=== PATIENT | female | born 1970 | race African-American/Black ===

== ENCOUNTER 2017-03-09 23:03 | Emergency (ER) | payer MEDICARE, MEDICAID ==
--- NOTE | 2017-03-09 23:20 | ER Document Report ---
ED Medical Screen (RME) - General Chief Complaint: Abdominal Pain Stated Complaint: ABDOMINAL PAIN Mode of Arrival: Medic Information source: Patient Notes: Patient complains of upper middle and right upper quadrant abdominal pain for the past 6 days. Patient denies any nausea, vomiting, or diarrhea. Last bowel movement was today. Patient denies any urinary symptoms or fever. 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 Small bowel obstruction with colostomy TRAVEL OUTSIDE OF THE [place] IN LAST 30 DAYS: No - Related Data Allergies/Adverse Reactions: methadone [Methadone] Allergy (Verified 08/03/15 09:36) Past Medical History - Past Medical History Cardiac Medical History: Reports: Hx Hypertension Neurological Medical History: Reports: Hx Cerebrovascular Accident - aneurysm Musculoskeltal Medical History: Reports Hx Arthritis, Reports Hx Musculoskeletal Trauma Past Surgical History: Reports: Hx Abdominal Surgery, Hx Section, Hx Neurologic Surgery - aneurysm clip, Hx Orthopedic Surgery - back surgery - Immunizations Hx Diphtheria, Pertussis, Tetanus Vaccination: Yes - unk Physical Exam - Abdominal Tenderness: Tender - Right upper quadrant, upper middle abdominal tenderness
[2017-03-09 23:21] VITALS: BP 117/71
== END 2017-03-10 02:53 | disposition left against medical advice (07) ==
LOC: ER 23:03
DX: R10.811 Right upper quadrant abdominal tenderness (principal); I69.951 Hemiplegia and hemiparesis following unspecified cerebrovascular disease affecting right dominant side; I10 Essential (primary) hypertension; Z88.6 Allergy status to analgesic agent
CPT/HCPCS: 99281

== ENCOUNTER 2018-03-21 05:13 | Day surgery (SDC) | payer MEDICARE, MEDICAID ==
[2018-03-14 10:15] LABS: ABSOLUTE BASOPHILS # (AUTO) 0.1 10^3/uL (0.0-0.2); ABSOLUTE LYMPHOCYTES (AUTO) 3.2 10^3/uL (0.5-4.7); ABSOLUTE MONOCYTES (AUTO) 0.4 10^3/uL (0.1-1.4); ABSOLUTE NEUT (AUTO) 3.7 10^3/uL (1.7-8.2); BASOPHILS % (AUTO) 1.2 % (0-2); EOSINOPHILS % (AUTO) 0.5 % (0-6); HEMATOCRIT 37.6 % (36.0-47.0); HEMOGLOBIN 12.7 g/dL (12.0-15.5); LYMPHOCYTES % (AUTO) 42.8 % (13-45); MEAN CORPUSCULAR HEMOGLOBIN 31.2 pg (27.0-33.4); MEAN CORPUSCULAR HGB CONC 33.7 g/dL (32.0-36.0); MEAN CORPUSCULAR VOLUME 93 fl (80-97); MONOCYTES % (AUTO) 5.6 % (3-13); PLATELET COUNT 256 10^3/uL (150-450); RED BLOOD COUNT 4.06 10^6/uL (3.72-5.28); RED CELL DISTRIBUTION WIDTH 15.7 % (11.5-14.0); SEGMENTED NEUTROPHILS % (AUTO) 49.9 % (42-78); TOTAL CELLS COUNTED % (AUTO) 100 %; WHITE BLOOD COUNT 7.4 10^3/uL (4.0-10.5)
--- NOTE | 2018-03-14 10:22 | RADIOLOGY REPORT (SQ) ---
EXAM DESCRIPTION: CHEST PA/LATERAL COMPLETED DATE/TIME: 03/14/2018 9:59 am REASON FOR STUDY: PRE OP COMPARISON: 04/03/2016 EXAM PARAMETERS: NUMBER OF VIEWS: two views TECHNIQUE: Digital Frontal and Lateral radiographic views of the chest acquired. RADIATION DOSE: NA LIMITATIONS: none FINDINGS: LUNGS AND PLEURA: No opacities, masses or pneumothorax. No pleural effusion. MEDIASTINUM AND HILAR STRUCTURES: No masses or contour abnormalities. HEART AND VASCULAR STRUCTURES: Heart normal size. No evidence for failure. BONES: No acute findings. HARDWARE: None in the chest. OTHER: No other significant finding. IMPRESSION: NO SIGNIFICANT RADIOGRAPHIC FINDING IN THE CHEST. TECHNICAL DOCUMENTATION: JOB ID: [id number] [email or web address]- All Rights Reserved Reading location - IP/workstation name: [email or web address]
[2018-03-14 10:44] LABS: ANION GAP 8 (5-19); BLOOD UREA NITROGEN 14 mg/dL (7-20); CALCIUM 9.7 mg/dL (8.4-10.2); CARBON DIOXIDE 28 mmol/L (22-30); CHLORIDE 107 mmol/L (98-107); GLUCOSE 80 mg/dL (75-110); POTASSIUM 4.6 mmol/L (3.6-5.0); SODIUM 143.3 mmol/L (137-145)
--- NOTE | 2018-03-14 13:40 | EKG REPORT ---
SEVERITY:- BORDERLINE ECG - SINUS RHYTHM PROBABLE LEFT ATRIAL ABNORMALITY ST ELEV, PROBABLE NORMAL EARLY REPOL PATTERN : Confirmed by: Danyel Meyers MD 14-Mar-2018 13:39:34
[~2018-03-21 05:13] MED LIST: LACTATED RINGERS 1000 ML IV PRN; LIDOCAINE 0.5% INJ-PF (5 MG/ML) 50 ML SDV SUBCUT PRN; METRONIDAZOLE 500 MG/NS RTU 100 ML IV PRN
[2018-03-21] MEDS ORDERED: BUPIVACAINE HCL 0.25 % INJ/PF (2.5 MG/1 ML) 30 ML VIAL ONE (06:41)
[2018-03-21] MEDS ORDERED: BUPIVACAINE HCL 0.5%-EPI 1:200000 INJ/PF 30 ML VIAL ONE (06:41)
[2018-03-21] MEDS ORDERED: MIDAZOLAM 2 MG/2 ML INJ ONE (07:18)
[2018-03-21] MEDS ORDERED: FENTANYL CITRATE INJ/PF 100 MCG/2 ML AMPUL ONE (07:18)
[2018-03-21] MEDS ORDERED: PROPOFOL INJ 200 MG/20 ML VIAL IV ONE (07:19)
[2018-03-21] MEDS ORDERED: ACETAMINOPHEN 100 ML IV ONE (07:19)
[2018-03-21] MEDS ORDERED: HYDROMORPHONE HCL INJ/PF 2 MG/ML AMPULE ONE (07:19)
[2018-03-21] MEDS ORDERED: BUPIVACAINE HCL 0.25 % INJ/PF (2.5 MG/1 ML) 30 ML VIAL INJ ONE ×2 (07:31)
[2018-03-21] MEDS ORDERED: DIPHENHYDRAMINE HCL 50 MG/ML VIAL IV PRN (08:02)
[2018-03-21] MEDS ORDERED: FENTANYL CITRATE INJ/PF 100 MCG/2 ML AMPUL IV PRN ×3 (08:02)
[2018-03-21] MEDS ORDERED: PROMETHAZINE HCL INJ 25 MG/1 ML VIAL IV PRN (08:02)
[2018-03-21] MEDS ORDERED: MEPERIDINE HCL/PF INJ 25 MG/1 ML DISP.SYRIN IV PRN (08:02)
[2018-03-21] MEDS ORDERED: MORPHINE SULFATE 10 MG/ML INJ IV PRN (08:02)
[2018-03-21] MEDS ORDERED: BACITRACIN ZINC OINTMENT 15 GM ONE (08:34)
[2018-03-21] MEDS ORDERED: LIDOCAINE 2% JELLY 30 ML TUBE ONE (08:35)
[2018-03-21] MEDS: FENTANYL CITRATE INJ/PF 100 MCG/2 ML AMPUL ONE ×2 (09:15→09:20)
--- NOTE | 2018-03-21 09:19 | Operative Report ---
Nonrecallable Operative Report DATE OF SURGERY: 03/21/18 PREOPERATIVE DIAGNOSIS: Enlarged, partially thrombosed internal and external hemorrhoids. POSTOPERATIVE DIAGNOSIS: Same as above OPERATION: 1. 2 column surgical hemorrhoidectomy (right posterior and left lateral columns). 2. Rubber band ligation of right anterior internal hemorrhoid column. SURGEON: SELINA ALLRED 1ST LEADITE WORKER: KAYLEE LOO ANESTHESIA: GA TISSUE REMOVED OR ALTERED: Left lateral and right posterior hemorrhoid columns COMPLICATIONS: None apparent ESTIMATED BLOOD LOSS: Minimal PROCEDURE: After informed consent was obtained, the patient was brought into the operating room and laid in the prone, jackknife position. Area of the rectum was prepped and draped in a normal sterile fashion. An anal block was created with quarter percent Marcaine. A Hill-Morales retractor was inserted after the anal block. The right posterior and left lateral columns were enlarged in the internal and external positions. There were enlarged right anterior internal hemorrhoids present as well. The left lateral and right posterior columns were noticeably worse than the right anterior column. Dissection was begun in the left lateral column. Left lateral column was excised using Bovie electrocautery. The resultant defect was closed using 3-0 chromic suture in simple running fashion. Great care was taken to reapproximate mucosa to mucosa , anoderm to anoderm, and skin to skin. Once this was completed, attention was turned to the right posterior column. In similar fashion, the right posterior column was excised using Bovie electrocautery. The defect was closed using 3-0 chromic suture in simple running fashion. Great care was taken to reapproximate mucosa to mucosa, skin to skin, and anoderm to anoderm. Next attention was turned to the right anterior column. The internal hemorrhoids were ligated using the rubber band ligation device. This was performed 1. After this was completed the Hill-Morales retractor was removed , and the procedure was concluded. All sponge, instrument, and needle counts were correct 2. Kaylee Loo PAC was scrubbed and present the entirety of the procedure. She assisted with all portions of the procedure including holding of the retractors, removing of the hemorrhoids, closing of the defect, placement of the rubber band, and placement of the dressing. Condition: Stable.
[2018-03-21] MEDS ORDERED: OXYCODONE HCL IR 5 MG TABLET ONE (10:00)
[2018-03-21] MEDS ORDERED: OXYCODONE-ACETAMINOPHEN 5-325 MG TABLET ONE (10:01)
[2018-03-21 11:23] VITALS: BP 134/81
[2018-03-21] MEDS ORDERED: GLYCOPYRROLATE INJ 0.4 MG/2 ML VIAL ONE (11:36)
[2018-03-21] MEDS ORDERED: NEOSTIGMINE METHYLSULFATE 10 MG/10 ML VIAL ONE (11:36)
[2018-03-21] MEDS ORDERED: ROCURONIUM BROMIDE INJ 50 MG/5 ML VIAL IV ONE (11:36)
[2018-03-21] MEDS ORDERED: PHENYLEPHRINE HCL INJ/PF 10 MG/1 ML SDV ONE (11:36)
[2018-03-21] MEDS ORDERED: LIDOCAINE 2% INJ-PF (20 MG/ML) 2 ML AMPUL ONE (11:36)
[2018-03-21] MEDS ORDERED: ONDANSETRON HCL INJ/PF 4 MG/2 ML SDV ONE (11:36)
[2018-03-21] MEDS ORDERED: DEXAMETHASONE SOD PHOSPHATE INJ 4 MG/1 ML VIAL ONE (11:36)
== END 2018-03-21 10:55 | disposition home or self-care (01) ==
LOC: OROUT 05:13
PROVIDERS: ATTEND Surgery
DX: K64.4 Residual hemorrhoidal skin tags (principal); K64.8 Other hemorrhoids; K62.5 Hemorrhage of anus and rectum; I10 Essential (primary) hypertension; E78.00 Pure hypercholesterolemia, unspecified; G47.30 Sleep apnea, unspecified; M19.90 Unspecified osteoarthritis, unspecified site; F17.210 Nicotine dependence, cigarettes, uncomplicated; Z79.899 Other long term (current) drug therapy; Z86.73 Personal history of transient ischemic attack (TIA), and cerebral infarction without residual deficits; Z01.818 Encounter for other preprocedural examination
CPT/HCPCS: 93005; 36415 ×2; 84132; 85025; 80048; 88305 ×2; 71046; 93010; 46260; J2250; J3490 ×3; J1100; J3010; A9270 ×2; J1170; J2370; J2405; J2704; J0131; 902

== ENCOUNTER → 2018-05-17 | Outpatient (CLI) | payer MEDICARE, MEDICAID | LOC: LAB 11:40 | PROVIDERS: ATTEND Nurse Practitioner Family | DX: M25.562 Pain in left knee (principal) | CPT/HCPCS: 36415; 85652; 86140; 86430 ==

== ENCOUNTER → 2018-06-21 | Outpatient (CLI) | payer MEDICARE, MEDICAID | LOC: LAB 13:58 | PROVIDERS: ATTEND Nurse Practitioner Family | DX: M25.562 Pain in left knee (principal) | CPT/HCPCS: 36415; 85652; 86140; 86430 ==

== ENCOUNTER 2018-09-25 18:30 | Emergency (ER) | payer MEDICARE, MEDICAID ==
--- NOTE | 2018-09-25 19:17 | ER Document Report ---
ED General - General Chief Complaint: Hand Pain Stated Complaint: FINGER ISSUE Time Seen by Provider: 09/25/18 19:16 Notes: Patient is a 48-year-old female that presents to the emergency department for chief complaint of finger infection. Patient states she is noticed over the last 3 days, that she has had swelling and redness on the left small finger. She states it is tender and painful, and she decided come to the emergency department to have this evaluated. She denies noting any fevers, chills, night sweats, nausea, vomiting abdominal pain, chest pain or any other complaints at this time. She currently rates her pain as a 3 out of 10, constant, dull ache, worse with palpation. Past Medical History: CVA, hypertension, hyperlipidemia Past Surgical History: Aneurysmal clipping Social History: Denies tobacco, alcohol or drug use Family History: Reviewed and noncontributory for presenting illness Allergies: Reviewed, see documented allergy list. REVIEW OF SYSTEMS: Other than noted above, the 12 point review of systems was reviewed with the patient and were negative, all pertinent findings are included in the HPI. PHYSICAL EXAMINATION: Vital signs reviewed, nursing noted reviewed. GENERAL: Well-appearing, well-nourished and in no acute distress. HEAD: Atraumatic, normocephalic. EYES: Eyes appear normal, extraocular movements intact, sclera anicteric, conjunctiva are normal. ENT: nares patent, oropharynx clear without exudates. Moist mucous membranes. NECK: Normal range of motion, supple without lymphadenopathy LUNGS: Breath sounds clear to auscultation bilaterally and equal. No wheezes rales or rhonchi. HEART: Regular rate and rhythm without murmurs ABDOMEN: Soft, nontender, normoactive bowel sounds. No rebound, guarding, or rigidity. No masses appreciated. EXTREMITIES: Nontender, good range of motion, no pitting or edema. The left fifth digit demonstrates a radial paronychia, tenderness with palpation, there is some fluctuance with palpation as well. Patient is able to passively extend her finger without pain, there is no fullness or tenderness over the pad of the finger. NEUROLOGICAL: Chronic right-sided neurological deficits, weakness and flexion contracture at the wrist on the right, and patient is fitted with a foot drop brace on the right leg. Sensation and strength, intact distally in the left upper and left lower extremity. PSYCH: Normal mood, normal affect. SKIN: Warm, Dry, normal turgor, no rashes or lesions noted on exposed skin TRAVEL OUTSIDE OF THE [place] IN LAST 30 DAYS: No - Related Data Allergies/Adverse Reactions: methadone [Methadone] Allergy (Verified 09/25/18 18:33) Past Medical History - Social History Smoking Status: Never Smoker Family History: None, Reviewed & Not Pertinent - Past Medical History Cardiac Medical History: Reports: Hx Hypertension Denies: Hx Coronary Artery Disease, Hx Heart Attack Pulmonary Medical History: Denies: Hx Asthma, Hx Bronchitis, Hx COPD, Hx Pneumonia Neurological Medical History: Reports: Hx Cerebrovascular Accident - 14YRS AGO AFFECTED RIGHT SIDE, ABLE TO AMBULATE. Denies: Hx Seizures Renal/ Medical History: Denies: Hx Peritoneal Dialysis Musculoskeletal Medical History: Reports Hx Arthritis - LEFT KNEE AND HAND, Reports Hx Musculoskeletal Trauma Past Surgical History: Reports: Hx Abdominal Surgery, Hx Section, Hx Neurologic Surgery - aneurysm clip, Hx Orthopedic Surgery - back surgery - Immunizations Hx Diphtheria, Pertussis, Tetanus Vaccination: Yes Physical Exam - Vital signs Vitals: Temp Pulse Resp BP Pulse Ox 98.0 F 76 20 142/82 H 98 09/25/18 18:46 09/25/18 18:46 09/25/18 18:46 09/25/18 18:46 09/25/18 18:46 Course - Re-evaluation Re-evalutation: Patient seen and examined vital signs reviewed. Patient was evaluated and treated as appropriate for the patient's presenting symptoms and complaint, with consideration of any critical or life threatening conditions that may be associated with their obtained history and exam as noted above. Patient was treated with incision and drainage of the paronychia as noted, patient tolerated well, given a dose of doxycycline. The patient was re-evaluated and was stable and improved Evaluation was most consistent with paronychia of the fifth digit of the left hand. Patient discharged on doxycycline, advised warm soapy soaks, at least 3 times daily for 20 minutes. Plan of care was discussed with the patient at this point, after careful consideration I feel that that patient can be discharged from the emergency department, the patient was educated treatments and reasons to return to the emergency department based on their presumed diagnosis as noted above, they were advised to followup with a primary care physician in 2-3 days. Patient was agreeable to plan of care. *Note is created using voice recognition software and may contain spelling, syntax or grammatical errors. - Vital Signs Vital signs: Temp Pulse Resp BP Pulse Ox 97.8 F 75 18 131/81 H 100 09/25/18 21:06 09/25/18 21:06 09/25/18 21:06 09/25/18 21:06 09/25/18 21:06 Procedures - Incision and Drainage Left 5th digit Type: Simple Anesthetic type: 1% Lidocaine mL's of anesthetic: 1 Blade size: 11 I&D procedure: Shurclens applied Incision Method: Incision made by scalpel Amount/type of drainage: 1ml Notes: Left medial paronychia, no complications, patient tolerated well. Discharge - Discharge Clinical Impression: Paronychia Condition: Stable Disposition: HOME, SELF-CARE Instructions: Paronychia ([facility]) Additional Instructions: Please soak your finger for 20 minutes 3-4 times daily in warm soapy water for the next 5-7 days. Take antibiotics as prescribed. Prescriptions: Doxycycline Hyclate 100 mg PO BID #14 capsule Referrals: RILEY VALVERDE MD [Primary Care Provider] - Follow up in 3-5 days
[2018-09-25] MEDS ORDERED: LIDOCAINE 1% INJ-PF (10 MG/ML) 30 ML SDV INJ ONE (19:52)
[2018-09-25 21:08] VITALS: BP 131/81
== END 2018-09-25 21:08 | disposition home or self-care (01) ==
LOC: ER 18:30
DX: L03.012 Cellulitis of left finger (principal); I10 Essential (primary) hypertension
CPT/HCPCS: 99283; 10060; J3490

== ENCOUNTER 2019-11-26 14:29 | Emergency (ER) | payer MEDICARE ==
--- NOTE | 2019-11-26 15:09 | ER Document Report ---
ED General - General Chief Complaint: Unresponsive Stated Complaint: UNRESPONSIVE/AMS Primary Care Provider: RILEY VALVERDE MD [Primary Care Provider] - Follow up as needed Information source: Relative, Emergency Med Personnel, [facility] Records Cannot obtain history due to: Altered mental status TRAVEL OUTSIDE OF THE [place] IN LAST 30 DAYS: No - HPI Notes: Brought in by EMS after family were worried because she had not been answering today. Last time they had seen her in been over the house was Sunday or 2 days ago. They said she seemed like she was not feeling well when I talked her on the phone yesterday. They said she had in the last days been complaining of some rectal bleeding. Per the notes she has a prior history of hemorrhoid ectomy, and very remote history of colectomy for unclear etiology per patient's history in the past. She also per EMS has a history of subarachnoid hemorrhage from an aneurysm unclear the timing. From that she has residual right upper extremity contracture and facial droop but is usually functional and independent lives at home. EMS say that when they found her she was in a chair breathing on her own her blood pressure was 40 over palp heart rate was in the 130s she was not responding to deep stimuli they achieved IV access in the foot and upper extremity and she received in route about 1100 cc LR and initiated Levophed through the foot IV. They said sugars were within normal limits and patient be angie to talk respond as blood pressure improved. And map increased from 50s to 60 and heart rate decreased to the 110s. They did not see any evidence of any bleeding - Related Data Allergies/Adverse Reactions: methadone [Methadone] Allergy (Verified 05/04/19 21:49) Past Medical History - Social History Smoking Status: Unknown if Ever Smoked Family History: None, Reviewed & Not Pertinent - Past Medical History Cardiac Medical History: Reports: Hx Hypertension Denies: Hx Coronary Artery Disease, Hx Heart Attack Pulmonary Medical History: Denies: Hx Asthma, Hx Bronchitis, Hx COPD, Hx Pneumonia Neurological Medical History: Reports: Hx Cerebrovascular Accident - 14YRS AGO AFFECTED RIGHT SIDE, ABLE TO AMBULATE. Denies: Hx Seizures Renal/ Medical History: Denies: Hx Peritoneal Dialysis Musculoskeletal Medical History: Reports Hx Arthritis - LEFT KNEE AND HAND, Reports Hx Musculoskeletal Trauma Past Surgical History: Reports: Hx Abdominal Surgery, Hx Section, Hx Neurologic Surgery - aneurysm clip, Hx Orthopedic Surgery - back surgery - Immunizations Hx Diphtheria, Pertussis, Tetanus Vaccination: Yes Review of Systems - Review of Systems -: Yes ROS unobtainable due to patient's medical condition Physical Exam - Vital signs Vitals: Pulse Ox 99 11/26/19 14:29 - General General appearance: Other - Lethargic, but arousable and can stay alert for time when you are talking to her. Mild tachypnea and SPO2 92% when on room air, appears unwell but no acute distress In distress: Mild - HEENT Head: Normocephalic, Atraumatic. No: Open wounds Eyes: No: Pale conjunctiva, Scleral icterus Conjunctiva: No: Injected Extraocular movements intact: Yes Pupils: PERRL Nerve palsy: Yes - Right-sided facial droop Visual tang normal: No - No gaze palsy unable to keep attention long enough to do finger counting no Tympanic membrane: No: Hemotympanum - No otorrhea or rhinorrhea Hearing loss: No: Left, Right Mouth/Lips: Normal Mucous membranes: Dry Pharynx: Normal. No: Potential airway comprom. Neck: Normal. No: Lymphadenopathy, Meningismus - Respiratory Respiratory status: Tachypnea - Very mild tachypnea when on room air, no distress on a few liters nasal cannula. Chest status: Nontender. No: Wounds Breath sounds: Decreased air movement - Overall decreased air movement no focal findings or wheeze rales rhonchi Chest palpation: Normal. No: Wounds - Cardiovascular Rhythm: Regular, Tachycardia Pulses: Decreased: Radial - 30 but 1+ symmetric bilateral radial and dorsalis pedis, Dorsalis pedis Normal capillary refill: No - Symmetric delayed by a second bilateral toes - Abdominal Inspection: Healed incision - Old well-healed midline laparotomy and prior colostomy scar site Tenderness: Tender - Intermittently does have some mild tenderness to deeper palpation in general abdomen without focality, no rebound guarding or acute abdomen no distention. No: Rebound Organomegaly: No organomegaly - Rectal Stool: Heme positive - Few external hemorrhoids appear non-thrombosed no tears or bleeding externally. On digital exam no internal masses or bright red blood brown soft stool is positive for occult testing - Genitourinary External exam: Other - No praneeth vaginal bleeding or bleeding per urethra, on Thornton insertion after hours being observed and not having peed had output of about 400 cc very dark semi-cloudy urine without praneeth clots or blood continues to have some minimal output over the next hour - Back Back: Nontender. No: CVA tenderness, Vertebra tenderness, Wounds - No evidence of any pressure skin breakdown. - Extremities General upper extremity: Normal inspection - No evidence of any pressure wounds, Normal temperature General lower extremity: Normal color, Normal temperature. No: Edema - Neurological Neuro grossly intact: No - Waxing and waning neuro exam over the hours in the ED. Cognition: Confused - Waxing and waning level of alertness. Perseverates some during conversations and then other periods answering questions with few word answers which are appropriate but loses attention quickly. Right upper extre mity flexion contracture (family report at baseline). Tone increased no clonus. Able to grasp hand at some point in the exam when able to pay attention. Resist gravity for few seconds on the left lower extremity and left upper extremity., Inattentive - Psychological Associated symptoms: Psychomotor depression. No: Irritable, Psychomotor agitation, Uncooperative - Skin Skin Temperature: Warm Skin Moisture: Dry Course - Re-evaluation Re-evalutation: 11/26/19 23:07 Patient received 1/2 L LR and had been started on 6 Levophed through her foot IV per EMS. Her blood pressures had improved from 40 systolic to maps now on ar rival at 60. We kept Levophed at 6 and started liter of LR. Over the course of the ED stay here she received another 2 L of LR which makes her total fluid intake from EMS and [facility] 3.5 L LR. She is urinated per Thornton about 400 cc of dark urine her kidneys are not failure BUN 80. Potassium within normal limits. EKG reviewed per above. She has evidence of significant pyuria positive leukocyte esterase, blood in the urine. Her blood pressures have improved but she still overall very dehydrated ICU provider, [employer], did bedside ultrasound assess volume status IVC very compressible and heart appears to be having good contractility her heart rate is improved to about 110s and her map has been fairly stable at 70. I just ordered another liter of LR prior to her transfer. Spoke with the ICU attending and urology at [facility] and who have accepted. Have given ceftriaxone sent the urine culture off blood cultures have been sent off for any antibiotics started. She did have a positive occult blood test on her rectal exam no praneeth bladder evidence of bleeding. Had a gram drop in her hemoglobin today when she arrived she was very hypertensive compared to prior which was not in renal failure. But she is not had evidence process of blood in her minimal urine urine output while she has been in the ED to suggest acute blood loss. (She had complained the family in the days prior when they were talking to her about some rectal bleeding secondary to her known hemorrhoids. 11/26/19 23:11 - Vital Signs Vital signs: Temp Pulse Resp BP Pulse Ox 98.7 F 16 87/50 L 97 11/26/19 22:51 11/26/19 22:51 11/26/19 22:51 11/26/19 22:51 - Laboratory Result Diagrams: 11/26/19 20:00 11/26/19 20:00 Laboratory results interpreted by me: 11/26/19 11/26/19 11/26/19 15:04 15:04 15:04 RBC 3.57 L Hgb 11.4 L Hct 34.9 L MCV 98 H MCH RDW 14.5 H Band Neutrophils % 9 H Lymphocytes % (Manual) Monocytes % (Manual) Abs Monocytes (Manual) PT APTT VBG pH 7.20 L VBG HCO3 15.9 L Sodium Chloride Carbon Dioxide Anion Gap BUN Creatinine Est GFR ( Amer) Est GFR (MDRD) Non-Af Lactic Acid 5.2 H Calcium Ionized Calcium Judson Phosphorus Direct Bilirubin AST Total Protein Albumin TSH Free T3 pg/mL Urine Protein Urine Blood Leukocyte Esterase Rfl 11/26/19 11/26/19 11/26/19 16:55 16:55 16:55 RBC Hgb Hct MCV MCH RDW Band Neutrophils % Lymphocytes % (Manual) Monocytes % (Manual) Abs Monocytes (Manual) PT 18.8 H APTT 41.7 H VBG pH VBG HCO3 Sodium 136.4 L Chloride 97 L Carbon Dioxide 16 L Anion Gap 23 H BUN 85 H Creatinine 7.96 H Est GFR ( Amer) 6 L Est GFR (MDRD) Non-Af 5 L Lactic Acid Calcium 6.9 L* Ionized Calcium Judson Phosphorus Direct Bilirubin 0.8 H AST 383 H Total Protein 5.8 L Albumin 2.8 L TSH 0.25 L Free T3 pg/mL Urine Protein Urine Blood Leukocyte Esterase Rfl 11/26/19 11/26/19 11/26/19 18:38 19:56 20:00 RBC 3.55 L Hgb Hct 34.6 L MCV 98 H MCH 34.1 H RDW 14.4 H Band Neutrophils % 15 H Lymphocytes % (Manual) 7 L Monocytes % (Manual) 21 H Abs Monocytes (Manual) 1.8 H PT APTT VBG pH VBG HCO3 Sodium Chloride Carbon Dioxide Anion Gap BUN Creatinine Est GFR ( Amer) Est GFR (MDRD) Non-Af Lactic Acid 2.8 H Calcium Ionized Calcium Judson Phosphorus Direct Bilirubin AST Total Protein Albumin TSH Free T3 pg/mL Urine Protein 100 H Urine Blood LARGE H Leukocyte Esterase Rfl MODERATE H 11/26/19 11/26/19 11/26/19 20:00 20:00 21:40 RBC Hgb Hct MCV MCH RDW Band Neutrophils % Lymphocytes % (Manual) Monocytes % (Manual) Abs Monocytes (Manual) PT APTT VBG pH VBG HCO3 Sodium 135.6 L Chloride 95 L Carbon Dioxide 16 L Anion Gap 25 H BUN 92 H Creatinine 8.53 H Est GFR ( Amer) 6 L Est GFR (MDRD) Non-Af 5 L Lactic Acid 2.4 H Calcium 6.9 L* Ionized Calcium Judson Phosphorus 10.6 H Direct Bilirubin AST Total Protein Albumin TSH Free T3 pg/mL 2.70 L Urine Protein Urine Blood Leukocyte Esterase Rfl 11/26/19 21:40 RBC Hgb Hct MCV MCH RDW Band Neutrophils % Lymphocytes % (Manual) Monocytes % (Manual) Abs Monocytes (Manual) PT APTT VBG pH VBG HCO3 Sodium Chloride Carbon Dioxide Anion Gap BUN Creatinine Est GFR ( Amer) Est GFR (MDRD) Non-Af Lactic Acid Calcium Ionized Calcium Judson 0.86 L Phosphorus Direct Bilirubin AST Total Protein Albumin TSH Free T3 pg/mL Urine Protein Urine Blood Leukocyte Esterase Rfl - Diagnostic Test Radiology reviewed: Image reviewed - Reviewed patient's head CT CT chest and abdomen pelvis non-contrast. She has some dilation of the large and small bowel with old suture line at the rectosigmoid junction consistent with history, bladder wall has significant amount of air throughout and evidence of cystitis. No evidence of bowel obstruction or any volvulus or other pneumoperitoneum., Reports reviewed - EKG Interpretation by Me Additional EKG results interpreted by me: Sinus tachycardia on arrival compared to EKG 12-lead. There is no T wave or ST elevation or depression or QRS or QTC derangements. Voltage within normal limits no change from our prior EKG. Fletcher within normal limits. Procedures - Central Line Right Internal jugular Time completed: 16:45 Consent obtained: Yes Central line pre-insertion: Sterile PPE donned, Chloraprep applied - x3 then allowed to dry Central line lumen type: Triple Anesthetic type: 1% Lidocaine Ultrasound guided: Yes CM at insertion site: 14 - after initially at 19' pulled back Line secured with sutures: Yes Central line post-insertion: Blood return from lumens, Biopatch applied, Sutured, Sterile dressing applied, Position confirmed w/ CXR Number of attempts: 1 - pulled out 5cm s/p cxr Complications: No Critical Care Note - Critical Care Note Total time excluding time spent on procedures (mins): 240 Discharge - Discharge Clinical Impression: Septic shock, Emphysematous cystitis, Delirium due to another medical condition Altered mental status Qualifiers: Altered mental status type: transient alteration of awareness Qualified Code(s): R40.4 - Transient alteration of awareness Acute renal failure Qualifiers: Acute renal failure type: unspecified Qualified Code(s): N17.9 - Acute kidney failure, unspecified Condition: Critical Disposition: [facility] Admitted: ICU Referrals: RILEY VALVERDE MD [Primary Care Provider] - Follow up as needed
[2019-11-26] MEDS ORDERED: DEXTROSE 5%-WATER 250 ML with NOREPINEPHRINE BITARTRATE 4 MG IV PRN ×2 (15:20)
[2019-11-26] MEDS ORDERED: RINGERS SOLUTION,LACTATED 1,000 ML IV ONE ×2 (15:21→22:02)
[2019-11-26 15:31] LABS: VENOUS BLOOD BASE EXCESS -11.6 mmol/L; VENOUS BLOOD HCO3 15.9 mmol/L (20-32); VENOUS BLOOD PCO2 41.7 mmHg (35-63); VENOUS BLOOD PH 7.2 (7.30-7.42)
--- NOTE | 2019-11-26 15:46 | RADIOLOGY REPORT (SQ) ---
EXAM DESCRIPTION: CHEST SINGLE VIEW COMPLETED DATE/TIME: 11/26/2019 3:33 pm REASON FOR STUDY: unresponsive COMPARISON: None. EXAM PARAMETERS: NUMBER OF VIEWS: One view. TECHNIQUE: An AP view of the chest was obtained. RADIATION DOSE: NA LIMITATIONS: None. FINDINGS: LUNGS AND PLEURA: Low inspiratory lung volumes without an acute consolidation, pleural eff usion or pneumothorax. MEDIASTINUM AND HILAR STRUCTURES: No mediastinal or hilar contour abnormality. HEART AND VASCULAR STRUCTURES: The cardiac silhouette and pulmonary vasculature are within normal encinas its. BONES: No acute findings. HARDWARE: None in the chest. OTHER: No other finding. IMPRESSION: Low inspiratory lung volumes without a superimposed acute cardiopulmonary process. TECHNICAL DOCUMENTATION: JOB ID: [id number] [employer]- All Rights Reserved Reading location - IP/workstation name: [email or web address]
[2019-11-26 15:55] LABS: HEMATOCRIT 34.9 % (36.0-47.0); HEMOGLOBIN 11.4 g/dL (12.0-15.5); MEAN CORPUSCULAR HEMOGLOBIN 32.1 pg (27.0-33.4); MEAN CORPUSCULAR HGB CONC 32.8 g/dL (32.0-36.0); MEAN CORPUSCULAR VOLUME 98 fl (80-97); PLATELET COUNT 244 10^3/uL (150-450); RED BLOOD COUNT 3.57 10^6/uL (3.72-5.28); RED CELL DISTRIBUTION WIDTH 14.5 % (11.5-14.0); WHITE BLOOD COUNT 9.6 10^3/uL (4.0-10.5)
[2019-11-26 16:21] LABS: ABSOLUTE LYMPHOCYTES# (MANUAL) 1.3 10^3/uL (0.5-4.7); ABSOLUTE MONOCYTES # (MANUAL) 1.2 10^3/uL (0.1-1.4); ANISOCYTOSIS SLIGHT; BAND NEUTROPHILS % (MANUAL) 9 % (3-5); BASOPHILS % (MANUAL) 0 % (0-2); EOSINOPHILS % (MANUAL) 0 % (0-6); LYMPHOCYTES % (MANUAL) 14 % (13-45); MONOCYTES % (MANUAL) 12 % (3-13); SEGMENTED NEUTROPHILS % (MAN) 65 % (42-78); TOTAL CELLS COUNTED 100
[2019-11-26 16:22] LABS: PLATELET COMMENT ADEQUATE
[2019-11-26 17:21] LABS: INTERNATIONAL RATION (INR) 1.56; PROTHROMBIN TIME 18.8 SEC (11.4-15.4)
[2019-11-26 17:22] LABS: PARTIAL THROMBOPLASTIN TIME 41.7 SEC (23.5-35.8)
--- NOTE | 2019-11-26 17:25 | RADIOLOGY REPORT (SQ) ---
EXAM DESCRIPTION: CT HEAD WITHOUT COMPLETED DATE/TIME: 11/26/2019 5:14 pm REASON FOR STUDY: flaccid R side COMPARISON: 11/28/2015 TECHNIQUE: Axial images acquired through the brain without intravenous contrast. Images reviewed wi th bone, brain and subdural windows. Additional sagittal and coronal reconstructions were generated. Images stored on PACS. All CT scanners at this facility use dose modulation, iterative reconstruction, and/or weight based d osing when appropriate to reduce radiation dose to as low as reasonably achievable (ALARA). [facility]: Dose Right [facility]: CareDose [facility]: Dose Right [facility]: Teradose 4D [facility]: Smart [employer] RADIATION DOSE: CT Rad equipment meets quality standard of care and radiation dose reduction techniq ues were employed. CTDIvol: 53.2 mGy. DLP: 1097 mGy-cm. mGy. LIMITATIONS: None. FINDINGS: VENTRICLES: Ex vacuo enlargement of the left lateral ventricle. CEREBRUM: No masses. No hemorrhage. No midline shift. Large area of encephalomalacia in the left f rontal lobe. No evidence for acute infarction. Aneurysm clips on the left. Normal hanna/white matter differentiation. No areas of low density in the white matter. CEREBELLUM: No masses. No hemorrhage. No alteration of density. No evidence for acute infarction. EXTRAAXIAL SPACES: No fluid collections. No masses. ORBITS AND GLOBE: No intra- or extraconal masses. Normal contour of globe without masses. CALVARIUM: Craniotomy changes in the left frontal region. PARANASAL SINUSES: No fluid or mucosal thickening. SOFT TISSUES: No mass or hematoma. OTHER: No other significant finding. IMPRESSION: Encephalomalacia in the left frontal lobe with surgical changes. No acute intracranial imaging finding. EVIDENCE OF ACUTE STROKE: NO. COMMENT: Quality ID # 436: Final reports with documentation of one or more dose reduction techniques (e.g., Automated exposure control, adjustment of the mA and/or kV according to patient size, use of iterative reconstruction technique) TECHNICAL DOCUMENTATION: JOB ID: [id number] [employer]- All Rights Reserved Reading location - IP/workstation name: [email or web address]
[2019-11-26 17:34] LABS: ALBUMIN 2.8 g/dL (3.5-5.0); ALKALINE PHOSPHATASE 86 U/L (38-126); ASPARTATE AMINO TRANSFERASE 383 U/L (14-36); BILIRUBIN,DIRECT 0.8 mg/dL (0.0-0.4); BILIRUBIN,TOTAL 0.8 mg/dL (0.2-1.3); BLOOD UREA NITROGEN 85 mg/dL (7-20); CARBON DIOXIDE 16 mmol/L (22-30); CHLORIDE 97 mmol/L (98-107); GLUCOSE 79 mg/dL (75-110); POTASSIUM 3.8 mmol/L (3.6-5.0); TOTAL PROTEIN 5.8 g/dL (6.3-8.2)
[2019-11-26 17:46] LABS: ANION GAP 23 (5-19)
[2019-11-26 17:47] LABS: CALCIUM 6.9 mg/dL (8.4-10.2)
--- NOTE | 2019-11-26 17:53 | RADIOLOGY REPORT (SQ) ---
EXAM DESCRIPTION: CHEST SINGLE VIEW COMPLETED DATE/TIME: 11/26/2019 5:17 pm REASON FOR STUDY: confirm CVC position in R IJ COMPARISON: None. EXAM PARAMETERS: NUMBER OF VIEWS: One view. TECHNIQUE: Single frontal radiographic view of the chest acquired. RADIATION DOSE: NA LIMITATIONS: None. FINDINGS: LUNGS AND PLEURA: No opacities, masses or pneumothorax. No pleural effusion. MEDIASTINUM AND HILAR STRUCTURES: No masses. Contour normal. HEART AND VASCULAR STRUCTURES: Cardiomegaly. No praneeth pulmonary edema. BONES: No acute findings. HARDWARE: There is a right internal jugular catheter with the tip in the region of the inferior vena cava near the right atrium. OTHER: No other significant finding. IMPRESSION: Cardiomegaly without praneeth pulmonary edema. Right internal jugular catheter position as described. TECHNICAL DOCUMENTATION: JOB ID: [id number] [employer]- All Rights Reserved Reading location - IP/workstation name: [email or web address]
[2019-11-26] MEDS ORDERED: RINGERS SOLUTION,LACTATED 500 ML IV ONE ×2 (19:06→21:33)
[2019-11-26] MEDS ORDERED: NOREPINEPHRINE BITARTRATE INJ/PF 4 MG/4 ML SDV IV ONE (19:08)
[2019-11-26] MEDS ORDERED: CEFTRIAXONE 1 GM/D5W RTU 1 GM/50 ML RTUPB IV ONE (19:22)
--- NOTE | 2019-11-26 20:16 | RADIOLOGY REPORT (SQ) ---
EXAM DESCRIPTION: CT ABD/PELVIS NO ORAL OR IV; CT CHEST WITHOUT COMPLETED DATE/TIME: 11/26/2019 7:37 pm REASON FOR STUDY: hypotension ttp abd; hypotension COMPARISON: None. TECHNIQUE: CT scan of the chest performed without intravenous contrast using helical scanning techni que. Images reviewed with lung, soft tissue and bone windows. Reconstructed coronal and sagittal MPR images reviewed. All images stored on PACS. All CT scanners at this facility use dose modulation, iterative reconstruction, and/or weight based d osing when appropriate to reduce radiation dose to as low as reasonably achievable (ALARA). [facility]: Dose Right [facility]: CareDose [facility]: Dose Right [facility]: Mobile Card 4D [facility]: Start[employer] RADIATION DOSE: CT Rad equipment meets quality standard of care and radiation dose reduction techniq ues were employed. CTDIvol: 13.9 mGy. DLP: 925 mGy-cm. mGy. LIMITATIONS: No technical limitations. FINDINGS: AXILLAE: No adenopathy. CHEST WALL: No masses. No subcutaneous air. LUNGS: There is mild dependent atelectasis. No acute infiltrate or effusion. No mass. PLEURA: No effusions. No calcifications. THYROID: No masses or significant asymmetry. HILAR AND MEDIASTINAL STRUCTURES: No identified masses or abnormal nodes. AORTA AND GREAT VESSELS: No aneurysm. HEART: There is a pericardial effusion that has a maximum depth of 12.5 mm posteriorly on the left. HARDWARE AND LIFELINES: Right internal jugular catheter. BONES: No significant finding. OTHER: No other significant finding. IMPRESSION: Mild dependent atelectasis. Small pericardial effusion. No acute pulmonary findings. COMPARISON: None. TECHNIQUE: CT scan of the abdomen and pelvis performed without intravenous contrast and withoutoral contrast using helical scanning technique with dynamic intravenous contrast injection. Images review ed with lung, soft tissue and bone windows. Reconstructed coronal and sagittal MPR images reviewed. All images stored on PACS. All CT scanners at this facility use dose modulation, iterative reconstruction, and/or weight based d osing when appropriate to reduce radiation dose to as low as reasonably achievable (ALARA). [facility]: Dose Right [facility]: SureCare [facility]: Dose Right [facility]: Teradose 4D [facility]: Smart Technologies RADIATION DOSE: CT Rad equipment meets quality standard of care and radiation dose reduction techniq ues were employed. CTDIvol: 13.9 mGy. DLP: 925 mGy-cm. mGy. LIMITATIONS: None. FINDINGS: LIVER: Normal size. No masses. No dilated ducts. SPLEEN: Normal size. No focal lesions. PANCREAS: No pancreatic mass. The common bile duct appears to be dilated. GALLBLADDER: The gallbladder is distended. No gallstones are seen. ADRENAL GLANDS: No significant masses or asymmetry. RIGHT KIDNEY AND URETER: No solid masses. Assessment limited by lack of IV contrast. No significant calcifications. No hydronephrosis or hydroureter. LEFT KIDNEY AND URETER: No solid masses. Assessment limited by lack of IV contrast. No significant calcifications. No hydronephrosis or hydroureter. AORTA AND VESSELS: No aneurysm. RETROPERITONEUM: No retroperitoneal adenopathy, hemorrhage or masses. APPENDIX: Not identified. LARGE AND SMALL BOWEL: There are fluid-filled mildly distended loops of small bowel throughout the ab domen. There is mild distention of the colon. There are some mesenteric lymph nodes to the right of the midline. Radiopaque suture is seen near the rectosigmoid junction. ABDOMINAL WALL: No hernia or masses. PERITONEAL CAVITY: No free air. No free fluid. No peritoneal implants or masses. PELVIS: There is large amount of air in the wall of the urinary bladder. BONES: No significant or acute findings. OTHER: No other significant finding. IMPRESSION: 1. Interstitial cystitis. 2. Mildly distended small and large bowel loops. Ileus versus distal bowel obstruction. Finding 1. Above suggests that this may represent ileus. 3. The gallbladder is distended. There appears to be dilatation of the common bile duct. COMMENT: Pertinent findings on the imaging study reported as a CRITICAL RESULT to MARIAMA EARL MD at2 0:11 on 11/26/2019. Category of Critical Result: Possible bowel obstruction. Interstitial cystitis. TECHNICAL DOCUMENTATION: JOB ID: [id number] Quality ID # [id number]: Final reports with documentation of one or more dose reduction techniques (e.g., Au tomated exposure control, adjustment of the mA and/or kV according to patient size, use of iterative reconstruction technique) 2010 [employer]- All Rights Reserved Reading location - IP/workstation name: [email or web address]
[2019-11-26 20:46] LABS: APPEARANCE,URINE CLOUDY; BILIRUBIN,URINE NEGATIVE (NEGATIVE); COLOR,URINE AMBER; GLUCOSE, URINE NEGATIVE (NEGATIVE); KETONES,URINE NEGATIVE (NEGATIVE); PROTEIN,URINE 100 mg/dL (NEGATIVE); URINE SPECIFIC GRAVITY 1.024; UROBILINOGEN,URINE NEGATIVE mg/dL (<2.0)
[2019-11-26 20:49] LABS: HEMATOCRIT 34.6 % (36.0-47.0); HEMOGLOBIN 12.1 g/dL (12.0-15.5); MEAN CORPUSCULAR HEMOGLOBIN 34.1 pg (27.0-33.4); MEAN CORPUSCULAR HGB CONC 34.9 g/dL (32.0-36.0); MEAN CORPUSCULAR VOLUME 98 fl (80-97); PLATELET COUNT 213 10^3/uL (150-450); RED BLOOD COUNT 3.55 10^6/uL (3.72-5.28); RED CELL DISTRIBUTION WIDTH 14.4 % (11.5-14.0); WHITE BLOOD COUNT 8.8 10^3/uL (4.0-10.5)
[2019-11-26 21:01] LABS: BLOOD UREA NITROGEN 92 mg/dL (7-20); GLUCOSE 84 mg/dL (75-110); POTASSIUM 3.8 mmol/L (3.6-5.0)
[2019-11-26 21:07] LABS: CARBON DIOXIDE 16 mmol/L (22-30); CHLORIDE 95 mmol/L (98-107)
[2019-11-26 21:16] LABS: ANION GAP 25 (5-19); CALCIUM 6.9 mg/dL (8.4-10.2); FREE T3 2.7 pg/mL (2.77-5.27); FREE T4 (FREE THYROXINE) 1.65 ng/dL (0.78-2.19); PHOSPHORUS 10.6 mg/dL (2.5-4.5)
[2019-11-26 21:28] LABS: ABSOLUTE LYMPHOCYTES# (MANUAL) 0.6 10^3/uL (0.5-4.7); ABSOLUTE MONOCYTES # (MANUAL) 1.8 10^3/uL (0.1-1.4); ANISOCYTOSIS SLIGHT; BASOPHILS % (MANUAL) 0 % (0-2); EOSINOPHILS % (MANUAL) 0 % (0-6); LYMPHOCYTES % (MANUAL) 7 % (13-45); MONOCYTES % (MANUAL) 21 % (3-13); SEGMENTED NEUTROPHILS % (MAN) 57 % (42-78); TOTAL CELLS COUNTED 100
[2019-11-26 21:30] LABS: BAND NEUTROPHILS % (MANUAL) 15 % (3-5); PLATELET COMMENT ADEQUATE
[2019-11-26 22:55] VITALS: BP 87/50
--- NOTE | 2019-11-27 08:07 | Progress Note ---
<ARCEYUNIOR - Last Filed: 11/27/19 08:05> Provider Note Provider Note: HPI: 49 year-old female with Hx remote SAH 2/2 cerebral aneurysm s/p clipping, HTN, and colectomy with colostomy reversal who was last seen normal a few days ago by family and was subsequently found unresponsive, hypotensive, with a manual SBP of 40 and HR 130s during a wellness check by EMS. She was given 1.1L of crystalloid solution and started on Norepinephrine infusion en route, for which her mental status began improving as BP increased. Family reports patient recently reported rectal bleeding to them. Mrs Sneed was noted to have ROSALES and shock on presentation to [facility]. Dr David requested ICU team to evaluate patient for hemodynamic instability and ROSALES. Physical exam: Neuro: lethargic, though improved from MS upon arrival, awakens to voice, follows commands Pulm: CTA bilaterally, no adventitious sounds CV: S1S2 no M/R/G, on 6 mcg/min of Norepinephrine, R IJ CVC, cap refill <3 sec GI: bilateral upper quadrant abdominal tenderness to palpation : Estevez in place dark brownish-red appearance and sediment MSK: contracted RUE with facial droop from remote CVA Imaging: CT with emphysematous interstitial cystitis for which patient will likely need Urology consultation/management. Also appears the cystitis may have contributed to an ileus for which the stomach is also grossly dilated with gastric contents. I personally performed a bedside POCUS assessing volume status and cardiac contractility which revealed the patient's ventricles as well as IVC are completely collapsed indicating the patient is profoundly hypovolemic at this time. Bilateral ventricular contractility strong and concentric with no s ignificant wall motion abnormalities. Recommendations: -Aggressive hydration with IV fluids; would start maintenance and administer 1L bolus now. -Serial BMP to monitor for hyperkalemia, BUN/Cr. -Monitor need to flush estevez due to sediment-discussed with RN at bedside. -Anticipate lactic acid will clear once adequate hydration achieved. -Anticipate Norepinephrine infusion requirements will significantly decrease with resolution of hypovolemia and antibiotics for UTI/cystitis. -Check ionized Ca+ & replete if <1; add free T3/T4 to TSH I have discussed the possibility of need for intubation at some point due to the need for aggressive fluid resuscitation with the patient, her , and her two daughters for which they are in agreement if it comes to that. I also mentioned that if the patient becomes nauseated or vomits, she may need a temporary NG tube to decompress the stomach decreasing her risk of aspiration. I have discussed the above with Dr David whom just spoke to [facility] facilitating transfer for Urology service given the emphysematous interstitial cystitis. Please do not hesitate to call ICU team for further assistance in management if the patient is unable to obtain a bed at [facility] or condition worsens as we are certainly happy to participate in the ongoing care of Mrs Sneed. <CAROL COLLADO - Last Filed: 11/27/19 21:30> Provider Note Provider Note: Discussed case and care as well as findings with DREW Arce. Grateful for his assistance to the patient and ED staff
--- NOTE | 2019-11-27 09:29 | EKG REPORT ---
SEVERITY:- ABNORMAL ECG - SINUS TACHYCARDIA VENTRICULAR PREMATURE COMPLEX EFREN, CONSIDER BIATRIAL ABNORMALITIES : Confirmed by: Dionte Saul 27-Nov-2019 09:28:46
[2019-11-27 12:30] LABS: PATH REVIEW PATHOLOGIST REVIEWED
[2019-11-27] MEDS ORDERED: METRONIDAZOLE 500 MG/NS RTU 500 MG/100 ML RTUPB IV ONE (19:25)
== END 2019-11-26 23:05 | disposition short-term general hospital (02) ==
LOC: ER 14:29
DX: R65.21 Severe sepsis with septic shock (principal); N30.80 Other cystitis without hematuria; R40.4 Transient alteration of awareness; F05 Delirium due to known physiological condition; K62.5 Hemorrhage of anus and rectum; R06.82 Tachypnea, not elsewhere classified; R00.0 Tachycardia, unspecified; I10 Essential (primary) hypertension
CPT/HCPCS: 93005; 99291; 99292; 96361; 51702; 96365; 96366; 96368; 36415; 87040; 87086; 84439; 82962; 83605; 83735; 84100; 84443; 85025; 85610; 85730; 87088; 80053; 81001; 84484; 87186; 84481; 82803; 82330; 71045; 70450; 71250; 74176; 93010; C1751; J3490; J7060; J7120; J0696

== ENCOUNTER 2020-08-28 21:29 | Emergency (ER) | payer MEDICARE ==
--- NOTE | 2020-08-28 21:43 | ER Document Report ---
ED Medical Screen (RME) - General Stated Complaint: COLNOSCPY LEAK Time Seen by Provider: 08/28/20 21:37 Primary Care Provider: RILEY VALVERDE MD [Primary Care Provider] - Follow up as needed Mode of Arrival: Wheelchair Information source: Patient, Relative Notes: HPI; 50-year-old female presents to the emergency room with her sister complaining of leaking around her colostomy bag which she states is been ongoing since November. Patient was just discharged from a hospital in [place] today and was brought here by other family members. States she supposed be getting TPN but the family did not send her TPN with her. States the colostomy issue has been ongoing. PE: Alert and oriented x3. Mild distress noted. Lungs: Clear to auscultation without rales, rhonchi, wheezes. There is active drainage noted around the colostomy site. Heart tachycardic without murmurs, rubs, gallops. I have greeted and performed a rapid initial assessment of this patient. A comprehensive ED assessment and evaluation of the patient, analysis of test results and completion of the medical decision making process will be conducted by additional ED providers. I have specifically instructed the patient or family members with the patient to immediately return to any nursing staff should anything change in the patient's condition or with their chief complaint. TRAVEL OUTSIDE OF THE [place] IN LAST 30 DAYS: No - Related Data Allergies/Adverse Reactions: methadone [Methadone] Allergy (Verified 05/04/19 21:49) Penicillins Allergy (Verified 08/28/20 21:44) Past Medical History - Past Medical History Cardiac Medical History: Reports: Hx Hypertension Denies: Hx Coronary Artery Disease, Hx Heart Attack Pulmonary Medical History: Denies: Hx Asthma, Hx Bronchitis, Hx COPD, Hx Pneumonia Neurological Medical History: Reports: Hx Cerebrovascular Accident - 14YRS AGO AFFECTED RIGHT SIDE, ABLE TO AMBULATE. Denies: Hx Seizures Renal/ Medical History: Denies: Hx Peritoneal Dialysis Musculoskeltal Medical History: Reports Hx Arthritis - LEFT KNEE AND HAND, Reports Hx Musculoskeletal Trauma Past Surgical History: Reports: Hx Abdominal Surgery, Hx Section, Hx Neurologic Surgery - aneurysm clip, Hx Orthopedic Surgery - back surgery - Immunizations Hx Diphtheria, Pertussis, Tetanus Vaccination: Yes Physical Exam - Vital signs Vitals: Temp 98.9 F 10/10/20 21:37 Course - Vital Signs Vital signs: Temp Pulse Resp BP Pulse Ox 98.9 F 08/28/20 21:37 Doctor's Discharge - Discharge Referrals: RILEY VALVERDE MD [Primary Care Provider] - Follow up as needed
[2020-08-28] MEDS ORDERED: ONDANSETRON HCL INJ/PF 4 MG/2 ML SDV IV ONE (22:38)
--- NOTE | 2020-08-28 22:39 | ER Document Report ---
ED General - General Chief Complaint: colostomy leaking Stated Complaint: COLNOSCPY LEAK Time Seen by Provider: 08/28/20 21:37 Primary Care Provider: RILEY VALVERDE MD [Primary Care Provider] - Follow up as needed Mode of Arrival: Wheelchair Notes: Patient is a 50-year-old female that comes emergency department for chief complaint of her colostomy bag leaking, having no TPN available to her, generalized weakness, and intermittent abdominal discomfort with nausea. Brother is at bedside, he states that patient is currently living with her daughter in [place], he states that there have been concerns about patient not getting any good care and patient being left at home by herself for a long time, he states that his sister actually picked the patient up, brought her to him, and he brought her back here with him. As result he does not have any of her TPN (she currently has a subclavian port for this), and he does not have supplies to care for her colostomy bag at this point. Patient states that she had a "bad bowel infection" had a large portion of her bowel removed, has a col ostomy bag (and also a second ostomy bag that patient is unsure of the location for), she states she was hospitalized for months this year in [place] already, however she also states that she still follows with local provider Dr. Valverde. TRAVEL OUTSIDE OF THE [place] IN LAST 30 DAYS: No - Related Data Allergies/Adverse Reactions: methadone [Methadone] Allergy (Verified 05/04/19 21:49) Penicillins Allergy (Verified 08/28/20 21:44) Past Medical History - General Information source: Patient, Relative - Social History Smoking Status: Never Smoker Chew tobacco use (# tins/day): No Frequency of alcohol use: None Drug Abuse: None Lives with: Family Family History: None, Reviewed & Not Pertinent Patient has homicidal ideation: No - Past Medical History Cardiac Medical History: Reports: Hx Hypertension Denies: Hx Coronary Artery Disease, Hx Heart Attack Pulmonary Medical History: Denies: Hx Asthma, Hx Bronchitis, Hx COPD, Hx Pneumonia Neurological Medical History: Reports: Hx Cerebrovascular Accident - 14YRS AGO AFFECTED RIGHT SIDE, ABLE TO AMBULATE. Denies: Hx Seizures Renal/ Medical History: Denies: Hx Peritoneal Dialysis Musculoskeletal Medical History: Reports Hx Arthritis - LEFT KNEE AND HAND, Reports Hx Musculoskeletal Trauma Past Surgical History: Reports: Hx Abdominal Surgery, Hx Section, Hx Neurologic Surgery - aneurysm clip, Hx Orthopedic Surgery - back surgery - Immunizations Hx Diphtheria, Pertussis, Tetanus Vaccination: Yes Review of Systems - Review of Systems Constitutional: No symptoms reported EENT: No symptoms reported Cardiovascular: No symptoms reported Respiratory: No symptoms reported Gastrointestinal: See HPI Genitourinary: No symptoms reported Female Genitourinary: No symptoms reported Musculoskeletal: No symptoms reported Skin: See HPI Hematologic/Lymphatic: No symptoms reported Neurological/Psychological: No symptoms reported Physical Exam - Vital signs Vitals: Temp 98.9 F 08/28/20 21:37 - Notes Notes: GENERAL: Alert, interacts well. No acute distress. HEAD: Normocephalic, atraumatic. EYES: Pupils equal, round, and reactive to light. Extraocular movements intact. ENT: Oral mucosa dry, tongue midline. Oropharynx unremarkable. Airway patent. NECK: Full range of motion. Supple. Trachea midline. No lymphadenopathy. LUNGS: Clear to auscultation bilaterally, no wheezes, rales, or rhonchi. No respiratory distress. Non-tender chest wall. Right subclavian port present without surrounding erythema, tenderness, or concerning findings. HEART: Regular rate and rhythm. No murmur ABDOMEN: Skin breakdown over the lower abdomen underneath colostomy bags, left colostomy bag with unremarkable stool, no tenderness noted of the abdomen, no abnormal distention or guarding. Otherwise unremarkable. EXTREMITIES: Moves all 4 extremities spontaneously. No edema, normal radial and dorsalis pedis pulses bilaterally. No cyanosis. BACK: no cervical, thoracic, lumbar midline tenderness. No saddle anesthesia, normal distal neurovascular exam. Moves all extremities in full range of motion. NEUROLOGICAL: Alert and oriented to person and place but not to all events. Poor historian. Normal speech. Cranial nerves II through XII grossly intact. Strength 5/5 in all extremities. PSYCH: Normal affect, normal mood. SKIN: Warm, dry, normal turgor. No rashes or lesions noted. Course - Re-evaluation Re-evalutation: Patient has some skin breakdown around the colostomy bag, she had some leaking from the colostomy bag on the right, this was changed and afterwards there was no leaking or difficulty with this. Patient is reporting pain over the skin but she has a soft nontender abdomen and no abdominal pain. Vital signs unremarkable. Patient is a poor historian, records do show that she has a history of subarachnoid hemorrhage years ago and I suspect this is a component. However brother at bedside is very helpful. CBC unremarkable, chemistry shows borderline creatinine at 1.3 and otherwise unremarkable, urinalysis shows possible infection although this was obtained from a bedpan urine sample. Culture placed, she will be started on antibiotics. I discussed with Dr. Rawls, he recommends discussion with provider for potential admission versus social hold because of her situation with TPN and requesting home assistance. I discussed with Dr. Davila, sales compensation analyst for Dr. Valverde, he feels that patient does not meet criteria for admission and he recommends residential case manager consult instead. I did discuss this with patient and brother, patient will remain here tonight, she was given IV fluids, will have residential case manager consult in the morning and patient will remain as a social hold. Updated Dr. Rawls. - Vital Signs Vital signs: Temp Pulse Resp BP Pulse Ox 98.9 F 106 H 18 106/76 98 08/28/20 21:37 08/28/20 22:44 08/28/20 22:44 08/28/20 22:44 08/28/20 22:44 - Laboratory Result Diagrams: 08/28/20 23:10 08/28/20 23:10 Laboratory results interpreted by me: 08/28/20 08/28/20 08/28/20 23:10 23:10 23:10 WBC 10.7 H RBC 3.69 L Hgb 11.5 L Hct 32.7 L RDW 14.5 H BUN 33 H Creatinine 1.30 H Est GFR ( Amer) 52 L Est GFR (MDRD) Non-Af 43 L Urine Protein 30 H Urine Blood SMALL H Ur Leukocyte Esterase LARGE H Discharge - Discharge Clinical Impression: Skin breakdown, Encounter for attention to colostomy, On total parenteral nutrition (TPN) Condition: Stable Disposition: OTHER Referrals: RILEY VALVERDE MD [Primary Care Provider] - Follow up as needed
[2020-08-28 23:20] LABS: ABSOLUTE BASOPHILS # (AUTO) 0.1 10^3/uL (0.0-0.2); ABSOLUTE EOSINOPHILS # (AUTO) 0.4 10^3/uL (0.0-0.6); ABSOLUTE LYMPHOCYTES (AUTO) 2.8 10^3/uL (0.5-4.7); ABSOLUTE NEUT (AUTO) 6.5 10^3/uL (1.7-8.2); BASOPHILS % (AUTO) 0.7 % (0-2); EOSINOPHILS % (AUTO) 3.7 % (0-6); HEMATOCRIT 32.7 % (36.0-47.0); HEMOGLOBIN 11.5 g/dL (12.0-15.5); LYMPHOCYTES % (AUTO) 25.9 % (13-45); MEAN CORPUSCULAR HEMOGLOBIN 31.3 pg (27.0-33.4); MEAN CORPUSCULAR HGB CONC 35.3 g/dL (32.0-36.0); MEAN CORPUSCULAR VOLUME 89 fl (80-97); MONOCYTES % (AUTO) 9.3 % (3-13); PLATELET COUNT 304 10^3/uL (150-450); RED BLOOD COUNT 3.69 10^6/uL (3.72-5.28); RED CELL DISTRIBUTION WIDTH 14.5 % (11.5-14.0); SEGMENTED NEUTROPHILS % (AUTO) 60.4 % (42-78); TOTAL CELLS COUNTED % (AUTO) 100 %; WHITE BLOOD COUNT 10.7 10^3/uL (4.0-10.5)
[2020-08-28 23:44] LABS: ALBUMIN 3.5 g/dL (3.5-5.0); ALKALINE PHOSPHATASE 83 U/L (38-126); ANION GAP 11 (5-19); ASPARTATE AMINO TRANSFERASE 20 U/L (14-36); BILIRUBIN,DIRECT 0.3 mg/dL (0.0-0.4); BILIRUBIN,TOTAL 0.5 mg/dL (0.2-1.3); BLOOD UREA NITROGEN 33 mg/dL (7-20); CALCIUM 9.2 mg/dL (8.4-10.2); CARBON DIOXIDE 26 mmol/L (22-30); CHLORIDE 102 mmol/L (98-107); GLUCOSE 89 mg/dL (75-110); POTASSIUM 3.6 mmol/L (3.6-5.0); TOTAL PROTEIN 7.8 g/dL (6.3-8.2)
[2020-08-28 23:49] LABS: APPEARANCE,URINE CLOUDY; BILIRUBIN,URINE NEGATIVE (NEGATIVE); COLOR,URINE YELLOW; GLUCOSE, URINE NEGATIVE (NEGATIVE); KETONES,URINE NEGATIVE (NEGATIVE); LEUKOCYTE ESTERASE,URINE LARGE (NEGATIVE); NITRITE,URINE NEGATIVE (NEGATIVE); PROTEIN,URINE 30 mg/dL (NEGATIVE); URINE SPECIFIC GRAVITY 1.023; UROBILINOGEN,URINE NEGATIVE mg/dL (<2.0)
[2020-08-28] MEDS ORDERED: OXYCODONE-ACETAMINOPHEN 5-325 MG TABLET PO ONE (23:50)
[2020-08-28] MEDS ORDERED: NORMAL SALINE 1000 ML 1,000 ML IV ONE (23:51)
[2020-08-29] MEDS ORDERED: FENTANYL 50 MCG/HR PATCH.TD72 TD ONE ×2 (05:29→12:14)
[2020-08-29] MEDS ORDERED: HYDROCODONE/ACETAMINOPHEN 5-325 MG TABLET PO ONE (06:36)
[2020-08-29] MEDS ORDERED: CEPHALEXIN 500 MG CAPSULE PO SCH (10:00)
--- NOTE | 2020-08-29 12:22 | ER Document Report ---
Doctor's Note Notes: 08/29/20 12:15 Patient is a social hold from last night's ED visit. Patient has recently moved to the area and has a history of stroke in the past 14 years ago and also has colostomy bag x2 lower abdominal wall done in November 2019. Patient has been living with her daughter in the state of [place] however due to lack of continuity of support and care at the home family members decided that patient should come and stay with her family here in [place]. Patient has thus far contacted Dr. Grove office for further follow-up. However inasmuch as patient does not have all of her supplies that she requires including TPN, and supplies for ostomy bag she was brought to the emergency room for an evaluation. Patient was evaluated and worked up in the consideration for admission was considered. Discussion did occur with Dr. Davila who is on-call for Dr. Grove and it was decided patient did not meet admission criteria. Case management is involved in his case at this time ordering and setting patient up for home health services supplies for colostomy bag and also arranging for home health services. Vital signs stable abdomen soft nontender there is colostomy bags with green bile liquid draining around the adhesive cover. This has been a chronic condition ever since her surgery since November 2019. Patient has known right sided hemiparesis due to a previous stroke 14 years ago. Patient's laboratories are within normal limits. Urinalysis showed that there was large amount leukocyte esterase positive however nitrite negative. Plan is to order urine C&S. No antibiotic choice at this time. Assessment plan patient is to be discharged home discussed with her brother who is in the room as well as case management. Patient has supplies of TPN that were left in [place] and patient and her family member has been has been recommended that they should go get the TPN so patient can receive her proper nutrition. Family members have agreed to do so. Also the family has been instructed to follow-up with Dr. Grove tomorrow. Per nursing staff and case sealer there are no new prescriptions that patient is requiring at this time. 08/29/20 12:22
[2020-08-29 14:06] VITALS: BP 103/41
== END 2020-08-29 14:04 | disposition home or self-care (01) ==
LOC: ER 21:29
DX: Z43.3 Encounter for attention to colostomy (principal); L98.491 Non-pressure chronic ulcer of skin of other sites limited to breakdown of skin; R53.1 Weakness; E63.9 Nutritional deficiency, unspecified; I10 Essential (primary) hypertension; Z88.8 Allergy status to other drugs, medicaments and biological substances; Z88.0 Allergy status to penicillin
CPT/HCPCS: 99284; 96361; 96374; 36415; 87086; 83690; 85025; 87088; 80053; 81001; 87186; A9270 ×4; J2405; J7030; J1642; J3490

== ENCOUNTER 2020-09-02 11:14 | Inpatient (IN) | payer MEDICARE ==
[~2020-09-02 11:14] MED LIST changes: +GLYCOPYRROLATE 1 MG/5 ML VIAL ONE; -LACTATED RINGERS 1000 ML IV PRN; -LIDOCAINE 0.5% INJ-PF (5 MG/ML) 50 ML SDV SUBCUT PRN; -METRONIDAZOLE 500 MG/NS RTU 100 ML IV PRN; +PHENYLEPHRINE HCL INJ/PF 10 MG/1 ML SDV ONE
--- NOTE | 2020-09-02 12:01 | ER Document Report ---
ED Medical Screen (RME) - General Stated Complaint: ABDOMINAL PAIN, COLOSTOMY BAG PROBLEM Time Seen by Provider: 09/02/20 11:43 Primary Care Provider: RILEY VALVERDE MD [Primary Care Provider] - Follow up as needed TRAVEL OUTSIDE OF THE [place] IN LAST 30 DAYS: No - HPI Notes: 09/02/20 11:59 50-year-old female to the emergency department with complaints of abdominal pain, nausea that is been ongoing for several months but getting worse. She states that she had a home health nurse come to her house today and sent her to the emergency department for further evaluation of her access to her left chest. She states that she has seen Dr. Valverde recently and he is not sure why she has this access. She denies any chest pain. She does admit to shortness of breath. She admits that she is currently on antibiotics for possible urinary tract infection. In triage she had a heart rate of 138. I performed a brief medical screening exam on the patient determined that the patient needs further evaluation and management by main side provider. I have placed initial orders to help expedite care. - Related Data Allergies/Adverse Reactions: methadone [Methadone] Allergy (Verified 09/02/20 11:52) Penicillins Allergy (Verified 09/02/20 11:52) Past Medical History - Past Medical History Cardiac Medical History: Reports: Hx Hypertension Denies: Hx Coronary Artery Disease, Hx Heart Attack Pulmonary Medical History: Denies: Hx Asthma, Hx Bronchitis, Hx COPD, Hx Pneumonia Neurological Medical History: Reports: Hx Cerebrovascular Accident - 14YRS AGO AFFECTED RIGHT SIDE, ABLE TO AMBULATE. Denies: Hx Seizures Renal/ Medical History: Denies: Hx Peritoneal Dialysis Musculoskeltal Medical History: Reports Hx Arthritis - LEFT KNEE AND HAND, Reports Hx Musculoskeletal Trauma Past Surgical History: Reports: Hx Abdominal Surgery, Hx Section, Hx Neurologic Surgery - aneurysm clip, Hx Orthopedic Surgery - back surgery - Immunizations Hx Diphtheria, Pertussis, Tetanus Vaccination: Yes Physical Exam - Vital signs Vitals: Temp Pulse Resp BP Pulse Ox 98.7 F 137 H 22 H 115/80 99 09/02/20 11:37 09/02/20 11:37 09/02/20 11:37 09/02/20 11:37 09/02/20 11:37 Course - Vital Signs Vital signs: Temp Pulse Resp BP Pulse Ox 98.7 F 137 H 22 H 115/80 99 09/02/20 11:37 09/02/20 11:37 09/02/20 11:37 09/02/20 11:37 09/02/20 11:37 Doctor's Discharge - Discharge Referrals: RILEY VALVERDE MD [Primary Care Provider] - Follow up as needed
--- NOTE | 2020-09-02 12:45 | RADIOLOGY REPORT (SQ) ---
EXAM DESCRIPTION: CHEST SINGLE VIEW IMAGES COMPLETED DATE/TIME: 09/02/2020 12:37 pm REASON FOR STUDY: tachycardia, abd pain COMPARISON: 11/26/2019. EXAM PARAMETERS: NUMBER OF VIEWS: One view. TECHNIQUE: Single frontal radiographic view of the chest acquired. RADIATION DOSE: NA LIMITATIONS: None. FINDINGS: LUNGS AND PLEURA: No opacities, masses or pneumothorax. No pleural effusion. MEDIASTINUM AND HILAR STRUCTURES: No masses. Contour normal. HEART AND VASCULAR STRUCTURES: Heart normal in size. Normal vasculature. BONES: No acute findings. HARDWARE: Central line. OTHER: No other significant finding. IMPRESSION: NO ACUTE RADIOGRAPHIC FINDING IN THE CHEST. TECHNICAL DOCUMENTATION: JOB ID: [id number] 2010 [employer]- All Rights Reserved Reading location - IP/workstation name: [email or web address]
[2020-09-02] MEDS ORDERED: MORPHINE SULFATE 10 MG/ML INJ IV ONE (15:57)
[2020-09-02] MEDS ORDERED: ONDANSETRON HCL INJ/PF 4 MG/2 ML SDV IV ONE (15:58)
[2020-09-02 16:02] LABS: INTERNATIONAL RATION (INR) 1.15; PARTIAL THROMBOPLASTIN TIME 35.7 SEC (23.5-35.8); PROTHROMBIN TIME 14.9 SEC (11.4-15.4)
[2020-09-02 16:09] LABS: ABSOLUTE BASOPHILS # (AUTO) 0.1 10^3/uL (0.0-0.2); ABSOLUTE LYMPHOCYTES (AUTO) 3.5 10^3/uL (0.5-4.7); ABSOLUTE MONOCYTES (AUTO) 1.1 10^3/uL (0.1-1.4); ABSOLUTE NEUT (AUTO) 10.3 10^3/uL (1.7-8.2); BASOPHILS % (AUTO) 0.5 % (0-2); EOSINOPHILS % (AUTO) 0.1 % (0-6); HEMATOCRIT 36.4 % (36.0-47.0); HEMOGLOBIN 12.5 g/dL (12.0-15.5); LYMPHOCYTES % (AUTO) 23.6 % (13-45); MEAN CORPUSCULAR HEMOGLOBIN 30.5 pg (27.0-33.4); MEAN CORPUSCULAR HGB CONC 34.3 g/dL (32.0-36.0); MEAN CORPUSCULAR VOLUME 89 fl (80-97); MONOCYTES % (AUTO) 7.2 % (3-13); PLATELET COUNT 382 10^3/uL (150-450); RED BLOOD COUNT 4.09 10^6/uL (3.72-5.28); RED CELL DISTRIBUTION WIDTH 14.4 % (11.5-14.0); SEGMENTED NEUTROPHILS % (AUTO) 68.6 % (42-78); TOTAL CELLS COUNTED % (AUTO) 100 %
[2020-09-02 16:10] LABS: ALBUMIN 4.4 g/dL (3.5-5.0); ALKALINE PHOSPHATASE 101 U/L (38-126); ASPARTATE AMINO TRANSFERASE 30 U/L (14-36); BILIRUBIN,DIRECT 0.4 mg/dL (0.0-0.4); BILIRUBIN,TOTAL 0.7 mg/dL (0.2-1.3); BLOOD UREA NITROGEN 38 mg/dL (7-20); CALCIUM 10.1 mg/dL (8.4-10.2); CARBON DIOXIDE 21 mmol/L (22-30); CHLORIDE 93 mmol/L (98-107); GLUCOSE 77 mg/dL (75-110); POTASSIUM 3.5 mmol/L (3.6-5.0); TOTAL PROTEIN 9.3 g/dL (6.3-8.2)
[2020-09-02 16:11] LABS: ANION GAP 22 (5-19)
--- NOTE | 2020-09-02 16:11 | ER Document Report ---
ED GI/ - General Chief Complaint: Abdominal Pain Stated Complaint: ABDOMINAL PAIN, COLOSTOMY BAG PROBLEM Time Seen by Provider: 09/02/20 11:43 TRAVEL OUTSIDE OF THE [place] IN LAST 30 DAYS: No - HPI Notes: 09/02/20 16:06 Patient is a 30-year-old female with a past medical history of CVA 14 years ago with residual right-sided weakness, ostomy placement and fistulas in November of this year who presents with abdominal pain. Patient is a poor historian. She is unsure why she has the ostomies. She moved here from [place] to live with her family for continued care. Patient was in the ER on August 28 and discharged home with home health care. She was here because her ostomy bags were draining and were not sticking to her skin due to breakdown. Home health care saw her today and stated that she needs to go to the hospital. Patient does have a PICC line for TPN. It has not been accessed since Sunday when she got TPN. Patient is eating and drinking normally. She denies fevers. Patient states she has abdominal pain. She has had chronic abdominal pain since the surgery but it has been worsening the past few days. States she is nauseous. No vomiting. No fevers. No sick contacts. - Related Data Allergies/Adverse Reactions: methadone [Methadone] Allergy (Verified 09/02/20 11:52) Penicillins Allergy (Verified 09/02/20 11:52) Home Medications: pt doesnt know medications Past Medical History - General Information source: Patient, Relative - Social History Smoking Status: Former Smoker Chew tobacco use (# tins/day): No Frequency of alcohol use: None Drug Abuse: None Lives with: Family Family History: None, Reviewed & Not Pertinent Patient has homicidal ideation: No - Past Medical History Cardiac Medical History: Reports: Hx Hypertension Denies: Hx Coronary Artery Disease, Hx Heart Attack Pulmonary Medical History: Denies: Hx Asthma, Hx Bronchitis, Hx COPD, Hx Pneumonia Neurological Medical History: Reports: Hx Cerebrovascular Accident - 14YRS AGO AFFECTED RIGHT SIDE, ABLE TO AMBULATE. Denies: Hx Seizures Renal/ Medical History: Denies: Hx Peritoneal Dialysis Musculoskeletal Medical History: Reports Hx Arthritis - LEFT KNEE AND HAND, Reports Hx Musculoskeletal Trauma Past Surgical History: Reports: Hx Abdominal Surgery, Hx Section, Hx Neurologic Surgery - aneurysm clip, Hx Orthopedic Surgery - back surgery - Immunizations Hx Diphtheria, Pertussis, Tetanus Vaccination: Yes Review of Systems - Review of Systems Notes: CONSTITUTIONAL: No fever, fatigue or weight loss. SKIN: Erythema at ostomy site HENT: No congestion, ear pain, or sore throat. EYES: No recent vision problems or eye pain. CARDIOVASCULAR: No chest pain or edema. RESPIRATORY: No shortness of breath, congestion, or wheezing. GASTROINTESTINAL: Positive for abdominal pain. Positive for multiple drains with draining of green fluid which has been chronic. GENITOURINARY: No dysuria. MUSCULOSKELETAL: No joint pain or swelling. LYMPHATIC: No swollen glands. NEUROLOGIC: No seizures. No headache, focal weakness or sensory changes. HEMATOLOGIC: No unusual bruising or bleeding. PSYCHIATRIC: No depression or anxiety. Physical Exam - Vital signs Vitals: Temp Pulse Resp BP Pulse Ox 98.7 F 137 H 22 H 115/80 99 09/02/20 11:37 09/02/20 11:37 09/02/20 11:37 09/02/20 11:37 09/02/20 11:37 - Notes Notes: VITAL SIGNS: Tachycardic. GENERAL: Appears chronically ill. HEAD: Normal with no signs of head trauma. EYES: EOMI, conjunctiva normal, no discharge. EARS: Hearing grossly intact. NOSE: Normal. NECK: Normal range of motion, no tenderness, supple, no lymphadenopathy, No adenopathy, no JVD. CHEST: Clear breath sounds bilaterally. No wheezes, rales, or rhonchi. CARDIAC: Regular rate and rhythm. S1 and S2, without murmurs, gallops, or rubs. VASCULAR: No Edema. ABDOMEN: 2 drains present. One with green fluid draining. Skin breakdown at ostomy sites. Tender to palpation diffusely. GENITOURINARY: Normal, No tenderness LYMPATHTIC: No lymphadenopathy noted. MUSCULOSKELETAL: Good range of motion of all major joints. Extremities without clubbing, cyanosis or edema. NEUROLOGICAL: Alert and oriented x 3. No focal sensory or strength deficits. Speech normal. Follows commands appropriately. PSYCHIATRIC: Normal Affect, judgement and mood. SKIN: Normal appearance with no rashes or lesions. Course - Re-evaluation Re-evalutation: 09/02/20 22:08 I talked to the patient's PCP. He states that she was placed on Levaquin on Rigoberto for a uti. I then asked the patient if she has been taking it and she states yes. Patient had a positive urine culture that was susceptible to Levaquin and cefepime several days ago. She was tachycardic today but afebrile. This resolved after fluids. Her CT shows possibly enteritis. She also has an elevated white count today from previous. I am concerned that she is failing outpatient antibiotics. I discussed admission with the patient's family doctor who agreed. He will admit the patient. She was started on cefepime. PICC line is also not working. Will likely need to be addressed while she is in the hospital. Patient is very agreeable to the plan. - Vital Signs Vital signs: Temp Pulse Resp BP Pulse Ox 97.8 F 137 H 18 116/69 100 09/02/20 19:35 09/02/20 11:37 09/02/20 19:01 09/02/20 19:00 09/02/20 19:01 - Laboratory Result Diagrams: 09/02/20 15:03 09/02/20 15:03 Laboratory results interpreted by me: 09/02/20 09/02/20 09/02/20 15:03 15:03 15:28 WBC 15.0 H RDW 14.4 H Absolute Neuts (auto) 10.3 H Sodium 135.9 L Potassium 3.5 L Chloride 93 L Carbon Dioxide 21 L Anion Gap 22 H BUN 38 H Creatinine 1.51 H Est GFR ( Amer) 44 L Est GFR (MDRD) Non-Af 36 L Total Protein 9.3 H Urine Protein 30 H Urine Ketones 20 H Leukocyte Esterase Rfl LARGE H - Diagnostic Test Radiology reviewed: Image reviewed, Reports reviewed - EKG Interpretation by Me EKG shows normal: Sinus rhythm Rate: Tachycardia When compared to previous EKG there are: No significant change Additional EKG results interpreted by me: 09/02/20 18:24 Sinus Tachycardia at a rate of 106. QTc 500. No acute ST changes. EKG is timmy lar to previous. Discharge - Discharge Clinical Impression: Abdominal pain Qualifiers: Abdominal location: generalized Qualified Code(s): R10.84 - Generalized abdominal pain Occluded PICC line Qualifiers: Encounter type: initial encounter Qualified Code(s): T82.898A - Other specified complication of vascular prosthetic devices, implants and grafts, initial encounter Urinary tract infection Qualifiers: Urinary tract infection type: site unspecified Hematuria presence: without hematuria Qualified Code(s): N39.0 - Urinary tract infection, site not specified Condition: Stable Disposition: ADMITTED INPATIENT Admitting Provider: [place] [facility] Admitted: Medical Floor
[2020-09-02] MEDS ORDERED: NORMAL SALINE 1000 ML 1,000 ML IV ONE ×2 (16:37→18:13)
[2020-09-02 16:45] LABS: APPEARANCE,URINE CLOUDY; BILIRUBIN,URINE NEGATIVE (NEGATIVE); COLOR,URINE YELLOW; GLUCOSE, URINE NEGATIVE (NEGATIVE); KETONES,URINE 20 mg/dL (NEGATIVE); PROTEIN,URINE 30 mg/dL (NEGATIVE); URINE SPECIFIC GRAVITY 1.025; UROBILINOGEN,URINE NEGATIVE mg/dL (<2.0)
--- NOTE | 2020-09-02 17:49 | RADIOLOGY REPORT (SQ) ---
EXAM DESCRIPTION: CT ABD/PELVIS NO ORAL OR IV IMAGES COMPLETED DATE/TIME: 09/02/2020 5:20 pm REASON FOR STUDY: abdominal pain, has fistula/ostomies COMPARISON: 11/26/2019 TECHNIQUE: CT scan of the abdomen and pelvis performed without intravenous or oral contrast. Images reviewed with lung, soft tissue, and bone windows. Reconstructed coronal and sagittal MPR images revi ewed. All images stored on PACS. All CT scanners at this facility use dose modulation, iterative reconstruction, and/or weight based d osing when appropriate to reduce radiation dose to as low as reasonably achievable (ALARA). [facility]: Dose Right [facility]: CareDose [facility]: Dose Right [facility]: Teradose 4D [facility]: Smart [employer] RADIATION DOSE: CT Rad equipment meets quality standard of care and radiation dose reduction techniq ues were employed. CTDIvol: 7.9 mGy. DLP: 369 mGy-cm.mGy. LIMITATIONS: None. FINDINGS: LOWER CHEST: Small pericardial effusion. NON-CONTRASTED LIVER, SPLEEN, ADRENALS: Evaluation limited by lack of IV contrast. No identified sign ificant masses. PANCREAS: No masses. No peripancreatic inflammatory changes. Common bile duct is dilated in the head of the pancreas. GALLBLADDER: Surgically absent. RIGHT KIDNEY AND URETER: No suspicious masses. Assessment limited by lack of IV contrast. No signif icant calcifications. No hydronephrosis or hydroureter. LEFT KIDNEY AND URETER: No suspicious masses. Assessment limited by lack of IV contrast. No signifi cant calcifications. No hydronephrosis or hydroureter. AORTA AND RETROPERITONEUM: No aneurysm. No retroperitoneal masses or adenopathy. BOWEL AND PERITONEAL CAVITY: Left lower quadrant ostomy. Air-fluid level in the rectum. Radiopaque suture in the rectosigmoid junction. APPENDIX: Not identified. PELVIS, BLADDER, AND ABDOMINAL WALL:No abnormal masses. No free fluid. Bladder normal. There is flui d in the region of the umbilicus. This may represent 2nd ostomy. BONES: No significant findings. OTHER: No other significant finding. IMPRESSION: 1. Small pericardial effusion. 2. Dilated common bile duct, likely secondary to prior cholecystectomy. 3. Fluid in the rectum. Correlate for an enteritis. 4. There appear to be 2 ostomies. COMMENT: Quality ID # [id number]: Final reports with documentation of one or more dose reduction techniques (e.g., Automated exposure control, adjustment of the mA and/or kV according to patient size, use of iterative reconstruction technique) TECHNICAL DOCUMENTATION: JOB ID: [id number] 2010 [employer]- All Rights Reserved Reading location - IP/workstation name: [email or web address]
[2020-09-02] MEDS ORDERED: POTASSIUM CHLORIDE 20 MEQ PACKET PO ONE (18:07)
[2020-09-02] MEDS ORDERED: CEFEPIME 1 GM/D5W RTU 1 GM/50 ML RTUPB IV ONE (19:21)
--- NOTE | 2020-09-02 21:51 | EKG REPORT ---
SEVERITY:- BORDERLINE ECG - SINUS TACHYCARDIA BORDERLINE PROLONGED QT INTERVAL : Confirmed by: Dionte Saul 02-Sep-2020 21:51:05
[2020-09-02] MEDS: SULFAMETHOXAZOLE/TRIMETHOPRIM 320 MG in DEXTROSE 5%-WATER 500 ML IV SCH (22:55)
[2020-09-02] MEDS: MORPHINE SULFATE 10 MG/ML INJ IV PRN (23:10)
--- NOTE | 2020-09-02 23:34 | PDOC H&P ---
History of Present Illness Admission Date/PCP: 09/02/20 19:57 RILEY VALVERDE Patient complains of: Abdominal pain History of Present Illness: CHARIS KUNZ is a 50 year old female patient known to my practice who presented to the ED with complaint about abdominal pain more around her leaking fistula ostomy bag. She reported associated nausea but vomiting. There is associated worsening contact dermatitis lesion from ostomy content on her anterior abdominal wall. She had abdominal surgery in November, following her transfer from [facility] to [facility] due to emphysematous interstitial cystitis. She developed complication from surgery necessitating diverting colostomy and small bowel fistula with ostomy. She was transferred to [facility] in [place] and eventually had a stay at [facility] due to infection at site of her ostomy. She was subsequently taken to [place] by daughter. She has been on TPN support through a subcutaneous tunnel PICC line. She was at this ED on 08/28/2020 due to abdominal pain and her urine culture did grew Proteus Mirabilis and Klebsiella Aerogenes both sensitive to Levofloxacin. She was prescribed oral Levofloxacin on 08/30/2020 and she reported compliance with administration. Her initial ED evaluation was significant for tachycardia, abnormal CT abdomen findings worrisome for enteritis due to fluid collection in her rectum, and worsening leukocytosis. She was advised admission due to failure of oral therapy. Her morbidities are as listed below. Past Medical History Cardiac Medical History: Reports: Hypertension Denies: Coronary Artery Disease, Myocardial Infarction Pulmonary Medical History: Denies: Asthma, Bronchitis, Chronic Obstructive Pulmonary Disease (COPD), Pneumonia Neurological Medical History: Denies: Seizures Musculoskeltal Medical History: Reports: Arthritis - LEFT KNEE AND HAND Hematology: Denies: Anemia Past Surgical History Past Surgical History: Reports: Section, Orthopedic Surgery - back surgery Social History Lives with: Family Smoking Status: Former Smoker Electronic Cigarette use?: No - Advance Directive Resuscitation Status: Full Code Family History Family History: None, Reviewed & Not Pertinent Parental Family History Reviewed: Yes Children Family History Reviewed: Yes Sibling(s) Family History Reviewed.: Yes Medication/Allergy Home Medications: Atorvastatin Calcium [Lipitor 20 mg Tablet] 20 mg PO QHS 09/02/20 Diphenoxylate HCl/Atrop Sulf [Lomotil 2.5 mg Tablet] 1 tab PO QIDP PRN 09/02/20 Ondansetron [Zofran Odt 4 mg Tablet] 4 mg PO BID 09/02/20 Pantoprazole Sodium [Protonix [address] Tablet] 40 mg PO DAILY 09/02/20 Sumatriptan Succinate [Imitrex 50 mg Tablet] 50 mg PO Q2HP PRN 09/02/20 Allergies/Adverse Reactions: methadone [Methadone] Allergy (Verified 09/02/20 11:52) Penicillins Allergy (Verified 09/02/20 11:52) Review of Systems Constitutional: ABSENT: chills, fever(s), headache(s), weight gain, weight loss Eyes: ABSENT: visual disturbances Ears: ABSENT: hearing changes Cardiovascular: ABSENT: chest pain, dyspnea on exertion, edema, orthropnea, palpitations Respiratory: ABSENT: cough, hemoptysis Gastrointestinal: PRESENT: abdominal pain, nausea. ABSENT: constipation, diarrhea, hematemesis, hematochezia, vomiting Genitourinary: ABSENT: dysuria, hematuria Musculoskeletal: ABSENT: joint swelling Integumentary: PRESENT: wounds - open contact dermatitis wound around ostomy. ABSENT: rash Neurological: PRESENT: focal weakness - right hemiparesis due to old stroke. ABSENT: abnormal gait, abnormal speech, confusion, dizziness, syncope Psychiatric: ABSENT: anxiety, depression, homidical ideation, suicidal ideation Endocrine: ABSENT: cold intolerance, heat intolerance, menstrual abnormalities, polydipsia, polyuria Hematologic/Lymphatic: ABSENT: easy bleeding, easy bruising, lymphadenopathy Allergic/Immunologic: ABSENT: seasonal rhinorrhea Physical Exam Vital Signs: Temp Pulse Resp BP Pulse Ox 97.8 F 137 H 18 116/69 100 09/02/20 19:35 09/02/20 11:37 09/02/20 19:01 09/02/20 19:00 09/02/20 19:01 Intake & Output 09/01/20 09/02/20 09/03/20 06:59 06:59 06:59 Intake Total 2049 Balance 2049 Weight 60.3 kg General appearance: PRESENT: mild distress - due to pain at site around her ostomy Head exam: PRESENT: atraumatic, normocephalic Eye exam: PRESENT: conjunctiva pink, EOMI, PERRLA. ABSENT: scleral icterus Ear exam: PRESENT: normal external ear exam Mouth exam: PRESENT: moist, tongue midline Neck exam: PRESENT: full ROM. ABSENT: carotid bruit, JVD, lymphadenopathy, thyromegaly Respiratory exam: PRESENT: clear to auscultation bucky, decreased breath sounds - at lung bases Cardiovascular exam: PRESENT: +S1, +S2, tachycardia. ABSENT: diastolic murmur, rubs, systolic murmur Pulses: PRESENT: normal radial pulses Vascular exam: PRESENT: normal capillary refill. ABSENT: pallor GI/Abdominal exam: PRESENT: normal bowel sounds, soft, tenderness - around her ostomy site with open wound, other - small bowel fistula ostomy and functioning colostomy. ABSENT: distended, guarding, mass, organolmegaly, rebound Rectal exam: PRESENT: deferred Extremities exam: ABSENT: pedal edema Musculoskeletal exam: ABSENT: ambulatory - bedbound at the time of my evaluation Neurological exam: PRESENT: alert, awake, oriented to person, oriented to place, oriented to time, oriented to situation, CN II-XII grossly intact. ABSENT: motor sensory deficit Psychiatric exam: PRESENT: appropriate affect, normal mood. ABSENT: homicidal ideation, suicidal ideation Skin exam: PRESENT: dry, erythema, warm. ABSENT: cyanosis, intact - colostomy and small bowel fistula ostomy with surrounding open wound from contact dermatitis from ostomy leakage content, rash Results Laboratory Results: 09/02/20 15:03 09/02/20 15:03 09/02/20 09/02/20 09/02/20 15:03 15:03 15:28 WBC 15.0 H RBC 4.09 Hgb 12.5 Hct 36.4 MCV 89 MCH 30.5 MCHC 34.3 RDW 14.4 H Plt Count 382 Seg Neutrophils % 68.6 Sodium 135.9 L Potassium 3.5 L Chloride 93 L Carbon Dioxide 21 L Anion Gap 22 H BUN 38 H Creatinine 1.51 H Est GFR ( Amer) 44 L Glucose 77 Lactic Acid Calcium 10.1 Magnesium 1.8 Total Bilirubin 0.7 AST 30 Alkaline Phosphatase 101 Total Protein 9.3 H Albumin 4.4 Urine Color YELLOW Urine Appearance CLOUDY Urine pH 6.0 Ur Specific Br[place] 1.025 Urine Protein 30 H Urine Glucose (UA) NEGATIVE Urine Ketones 20 H Urine Blood NEGATIVE Urine RBC (Auto) 24 09/02/20 16:16 WBC RBC Hgb Hct MCV MCH MCHC RDW Plt Count Seg Neutrophils % Sodium Potassium Chloride Carbon Dioxide Anion Gap BUN Creatinine Est GFR ( Amer) Glucose Lactic Acid 1.9 Calcium Magnesium Total Bilirubin AST Alkaline Phosphatase Total Protein Albumin Urine Color Urine Appearance Urine pH Ur Specific Br[place]ley Urine Protein Urine Glucose (UA) Urine Ketones Urine Blood Urine RBC (Auto) 09/02/20 15:03 Troponin I 0.013 Impressions: Chest X-Ray 09/02/20 11:59 IMPRESSION: NO ACUTE RADIOGRAPHIC FINDING IN THE CHEST. Abdomen/Pelvis CT 09/02/20 15:55 IMPRESSION: 1. Small pericardial effusion. 2. Dilated common bile duct, likely secondary to prior cholecystectomy. 3. Fluid in the rectum. Correlate for an enteritis. 4. There appear to be 2 ostomies. Assessment & Plan - Diagnosis (1) Urinary tract infection Qualifiers: Urinary tract infection type: site unspecified Hematuria presence: without hematuria Qualified Code(s): N39.0 - Urinary tract infection, site not speci fied Is this a current diagnosis for this admission?: Yes Plan: See admitting attending physician orders for details about care plan. (2) Failure of outpatient treatment Is this a current diagnosis for this admission?: Yes Plan: See admitting attending physician orders for details about care plan. (3) 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 Is this a current diagnosis for this admission?: Yes Plan: See admitting attending physician orders for details about care plan. (4) HTN (hypertension) Qualifiers: Hypertension type: essential hypertension Qualified Code(s): I10 - Essential (primary) hypertension Is this a current diagnosis for this admission?: Yes Plan: See admitting attending physician orders for details about care plan. (5) History of stroke with current residual effects Is this a current diagnosis for this admission?: Yes Plan: See admitting attending physician orders for details about care plan. - Time Time Spent: 50 to 70 Minutes Medications reviewed and adjusted accordingly: Yes Anticipated Discharge Disposition: Home with Home Health Anticipated Discharge Timeframe: within 72 hours - Inpatient Certification Based on my medical assessment, after consideration of the patient's comorbidities, presenting symptoms, or acuity I expect that the services needed warrant INPATIENT care.: Yes I certify that my determination is in accordance with my understanding of Medicare's requirements for reasonable and necessary INPATIENT services [42 CFR 412.3e].: Yes Medical Necessity: Significant Comorbidiites Make Outpatient Treatment Too Risky, Need Close Monitoring Due to Risk of Patient Decompensation, Need For IV Fluids, Need For Continuous Telemetry Monitoring, Need for IV Antibiotics, Risk of Complication if Not Cared For in Hospital, Risk of Diagnosis Which Will Require Inpatient Eval/Care/Monitoring 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
[2020-09-03] MEDS: SULFAMETHOXAZOLE/TRIMETHOPRIM 320 MG in DEXTROSE 5%-WATER 500 ML IV SCH ×4 (03:05→22:12)
[2020-09-03] MEDS: PANTOPRAZOLE SODIUM 40 MG TABLET.DR PO SCH (05:43)
[2020-09-03] MEDS: MORPHINE SULFATE 10 MG/ML INJ IV PRN ×3 (05:48→16:41)
[2020-09-03 07:49] LABS: ALBUMIN 3.2 g/dL (3.5-5.0); ALKALINE PHOSPHATASE 64 U/L (38-126); ANION GAP 11 (5-19); ASPARTATE AMINO TRANSFERASE 27 U/L (14-36); BILIRUBIN,DIRECT 0.3 mg/dL (0.0-0.4); BILIRUBIN,TOTAL 0.4 mg/dL (0.2-1.3); BLOOD UREA NITROGEN 23 mg/dL (7-20); CALCIUM 8.3 mg/dL (8.4-10.2); CARBON DIOXIDE 24 mmol/L (22-30); CHLORIDE 96 mmol/L (98-107); GLUCOSE 88 mg/dL (75-110); PHOSPHORUS 3.1 mg/dL (2.5-4.5); TOTAL PROTEIN 7.4 g/dL (6.3-8.2)
[2020-09-03 07:57] LABS: POTASSIUM 2.6 mmol/L (3.6-5.0)
[2020-09-03] MEDS ORDERED: ONDANSETRON 4 MG TAB.RAPDIS PO SCH (10:00)
[2020-09-03 10:55] LABS: ABSOLUTE EOSINOPHILS # (AUTO) 0.2 10^3/uL (0.0-0.6); ABSOLUTE LYMPHOCYTES (AUTO) 1.9 10^3/uL (0.5-4.7); ABSOLUTE MONOCYTES (AUTO) 0.6 10^3/uL (0.1-1.4); BASOPHILS % (AUTO) 0.6 % (0-2); EOSINOPHILS % (AUTO) 3.3 % (0-6); HEMATOCRIT 29.1 % (36.0-47.0); LYMPHOCYTES % (AUTO) 27.8 % (13-45); MEAN CORPUSCULAR HEMOGLOBIN 31.4 pg (27.0-33.4); MEAN CORPUSCULAR HGB CONC 35.6 g/dL (32.0-36.0); MEAN CORPUSCULAR VOLUME 88 fl (80-97); MONOCYTES % (AUTO) 9.5 % (3-13); PLATELET COUNT 271 10^3/uL (150-450); RED CELL DISTRIBUTION WIDTH 14.3 % (11.5-14.0); SEGMENTED NEUTROPHILS % (AUTO) 58.8 % (42-78); TOTAL CELLS COUNTED % (AUTO) 100 %; WHITE BLOOD COUNT 6.7 10^3/uL (4.0-10.5)
[2020-09-03 11:01] LABS: HEMOGLOBIN 10.4 g/dL (12.0-15.5)
[2020-09-03] MEDS: NORMAL SALINE 10 ML SDV (SCHEDULED) IV SCH ×2 (11:08→21:14)
[2020-09-03] MEDS: ONDANSETRON 4 MG TAB.RAPDIS PO PRN ×2 (11:42→16:42)
[2020-09-03] MEDS: POTASSI CL 20 MEQ/50 ML RIDER 20 MEQ/50 ML RTUPB IV SCH ×3 (12:15→18:55)
[2020-09-03] MEDS ORDERED: ALTEPLASE INJ 2 MG VIAL (CATH CLEARANCE) INJ PRN (14:29)
--- NOTE | 2020-09-03 14:34 | PDOC PROGRESS REPORT ---
Subjective Progress Note for:: 09/03/20 Subjective:: Patient reported that nausea with meals persist. Abdominal pain fairly controlled on current regimen. No vomiting.Tolerating oral feeding. No chest pain or difficulty with breathing. Reason For Visit: ABDOMINAL PAIN Physical Exam Vital Signs: Temp Pulse Resp BP Pulse Ox 98.0 F 82 17 98/52 L 99 09/03/20 00:40 09/03/20 02:00 09/03/20 00:40 09/03/20 00:40 09/03/20 00:40 Intake & Output 09/02/20 09/03/20 09/04/20 06:59 06:59 06:59 Intake Total 2550 Balance 2550 Weight 60.3 kg General appearance: PRESENT: mild distress - due to ostomy site associated pain Head exam: PRESENT: atraumatic, normocephalic Eye exam: PRESENT: conjunctiva pink. ABSENT: scleral icterus Respiratory exam: PRESENT: clear to auscultation bucky, decreased breath sounds - at lung bases Cardiovascular exam: PRESENT: RRR, +S1, +S2. ABSENT: diastolic murmur, rubs, systolic murmur Vascular exam: ABSENT: pallor GI/Abdominal exam: PRESENT: normal bowel sounds, soft, tenderness - around ostomy site. ABSENT: distended, guarding, mass, organolmegaly, rebound Extremities exam: ABSENT: pedal edema Neurological exam: PRESENT: alert, awake, oriented to person, oriented to place, oriented to time, oriented to situation, CN II-XII grossly intact. ABSENT: motor sensory deficit Psychiatric exam: PRESENT: appropriate affect, normal mood. ABSENT: homicidal ideation, suicidal ideation Skin exam: PRESENT: dry, rash, warm, other - contact dermatitis changes with open wound around ostomy site Results Laboratory Results: 09/03/20 07:13 09/03/20 07:13 09/02/20 09/02/20 09/02/20 15:03 15:03 15:28 WBC 15.0 H RBC 4.09 Hgb 12.5 Hct 36.4 MCV 89 MCH 30.5 MCHC 34.3 RDW 14.4 H Plt Count 382 Seg Neutrophils % 68.6 Sodium 135.9 L Potassium 3.5 L Chloride 93 L Carbon Dioxide 21 L Anion Gap 22 H BUN 38 H Creatinine 1.51 H Est GFR ( Amer) 44 L Glucose 77 Lactic Acid Calcium 10.1 Phosphorus Magnesium 1.8 Total Bilirubin 0.7 AST 30 Alkaline Phosphatase 101 Total Protein 9.3 H Albumin 4.4 Urine Color YELLOW Urine Appearance CLOUDY Urine pH 6.0 Ur Specific Protem 1.025 Urine Protein 30 H Urine Glucose (UA) NEGATIVE Urine Ketones 20 H Urine Blood NEGATIVE Urine RBC (Auto) 24 09/02/20 09/03/20 09/03/20 16:16 07:13 07:13 WBC Cancelled RBC Cancelled Hgb Cancelled Hct Cancelled MCV Cancelled MCH Cancelled MCHC Cancelled RDW Cancelled Plt Count Cancelled Seg Neutrophils % Cancelled Sodium 130.5 L Potassium 2.6 L* Chloride 96 L Carbon Dioxide 24 Anion Gap 11 BUN 23 H Creatinine 1.06 Est GFR ( Amer) > 60 Glucose 88 Lactic Acid 1.9 Calcium 8.3 L Phosphorus 3.1 Magnesium 1.5 L Total Bilirubin 0.4 AST 27 Alkaline Phosphatase 64 Total Protein 7.4 Albumin 3.2 L Urine Color Urine Appearance Urine pH Ur Specific Protem Urine Protein Urine Glucose (UA) Urine Ketones Urine Blood Urine RBC (Auto) 09/02/20 15:03 Troponin I 0.013 Impressions: Chest X-Ray 09/02/20 11:59 IMPRESSION: NO ACUTE RADIOGRAPHIC FINDING IN THE CHEST. Abdomen/Pelvis CT 09/02/20 15:55 IMPRESSION: 1. Small pericardial effusion. 2. Dilated common bile duct, likely secondary to prior cholecystectomy. 3. Fluid in the rectum. Correlate for an enteritis. 4. There appear to be 2 ostomies. 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 Is this a current diagnosis for this admission?: Yes (4) HTN (hypertension) Qualifiers: Hypertension type: essential hypertension Qualified Code(s): I10 - Essential (primary) hypertension Is this a current diagnosis for this admission?: Yes (5) History of stroke with current residual effects Is this a current diagnosis for this admission?: Yes (6) Occluded PICC line Qualifiers: Encounter type: initial encounter Qualified Code(s): T82.898A - Other specified complication of vascular prosthetic devices, implants and grafts, initial encounter Is this a current diagnosis for this admission?: Yes Plan: Discussed case with Pharmacist. Agreed with use of Alteplase 2mg instillation therapy for 30mins to 2 hours and repeat x 1 if necessary to improve flow and function. (7) Hypokalemia due to excessive gastrointestinal loss of potassium Is this a current diagnosis for this admission?: Yes Plan: Patient will receive potassium rider for replacement 60 mEq total dose. Obtain B MP in AM. (8) Hypomagnesemia Is this a current diagnosis for this admission?: Yes Plan: Patient will receive IV Mag sulfate 2 gm total infusion. Obtain Mag level in am. - Time Time Spent with patient: 25-34 minutes Level of Care: TELE Medications reviewed and adjusted accordingly: Yes Anticipated discharge: Home with Homehealth Anticipated DC Timeframe: within 72 hours - Inpatient Certification Based on my medical assessment, after consideration of the patient's comorbidities, presenting symptoms, or acuity I expect that the services needed warrant INPATIENT care.: Yes I certify that my determination is in accordance with my understanding of Medicare's requirements for reasonable and necessary INPATIENT services [42 CFR 412.3e].: Yes Medical Necessity: Significant Comorbidiites Make Outpatient Treatment Too Risky, Need Close Monitoring Due to Risk of Patient Decompensation, Need For IV Fluids, Need For Continuous Telemetry Monitoring, Need for Pain Control, Need for IV Antibiotics, Risk of Complication if Not Cared For in Hospital, Risk of Diagnosis Which Will Require Inpatient Eval/Care/Monitoring Post Hospital Care: D/C Fund Development Manager Documentation - Plan Summary Plan Summary: Continue current medication management. Obtain CBC with diff, BMP, and Mag level in AM. Wound Care nurse input appreciated. Patient will need follow up appointment at the wound center upon discharge.
[2020-09-03] MEDS ORDERED: NYSTATIN TOPICAL POWDER 15 GM TP PRN (16:39)
[2020-09-03] MEDS: MAGNESIUM SULFATE/D5W 1 GM/100 ML RTUPB IV SCH (17:22)
[2020-09-03] MEDS ORDERED: POTASSI CL 20 MEQ/50 ML RIDER 20 MEQ/50 ML RTUPB IV SCH (18:30)
[2020-09-03] MEDS ORDERED: NORMAL SALINE 1000 ML 1,000 ML IV ONE (20:30)
[2020-09-03] MEDS: ATORVASTATIN CALCIUM 20 MG TABLET PO SCH (21:12)
[2020-09-03] MEDS: MAGNESIUM SULFATE 1 GM/D5W 100 ML IV SCH ×2 (21:12→23:16)
[2020-09-03] MEDS: NORMAL SALINE 1000 ML 1,000 ML IV PRN (22:00)
[2020-09-03 22:05] LABS: ANION GAP 8 (5-19); BLOOD UREA NITROGEN 11 mg/dL (7-20); CALCIUM 7.6 mg/dL (8.4-10.2); CARBON DIOXIDE 20 mmol/L (22-30); CHLORIDE 103 mmol/L (98-107); GLUCOSE 78 mg/dL (75-110); POTASSIUM 3.4 mmol/L (3.6-5.0)
[2020-09-03] MEDS ORDERED: MAGNESIUM SULFATE 1 GM/D5W 100 ML IV SCH (22:45)
[2020-09-04] MEDS: SULFAMETHOXAZOLE/TRIMETHOPRIM 320 MG in DEXTROSE 5%-WATER 500 ML IV SCH ×4 (03:49→21:49)
[2020-09-04] MEDS ORDERED: KETOROLAC TROMETHAMINE INJ/PF 30 MG/1 ML SDV IV ONE (05:00)
[2020-09-04] MEDS: PANTOPRAZOLE SODIUM 40 MG TABLET.DR PO SCH (05:07)
[2020-09-04 05:28] LABS: ABSOLUTE LYMPHOCYTES (AUTO) 0.9 10^3/uL (0.5-4.7); ABSOLUTE MONOCYTES (AUTO) 0.6 10^3/uL (0.1-1.4); ABSOLUTE NEUT (AUTO) 8.6 10^3/uL (1.7-8.2); BASOPHILS % (AUTO) 0.3 % (0-2); EOSINOPHILS % (AUTO) 0.1 % (0-6); HEMATOCRIT 23.1 % (36.0-47.0); LYMPHOCYTES % (AUTO) 8.6 % (13-45); MEAN CORPUSCULAR HEMOGLOBIN 31.6 pg (27.0-33.4); MEAN CORPUSCULAR HGB CONC 35.7 g/dL (32.0-36.0); MEAN CORPUSCULAR VOLUME 89 fl (80-97); MONOCYTES % (AUTO) 5.9 % (3-13); PLATELET COUNT 199 10^3/uL (150-450); RED CELL DISTRIBUTION WIDTH 14.2 % (11.5-14.0); SEGMENTED NEUTROPHILS % (AUTO) 85.1 % (42-78); TOTAL CELLS COUNTED % (AUTO) 100 %; WHITE BLOOD COUNT 10.1 10^3/uL (4.0-10.5)
[2020-09-04 05:35] LABS: HEMOGLOBIN 8.2 g/dL (12.0-15.5)
[2020-09-04 05:37] LABS: ANION GAP 8 (5-19); BLOOD UREA NITROGEN 8 mg/dL (7-20); CALCIUM 7.7 mg/dL (8.4-10.2); CARBON DIOXIDE 21 mmol/L (22-30); CHLORIDE 103 mmol/L (98-107); GLUCOSE 92 mg/dL (75-110); POTASSIUM 3.1 mmol/L (3.6-5.0)
[2020-09-04] MEDS: POTASSI CL 20 MEQ/50 ML RIDER 20 MEQ/50 ML RTUPB IV SCH ×2 (07:49→10:05)
[2020-09-04] MEDS ORDERED: CEFEPIME 1 GM/D5W RTU 1 GM/50 ML RTUPB IV SCH (10:00)
[2020-09-04] MEDS: OXYCODONE HCL IR 5 MG TABLET PO PRN ×3 (10:05→22:10)
[2020-09-04] MEDS: NORMAL SALINE 10 ML SDV (SCHEDULED) IV SCH ×2 (10:06→21:56)
--- NOTE | 2020-09-04 11:07 | PDOC PROGRESS REPORT ---
Subjective Progress Note for:: 09/04/20 Subjective:: Patient is alert awake oriented x4 Patient's blood pressure is running lower overnight 80 systolic range given 1 L of the bolus and increase the IV fluid Patient's lactic acid was 0.9 Patient's blood culture is positive for Staphylococcus Patient was currently put on the Bactrim IV Patient's previous urine culture was positive for Klebsiella was sensitive to the Levaquin and Bactrim Patient was given p.o. Levaquin but I think noncompliance issues Patient also have a significant high output ileostomy which most likely related to the dehydration General surgery on the bedside Dr. Cabezas see today because of the abdominal pain and a high output ileostomy and suggest that some dressing arrangement on ileostomy side suggest the continues the IV fluid IV antibiotic Patient is maybe needs to go to the [place] down the road for the reversion of the ileostomy but not at this stage We will add the Levaquin p.o. with IV Bactrim's Patient have allergy to the penicillin Patient denied any chest pain no short of breath Also will start the Imodium 2 mg as per discussed with the surgery to slow down the some output Reason For Visit: ABDOMINAL PAIN Physical Exam Vital Signs: Temp Pulse Resp BP Pulse Ox 98.6 F 83 17 90/40 L 95 09/04/20 07:30 09/04/20 07:30 09/04/20 07:30 09/04/20 08:00 09/04/20 07:30 Intake & Output 09/03/20 09/04/20 09/05/20 06:59 06:59 06:59 Intake Total 2550 3650 550 Balance 2550 3650 550 Weight 60.3 kg 65.9 kg General appearance: PRESENT: no acute distress, well-developed, well-nourished Head exam: PRESENT: atraumatic, normocephalic Eye exam: PRESENT: conjunctiva pink, EOMI, PERRLA. ABSENT: scleral icterus Ear exam: PRESENT: normal external ear exam Mouth exam: PRESENT: moist, tongue midline Neck exam: PRESENT: full ROM. ABSENT: carotid bruit, JVD, lymphadenopathy, thyromegaly Respiratory exam: PRESENT: clear to auscultation bucky Cardiovascular exam: PRESENT: RRR. ABSENT: diastolic murmur, rubs, systolic murmur Vascular exam: PRESENT: normal capillary refill GI/Abdominal exam: PRESENT: normal bowel sounds, soft. ABSENT: distended, guar ding, mass, organolmegaly, rebound, tenderness Additonal comments: Ileostomy bag is present with him dressing intact Rectal exam: PRESENT: deferred Neurological exam: PRESENT: alert, awake, oriented to person, oriented to place, oriented to time, oriented to situation, CN II-XII grossly intact. ABSENT: motor sensory deficit Psychiatric exam: PRESENT: appropriate affect, normal mood. ABSENT: homicidal ideation, suicidal ideation Skin exam: PRESENT: dry, intact, warm. ABSENT: cyanosis, rash Results Laboratory Results: 09/04/20 05:00 09/04/20 05:00 09/02/20 09/03/20 09/03/20 15:03 08:50 21:40 WBC 15.0 H 6.7 RBC 4.09 3.30 L Hgb 12.5 10.4 L D Hct 36.4 29.1 L MCV 89 88 MCH 30.5 31.4 MCHC 34.3 35.6 RDW 14.4 H 14.3 H Plt Count 382 271 Seg Neutrophils % 68.6 58.8 Sodium 131.1 L Potassium 3.4 L Chloride 103 Carbon Dioxide 20 L Anion Gap 8 BUN 11 Creatinine 1.03 Est GFR ( Amer) > 60 Glucose 78 Lactic Acid Calcium 7.6 L Magnesium 09/03/20 09/04/20 09/04/20 21:40 05:00 05:00 WBC 10.1 RBC 2.60 L Hgb 8.2 L D Hct 23.1 L MCV 89 MCH 31.6 MCHC 35.7 RDW 14.2 H Plt Count 199 Seg Neutrophils % 85.1 H Sodium 131.7 L Potassium 3.1 L Chloride 103 Carbon Dioxide 21 L Anion Gap 8 BUN 8 Creatinine 0.97 Est GFR ( Amer) > 60 Glucose 92 Lactic Acid 0.9 Calcium 7.7 L Magnesium 2.2 09/02/20 16:10 Blood Blood Culture (PCR) - Final Staphylococcus Species 09/02/20 15:03 Troponin I 0.013 Impressions: Chest X-Ray 09/02/20 11:59 IMPRESSION: NO ACUTE RADIOGRAPHIC FINDING IN THE CHEST. Abdomen/Pelvis CT 09/02/20 15:55 IMPRESSION: 1. Small pericardial effusion. 2. Dilated common bile duct, likely secondary to prior cholecystectomy. 3. Fluid in the rectum. Correlate for an enteritis. 4. There appear to be 2 ostomies. Assessment & Plan - Diagnosis (1) Abdominal pain Qualifiers: Abdominal location: generalized Qualified Code(s): R10.84 - Generalized abdominal pain Is this a current diagnosis for this admission?: Yes (2) HTN (hypertension) Qualifiers: Hypertension type: essential hypertension Qualified Code(s): I10 - Essential (primary) hypertension Is this a current diagnosis for this admission?: Yes (3) History of stroke with current residual effects Is this a current diagnosis for this admission?: Yes (4) Hypokalemia due to excessive gastrointestinal loss of potassium Is this a current diagnosis for this admission?: Yes (5) Hypomagnesemia Is this a current diagnosis for this admission?: Yes (6) On total parenteral nutrition (TPN) Is this a current diagnosis for this admission?: Yes (7) Hypotension Qualifiers: Hypotension type: unspecified hypotension type Qualified Code(s): I95.9 - Hypotension, unspecified Is this a current diagnosis for this admission?: Yes Plan: Due to the possible sepsis ongoing high output ileostomy Patient's at this point continues to increase more IV fluid Put the Thornton catheter Continues to IV Bactrim At the [facility] for the culture and sensitivity We will continue to closely monitor the patient (8) Sepsis Qualifiers: Sepsis type: sepsis due to unspecified organism Is this a current diagnosis for this admission?: Yes Plan: Continues the IV antibiotics and IV fluid - Time Time Spent with patient: 35 or more minutes Level of Care: TELE Medications reviewed and adjusted accordingly: Yes Anticipated discharge: Other Anticipated DC Timeframe: Other - Plan Summary Plan Summary: Very extensive discussion with the patient's regarding the patient's current conditions Very extensive discussions with the surgery Continues to IV antibiotic Continues to IV fluid Continues to monitor
[2020-09-04] MEDS: LOPERAMIDE HCL 2 MG CAPSULE PO SCH ×2 (12:28→17:21)
[2020-09-04 15:09] LABS: INTERNATIONAL RATION (INR) 1.37
[2020-09-04] MEDS: ACETAMINOPHEN 325 MG TABLET PO PRN (15:32)
[2020-09-04] MEDS: NORMAL SALINE 1000 ML 1,000 ML IV PRN ×2 (15:55→22:20)
[2020-09-04 17:52] LABS: ABSOLUTE EOSINOPHILS # (AUTO) 0.1 10^3/uL (0.0-0.6); ABSOLUTE LYMPHOCYTES (AUTO) 1.3 10^3/uL (0.5-4.7); ABSOLUTE MONOCYTES (AUTO) 0.6 10^3/uL (0.1-1.4); ABSOLUTE NEUT (AUTO) 6.2 10^3/uL (1.7-8.2); BASOPHILS % (AUTO) 0.3 % (0-2); EOSINOPHILS % (AUTO) 0.9 % (0-6); HEMATOCRIT 24.8 % (36.0-47.0); HEMOGLOBIN 8.6 g/dL (12.0-15.5); LYMPHOCYTES % (AUTO) 15.9 % (13-45); MEAN CORPUSCULAR HEMOGLOBIN 30.9 pg (27.0-33.4); MEAN CORPUSCULAR HGB CONC 34.5 g/dL (32.0-36.0); MEAN CORPUSCULAR VOLUME 90 fl (80-97); MONOCYTES % (AUTO) 7.3 % (3-13); PLATELET COUNT 200 10^3/uL (150-450); RED BLOOD COUNT 2.77 10^6/uL (3.72-5.28); RED CELL DISTRIBUTION WIDTH 14.5 % (11.5-14.0); SEGMENTED NEUTROPHILS % (AUTO) 75.6 % (42-78); TOTAL CELLS COUNTED % (AUTO) 100 %; WHITE BLOOD COUNT 8.2 10^3/uL (4.0-10.5)
[2020-09-04 17:59] LABS: ALBUMIN 2.3 g/dL (3.5-5.0); ALKALINE PHOSPHATASE 57 U/L (38-126); ANION GAP 9 (5-19); ASPARTATE AMINO TRANSFERASE 17 U/L (14-36); BILIRUBIN,DIRECT 0.1 mg/dL (0.0-0.4); BILIRUBIN,TOTAL 0.1 mg/dL (0.2-1.3); BLOOD UREA NITROGEN 6 mg/dL (7-20); CALCIUM 7.6 mg/dL (8.4-10.2); CARBON DIOXIDE 16 mmol/L (22-30); CHLORIDE 109 mmol/L (98-107); GLUCOSE 72 mg/dL (75-110); PHOSPHORUS 1.8 mg/dL (2.5-4.5); POTASSIUM 3.6 mmol/L (3.6-5.0); TOTAL PROTEIN 5.6 g/dL (6.3-8.2)
[2020-09-04] MEDS ORDERED: NORMAL SALINE 1000 ML 1,000 ML IV PRN (18:01)
[2020-09-04] MEDS ORDERED: SULFAMETHOX/TRIMETH 800-160 MG/10 ML VIAL IV ONE (20:46)
[2020-09-04] MEDS: ATORVASTATIN CALCIUM 20 MG TABLET PO SCH (21:55)
[2020-09-05] MEDS: LOPERAMIDE HCL 2 MG CAPSULE PO SCH ×4 (01:15→17:39)
[2020-09-05] MEDS ORDERED: SULFAMETHOX/TRIMETH 800-160 MG/10 ML VIAL IV ONE (02:30)
[2020-09-05] MEDS: SULFAMETHOXAZOLE/TRIMETHOPRIM 320 MG in DEXTROSE 5%-WATER 500 ML IV SCH ×2 (04:28→09:23)
[2020-09-05] MEDS: NORMAL SALINE 1000 ML 1,000 ML IV PRN ×2 (04:31→15:48)
[2020-09-05] MEDS: PANTOPRAZOLE SODIUM 40 MG TABLET.DR PO SCH (05:36)
[2020-09-05] MEDS: OXYCODONE HCL IR 5 MG TABLET PO PRN ×3 (05:59→17:39)
[2020-09-05 06:14] LABS: ABSOLUTE EOSINOPHILS # (AUTO) 0.1 10^3/uL (0.0-0.6); ABSOLUTE LYMPHOCYTES (AUTO) 1.2 10^3/uL (0.5-4.7); ABSOLUTE MONOCYTES (AUTO) 0.5 10^3/uL (0.1-1.4); ABSOLUTE NEUT (AUTO) 3.3 10^3/uL (1.7-8.2); BASOPHILS % (AUTO) 0.4 % (0-2); EOSINOPHILS % (AUTO) 2.4 % (0-6); HEMATOCRIT 20.5 % (36.0-47.0); MEAN CORPUSCULAR HGB CONC 34.3 g/dL (32.0-36.0); MEAN CORPUSCULAR VOLUME 91 fl (80-97); MONOCYTES % (AUTO) 10.2 % (3-13); PLATELET COUNT 170 10^3/uL (150-450); RED BLOOD COUNT 2.26 10^6/uL (3.72-5.28); RED CELL DISTRIBUTION WIDTH 14.6 % (11.5-14.0); TOTAL CELLS COUNTED % (AUTO) 100 %; WHITE BLOOD COUNT 5.1 10^3/uL (4.0-10.5)
[2020-09-05 06:32] LABS: ANION GAP 7 (5-19); BLOOD UREA NITROGEN 5 mg/dL (7-20); CARBON DIOXIDE 15 mmol/L (22-30); CHLORIDE 112 mmol/L (98-107); GLUCOSE 71 mg/dL (75-110); POTASSIUM 3.3 mmol/L (3.6-5.0)
[2020-09-05 06:39] LABS: PREALBUMIN 11.2 mg/dL (17.6-36.0)
[2020-09-05] MEDS: LEVOFLOXACIN 500 MG TABLET PO SCH (09:23)
[2020-09-05] MEDS: NORMAL SALINE 10 ML SDV (SCHEDULED) IV SCH ×2 (09:23→21:13)
[2020-09-05] MEDS ORDERED: POTASSI CL 20 MEQ/50 ML RIDER 20 MEQ/50 ML RTUPB IV ONE (10:02)
[2020-09-05] MEDS ORDERED: FUROSEMIDE INJ/PF 20 MG/2 ML SDV IV PRN (10:03)
[2020-09-05] MEDS ORDERED: NORMAL SALINE 250 ML IV PRN ×2 (10:03)
--- NOTE | 2020-09-05 10:07 | PDOC PROGRESS REPORT ---
Subjective Progress Note for:: 09/05/20 Subjective:: Patient is currently doing fair Denied any chest pain no short of breath Alert awake oriented x4 No headache no dizziness Patient's blood pressures remained in the 90 range Patient albumin is very low Patient hemoglobin is 7 Patient still have a high input ileostomy No blood seen in the bag Follow-up with the surgery Reason For Visit: ABDOMINAL PAIN Physical Exam Vital Signs: Temp Pulse Resp BP Pulse Ox 98.3 F 84 20 88/46 L 100 09/05/20 08:01 09/05/20 08:01 09/05/20 08:01 09/05/20 08:01 09/05/20 08:01 Intake & Output 09/04/20 09/05/20 09/06/20 06:59 06:59 06:59 Intake Total 3650 5486 500 Output Total 600 1400 Balance 3050 4086 500 Weight 65.9 kg 67.7 kg General appearance: PRESENT: no acute distress, well-developed, well-nourished Head exam: PRESENT: atraumatic, normocephalic Eye exam: PRESENT: conjunctiva pink, EOMI, PERRLA. ABSENT: scleral icterus Ear exam: PRESENT: normal external ear exam Mouth exam: PRESENT: moist, tongue midline Neck exam: PRESENT: full ROM. ABSENT: carotid bruit, JVD, lymphadenopathy, thyromegaly Respiratory exam: PRESENT: clear to auscultation bucky Cardiovascular exam: PRESENT: RRR. ABSENT: diastolic murmur, rubs, systolic murmur Pulses: PRESENT: normal dorsalis pedis pul, +2 pedal pulses bilateral Vascular exam: PRESENT: normal capillary refill GI/Abdominal exam: PRESENT: normal bowel sounds, soft. ABSENT: distended, guarding, mass, organolmegaly, rebound, tenderness Additonal comments: Ileostomy bag is draining and leaking Rectal exam: PRESENT: deferred Neurological exam: PRESENT: alert, awake, oriented to person, oriented to place, oriented to time, oriented to situation, CN II-XII grossly intact. ABSENT: motor sensory deficit Psychiatric exam: PRESENT: appropriate affect, normal mood. ABSENT: homicidal ideation, suicidal ideation Skin exam: PRESENT: dry, intact, warm. ABSENT: cyanosis, rash Results Laboratory Results: 09/05/20 05:45 09/05/20 05:45 10/09/04/20 09/04/20 14:25 14:25 14:25 WBC 8.2 RBC 2.77 L Hgb 8.6 L Hct 24.8 L MCV 90 MCH 30.9 MCHC 34.5 RDW 14.5 H Plt Count 200 Seg Neutrophils % 75.6 Sodium 133.8 L Potassium 3.6 Chloride 109 H Carbon Dioxide 16 L Anion Gap 9 BUN 6 L Creatinine 1.07 Est GFR ( Amer) > 60 Glucose 72 L Calcium 7.6 L Phosphorus 1.8 L Magnesium 1.9 Total Bilirubin 0.1 L AST 17 Alkaline Phosphatase 57 Total Protein 5.6 L Albumin 2.3 L Prealbumin 13.0 L Triglycerides 92 09/05/20 09/05/20 05:45 05:45 WBC 5.1 RBC 2.26 L Hgb 7.0 L Hct 20.5 L MCV 91 MCH 31.0 MCHC 34.3 RDW 14.6 H Plt Count 170 Seg Neutrophils % 64.0 Sodium 134.4 L Potassium 3.3 L Chloride 112 H Carbon Dioxide 15 L Anion Gap 7 BUN 5 L Creatinine 0.92 Est GFR ( Amer) > 60 Glucose 71 L Calcium 7.0 L* Phosphorus 2.0 L Magnesium Total Bilirubin AST Alkaline Phosphatase Total Protein Albumin Prealbumin 11.2 L Triglycerides 09/02/20 16:10 Blood Blood Culture (PCR) - Final Staphylococcus Species 09/02/20 15:03 Troponin I 0.013 Impressions: Chest X-Ray 09/02/20 11:59 IMPRESSION: NO ACUTE RADIOGRAPHIC FINDING IN THE CHEST. Abdomen/Pelvis CT 09/02/20 15:55 IMPRESSION: 1. Small pericardial effusion. 2. Dilated common bile duct, likely secondary to prior cholecystectomy. 3. Fluid in the rectum. Correlate for an enteritis. 4. There appear to be 2 ostomies. Assessment & Plan - Diagnosis (1) Abdominal pain Qualifiers: Abdominal location: generalized Qualified Code(s): R10.84 - Generalized abdominal pain Is this a current diagnosis for this admission?: Yes (2) HTN (hypertension) Qualifiers: Hypertension type: essential hypertension Qualified Code(s): I10 - Essential (primary) hypertension Is this a current diagnosis for this admission?: Yes (3) History of stroke with current residual effects Is this a current diagnosis for this admission?: Yes (4) Hypokalemia due to excessive gastrointestinal loss of potassium Is this a current diagnosis for this admission?: Yes (5) Hypomagnesemia Is this a current diagnosis for this admission?: Yes (6) On total parenteral nutrition (TPN) Is this a current diagnosis for this admission?: Yes (7) Hypotension Qualifiers: Hypotension type: unspecified hypotension type Qualified Code(s): I95.9 - Hypotension, unspecified Is this a current diagnosis for this admission?: Yes (8) Sepsis Qualifiers: Sepsis type: sepsis due to unspecified organism Is this a current diagnosis for this admission?: Yes (9) Hypoalbuminemia Is this a current diagnosis for this admission?: Yes - Time Time Spent with patient: 25-34 minutes Level of Care: TELE Medications reviewed and adjusted accordingly: Yes Anticipated discharge: Home with Homehealth Anticipated DC Timeframe: Other - Plan Summary Plan Summary: Continues to IV antibiotics Patient is on the TPN but concerned about the possible infections currently will wait for the culture from the line with the line is infected or not Continues the IV fluid due to the high output ileostomy Continues the Imodium We also give her albumin to help for the blood pressures are very low albumin Patient is very malnourished due to the chronic TPN We will transfuse 1 unit of the blood Get the stool for the guaiac study Discussed with the surgery
--- NOTE | 2020-09-05 11:01 | RADIOLOGY REPORT (SQ) ---
EXAM DESCRIPTION: CT ABD/PELVIS NO ORAL OR IV IMAGES COMPLETED DATE/TIME: 09/05/2020 10:11 am REASON FOR STUDY: Pain in abdomen COMPARISON: CT abdomen and pelvis dated 09/02/2020 and 11/26/2019 TECHNIQUE: CT scan of the abdomen and pelvis performed without intravenous or oral contrast. Rectal contrast was administered. Images reviewed with lung, soft tissue, and bone windows. Reconstructed coronal and sagittal MPR images reviewed. All images stored on PACS. All CT scanners at this facility use dose modulation, iterative reconstruction, and/or weight based d osing when appropriate to reduce radiation dose to as low as reasonably achievable (ALARA). [facility]: Dose Right [facility]: CareDose [facility]: Dose Right [facility]: Teradose 4D [facility]: Smart [employer] labs RADIATION DOSE: CT Rad equipment meets quality standard of care and radiation dose reduction techniq ues were employed. CTDIvol: 12.0 mGy. DLP: 566 mGy-cm.mGy. LIMITATIONS: None. FINDINGS: LOWER CHEST: Interval development of small bilateral pleural effusions and persistent appe arance of a small pericardial effusion. NON-CONTRASTED LIVER, SPLEEN, ADRENALS: Evaluation limited by lack of IV contrast. No identified sign ificant masses. PANCREAS: No masses. No peripancreatic inflammatory changes. GALLBLADDER: Surgically absent. RIGHT KIDNEY AND URETER: No suspicious masses. Assessment limited by lack of IV contrast. No signif icant calcifications. No hydronephrosis or hydroureter. LEFT KIDNEY AND URETER: No suspicious masses. Assessment limited by lack of IV contrast. No signifi cant calcifications. No hydronephrosis or hydroureter. AORTA AND RETROPERITONEUM: No aneurysm. No retroperitoneal masses or adenopathy. BOWEL AND PERITONEAL CAVITY: Left lower quadrant ostomy. No bowel obstruction. Rectal contrast with out demonstrated extravasation. A previously described fluid collection within the pelvis is reveale d to be on the basis of an abscess, which appears decreased in volume on today's examination with res olution of previous internal gas collection. This collection measures 6.5 x 4.4 x 4.0 cm on today's examination (previously 7.1 x 6.3 x 7.0 cm). APPENDIX: Surgically absent. PELVIS, BLADDER, AND ABDOMINAL WALL:Inflammatory changes are seen about the loops of small bowel with in the pelvis. Limited evaluation in the absence of oral and IV contrast. A Thornton catheter is demon strated without complication. BONES: No significant findings. OTHER: No other significant finding. IMPRESSION: 1. Persistent small pericardial effusion with interval development of bilateral small p leural effusions. 2. Rectal contrast without extravasation. A previously demonstrated pelvic fluid collection is reve aled to be on the basis of a 6.5 x 4.4 x 4.0 cm abscess which appears diminished in size noting resol ution of previously demonstrated air-fluid level within this collection. 3. Interval development of mesenteric fat stranding within the lower abdomen. While no definite foc al fluid collection or abscess is discernible, evaluation is limited in the absence of oral and IV co ntrast. COMMENT: Quality ID # [id number]: Final reports with documentation of one or more dose reduction techniques (e.g., Automated exposure control, adjustment of the mA and/or kV according to patient size, use of iterative reconstruction technique) TECHNICAL DOCUMENTATION: JOB ID: [id number] [employer]- All Rights Reserved Reading location - IP/workstation name: [email or web address]
[2020-09-05] MEDS: ONDANSETRON 4 MG TAB.RAPDIS PO PRN (11:24)
--- NOTE | 2020-09-05 12:21 | PDOC CONSULTATION ---
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 She had an emergency abdominal surgery 12 ident in November of this year which the patient does not know exactly the reason for. 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 She was also brought to [facility] where a Mediport was placed but she denies having surgery there. She got readmitted to this hospital for pains around fistula and the fistula appliance unable to be placed properly irritating the skin with intestinal contents. She denies fever no chills. She is getting TPN. Past Medical History Cardiac Medical History: Reports: Hypertension Denies: Coronary Artery Disease, Myocardial Infarction Pulmonary Medical History: Denies: Asthma, Bronchitis, Chronic Obstructive Pulmonary Disease (COPD), Pneumonia Neurological Medical History: Denies: Seizures Musculoskeltal Medical History: Reports: Arthritis - LEFT KNEE AND HAND Psychiatric Medical History: Reports: Depression Hematology: Denies: Anemia Past Surgical History Past Surgical History: Reports: Section, Orthopedic Surgery - back surgery Social History Lives with: Family Smoking Status: Former Smoker Electronic Cigarette use?: No Frequency of Alcohol Use: None Hx Recreational Drug Use: No Drugs: None Hx Prescription Drug Abuse: No - Advance Directive Resuscitation Status: Full Code Family History Family History: None, Reviewed & Not Pertinent Parental Family History Reviewed: Yes Children Family History Reviewed: No Sibling(s) Family History Reviewed.: No Medication/Allergy Home Medications: Atorvastatin Calcium [Lipitor 20 mg Tablet] 20 mg PO QHS 09/02/20 Diphenoxylate HCl/Atrop Sulf [Lomotil 2.5 mg Tablet] 1 tab PO QIDP PRN 09/02/20 Ondansetron [Zofran Odt 4 mg Tablet] 4 mg PO BID 09/02/20 Pantoprazole Sodium [Protonix [address] Tablet] 40 mg PO DAILY 09/02/20 Sumatriptan Succinate [Imitrex 50 mg Tablet] 50 mg PO Q2HP PRN 09/02/20 Allergies/Adverse Reactions: methadone [Methadone] Allergy (Verified 09/02/20 11:52) Penicillins Allergy (Verified 09/02/20 11:52) Review of Systems Constitutional: PRESENT: as per HPI Gastrointestinal: PRESENT: abdominal pain - Primarily around the enterocutaneous fistula on the right side of the abdomen. Physical Exam Vital Signs: Temp Pulse Resp BP Pulse Ox 98.8 F 83 19 85/47 L 100 09/05/20 11:06 09/05/20 11:06 09/05/20 11:06 09/05/20 11:06 09/05/20 11:06 Intake & Output 09/04/20 09/05/20 09/06/20 06:59 06:59 06:59 Intake Total 3650 5486 500 Output Total 600 1400 Balance 3050 4086 500 Weight 65.9 kg 67.7 kg General appearance: PRESENT: mild distress Eye exam: PRESENT: conjunctiva pink Mouth exam: PRESENT: moist Neck exam: PRESENT: full ROM Respiratory exam: PRESENT: clear to auscultation bucky Cardiovascular exam: PRESENT: RRR Pulses: PRESENT: normal radial pulses Vascular exam: PRESENT: normal capillary refill GI/Abdominal exam: PRESENT: soft, tenderness - Mild tenderness around the enterocutaneous fistula on the right side of the abdomen. Fistula has been draining and the appliance unable to be sealed properly. Neurological exam: PRESENT: alert, oriented to person, oriented to place, oriented to time, oriented to situation, other - Speech is a little bit slowed. Psychiatric exam: PRESENT: appropriate affect Skin exam: PRESENT: normal color, warm Results Laboratory Results: 09/05/20 05:45 09/05/20 05:45 09/04/20 09/04/20 09/04/20 14:25 14:25 14:25 WBC 8.2 RBC 2.77 L Hgb 8.6 L Hct 24.8 L MCV 90 MCH 30.9 MCHC 34.5 RDW 14.5 H Plt Count 200 Seg Neutrophils % 75.6 Sodium 133.8 L Potassium 3.6 Chloride 109 H Carbon Dioxide 16 L Anion Gap 9 BUN 6 L Creatinine 1.07 Est GFR ( Amer) > 60 Glucose 72 L Calcium 7.6 L Phosphorus 1.8 L Magnesium 1.9 Total Bilirubin 0.1 L AST 17 Alkaline Phosphatase 57 Total Protein 5.6 L Albumin 2.3 L Prealbumin 13.0 L Triglycerides 92 09/05/20 09/05/20 05:45 05:45 WBC 5.1 RBC 2.26 L Hgb 7.0 L Hct 20.5 L MCV 91 MCH 31.0 MCHC 34.3 RDW 14.6 H Plt Count 170 Seg Neutrophils % 64.0 Sodium 134.4 L Potassium 3.3 L Chloride 112 H Carbon Dioxide 15 L Anion Gap 7 BUN 5 L Creatinine 0.92 Est GFR ( Amer) > 60 Glucose 71 L Calcium 7.0 L* Phosphorus 2.0 L Magnesium Total Bilirubin AST Alkaline Phosphatase Total Protein Albumin Prealbumin 11.2 L Triglycerides 09/02/20 15:28 Clean Catch Midstream Urine Culture - Final E.faecium Vre Yeast, Not Marcelle Albicans 09/02/20 16:10 Blood Blood Culture (PCR) - Final Staphylococcus Species 09/02/20 15:03 Troponin I 0.013 Impressions: Chest X-Ray 09/02/20 11:59 IMPRESSION: NO ACUTE RADIOGRAPHIC FINDING IN THE CHEST. Abdomen/Pelvis CT 09/05/20 00:00 IMPRESSION: 1. Persistent small pericardial effusion with interval development of bilateral small pleural effusions. 2. Rectal contrast without extravasation. A previously demonstrated pelvic fluid collection is revealed to be on the basis of a 6.5 x 4.4 x 4.0 cm abscess which appears diminished in size noting resolution of previously demonstrated air-fluid level within this collection. 3. Interval development of mesenteric fat stranding within the lower abdomen. While no definite focal fluid collection or abscess is discernible, evaluation is limited in the absence of oral and IV contrast. Assessment & Plan - Diagnosis (1) At least 2 enterocutaneous fistulas Is this a current diagnosis for this admission?: Yes (2) Abdominal pain Qualifiers: Abdominal location: generalized Qualified Code(s): R10.84 - Generalized abdominal pain Is this a current diagnosis for this admission?: Yes (3) HTN (hypertension) Qualifiers: Hypertension type: essential hypertension Qualified Code(s): I10 - Essential (primary) hypertension Is this a current diagnosis for this admission?: Yes (4) History of stroke with current residual effects Is this a current diagnosis for this admission?: Yes (5) On total parenteral nutrition (TPN) Is this a current diagnosis for this admission?: Yes - Time Time Spent: 30 to 50 Minutes - Inpatient Certification Medical Necessity: Need For IV Fluids, Need for Pain Control, Need for IV Antibiotics - Plan Summary Plan Summary: 51-year-old female with history of CVA due to cerebral aneurysm with residual weakness of the right arm and right leg had exploratory laparotomy done at [facility] November of this year and subsequently developed enterocutaneous fistulas. She apparently stayed in the [facility] for several weeks. She was transferred to [place] for Chemo-Port placement and started on TPN through this port. He has been complaining of pains around right heel enterocutaneous fistula which is been draining with inability to keep a good seal. SHE was seen by wound care nurse and recommended duoderm. Unfortunately we do not have them available here. Would recommend continued appliance care possibly with the use of substitute to duoderm. Would strongly advised to transfer the patient to the original hospital when she had the surgery advised and were the have more support system and hopefully the original surgeon still there to follow-up on this patient. Addendum: Follow-up CT scan today showed patient has a pelvic abscess that has gotten a little smaller today to about 6.5 x 4.4 x 5 cm. This apparently was seen in previous CT scan and on admission but was not correctly read. With this pelvic abscess the more that patient should be transferred to tertiary hospital divide and where original operation was performed.
[2020-09-05] MEDS: ALBUMIN HUMAN 12.5 GM/50 ML RTUINJ IV SCH ×2 (13:59→15:40)
[2020-09-05] MEDS: ONDANSETRON HCL INJ/PF 4 MG/2 ML SDV IV PRN ×2 (13:59→17:40)
[2020-09-05] MEDS ORDERED: ALBUMIN HUMAN 12.5 GM/50 ML RTUINJ IV SCH (16:00)
[2020-09-05] MEDS: ACETAMINOPHEN 325 MG TABLET PO PRN (16:23)
[2020-09-05] MEDS: NORMAL SALINE 10 ML SDV (AFTER EACH USE) IV PRN (19:52)
[2020-09-05] MEDS: DOXYCYCLINE HYCLATE 100 MG in DEXTROSE 5%-WATER 250 ML IV SCH (21:12)
[2020-09-05] MEDS: ATORVASTATIN CALCIUM 20 MG TABLET PO SCH (21:12)
[2020-09-05 22:01] LABS: ABSOLUTE EOSINOPHILS # (AUTO) 0.1 10^3/uL (0.0-0.6); ABSOLUTE LYMPHOCYTES (AUTO) 0.9 10^3/uL (0.5-4.7); ABSOLUTE MONOCYTES (AUTO) 0.4 10^3/uL (0.1-1.4); ABSOLUTE NEUT (AUTO) 5.9 10^3/uL (1.7-8.2); BASOPHILS % (AUTO) 0.3 % (0-2); EOSINOPHILS % (AUTO) 1.1 % (0-6); HEMATOCRIT 29.8 % (36.0-47.0); LYMPHOCYTES % (AUTO) 12.2 % (13-45); MEAN CORPUSCULAR HEMOGLOBIN 31.3 pg (27.0-33.4); MEAN CORPUSCULAR HGB CONC 34.5 g/dL (32.0-36.0); MEAN CORPUSCULAR VOLUME 91 fl (80-97); MONOCYTES % (AUTO) 5.2 % (3-13); PLATELET COUNT 189 10^3/uL (150-450); RED BLOOD COUNT 3.29 10^6/uL (3.72-5.28); SEGMENTED NEUTROPHILS % (AUTO) 81.2 % (42-78); TOTAL CELLS COUNTED % (AUTO) 100 %; WHITE BLOOD COUNT 7.3 10^3/uL (4.0-10.5)
[2020-09-05 22:03] LABS: HEMOGLOBIN 10.3 g/dL (12.0-15.5)
[2020-09-06] MEDS: LOPERAMIDE HCL 2 MG CAPSULE PO SCH ×2 (02:00→05:00)
[2020-09-06] MEDS: NORMAL SALINE 1000 ML 1,000 ML IV PRN ×2 (04:00→15:08)
[2020-09-06] MEDS: OXYCODONE HCL IR 5 MG TABLET PO PRN (04:00)
[2020-09-06] MEDS: PANTOPRAZOLE SODIUM 40 MG TABLET.DR PO SCH (05:00)
[2020-09-06 05:10] LABS: HEMOGLOBIN 10.6 g/dL (12.0-15.5); MEAN CORPUSCULAR HEMOGLOBIN 31.7 pg (27.0-33.4); MEAN CORPUSCULAR HGB CONC 35.2 g/dL (32.0-36.0); MEAN CORPUSCULAR VOLUME 90 fl (80-97); PLATELET COUNT 188 10^3/uL (150-450); RED BLOOD COUNT 3.34 10^6/uL (3.72-5.28); RED CELL DISTRIBUTION WIDTH 14.9 % (11.5-14.0); WHITE BLOOD COUNT 6.3 10^3/uL (4.0-10.5)
[2020-09-06 05:31] LABS: INTERNATIONAL RATION (INR) 1.28; PROTHROMBIN TIME 16.2 SEC (11.4-15.4)
[2020-09-06 05:39] LABS: ALBUMIN 2.7 g/dL (3.5-5.0); ALKALINE PHOSPHATASE 59 U/L (38-126); ANION GAP 9 (5-19); ASPARTATE AMINO TRANSFERASE 17 U/L (14-36); BILIRUBIN,DIRECT 0.2 mg/dL (0.0-0.4); BILIRUBIN,TOTAL 0.2 mg/dL (0.2-1.3); BLOOD UREA NITROGEN 3 mg/dL (7-20); CALCIUM 8.3 mg/dL (8.4-10.2); CARBON DIOXIDE 17 mmol/L (22-30); CHLORIDE 109 mmol/L (98-107); GLUCOSE 81 mg/dL (75-110); PHOSPHORUS 2.2 mg/dL (2.5-4.5); POTASSIUM 3.6 mmol/L (3.6-5.0); TOTAL PROTEIN 5.9 g/dL (6.3-8.2)
[2020-09-06 05:47] LABS: PREALBUMIN 13.9 mg/dL (17.6-36.0)
[2020-09-06] MEDS: NORMAL SALINE 10 ML SDV (SCHEDULED) IV SCH ×2 (09:44→21:49)
[2020-09-06] MEDS: LEVOFLOXACIN 500 MG TABLET PO SCH (09:44)
[2020-09-06] MEDS: DOXYCYCLINE HYCLATE 100 MG in DEXTROSE 5%-WATER 250 ML IV SCH ×2 (09:45→21:54)
[2020-09-06 10:35] LABS: ABSOLUTE LYMPHOCYTES# (MANUAL) 1.3 10^3/uL (0.5-4.7); ABSOLUTE MONOCYTES # (MANUAL) 0.3 10^3/uL (0.1-1.4); BASOPHILS % (MANUAL) 1 % (0-2); EOSINOPHILS % (MANUAL) 2 % (0-6); LYMPHOCYTES % (MANUAL) 20 % (13-45); MONOCYTES % (MANUAL) 5 % (3-13); PLATELET COMMENT ADEQUATE; RBC MORPHOLOGY COMMENT NORMO-CYTIC/CHROMIC; SEGMENTED NEUTROPHILS % (MAN) 72 % (42-78); TOTAL CELLS COUNTED 100
[2020-09-06] MEDS ORDERED: DEXTROSE 40% GEL 15 GM TUBE PO PRN ×4 (11:00→11:09)
[2020-09-06] MEDS ORDERED: DEXTROSE 50%-WATER 25 GM/50 ML DISP.SYRIN IV PRN ×4 (11:00→11:09)
[2020-09-06] MEDS ORDERED: GLUCAGON,HUMAN RECOMB 1 MG INJ SUBCUT PRN ×2 (11:00→11:09)
[2020-09-06] MEDS ORDERED: DEXTROSE 10%-WATER 1,000 ML IV PRN (11:01)
--- NOTE | 2020-09-06 11:08 | PDOC PROGRESS REPORT ---
Subjective Progress Note for:: 09/06/20 Reason For Visit: ABDOMINAL PAIN Patient at bedside eating regular groceries. In delving into patient's history, it appears she had a sigmoid colectomy in the remote past with a primary anastomosis. 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 She was subsequently transferred to [facility], then went to [place] then came back to [place]. She has had urinary tract infection growing Proteus and E. coli she received oral antibiotics on an outpatient basis. She is now admitted for sepsis, leaking midline enterocutaneous fistula appliance and virtually no output from her colostomy. Of note patient was found on 09/02/2020 CT scan to have a like abscess between the bladder and the rectum, and 3 days later, the collection appeared decompressed significantly. The etiology of this is unknown. Patient had contrast in her rectum, although radiologist cannot ascertain when that was installed. Physical Exam Vital Signs: Temp Pulse Resp BP Pulse Ox 98.6 F 75 18 121/57 L 100 09/06/20 07:20 09/06/20 07:20 09/06/20 07:20 09/06/20 07:20 09/06/20 07:20 Intake & Output 09/05/20 09/06/20 09/07/20 06:59 06:59 06:59 Intake Total 5486 4200 250 Output Total 1400 3700 Balance 4086 500 250 Weight 67.7 kg 67.7 kg General appearance: PRESENT: mild distress GI/Abdominal exam: PRESENT: other - All dressings were removed. Copious quantities of small bowel contents coming out of midline enterocutaneous fistula herniation of small bowel. Surrounding skin very raw. There are tablets of pills in the E fluent Left lower quadrant transverse scar, with very reduced opening, less than 5 mm, with no significant output Psychiatric exam: PRESENT: anxious Results Laboratory Results: 09/06/20 04:45 09/06/20 04:45 09/05/20 09/05/20 09/06/20 10:25 21:10 04:45 WBC 7.3 6.3 RBC 3.29 L 3.34 L Hgb 10.3 L D 10.6 L Hct 29.8 L 30.0 L MCV 91 90 MCH 31.3 31.7 MCHC 34.5 35.2 RDW 15.0 H 14.9 H Plt Count 189 188 Seg Neutrophils % 81.2 H Not Reportable Sodium Potassium Chloride Carbon Dioxide Anion Gap BUN Creatinine Est GFR ( Amer) Glucose Calcium Phosphorus Magnesium Total Bilirubin AST Alkaline Phosphatase Total Protein Albumin Prealbumin Blood Type O POSITIVE Antibody Screen POSITIVE 09/06/20 04:45 WBC RBC Hgb Hct MCV MCH MCHC RDW Plt Count Seg Neutrophils % Sodium 134.6 L Potassium 3.6 Chloride 109 H Carbon Dioxide 17 L Anion Gap 9 BUN 3 L Creatinine 0.94 Est GFR ( Amer) > 60 Glucose 81 Calcium 8.3 L Phosphorus 2.2 L Magnesium 1.4 L Total Bilirubin 0.2 AST 17 Alkaline Phosphatase 59 Total Protein 5.9 L Albumin 2.7 L Prealbumin 13.9 L Blood Type Antibody Screen 09/02/20 16:10 Blood Blood Culture (PCR) - Final Staphylococcus Species 09/02/20 16:10 Blood Blood Culture - Final Staphylococcus Simulans 09/02/20 15:28 Clean Catch Midstream Urine Culture - Final E.faecium Vre Yeast, Not Marcelle Albicans 09/02/20 15:03 Troponin I 0.013 Impressions: Chest X-Ray 09/02/20 11:59 IMPRESSION: NO ACUTE RADIOGRAPHIC FINDING IN THE CHEST. Abdomen/Pelvis CT 09/05/20 00:00 IMPRESSION: 1. Persistent small pericardial effusion with interval development of bilateral small pleural effusions. 2. Rectal contrast without extravasation. A previously demonstrated pelvic fluid collection is revealed to be on the basis of a 6.5 x 4.4 x 4.0 cm abscess which appears diminished in size noting resolution of previously demonstrated air-fluid level within this collection. 3. Interval development of mesenteric fat stranding within the lower abdomen. While no definite focal fluid collection or abscess is discernible, evaluation is limited in the absence of oral and IV contrast. Assessment & Plan - Diagnosis (1) At least 2 enterocutaneous fistulas Is this a current diagnosis for this admission?: Yes Plan: Impression: Extremely complex and unfortunate patient with a chronic enterocutaneous fistula, high output, on regular groceries, with a spontaneously closing diverting left-sided colostomy with no output; metabolic acidosis, hypokalemia and urinary tract infection on IV antibiotics. Recommendations: 1. We need to gain control of the anterior abdominal wall by ceasing all p.o. intake; this was discussed explicitly with Dr. Grove 2. Suggested starting patient on octreotide 3. Improve midline abdominal wall fistula control with better fitting appliance 4. We will reinspect the anterior abdominal wall and attempt to digitally open up colostomy at bedside. 5. To keep up with the fluid losses, combat risk of renal insufficiency due to dehydration 5. No indication for surgical intervention at this moment; This is a very ho stile abdominal wall and intraperitoneal compartment at high risk for further breakdown, fistula creation etc. - Time Time Spent: 50 to 70 Minutes Anticipated Discharge Disposition: Home with Home Health Anticipated Discharge Timeframe: To be determined
[2020-09-06] MEDS ORDERED: ACETAMINOPHEN 650 MG SUPP.RECT PR PRN (11:09)
[2020-09-06] MEDS: MORPHINE SULFATE 10 MG/ML INJ IV PRN ×3 (11:55→20:27)
[2020-09-06] MEDS ORDERED: NORMAL SALINE 500 ML with OCTREOTIDE ACETATE 500 MCG IV SCH ×2 (12:00)
[2020-09-06] MEDS ORDERED: LIDOCAINE 2% JELLY 30 ML TUBE TOP ONE (12:00)
[2020-09-06] MEDS: INSULIN REG, HUMAN 100 UNIT/ML 3 ML VIAL SUBCUT SCH ×2 (14:07→17:49)
--- NOTE | 2020-09-06 14:13 | PDOC PROGRESS REPORT ---
Subjective Progress Note for:: 09/06/20 Subjective:: Patient denied nausea or vomiting. She reported abdominal pain localized to lower abdominal region. No chest pain or difficulty with breathing. I discussed her case with Dr. Cabezas and Ba, surgeons, presently will continue conservative management with attempt at colostomy re-evaluation for digital reopening. She will be on NPO status and TPN support to rest her bowel for better anterior abdominal wall assessment by the surgical team. Due to her high output ileostomy she will start on IV Octreotide therapy. Reason For Visit: ABDOMINAL PAIN Physical Exam Vital Signs: Temp Pulse Resp BP Pulse Ox 98.6 F 75 18 121/57 L 100 09/06/20 07:20 09/06/20 07:20 09/06/20 07:20 09/06/20 07:20 09/06/20 07:20 Intake & Output 09/05/20 09/06/20 09/07/20 06:59 06:59 06:59 Intake Total 5486 4200 250 Output Total 1400 3700 Balance 4086 500 250 Weight 67.7 kg 67.7 kg 67.7 kg Physical Exam: General appearance: PRESENT: mild distress - due to ostomy site associated pain Head exam: PRESENT: atraumatic, normocephalic Eye exam: PRESENT: conjunctiva pink. ABSENT: pallor, scleral icterus Respiratory exam: PRESENT: clear to auscultation bucky, decreased breath sounds - at lung bases Cardiovascular exam: PRESENT: RRR, +S1, +S2. ABSENT: diastolic murmur, rubs, systolic murmur GI/Abdominal exam: PRESENT: normal bowel sounds, soft, tenderness - around ostomy site. ABSENT: distended, guarding, mass, organomegaly, rebound Extremities exam: ABSENT: pedal edema Neurological exam: PRESENT: alert, awake, oriented to person, oriented to place, oriented to time, oriented to situation, CN II-XII grossly intact. ABSENT: motor sensory deficit Psychiatric exam: PRESENT: appropriate affect, normal mood. ABSENT: homicidal ideation, suicidal ideation Skin exam: PRESENT: dry, rash, warm, other - contact dermatitis changes with open wound around ostomy site Results Laboratory Results: 09/06/20 04:45 09/06/20 04:45 09/05/20 09/05/20 09/06/20 10:25 21:10 04:45 WBC 7.3 6.3 RBC 3.29 L 3.34 L Hgb 10.3 L D 10.6 L Hct 29.8 L 30.0 L MCV 91 90 MCH 31.3 31.7 MCHC 34.5 35.2 RDW 15.0 H 14.9 H Plt Count 189 188 Seg Neutrophils % 81.2 H Not Reportable Sodium Potassium Chloride Carbon Dioxide Anion Gap BUN Creatinine Est GFR ( Amer) Glucose Calcium Phosphorus Magnesium Total Bilirubin AST Alkaline Phosphatase Total Protein Albumin Prealbumin Blood Type O POSITIVE Antibody Screen POSITIVE 09/06/20 04:45 WBC RBC Hgb Hct MCV MCH MCHC RDW Plt Count Seg Neutrophils % Sodium 134.6 L Potassium 3.6 Chloride 109 H Carbon Dioxide 17 L Anion Gap 9 BUN 3 L Creatinine 0.94 Est GFR ( Amer) > 60 Glucose 81 Calcium 8.3 L Phosphorus 2.2 L Magnesium 1.4 L Total Bilirubin 0.2 AST 17 Alkaline Phosphatase 59 Total Protein 5.9 L Albumin 2.7 L Prealbumin 13.9 L Blood Type Antibody Screen 09/02/20 16:10 Blood Blood Culture (PCR) - Final Staphylococcus Species 09/02/20 16:10 Blood Blood Culture - Final Staphylococcus Simulans 09/02/20 15:28 Clean Catch Midstream Urine Culture - Final E.faecium Vre Yeast, Not Marcelle Albicans 09/02/20 15:03 Troponin I 0.013 Impressions: Chest X-Ray 09/02/20 11:59 IMPRESSION: NO ACUTE RADIOGRAPHIC FINDING IN THE CHEST. Abdomen/Pelvis CT 09/05/20 00:00 IMPRESSION: 1. Persistent small pericardial effusion with interval development of bilateral small pleural effusions. 2. Rectal contrast without extravasation. A previously demonstrated pelvic fluid collection is revealed to be on the basis of a 6.5 x 4.4 x 4.0 cm abscess which appears diminished in size noting resolution of previously demonstrated air-fluid level within this collection. 3. Interval development of mesenteric fat stranding within the lower abdomen. While no definite focal fluid collection or abscess is discernible, evaluation is limited in the absence of oral and IV contrast. 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 Is this a current diagnosis for this admission?: Yes (4) HTN (hypertension) Qualifiers: Hypertension type: essential hypertension Qualified Code(s): I10 - Essen tial (primary) hypertension Is this a current diagnosis for this admission?: Yes (5) History of stroke with current residual effects Is this a current diagnosis for this admission?: Yes (6) Occluded PICC line Qualifiers: Encounter type: initial encounter Qualified Code(s): T82.898A - Other specified complication of vascular prosthetic devices, implants and grafts, initial encounter Is this a current diagnosis for this admission?: Yes (7) Hypokalemia due to excessive gastrointestinal loss of potassium Is this a current diagnosis for this admission?: Yes (8) Hypomagnesemia Is this a current diagnosis for this admission?: Yes - Time Time Spent with patient: 25-34 minutes Level of Care: MEDICAL Medications reviewed and adjusted accordingly: Yes Anticipated discharge: Home with Homehealth, SNF Anticipated DC Timeframe: within 72 hours - Inpatient Certification Based on my medical assessment, after consideration of the patient's comorbidities, presenting symptoms, or acuity I expect that the services needed warrant INPATIENT care.: Yes I certify that my determination is in accordance with my understanding of Medicare's requirements for reasonable and necessary INPATIENT services [42 CFR 412.3e].: Yes Medical Necessity: Significant Comorbidiites Make Outpatient Treatment Too Risky, Need Close Monitoring Due to Risk of Patient Decompensation, Need For IV Fluids, Need For Continuous Telemetry Monitoring, Need for Pain Control, Need for IV Antibiotics, Need for Surgery, Risk of Complication if Not Cared For in Hospital, Risk of Diagnosis Which Will Require Inpatient Eval/Care/Monitoring Post Hospital Care: D/C Av Specialist Documentation, D/C or Transfer Summary - Plan Summary Plan Summary: See attending physician orders. Follow up with surgical team recommendations. Maintain current antibiotic coverage with change of Levofloxacin to IV formulary.
[2020-09-06] MEDS: NORMAL SALINE 500 ML with OCTREOTIDE ACETATE 500 MCG IV SCH ×2 (15:23)
[2020-09-06] MEDS: AMINO ACIDS 5 %/DEXTROSE 20 % 1,000 ML IV PRN (16:59)
--- NOTE | 2020-09-06 17:36 | Progress Note ---
Provider Note Provider Note: I contacted [facility] transfer center for possible transfer. I was informed that the facility is closed to regional transfer except for ICU patient at this time. I will contact [facility] for possible transfer as per surgical team recommendation.
--- NOTE | 2020-09-06 17:46 | Progress Note ---
Provider Note Provider Note: Awaiting call back from [facility] for possible transfer as per surgical team recommendation.
[2020-09-06] MEDS ORDERED: PANTOPRAZOLE SODIUM 40 MG VIAL IV SCH (22:00)
[2020-09-07] MEDS ORDERED: HUM INSULIN NPH/REG INSULIN HM 100 UNIT/1 ML 3 ML SUBCUT ONE (00:04)
[2020-09-07] MEDS ORDERED: INSULIN REG, HUMAN 100 UNIT/ML 3 ML VIAL (PYX) ONE (00:14)
[2020-09-07] MEDS: INSULIN REG, HUMAN 100 UNIT/ML 3 ML VIAL SUBCUT SCH ×2 (00:17→05:53)
[2020-09-07] MEDS: NORMAL SALINE 500 ML with OCTREOTIDE ACETATE 500 MCG IV SCH ×4 (00:18→13:39)
[2020-09-07] MEDS: MORPHINE SULFATE 10 MG/ML INJ IV PRN ×6 (00:33→22:46)
[2020-09-07] MEDS: NORMAL SALINE 1000 ML 1,000 ML IV PRN (03:55)
[2020-09-07 06:04] LABS: ALBUMIN 2.5 g/dL (3.5-5.0); ALKALINE PHOSPHATASE 47 U/L (38-126); ANION GAP 9 (5-19); ASPARTATE AMINO TRANSFERASE 23 U/L (14-36); BILIRUBIN,DIRECT 0.3 mg/dL (0.0-0.4); BILIRUBIN,TOTAL 0.3 mg/dL (0.2-1.3); BLOOD UREA NITROGEN 8 mg/dL (7-20); CALCIUM 8.3 mg/dL (8.4-10.2); CARBON DIOXIDE 14 mmol/L (22-30); CHLORIDE 112 mmol/L (98-107); PHOSPHORUS 2.9 mg/dL (2.5-4.5); POTASSIUM 4.3 mmol/L (3.6-5.0); TOTAL PROTEIN 5.6 g/dL (6.3-8.2)
[2020-09-07 06:11] LABS: PREALBUMIN 12.4 mg/dL (17.6-36.0)
[2020-09-07 06:17] LABS: GLUCOSE 49 mg/dL (75-110)
[2020-09-07] MEDS: NORMAL SALINE 10 ML SDV (SCHEDULED) IV SCH ×2 (09:08→21:42)
[2020-09-07] MEDS: LEVOFLOXACIN 500 MG/D5W RTU 500 MG/100 ML RTUPB IV SCH (09:08)
[2020-09-07] MEDS: DOXYCYCLINE HYCLATE 100 MG in DEXTROSE 5%-WATER 250 ML IV SCH ×2 (09:09→23:46)
--- NOTE | 2020-09-07 09:59 | PDOC PROGRESS REPORT ---
Subjective Progress Note for:: 09/07/20 Subjective:: Feels okay. Abdominal pain is stable. No nausea or vomiting overnight. Reason For Visit: ABDOMINAL PAIN Physical Exam Vital Signs: Temp Pulse Resp BP Pulse Ox 98.3 F 63 17 100/54 L 100 09/07/20 04:38 09/07/20 04:38 09/07/20 04:38 09/07/20 04:38 09/07/20 04:38 Intake & Output 09/06/20 09/07/20 09/08/20 06:59 06:59 06:59 Intake Total 4200 3875.0 Output Total 3700 1100 Balance 500 2775.0 Weight 67.7 kg 67.7 kg General appearance: PRESENT: no acute distress, cooperative Respiratory exam: PRESENT: clear to auscultation bucky Cardiovascular exam: PRESENT: RRR GI/Abdominal exam: PRESENT: other - Soft, nondistended, mild diffuse abdominal tenderness. Well-formed fistula apparent at the mid abdomen the output of which is being caught with dressings without spillage to the surrounding abdomen. With the scar contraction around this region, ostomy placement would be very difficult and patient does note that ostomy placement around this fistula has failed in the past. Colostomy bag is flat with no air. Results Laboratory Results: 09/06/20 04:45 09/07/20 04:16 09/06/20 09/06/20 09/07/20 04:45 04:45 04:16 WBC 6.3 RBC 3.34 L Hgb 10.6 L Hct 30.0 L MCV 90 MCH 31.7 MCHC 35.2 RDW 14.9 H Plt Count 188 Seg Neutrophils % Not Reportable Sodium 135.3 L Potassium 4.3 Chloride 112 H Carbon Dioxide 14 L Anion Gap 9 BUN 8 Creatinine 0.75 Est GFR ( Amer) > 60 Glucose 49 L Calcium 8.3 L Phosphorus 2.9 Total Bilirubin 0.3 AST 23 Alkaline Phosphatase 47 Total Protein 5.6 L Albumin 2.5 L Prealbumin 12.4 L Triglycerides 86 09/02/20 15:03 Troponin I 0.013 Impressions: Chest X-Ray 09/02/20 11:59 IMPRESSION: NO ACUTE RADIOGRAPHIC FINDING IN THE CHEST. Abdomen/Pelvis CT 09/05/20 00:00 IMPRESSION: 1. Persistent small pericardial effusion with interval development of bilateral small pleural effusions. 2. Rectal contrast without extravasation. A previously demonstrated pelvic fluid collection is revealed to be on the basis of a 6.5 x 4.4 x 4.0 cm abscess which appears diminished in size noting resolution of previously demonstrated air-fluid level within this collection. 3. Interval development of mesenteric fat stranding within the lower abdomen. While no definite focal fluid collection or abscess is discernible, evaluation is limited in the absence of oral and IV contrast. Assessment & Plan - Diagnosis (1) Enterocutaneous fistula Is this a current diagnosis for this admission?: Yes Plan: We will see output in the ensuing days but appears to be low output with her being n.p.o. and on TPN. Pending transfer to [place] if they will reaccept her. (2) Pelvic abscess Is this a current diagnosis for this admission?: Yes Plan: I have reviewed the CT scan with radiology and there does appear to be an abscess posterior to the bladder that measures about 6 x 4 cm in size with a thick wall. The current radiologist does not do interventional radiology but we will have an interventional radiologist tomorrow and will discuss with him about possible drainage if patient is not transferred. (3) Colostomy stricture Is this a current diagnosis for this admission?: Yes Plan: Stoma stricture that was dilated yesterday. Will reevaluate in couple more days to see if it needs repeat dilation if the patient is not transferred. - Time Anticipated Discharge Disposition: Detention Facility Anticipated Discharge Timeframe: Week
[2020-09-07 11:47] LABS: HEMATOCRIT 32.6 % (36.0-47.0); HEMOGLOBIN 11.3 g/dL (12.0-15.5); MEAN CORPUSCULAR HEMOGLOBIN 31.5 pg (27.0-33.4); MEAN CORPUSCULAR HGB CONC 34.7 g/dL (32.0-36.0); MEAN CORPUSCULAR VOLUME 91 fl (80-97); PLATELET COUNT 209 10^3/uL (150-450); RED CELL DISTRIBUTION WIDTH 14.8 % (11.5-14.0); WHITE BLOOD COUNT 6.3 10^3/uL (4.0-10.5)
[2020-09-07 12:01] LABS: INTERNATIONAL RATION (INR) 1.19; PROTHROMBIN TIME 15.3 SEC (11.4-15.4)
[2020-09-07] MEDS: ONDANSETRON HCL INJ/PF 4 MG/2 ML SDV IV PRN ×2 (13:50→18:46)
[2020-09-07] MEDS: AMINO ACIDS 5 %/DEXTROSE 20 % 1,000 ML IV PRN (17:41)
[2020-09-07] MEDS: INSULIN REG, HUMAN 100 UNIT/ML 3 ML VIAL (PYX) SUBCUT SCH (18:00)
--- NOTE | 2020-09-07 18:54 | PDOC PROGRESS REPORT ---
Subjective Progress Note for:: 09/07/20 Subjective:: She reported minimal abdominal pain localized to lower abdominal region. No nausea, vomiting, chest pain or difficulty with breathing. She remain NPO status on TPN support and IV Octreotide therapy for high output enterocutaneous fistula. Reason For Visit: ABDOMINAL PAIN Physical Exam Vital Signs: Temp Pulse Resp BP Pulse Ox 98.0 F 62 16 99/52 L 100 09/07/20 09:23 09/07/20 09:23 09/07/20 09:23 09/07/20 09:23 09/07/20 09:23 Intake & Output 09/06/20 09/07/20 09/08/20 06:59 06:59 06:59 Intake Total 4200 3875.0 1050 Output Total 3700 1100 Balance 500 2775.0 1050 Weight 67.7 kg 67.7 kg General appearance: PRESENT: no acute distress Head exam: PRESENT: atraumatic, normocephalic Eye exam: PRESENT: conjunctiva pink. ABSENT: scleral icterus Respiratory exam: PRESENT: clear to auscultation bucky, decreased breath sounds - at lung bases Cardiovascular exam: PRESENT: RRR, +S1, +S2. ABSENT: diastolic murmur, rubs, systolic murmur Vascular exam: ABSENT: pallor GI/Abdominal exam: PRESENT: normal bowel sounds, tenderness - around open drainage fistula site, other - empty colostomy Extremities exam: ABSENT: pedal edema Neurological exam: PRESENT: alert, awake, oriented to person, oriented to place, oriented to time Psychiatric exam: ABSENT: agitated Skin exam: PRESENT: dry, warm, other - improving contact dermatitis lesion around the fistula site. Results Laboratory Results: 09/07/20 11:21 09/07/20 04:16 09/07/20 09/07/20 09/07/20 04:16 11:21 11:21 WBC 6.3 RBC 3.60 L Hgb 11.3 L Hct 32.6 L MCV 91 MCH 31.5 MCHC 34.7 RDW 14.8 H Plt Count 209 Sodium 135.3 L Potassium 4.3 Chloride 112 H Carbon Dioxide 14 L Anion Gap 9 BUN 8 Creatinine 0.75 Est GFR ( Amer) > 60 Glucose 49 L Calcium 8.3 L Phosphorus 2.9 Magnesium 1.4 L Total Bilirubin 0.3 AST 23 Alkaline Phosphatase 47 Total Protein 5.6 L Albumin 2.5 L Prealbumin 12.4 L 09/02/20 15:03 Blood Blood Culture - Final NO GROWTH IN 5 DAYS 09/02/20 15:03 Troponin I 0.013 Impressions: Chest X-Ray 09/02/20 11:59 IMPRESSION: NO ACUTE RADIOGRAPHIC FINDING IN THE CHEST. Abdomen/Pelvis CT 09/05/20 00:00 IMPRESSION: 1. Persistent small pericardial effusion with interval development of bilateral small pleural effusions. 2. Rectal contrast without extravasation. A previously demonstrated pelvic fluid collection is revealed to be on the basis of a 6.5 x 4.4 x 4.0 cm abscess which appears diminished in size noting resolution of previously demonstrated air-fluid level within this collection. 3. Interval development of mesenteric fat stranding within the lower abdomen. While no definite focal fluid collection or abscess is discernible, evaluation is limited in the absence of oral and IV contrast. 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 Is this a current diagnosis for this admission?: Yes (4) HTN (hypertension) Qualifiers: Hypertension type: essential hypertension Qualified Code(s): I10 - Essential (primary) hypertension Is this a current diagnosis for this admission?: Yes (5) History of stroke with current residual effects Is this a current diagnosis for this admission?: Yes (6) Occluded PICC line Qualifiers: Encounter type: initial encounter Qualified Code(s): T82.898A - Other specified complication of vascular prosthetic devices, implants and grafts, initial encounter Is this a current diagnosis for this admission?: Yes (7) Hypokalemia due to excessive gastrointestinal loss of potassium Is this a current diagnosis for this admission?: Yes (8) Hypomagnesemia Is this a current diagnosis for this admission?: Yes (9) Colostomy stricture Is this a current diagnosis for this admission?: Yes Plan: Continue to monitor functional level, currently difficulty due to NPO status. (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 Is this a current diagnosis for this admission?: Yes Plan: position and status of her surrounding skin make it difficult to apply collection bag. currently draining openly to dressing. Less quantity probable due to the octreotide and NPO status. Maintain on TPN support. (11) Pelvic abscess Is this a current diagnosis for this admission?: Yes Plan: Continue antibiotic coverage. Attempt at tertiary center transfer yesterday was unsuccessful. [facility] declined transfer due to less acute at present time and suggest transfer to primary surgical intervention facility in the future if surgery is necessary. We will discuss with interventional radiologist tomorrow if the pelvic abscess can be drainage nonsurgical approach. - Time Time Spent with patient: 25-34 minutes Level of Care: TELE Medications reviewed and adjusted accordingly: Yes Anticipated discharge: Home with Homehealth Anticipated DC Timeframe: within 72 hours - Inpatient Certification Based on my medical assessment, after consideration of the patient's comorbidities, presenting symptoms, or acuity I expect that the services needed warrant INPATIENT care.: Yes I certify that my determination is in accordance with my understanding of Medicare's requirements for reasonable and necessary INPATIENT services [42 CFR 412.3e].: Yes Medical Necessity: Significant Comorbidiites Make Outpatient Treatment Too Risky, Need Close Monitoring Due to Risk of Patient Decompensation, Need For IV Fluids, Need For Continuous Telemetry Monitoring, Need for Pain Control, Need for IV Antibiotics, Need for Surgery, Risk of Complication if Not Cared For in Hospital, Risk of Diagnosis Which Will Require Inpatient Eval/Care/Monitoring Post Hospital Care: D/C Credit Support Specialist Documentation, D/C or Transfer Summary - Plan Summary Plan Summary: Continue current medical management. Follow up with interventional radiologist tomorrow for possible intervention. I discussed case with Dr. Sheets, on duty surgicalist.
[2020-09-07] MEDS: MAGNESIUM SULFATE/D5W 1 GM/100 ML RTUPB IV SCH ×2 (19:38→22:46)
[2020-09-08] MEDS: INSULIN REG, HUMAN 100 UNIT/ML 3 ML VIAL (PYX) SUBCUT SCH ×4 (03:16→18:21)
[2020-09-08] MEDS: NORMAL SALINE 500 ML with OCTREOTIDE ACETATE 500 MCG IV SCH ×6 (03:25→23:59)
[2020-09-08] MEDS: MORPHINE SULFATE 10 MG/ML INJ IV PRN ×4 (07:11→21:52)
[2020-09-08 08:35] LABS: ANION GAP 6 (5-19); BLOOD UREA NITROGEN 11 mg/dL (7-20); CALCIUM 8.1 mg/dL (8.4-10.2); CARBON DIOXIDE 16 mmol/L (22-30); CHLORIDE 115 mmol/L (98-107); GLUCOSE 115 mg/dL (75-110); PHOSPHORUS 2.9 mg/dL (2.5-4.5); POTASSIUM 4.5 mmol/L (3.6-5.0)
[2020-09-08 08:42] LABS: PREALBUMIN 13.5 mg/dL (17.6-36.0)
[2020-09-08] MEDS: DOXYCYCLINE HYCLATE 100 MG in DEXTROSE 5%-WATER 250 ML IV SCH ×2 (11:26→21:53)
[2020-09-08] MEDS: LEVOFLOXACIN 500 MG/D5W RTU 500 MG/100 ML RTUPB IV SCH (11:27)
[2020-09-08] MEDS: NORMAL SALINE 10 ML SDV (SCHEDULED) IV SCH (11:28)
[2020-09-08] MEDS: ONDANSETRON HCL INJ/PF 4 MG/2 ML SDV IV PRN (12:19)
[2020-09-08] MEDS ORDERED: FENTANYL CITRATE INJ/PF 100 MCG/2 ML AMPUL ONE (13:21)
[2020-09-08] MEDS ORDERED: MIDAZOLAM 2 MG/2 ML INJ ONE (13:21)
--- NOTE | 2020-09-08 14:17 | PDOC PROGRESS REPORT ---
Subjective Progress Note for:: 09/08/20 Subjective:: 50-year-old female with a long, complicated surgical history. She has the presence of a colostomy as well as an enterocutaneous fistula. She presents with pelvic/abdominal pain. She was found to have a pelvic abscess, in the vicinity of her rectal stump. She does report some discomfort today, low in her pelvis. She denies chest pain, shortness of breath, dizziness, fevers, chills, nausea, vomiting, orthostasis, headache. Reason For Visit: ABDOMINAL PAIN Physical Exam Vital Signs: Temp Pulse Resp BP Pulse Ox 98.0 F 59 L 16 104/55 L 100 09/08/20 00:03 09/08/20 02:00 09/08/20 00:03 09/08/20 00:03 09/08/20 00:03 Intake & Output 09/07/20 09/08/20 09/09/20 06:59 06:59 06:59 Intake Total 3875.0 2602.5 852.5 Output Total 1100 600 Balance 2775.0 2002.5 852.5 Weight 67.7 kg 67.7 kg General appearance: PRESENT: no acute distress, cooperative Head exam: PRESENT: atraumatic, normocephalic Eye exam: PRESENT: EOMI, PERRLA. ABSENT: scleral icterus Mouth exam: PRESENT: moist, neck supple Neck exam: ABSENT: meningismus, tenderness, thyromegaly, tracheal deviation Respiratory exam: PRESENT: unlabored. ABSENT: tachypnea Cardiovascular exam: ABSENT: tachycardia GI/Abdominal exam: PRESENT: soft, other - Colostomy and enterocutaneous fistula noted.. ABSENT: rigid Rectal exam: PRESENT: deferred Extremities exam: ABSENT: clubbing Musculoskeletal exam: ABSENT: deformity Neurological exam: PRESENT: alert, awake, oriented to person, oriented to place, oriented to time, oriented to situation, CN II-XII grossly intact Psychiatric exam: ABSENT: agitated, anxious, depressed Focused psych exam: ABSENT: delusional Skin exam: ABSENT: cyanosis, erythema, jaundice Results Laboratory Results: 09/07/20 11:21 09/08/20 08:08 09/08/20 08:08 Sodium 136.8 L Potassium 4.5 Chloride 115 H Carbon Dioxide 16 L Anion Gap 6 BUN 11 Creatinine 0.68 Est GFR ( Amer) > 60 Glucose 115 H Calcium 8.1 L Phosphorus 2.9 Prealbumin 13.5 L 09/02/20 15:03 Blood Blood Culture - Final NO GROWTH IN 5 DAYS 09/02/20 15:03 Troponin I 0.013 Impressions: Chest X-Ray 09/02/20 11:59 IMPRESSION: NO ACUTE RADIOGRAPHIC FINDING IN THE CHEST. Abdomen/Pelvis CT 09/05/20 00:00 IMPRESSION: 1. Persistent small pericardial effusion with interval development of bilateral small pleural effusions. 2. Rectal contrast without extravasation. A previously demonstrated pelvic fluid collection is revealed to be on the basis of a 6.5 x 4.4 x 4.0 cm abscess which appears diminished in size noting resolution of previously demonstrated air-fluid level within this collection. 3. Interval development of mesenteric fat stranding within the lower abdomen. While no definite focal fluid collection or abscess is discernible, evaluation is limited in the absence of oral and IV contrast. Assessment & Plan - Diagnosis (1) Pelvic abscess Is this a current diagnosis for this admission?: Yes - Time Anticipated Discharge Disposition: Unknown Anticipated Discharge Timeframe: Unknown - Plan Summary Plan Summary: 50-year-old female with a long and complicated surgical history. She presents with a pelvic abscess. I discussed the case with radiology. Our radiologist believes that drain placement is feasible. Plan for IR guided percutaneous drain placement. If this proves unsuccessful, transrectal drainage may be feasible. Percutaneous drainage is preferred. Continue with antibiotics. Surgery will continue to follow with you.
--- NOTE | 2020-09-08 15:46 | RADIOLOGY REPORT (SQ) ---
EXAM DESCRIPTION: CT GUIDED PERCUT DRAIN W/CATH IMAGES COMPLETED DATE/TIME: 09/08/2020 2:57 pm REASON FOR STUDY: pelvic abscess COMPARISON: CT of the abdomen and pelvis with contrast from 09/05/2020. FLUORO TIME: 42.7 seconds. 292 submitted saved to PACS. LIMITATIONS: None. PROCEDURE: The procedure, risks, benefits, and alternatives were discussed with the patient in the p reprocedural area, and all questions were answered. Informed consent was obtained verbally and in wri ting. The patient was then brought to the CT suite, positioned prone on the CT gurney, and a time-out was p erformed. After that, axial images of the pelvis were obtained for targeting of the thick walled flu id collection between the rectum and urinary bladder. Based on review of the axial images an appropr iate access site was selected to the left of the coccyx on the skin. The area around the selected access site was then prepped and draped with 2% chlorhexidine utilizing standard sterile technique. After that, the access site was infiltrated with 1% lidocaine and an inc ision was made perpendicular to the skin surface with a #11 blade. An 18 gauge access needle was then advanced through the skin incision and in the direction of the fluid collection utilizing CT fluoros copic guidance ; however, the needle was unable to penetrate the wall of the collection and instead i t dented it. It was then decided to to remove the 18 gauge access needle and attempt to sample the co llection with a beveled 20 gauge x 15 cm spinal needle. The spinal needle was subsequently advanced through the skin incision and in the direction of the fluid collection utilizing CT fluoroscopic guid ance ; however, as with the 18 gauge needle, the needle dented and displaced the wall fluid collectio n. The patient tolerated the procedure well without immediate complication. At the end of the procedure the patient's condition was unchanged from the preprocedural baseline. IV conscious sedation was administered at the direction of the performing physician by a ramy davidson. 1 milligrams of Versed and 100 micrograms of fentanyl were administered. Physiologic monitoring was provided before, during, and after sedation. The total sedation time was 30 minutes. Documentation of [id number] time the proceduralist spent monitoring the patient: 25 minutes. IMPRESSION: Unsuccessful attempts to penetrate the wall of the thick-walled fluid collection in the pelvis with an 18 gauge needle and a 20 gauge x 15 cm spinal needle. COMMENT: Patient medication list reviewed: Yes- Quality ID# [id number]:Eligible professional attests to doc umenting in the medical record they obtained, updated, or reviewed the patient's current medications. Quality ID #76: The patient was prepped and draped using maximum sterile barrier technique including cap, mask, sterile gown, sterile gloves, a large sterile sheet, hand hygiene, and 2% Chlorhexidine fo r cutaneous antisepsis. When ultrasound is used, sterile ultrasound techniques are followed requiring sterile gel and sterile probes. Quality ID 145: Final reports for procedures using fluoroscopy that document radiation exposure yasmeen tatyana, or exposure time and number of fluorographic images (if radiation exposure indices are not avail able) Quality ID# [id number]: Final reports with documentation of one or more dose reduction techniques (e.g., Aut omated exposure control, adjustment of the mA and/or kV according to patient size, use of iterative r econstruction technique) TECHNICAL DOCUMENTATION: JOB ID: [id number] 2010 [employer]- All Rights Reserved Reading location - IP/workstation name: [email or web address]
--- NOTE | 2020-09-08 20:11 | PDOC PROGRESS REPORT ---
Subjective Progress Note for:: 09/08/20 Subjective:: She denied nausea, vomiting, chest pain or difficulty with breathing. Attempt to drain her pelvic abscess was unsuccessful. She remain She remain NPO status on TPN support and IV Octreotide therapy for high output enterocutaneous fistula. No fever or chills. Reason For Visit: ABDOMINAL PAIN Physical Exam Vital Signs: Temp Pulse Resp BP Pulse Ox 98.0 F 59 L 16 104/55 L 100 09/08/20 00:03 09/08/20 02:00 09/08/20 00:03 09/08/20 00:03 09/08/20 00:03 Intake & Output 09/07/20 09/08/20 09/09/20 06:59 06:59 06:59 Intake Total 3875.0 2602.5 852.5 Output Total 1100 600 Balance 2775.0 2002.5 852.5 Weight 67.7 kg 67.7 kg Physical Exam: General appearance: PRESENT: no acute distress Head exam: PRESENT: atraumatic, normocephalic Eye exam: PRESENT: conjunctiva pink. ABSENT: scleral icterus Respiratory exam: PRESENT: clear to auscultation bucky, decreased breath sounds - at lung bases Cardiovascular exam: PRESENT: RRR, +S1, +S2. ABSENT: diastolic murmur, rubs, systolic murmur Vascular exam: ABSENT: pallor GI/Abdominal exam: PRESENT: normal bowel sounds, minimal tenderness - around open drainage fistula site, other - empty colostomy Extremities exam: ABSENT: pedal edema Neurological exam: PRESENT: alert, awake, oriented to person, oriented to place, oriented to time Psychiatric exam: ABSENT: agitated Skin exam: PRESENT: dry, warm, other - improving contact dermatitis lesion around the fistula site. Results Laboratory Results: 09/07/20 11:21 09/08/20 08:08 09/08/20 08:08 Sodium 136.8 L Potassium 4.5 Chloride 115 H Carbon Dioxide 16 L Anion Gap 6 BUN 11 Creatinine 0.68 Est GFR ( Amer) > 60 Glucose 115 H Calcium 8.1 L Phosphorus 2.9 Prealbumin 13.5 L 09/02/20 15:03 Blood Blood Culture - Final NO GROWTH IN 5 DAYS 09/02/20 15:03 Troponin I 0.013 Impressions: Chest X-Ray 09/02/20 11:59 IMPRESSION: NO ACUTE RADIOGRAPHIC FINDING IN THE CHEST. Abdomen/Pelvis CT 09/05/20 00:00 IMPRESSION: 1. Persistent small pericardial effusion with interval development of bilateral small pleural effusions. 2. Rectal contrast without extravasation. A previously demonstrated pelvic fluid collection is revealed to be on the basis of a 6.5 x 4.4 x 4.0 cm abscess which appears diminished in size noting resolution of previously demonstrated air-fluid level within this collection. 3. Interval development of mesenteric fat stranding within the lower abdomen. While no definite focal fluid collection or abscess is discernible, evaluation is limited in the absence of oral and IV contrast. Percutaneous Drainage 09/08/20 00:00 IMPRESSION: Unsuccessful attempts to penetrate the wall of the thick-walled fluid collection in the pelvis with an 18 gauge needle and a 20 gauge x 15 cm spinal needle. 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 Is this a current diagnosis for this admission?: Yes (4) HTN (hypertension) Qualifiers: Hypertension type: essential hypertension Qualified Code(s): I10 - Essential (primary) hypertension Is this a current diagnosis for this admission?: Yes (5) History of stroke with current residual effects Is this a current diagnosis for this admission?: Yes (6) Occluded PICC line Qualifiers: Encounter type: initial encounter Qualified Code(s): T82.898A - Other specified complication of vascular prosthetic devices, implants and grafts, initial encounter Is this a current diagnosis for this admission?: Yes (7) Hypokalemia due to excessive gastrointestinal loss of potassium Is this a current diagnosis for this admission?: Yes (8) Hypomagnesemia Is this a current diagnosis for this admission?: Yes (9) Colostomy stricture Is this a current diagnosis for this admission?: Yes (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 Is this a current diagnosis for this admission?: Yes (11) Pelvic abscess Is this a current diagnosis for this admission?: Yes - Time Time Spent with patient: 25-34 minutes Level of Care: TELE Medications reviewed and adjusted accordingly: Yes Anticipated discharge: Home with Homehealth Anticipated DC Timeframe: within 72 hours - Inpatient Certification Based on my medical assessment, after consideration of the patient's comorbidities, presenting symptoms, or acuity I expect that the services needed warrant INPATIENT care.: Yes I certify that my determination is in accordance with my understanding of Medicare's requirements for reasonable and necessary INPATIENT services [42 CFR 412.3e].: Yes Medical Necessity: Significant Comorbidiites Make Outpatient Treatment Too Risky, Need Close Monitoring Due to Risk of Patient Decompensation, Need For IV Fluids, Need For Continuous Telemetry Monitoring, Need for Pain Control, Need for IV Antibiotics, Need for Surgery, Risk of Complication if Not Cared For in Hospital, Risk of Diagnosis Which Will Require Inpatient Eval/Care/Monitoring Post Hospital Care: D/C Business Records Manager Documentation - Plan Summary Plan Summary: Continue current management with hope that rectal approach as suggested by the surgical team will be successful and avoid need for open laparatomy which will be a very complicated and uncertain outcome in this patient.
--- NOTE | 2020-09-08 20:51 | Progress Note ---
Provider Note Provider Note: 60-year-old female with a pelvic abscess. The patient was taken to interventional radiology today where an aspiration of the fluid collection was attempted. Ultimately, it was unsuccessful. We will test the patient for COVID-19, then plan for transrectal drainage in the OR as soon as is feasible. Anticipate Sunday or Sunday. Surgery will continue to follow with you.
[2020-09-08] MEDS: AMINO ACIDS 5 %/DEXTROSE 20 % 1,000 ML IV PRN (23:59)
[2020-09-09] MEDS: INSULIN REG, HUMAN 100 UNIT/ML 3 ML VIAL (PYX) SUBCUT SCH ×4 (04:18→19:21)
[2020-09-09] MEDS: NORMAL SALINE 10 ML SDV (SCHEDULED) IV SCH ×3 (04:29→21:59)
[2020-09-09] MEDS: MORPHINE SULFATE 10 MG/ML INJ IV PRN ×5 (05:55→23:01)
[2020-09-09] MEDS: FAT EMULSIONS 250 ML IV SCH (09:59)
[2020-09-09] MEDS: DOXYCYCLINE HYCLATE 100 MG in DEXTROSE 5%-WATER 250 ML IV SCH ×2 (10:01→21:57)
[2020-09-09] MEDS: LEVOFLOXACIN 500 MG/D5W RTU 500 MG/100 ML RTUPB IV SCH (10:02)
[2020-09-09] MEDS: ONDANSETRON HCL INJ/PF 4 MG/2 ML SDV IV PRN ×2 (10:22→18:50)
[2020-09-09] MEDS: NORMAL SALINE 500 ML with OCTREOTIDE ACETATE 500 MCG IV SCH ×2 (13:30)
[2020-09-09 14:36] LABS: ALBUMIN 2.5 g/dL (3.5-5.0); ALKALINE PHOSPHATASE 57 U/L (38-126); ANION GAP 11 (5-19); ASPARTATE AMINO TRANSFERASE 15 U/L (14-36); BILIRUBIN,DIRECT 0.3 mg/dL (0.0-0.4); BILIRUBIN,TOTAL 0.3 mg/dL (0.2-1.3); BLOOD UREA NITROGEN 14 mg/dL (7-20); CALCIUM 8.2 mg/dL (8.4-10.2); CARBON DIOXIDE 14 mmol/L (22-30); CHLORIDE 110 mmol/L (98-107); GLUCOSE 85 mg/dL (75-110); PHOSPHORUS 2.9 mg/dL (2.5-4.5); POTASSIUM 3.9 mmol/L (3.6-5.0); TOTAL PROTEIN 5.5 g/dL (6.3-8.2)
[2020-09-09 14:43] LABS: PREALBUMIN 16.7 mg/dL (17.6-36.0)
--- NOTE | 2020-09-09 15:58 | PDOC PROGRESS REPORT ---
Subjective Progress Note for:: 09/09/20 Subjective:: Pain at fistula site and lower abdomen. Nausea but no emesis. Reason For Visit: ABDOMINAL PAIN Physical Exam Vital Signs: Temp Pulse Resp BP Pulse Ox 98.2 F 63 18 125/62 100 09/09/20 11:53 09/09/20 14:00 09/09/20 11:53 09/09/20 11:53 09/09/20 11:53 Intake & Output 09/08/20 09/09/20 09/10/20 06:59 06:59 06:59 Intake Total 2602.5 2357.5 350 Output Total 600 1150 525 Balance 2002.5 1207.5 -175 Weight 67.7 kg 67.7 kg 67.7 kg GI/Abdominal exam: PRESENT: other - Nondistended there is lower abdominal tende rness fistula output appears to be kept dry with the ABD pads. There is no colostomy output. Results Laboratory Results: 09/07/20 11:21 09/09/20 13:46 09/09/20 13:46 Sodium 134.8 L Potassium 3.9 Chloride 110 H Carbon Dioxide 14 L Anion Gap 11 BUN 14 Creatinine 0.56 Est GFR ( Amer) > 60 Glucose 85 Calcium 8.2 L Phosphorus 2.9 Total Bilirubin 0.3 AST 15 Alkaline Phosphatase 57 Total Protein 5.5 L Albumin 2.5 L Prealbumin 16.7 L 09/02/20 15:03 Troponin I 0.013 Impressions: Chest X-Ray 09/02/20 11:59 IMPRESSION: NO ACUTE RADIOGRAPHIC FINDING IN THE CHEST. Abdomen/Pelvis CT 09/05/20 00:00 IMPRESSION: 1. Persistent small pericardial effusion with interval development of bilateral small pleural effusions. 2. Rectal contrast without extravasation. A previously demonstrated pelvic fluid collection is revealed to be on the basis of a 6.5 x 4.4 x 4.0 cm abscess which appears diminished in size noting resolution of previously demonstrated air-fluid level within this collection. 3. Interval development of mesenteric fat stranding within the lower abdomen. While no definite focal fluid collection or abscess is discernible, evaluation is limited in the absence of oral and IV contrast. Percutaneous Drainage 09/08/20 00:00 IMPRESSION: Unsuccessful attempts to penetrate the wall of the thick-walled fluid collection in the pelvis with an 18 gauge needle and a 20 gauge x 15 cm spinal needle. Assessment & Plan - Diagnosis (1) Enterocutaneous fistula Is this a current diagnosis for this admission?: Yes (2) Pelvic abscess Is this a current diagnosis for this admission?: Yes Plan: Plan transrectal drainage after Covid test returns. (3) Colostomy stricture Is this a current diagnosis for this admission?: Yes - Time Anticipated Discharge Disposition: Home with Home Health Anticipated Discharge Timeframe: 0ne week
--- NOTE | 2020-09-09 19:11 | PDOC PROGRESS REPORT ---
Subjective Progress Note for:: 09/09/20 Subjective:: No chest pain or difficulty with breathing. She reported intermittent nausea but no vomiting. She claimed continued pain around fistula site and suprapubic regions. She remain on TPN support and IV Octreotide therapy for high output enterocutaneous fistula. No fever or chills. Reason For Visit: ABDOMINAL PAIN Physical Exam Vital Signs: Temp Pulse Resp BP Pulse Ox 98.1 F 60 17 123/61 100 09/09/20 16:24 09/09/20 16:24 09/09/20 16:24 09/09/20 16:24 09/09/20 16:24 Intake & Output 09/08/20 09/09/20 09/10/20 06:59 06:59 06:59 Intake Total 2602.5 2357.5 600 Output Total 600 1150 525 Balance 2002.5 1207.5 75 Weight 67.7 kg 67.7 kg 67.7 kg Physical Exam: General appearance: PRESENT: no acute distress Respiratory exam: PRESENT: clear to auscultation bucky Cardiovascular exam: PRESENT: RRR, +S1, +S2. ABSENT: diastolic murmur, rubs, systolic murmur GI/Abdominal exam: PRESENT: normal bowel sounds, minimal tenderness - around fistula site, other - empty colostomy Extremities exam: ABSENT: pedal edema Neurological exam: PRESENT: alert, awake, oriented to person, oriented to place, oriented to time Psychiatric exam: ABSENT: agitated Skin exam: PRESENT: dry, warm, other - improving contact dermatitis lesion around the fistula site. Results Laboratory Results: 09/07/20 11:21 09/09/20 13:46 09/09/20 13:46 Sodium 134.8 L Potassium 3.9 Chloride 110 H Carbon Dioxide 14 L Anion Gap 11 BUN 14 Creatinine 0.56 Est GFR ( Amer) > 60 Glucose 85 Calcium 8.2 L Phosphorus 2.9 Total Bilirubin 0.3 AST 15 Alkaline Phosphatase 57 Total Protein 5.5 L Albumin 2.5 L Prealbumin 16.7 L 09/04/20 14:25 Blood Blood Culture - Final NO GROWTH IN 5 DAYS 09/02/20 15:03 Troponin I 0.013 Impressions: Chest X-Ray 09/02/20 11:59 IMPRESSION: NO ACUTE RADIOGRAPHIC FINDING IN THE CHEST. Abdomen/Pelvis CT 09/05/20 00:00 IMPRESSION: 1. Persistent small pericardial effusion with interval development of bilateral small pleural effusions. 2. Rectal contrast without extravasation. A previously demonstrated pelvic fluid collection is revealed to be on the basis of a 6.5 x 4.4 x 4.0 cm abscess which appears diminished in size noting resolution of previously demonstrated air-fluid level within this collection. 3. Interval development of mesenteric fat stranding within the lower abdomen. While no definite focal fluid collection or abscess is discernible, evaluation is limited in the absence of oral and IV contrast. Percutaneous Drainage 09/08/20 00:00 IMPRESSION: Unsuccessful attempts to penetrate the wall of the thick-walled fluid collection in the pelvis with an 18 gauge needle and a 20 gauge x 15 cm spinal needle. 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 Is this a current diagnosis for this admission?: Yes (4) HTN (hypertension) Qualifiers: Hypertension type: essential hypertension Qualified Code(s): I10 - Essential (primary) hypertension Is this a current diagnosis for this admission?: Yes (5) History of stroke with current residual effects Is this a current diagnosis for this admission?: Yes (6) Occluded PICC line Qualifiers: Encounter type: initial encounter Qualified Code(s): T82.898A - Other specified complication of vascular prosthetic devices, implants and grafts, initial encounter Is this a current diagnosis for this admission?: Yes (7) Hypokalemia due to excessive gastrointestinal loss of potassium Is this a current diagnosis for this admission?: Yes (8) Hypomagnesemia Is this a current diagnosis for this admission?: Yes (9) Colostomy stricture Is this a current diagnosis for this admission?: Yes (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 (11) Pelvic abscess Is this a current diagnosis for this admission?: Yes - Time Time Spent with patient: 25-34 minutes Level of Care: TELE Medications reviewed and adjusted accordingly: Yes Anticipated discharge: Home with Homehealth Anticipated DC Timeframe: within 72 hours - Inpatient Certification Based on my medical assessment, after consideration of the patient's comorbidities, presenting symptoms, or acuity I expect that the services needed warrant INPATIENT care.: Yes I certify that my determination is in accordance with my understanding of Medicare's requirements for reasonable and necessary INPATIENT services [42 CFR 412.3e].: Yes Medical Necessity: Significant Comorbidiites Make Outpatient Treatment Too Risky, Need Close Monitoring Due to Risk of Patient Decompensation, Need For IV Fluids, Need For Continuous Telemetry Monitoring, Need for IV Antibiotics, Need for Surgery, Risk of Complication if Not Cared For in Hospital, Risk of Diagnosis Which Will Require Inpatient Eval/Care/Monitoring Post Hospital Care: 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
[2020-09-09] MEDS: AMINO ACIDS 5 %/DEXTROSE 20 % 1,000 ML IV PRN (20:28)
[2020-09-10] MEDS: NORMAL SALINE 500 ML with OCTREOTIDE ACETATE 500 MCG IV SCH ×4 (00:48→13:36)
[2020-09-10] MEDS: INSULIN REG, HUMAN 100 UNIT/ML 3 ML VIAL (PYX) SUBCUT SCH ×4 (00:49→18:57)
[2020-09-10] MEDS: MORPHINE SULFATE 10 MG/ML INJ IV PRN ×4 (04:13→17:55)
[2020-09-10] MEDS: ONDANSETRON HCL INJ/PF 4 MG/2 ML SDV IV PRN ×2 (04:14→13:37)
[2020-09-10] MEDS: LEVOFLOXACIN 500 MG/D5W RTU 500 MG/100 ML RTUPB IV SCH (09:11)
[2020-09-10] MEDS: DOXYCYCLINE HYCLATE 100 MG in DEXTROSE 5%-WATER 250 ML IV SCH ×2 (09:12→21:10)
[2020-09-10] MEDS: NORMAL SALINE 10 ML SDV (SCHEDULED) IV SCH ×2 (09:47→22:54)
--- NOTE | 2020-09-10 11:01 | PDOC PROGRESS REPORT ---
Subjective Progress Note for:: 09/10/20 Reason For Visit: ABDOMINAL PAIN Patient still having significant enterocutaneous fistula drainage; minimal drainage at the colostomy site. No fever overnight. Physical Exam Vital Signs: Temp Pulse Resp BP Pulse Ox 98.0 F 55 L 18 109/55 L 100 09/10/20 09:47 09/10/20 08:00 09/10/20 08:00 09/10/20 08:00 09/10/20 08:00 Intake & Output 09/09/20 09/10/20 09/11/20 06:59 06:59 06:59 Intake Total 2357.5 2105.0 Output Total 1150 2450 Balance 1207.5 -345.0 Weight 67.7 kg 69.3 kg General appearance: PRESENT: no acute distress GI/Abdominal exam: PRESENT: other - Complicated abdominal wall situation unchanged; continues to have significant output from her enterocutaneous fistula. Colostomy site pinpoint opening only Results Laboratory Results: 09/07/20 11:21 09/09/20 13:46 09/09/20 13:46 Sodium 134.8 L Potassium 3.9 Chloride 110 H Carbon Dioxide 14 L Anion Gap 11 BUN 14 Creatinine 0.56 Est GFR ( Amer) > 60 Glucose 85 Calcium 8.2 L Phosphorus 2.9 Total Bilirubin 0.3 AST 15 Alkaline Phosphatase 57 Total Protein 5.5 L Albumin 2.5 L Prealbumin 16.7 L 09/04/20 14:25 Blood Blood Culture - Final NO GROWTH IN 5 DAYS 09/02/20 15:03 Troponin I 0.013 Impressions: Chest X-Ray 09/02/20 11:59 IMPRESSION: NO ACUTE RADIOGRAPHIC FINDING IN THE CHEST. Abdomen/Pelvis CT 09/05/20 00:00 IMPRESSION: 1. Persistent small pericardial effusion with interval development of bilateral small pleural effusions. 2. Rectal contrast without extravasation. A previously demonstrated pelvic fluid collection is revealed to be on the basis of a 6.5 x 4.4 x 4.0 cm abscess which appears diminished in size noting resolution of previously demonstrated air-fluid level within this collection. 3. Interval development of mesenteric fat stranding within the lower abdomen. While no definite focal fluid collection or abscess is discernible, evaluation is limited in the absence of oral and IV contrast. Percutaneous Drainage 09/08/20 00:00 IMPRESSION: Unsuccessful attempts to penetrate the wall of the thick-walled fluid collection in the pelvis with an 18 gauge needle and a 20 gauge x 15 cm spinal needle. Assessment & Plan - Diagnosis (1) At least 2 enterocutaneous fistulas Is this a current diagnosis for this admission?: Yes Plan: Impression: Insignificant change in complicated abdominal wall with enterocutaneous fistula, likely multiple, with apparent spontaneous closure of descending colostomy. Pelvic abscess in the retrocystic space Plan: 1. Continue current therapy, n.p.o. except water, TPN 2. We will set patient up for intraoperative pelvic drainage using a transanal approach; we will also consider dilating ostomy while patient under anesthetic. - Time Time Spent: 30 to 50 Minutes Critical Time spent with patient: Less than 15 minutes Medications reviewed and adjusted accordingly: Yes Anticipated Discharge Disposition: Home, Self Care Anticipated Discharge Timeframe: To be determined
--- NOTE | 2020-09-10 15:32 | PDOC PROGRESS REPORT ---
Subjective Progress Note for:: 09/10/20 Subjective:: No chest pain or difficulty with breathing. No fever or chills. No nausea or vomiting but lower abdominal pain persist. COVID-19 test came back not detected. She is schedule for transrectal drainage of her pelvic collection tomorrow. Reason For Visit: ABDOMINAL PAIN Physical Exam Vital Signs: Temp Pulse Resp BP Pulse Ox 98.0 F 55 L 18 109/55 L 100 09/10/20 09:47 09/10/20 08:00 09/10/20 08:00 09/10/20 08:00 09/10/20 08:00 Intake & Output 09/09/20 09/10/20 09/11/20 06:59 06:59 06:59 Intake Total 2357.5 2105.0 350 Output Total 1150 2450 Balance 1207.5 -345.0 350 Weight 67.7 kg 69.3 kg Physical Exam: General appearance: PRESENT: no acute distress Respiratory exam: PRESENT: clear to auscultation bucky Cardiovascular exam: PRESENT: RRR, +S1, +S2. ABSENT: diastolic murmur, rubs, systolic murmur GI/Abdominal exam: PRESENT: normal bowel sounds, minimal tenderness - around fistula site, other - empty colostomy Extremities exam: ABSENT: pedal edema Neurological exam: PRESENT: alert, awake, oriented to person, oriented to place, oriented to time Psychiatric exam: ABSENT: agitated Skin exam: PRESENT: dry, warm, other - improving contact dermatitis lesion around the fistula site. Results Laboratory Results: 09/07/20 11:21 09/09/20 13:46 09/04/20 14:25 Blood Blood Culture - Final NO GROWTH IN 5 DAYS 09/02/20 15:03 Troponin I 0.013 Impressions: Chest X-Ray 09/02/20 11:59 IMPRESSION: NO ACUTE RADIOGRAPHIC FINDING IN THE CHEST. Abdomen/Pelvis CT 09/05/20 00:00 IMPRESSION: 1. Persistent small pericardial effusion with interval development of bilateral small pleural effusions. 2. Rectal contrast without extravasation. A previously demonstrated pelvic fluid collection is revealed to be on the basis of a 6.5 x 4.4 x 4.0 cm abscess which appears diminished in size noting resolution of previously demonstrated air-fluid level within this collection. 3. Interval development of mesenteric fat stranding within the lower abdomen. While no definite focal fluid collection or abscess is discernible, evaluation is limited in the absence of oral and IV contrast. Percutaneous Drainage 09/08/20 00:00 IMPRESSION: Unsuccessful attempts to penetrate the wall of the thick-walled fluid collection in the pelvis with an 18 gauge needle and a 20 gauge x 15 cm spinal needle. 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 Is this a current diagnosis for this admission?: Yes (4) HTN (hypertension) Qualifiers: Hypertension type: essential hypertension Qualified Code(s): I10 - Essential (primary) hypertension Is this a current diagnosis for this admission?: Yes (5) History of stroke with current residual effects Is this a current diagnosis for this admission?: Yes (6) Occluded PICC line Qualifiers: Encounter type: initial encounter Qualified Code(s): T82.898A - Other specified complication of vascular prosthetic devices, implants and grafts, initial encounter Is this a current diagnosis for this admission?: Yes (7) Hypokalemia due to excessive gastrointestinal loss of potassium Is this a current diagnosis for this admission?: Yes (8) Hypomagnesemia Is this a current diagnosis for this admission?: Yes (9) Colostomy stricture Is this a current diagnosis for this admission?: Yes (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 Is this a current diagnosis for this admission?: Yes (11) Pelvic abscess Is this a current diagnosis for this admission?: Yes - Time Time Spent with patient: 25-34 minutes Level of Care: TELE Medications reviewed and adjusted accordingly: Yes Anticipated discharge: Home with Homehealth Anticipated DC Timeframe: within 72 hours - Inpatient Certification Based on my medical assessment, after consideration of the patient's comorbidities, presenting symptoms, or acuity I expect that the services needed warrant INPATIENT care.: Yes I certify that my determination is in accordance with my understanding of Medicare's requirements for reasonable and necessary INPATIENT services [42 CFR 412.3e].: Yes Medical Necessity: Significant Comorbidiites Make Outpatient Treatment Too Risky, Need Close Monitoring Due to Risk of Patient Decompensation, Need For IV Fluids, Need For Continuous Telemetry Monitoring, Need for Pain Control, Need for IV Antibiotics, Risk of Complication if Not Cared For in Hospital, Risk of Diagnosis Which Will Require Inpatient Eval/Care/Monitoring Post Hospital Care: D/C Marketing Operations Manager Documentation - Plan Summary Plan Summary: Obtain CBC with diff, PT/APTT, INR, and BMP in AM. Continue all other current medication management.
[2020-09-10] MEDS: AMINO ACIDS 5 %/DEXTROSE 20 % 1,000 ML IV PRN (16:40)
[2020-09-11] MEDS: NORMAL SALINE 500 ML with OCTREOTIDE ACETATE 500 MCG IV SCH ×4 (01:00→12:43)
[2020-09-11] MEDS: INSULIN REG, HUMAN 100 UNIT/ML 3 ML VIAL (PYX) SUBCUT SCH ×4 (01:26→19:53)
[2020-09-11] MEDS: MORPHINE SULFATE 10 MG/ML INJ IV PRN ×4 (08:12→22:35)
[2020-09-11] MEDS ORDERED: LIDOCAINE 2% INJ-PF (20 MG/ML) 10 ML AMPUL ONE (09:35)
[2020-09-11] MEDS ORDERED: FENTANYL CITRATE INJ/PF 100 MCG/2 ML AMPUL ONE (09:35)
[2020-09-11] MEDS ORDERED: ONDANSETRON HCL INJ/PF 4 MG/2 ML SDV ONE (09:36)
[2020-09-11] MEDS ORDERED: PROPOFOL INJ 200 MG/20 ML VIAL IV ONE (09:36)
[2020-09-11] MEDS ORDERED: MIDAZOLAM 2 MG/2 ML INJ ONE (09:36)
[2020-09-11] MEDS ORDERED: BUPIVACAINE HCL 0.25 % INJ/PF (2.5 MG/1 ML) 30 ML VIAL ONE (09:47)
--- NOTE | 2020-09-11 09:53 | PDOC PROGRESS REPORT ---
Subjective Progress Note for:: 09/11/20 Subjective:: 50-year-old female with a long, complicated surgical history. She has the presence of a colostomy as well as an enterocutaneous fistula. She presents with pelvic/abdominal pain. She was found to have a pelvic abscess, in the vicinity of her rectal stump. She does report some discomfort today, low in her pelvis. She denies chest pain, shortness of breath, dizziness, fevers, chills, nausea, vomiting, orthostasis, headache. Reason For Visit: ABDOMINAL PAIN Physical Exam Vital Signs: Temp Pulse Resp BP Pulse Ox 97.8 F 55 L 17 125/56 L 100 09/11/20 07:25 09/11/20 07:25 09/11/20 07:25 09/11/20 07:25 09/11/20 07:25 Intake & Output 09/10/20 09/11/20 09/12/20 06:59 06:59 06:59 Intake Total 2105.0 1102.5 502.5 Output Total 2450 1850 Balance -345.0 -747.5 502.5 Weight 69.3 kg 70.4 kg General appearance: PRESENT: no acute distress, cooperative Head exam: PRESENT: atraumatic, normocephalic Eye exam: ABSENT: scleral icterus Mouth exam: PRESENT: moist, neck supple Neck exam: ABSENT: meningismus, tenderness, thyromegaly, tracheal deviation Respiratory exam: PRESENT: unlabored. ABSENT: tachypnea Cardiovascular exam: ABSENT: tachycardia GI/Abdominal exam: PRESENT: tenderness - Lower midline. ABSENT: guarding, rebound Rectal exam: PRESENT: deferred Extremities exam: ABSENT: clubbing Neurological exam: PRESENT: alert, awake, oriented to person, oriented to place, oriented to time, oriented to situation, CN II-XII grossly intact Psychiatric exam: ABSENT: agitated, anxious, depressed Focused psych exam: ABSENT: delusional Skin exam: ABSENT: cyanosis, erythema, jaundice Results Laboratory Results: 09/07/20 11:21 09/09/20 13:46 09/02/20 15:03 Troponin I 0.013 Impressions: Chest X-Ray 09/02/20 11:59 IMPRESSION: NO ACUTE RADIOGRAPHIC FINDING IN THE CHEST. Abdomen/Pelvis CT 09/05/20 00:00 IMPRESSION: 1. Persistent small pericardial effusion with interval development of bilateral small pleural effusions. 2. Rectal contrast without extravasation. A previously demonstrated pelvic fluid collection is revealed to be on the basis of a 6.5 x 4.4 x 4.0 cm abscess which appears diminished in size noting resolution of previously demonstrated air-fluid level within this collection. 3. Interval development of mesenteric fat stranding within the lower abdomen. While no definite focal fluid collection or abscess is discernible, evaluation is limited in the absence of oral and IV contrast. Percutaneous Drainage 09/08/20 00:00 IMPRESSION: Unsuccessful attempts to penetrate the wall of the thick-walled fluid collection in the pelvis with an 18 gauge needle and a 20 gauge x 15 cm spinal needle. Assessment & Plan - Diagnosis (1) Pelvic abscess Is this a current diagnosis for this admission?: Yes - Time Anticipated Discharge Disposition: unknown Anticipated Discharge Timeframe: unknown - Plan Summary Plan Summary: 50-year-old female with a pelvic abscess, unable to be drained percutaneously. Plan for drainage in the OR today either via transrectal or transvaginal methods. This has been discussed with the patient at length. Risks/benefits reviewed, informed consent obtained, and all questions answered. Continue antibiotics.
[2020-09-11] MEDS ORDERED: BUPIVACAINE HCL 0.5 % INJ/PF 30 ML SDV ONE (10:23)
[2020-09-11] MEDS ORDERED: PROMETHAZINE HCL INJ 25 MG/1 ML VIAL IV PRN ×2 (10:56)
[2020-09-11] MEDS ORDERED: MORPHINE SULFATE 10 MG/ML INJ IV PRN (10:56)
[2020-09-11] MEDS ORDERED: OXYCODONE-ACETAMINOPHEN 5-325 MG TABLET PO PRN ×2 (10:56)
[2020-09-11] MEDS: DOXYCYCLINE HYCLATE 100 MG in DEXTROSE 5%-WATER 250 ML IV SCH ×2 (10:56→22:40)
[2020-09-11] MEDS ORDERED: MEPERIDINE HCL/PF INJ 25 MG/1 ML DISP.SYRIN IV PRN (10:56)
[2020-09-11] MEDS ORDERED: FENTANYL CITRATE INJ/PF 100 MCG/2 ML AMPUL IV PRN ×3 (10:56)
[2020-09-11] MEDS ORDERED: DIPHENHYDRAMINE HCL 50 MG/ML VIAL IV PRN (10:56)
--- NOTE | 2020-09-11 11:59 | Operative Report ---
Nonrecallable Operative Report DATE OF SURGERY: 09/11/20 PREOPERATIVE DIAGNOSIS: Pelvic abscess POSTOPERATIVE DIAGNOSIS: Same as above OPERATION: Ultrasound-guided transvaginal drainage of pelvic abscess. SURGEON: SELINA ALLRED ANESTHESIA: Spinal TISSUE REMOVED OR ALTERED: Abscess culture COMPLICATIONS: None apparent ESTIMATED BLOOD LOSS: Minimal PROCEDURE: Drains/implants: 14 Armenian Malecot drain. Procedure in detail: After informed consent was obtained, the patient was brought to the operating room and laid in the lithotomy position, after a saddle block was performed by anesthesia. The transvaginal ultrasound probe was inserted into the vagina. The Thornton balloon was easily identified first. The bladder appeared decompressed. At the distal aspect of the vagina, there was a fluid collection evident. Upon digital inspection, the fluid collection was easily palpable at the very distal aspect of the vagina. A finger was inserted into the rectum, and the fluid collection was again examined with the ultrasound probe. Next, a long tonsil clamp was used to gently spread the distal aspect of the vaginal cuff. A large acevedo of purulent material was encountered. A 14 Armenian Malecot drain was then inserted into the abscess cavity. It was sutured to the labia using 2-0 nylon suture. It was placed to gravity drain. After this was completed, the procedure was concluded. All sponge, instrument, and needle counts were correct x2. Condition: Fair.
[2020-09-11] MEDS: NORMAL SALINE 10 ML SDV (SCHEDULED) IV SCH ×2 (12:00→22:30)
--- NOTE | 2020-09-11 12:11 | RADIOLOGY REPORT (SQ) ---
EXAM DESCRIPTION: U/S NON-OB PELVIS LTD W/O DOP IMAGES COMPLETED DATE/TIME: 09/11/2020 11:13 am REASON FOR STUDY: for pelvic abscess. OR imaging COMPARISON: None. TECHNIQUE: Limited transvaginal imaging in the operating room LIMITATIONS: None. FINDINGS: : Limited real-time imaging in the operating room for abscess drainage. Transvaginal appr oac. IMPRESSION: Limited study for abscess drainage TECHNICAL DOCUMENTATION: JOB ID: [id number] 2010 [facility]- All Rights Reserved Reading location - IP/workstation name: [email or web address]
[2020-09-11] MEDS: LEVOFLOXACIN 500 MG/D5W RTU 500 MG/100 ML RTUPB IV SCH (12:34)
[2020-09-11] MEDS: AMINO ACIDS 5 %/DEXTROSE 20 % 1,000 ML IV PRN (12:37)
[2020-09-11] MEDS: ONDANSETRON HCL INJ/PF 4 MG/2 ML SDV IV PRN (19:01)
[2020-09-12] MEDS: INSULIN REG, HUMAN 100 UNIT/ML 3 ML VIAL (PYX) SUBCUT SCH ×4 (00:58→18:34)
[2020-09-12] MEDS: NORMAL SALINE 500 ML with OCTREOTIDE ACETATE 500 MCG IV SCH ×2 (01:09)
[2020-09-12] MEDS: MORPHINE SULFATE 10 MG/ML INJ IV PRN ×5 (04:55→22:38)
[2020-09-12] MEDS: DOXYCYCLINE HYCLATE 100 MG in DEXTROSE 5%-WATER 250 ML IV SCH ×2 (10:30→22:59)
[2020-09-12] MEDS: AMINO ACIDS 5 %/DEXTROSE 20 % 1,000 ML IV PRN (10:33)
--- NOTE | 2020-09-12 13:17 | PDOC PROGRESS REPORT ---
Subjective Progress Note for:: 09/12/20 Subjective:: 50-year-old female with a long, complicated surgical history. She has the presence of a colostomy as well as an enterocutaneous fistula. She presents with pelvic/abdominal pain. She was found to have a pelvic abscess, in the vicinity of her rectal stump and vaginal cuff. She does again reports abdominal discomfort today. She denies chest pain, shortness of breath, dizziness, fevers, chills, nausea, vomiting, orthostasis, headache. Reason For Visit: ABDOMINAL PAIN Physical Exam Vital Signs: Temp Pulse Resp BP Pulse Ox 98.2 F 58 L 16 109/57 L 100 09/12/20 10:00 09/12/20 08:39 09/12/20 08:39 09/12/20 08:39 09/12/20 08:39 Intake & Output 09/11/20 09/12/20 09/13/20 06:59 06:59 06:59 Intake Total 1102.5 2817.5 250 Output Total 1850 1810 Balance -747.5 1007.5 250 Weight 70.4 kg 69.8 kg General appearance: PRESENT: no acute distress, cooperative Head exam: PRESENT: atraumatic, normocephalic Eye exam: ABSENT: scleral icterus Mouth exam: PRESENT: neck supple Neck exam: ABSENT: meningismus, tenderness, thyromegaly Respiratory exam: PRESENT: unlabored. ABSENT: tachypnea, wheezes Cardiovascular exam: ABSENT: tachycardia GI/Abdominal exam: PRESENT: soft. ABSENT: distended, tenderness Rectal exam: PRESENT: deferred Gentrourinary exam: PRESENT: other - transvaginal drain with small amount of serosaguinous output Neurological exam: PRESENT: alert, awake, oriented to person, oriented to place Psychiatric exam: ABSENT: agitated, anxious, depressed Focused psych exam: ABSENT: delusional Results Laboratory Results: 09/07/20 11:21 09/09/20 13:46 09/02/20 15:03 Troponin I 0.013 Impressions: Chest X-Ray 09/02/20 11:59 IMPRESSION: NO ACUTE RADIOGRAPHIC FINDING IN THE CHEST. Abdomen/Pelvis CT 09/05/20 00:00 IMPRESSION: 1. Persistent small pericardial effusion with interval development of bilateral small pleural effusions. 2. Rectal contrast without extravasation. A previously demonstrated pelvic fluid collection is revealed to be on the basis of a 6.5 x 4.4 x 4.0 cm abscess which appears diminished in size noting resolution of previously demonstrated air-fluid level within this collection. 3. Interval development of mesenteric fat stranding within the lower abdomen. While no definite focal fluid collection or abscess is discernible, evaluation is limited in the absence of oral and IV contrast. Percutaneous Drainage 09/08/20 00:00 IMPRESSION: Unsuccessful attempts to penetrate the wall of the thick-walled fluid collection in the pelvis with an 18 gauge needle and a 20 gauge x 15 cm spinal needle. Pelvis Ultrasound 09/11/20 00:00 IMPRESSION: Limited study for abscess drainage Assessment & Plan - Diagnosis (1) Pelvic abscess Is this a current diagnosis for this admission?: Yes - Time Anticipated Discharge Disposition: unknown Anticipated Discharge Timeframe: unknown - Plan Summary Plan Summary: 50-year-old female status post transvaginal drainage of a small pelvic fluid collection. The cultures are growing Marcelle and gram-positive cocci. The drain is productive of a small amount of serosanguineous fluid. Maintain drain for now. Plan removal in several days. Surgery will follow.
[2020-09-12] MEDS: LEVOFLOXACIN 500 MG/D5W RTU 500 MG/100 ML RTUPB IV SCH (13:26)
[2020-09-12] MEDS: NORMAL SALINE 10 ML SDV (SCHEDULED) IV SCH ×2 (13:26→23:45)
--- NOTE | 2020-09-12 13:47 | PDOC PROGRESS REPORT ---
Subjective Progress Note for:: 09/11/20 Subjective:: Patient seen at bedside. s/p transvaginal pelvic abscess drainage earlier today. No chest pain or difficulty with breathing. No fever or chills. No nausea or vomiting. Remain on NPO status. Reason For Visit: ABDOMINAL PAIN Physical Exam Vital Signs: Temp Pulse Resp BP Pulse Ox 97.2 F 60 15 104/70 99 09/11/20 14:29 09/11/20 14:29 09/11/20 14:29 09/11/20 14:29 09/11/20 14:29 Intake & Output 09/10/20 09/11/20 09/12/20 06:59 06:59 06:59 Intake Total 2105.0 1102.5 1302.5 Output Total 2450 1850 310 Balance -345.0 -747.5 992.5 Weight 69.3 kg 70.4 kg 70.4 kg Physical Exam: General appearance: PRESENT: no acute distress Respiratory exam: PRESENT: clear to auscultation bucky Cardiovascular exam: PRESENT: RRR, +S1, +S2. ABSENT: diastolic murmur, rubs, systolic murmur GI/Abdominal exam: PRESENT: normal bowel sounds, minimal tenderness - around fistula site, other - empty colostomy Extremities exam: ABSENT: pedal edema Neurological exam: PRESENT: alert, awake, oriented to person, oriented to place, oriented to time Psychiatric exam: ABSENT: agitated Skin exam: PRESENT: dry, warm, other - improving contact dermatitis lesion around the fistula site. Results Laboratory Results: 09/07/20 11:21 09/09/20 13:46 09/02/20 15:03 Troponin I 0.013 Impressions: Chest X-Ray 09/02/20 11:59 IMPRESSION: NO ACUTE RADIOGRAPHIC FINDING IN THE CHEST. Abdomen/Pelvis CT 09/05/20 00:00 IMPRESSION: 1. Persistent small pericardial effusion with interval development of bilateral small pleural effusions. 2. Rectal contrast without extravasation. A previously demonstrated pelvic fluid collection is revealed to be on the basis of a 6.5 x 4.4 x 4.0 cm abscess which appears diminished in size noting resolution of previously demonstrated air-fluid level within this collection. 3. Interval development of mesenteric fat stranding within the lower abdomen. While no definite focal fluid collection or abscess is discernible, evaluation is limited in the absence of oral and IV contrast. Percutaneous Drainage 09/08/20 00:00 IMPRESSION: Unsuccessful attempts to penetrate the wall of the thick-walled fluid collection in the pelvis with an 18 gauge needle and a 20 gauge x 15 cm spinal needle. 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 Is this a current diagnosis for this admission?: Yes (4) HTN (hypertension) Qualifiers: Hypertension type: essential hypertension Qualified Code(s): I10 - Essential (primary) hypertension Is this a current diagnosis for this admission?: Yes (5) History of stroke with current residual effects Is this a current diagnosis for this admission?: Yes (6) Occluded PICC line Qualifiers: Encounter type: initial encounter Qualified Code(s): T82.898A - Other specified complication of vascular prosthetic devices, implants and grafts, initial encounter Is this a current diagnosis for this admission?: Yes (7) Hypokalemia due to excessive gastrointestinal loss of potassium Is this a current diagnosis for this admission?: Yes (8) Hypomagnesemia Is this a current diagnosis for this admission?: Yes (9) Colostomy stricture Is this a current diagnosis for this admission?: Yes (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 Is this a current diagnosis for this admission?: Yes (11) Pelvic abscess Is this a current diagnosis for this admission?: Yes - Time Time Spent with patient: 25-34 minutes Level of Care: TELE Medications reviewed and adjusted accordingly: Yes Anticipated discharge: Home with Homehealth, SNF Anticipated DC Timeframe: within 72 hours - Inpatient Certification Based on my medical assessment, after consideration of the patient's comorbidities, presenting symptoms, or acuity I expect that the services needed warrant INPATIENT care.: Yes I certify that my determination is in accordance with my understanding of Medicare's requirements for reasonable and necessary INPATIENT services [42 CFR 412.3e].: Yes Medical Necessity: Significant Comorbidiites Make Outpatient Treatment Too Risky, Need Close Monitoring Due to Risk of Patient Decompensation, Need For IV Fluids, Need For Continuous Telemetry Monitoring, Need for IV Antibiotics, Need for Surgery, Risk of Complication if Not Cared For in Hospital, Risk of Diagno sis Which Will Require Inpatient Eval/Care/Monitoring Post Hospital Care: D/C Vice President Of Software Development Documentation - Plan Summary Plan Summary: Continue current medication management. Follow up on culture findings.
--- NOTE | 2020-09-12 13:49 | PDOC PROGRESS REPORT ---
Subjective Progress Note for:: 09/12/20 Subjective:: No chest pain or difficulty with breathing. No fever or chills. No nausea or vomiting. She remain on TPN support and NPO status. Reason For Visit: ABDOMINAL PAIN Physical Exam Vital Signs: Temp Pulse Resp BP Pulse Ox 98.2 F 58 L 16 109/57 L 100 09/12/20 08:39 09/12/20 08:39 09/12/20 08:39 09/12/20 08:39 09/12/20 08:39 Intake & Output 09/11/20 09/12/20 09/13/20 06:59 06:59 06:59 Intake Total 1102.5 2817.5 Output Total 1850 1810 Balance -747.5 1007.5 Weight 70.4 kg 69.8 kg Physical Exam: General appearance: PRESENT: no acute distress Respiratory exam: PRESENT: clear to auscultation bucky Cardiovascular exam: PRESENT: RRR, +S1, +S2. ABSENT: diastolic murmur, rubs, systolic murmur GI/Abdominal exam: PRESENT: normal bowel sounds, minimal tenderness - around fistula site, other - empty colostomy Extremities exam: ABSENT: pedal edema Neurological exam: PRESENT: alert, awake, oriented to person, oriented to place, oriented to time Psychiatric exam: ABSENT: agitated Skin exam: PRESENT: dry, warm, other - improving contact dermatitis lesion around the fistula site. Results Laboratory Results: 09/07/20 11:21 09/09/20 13:46 09/02/20 15:03 Troponin I 0.013 Impressions: Chest X-Ray 09/02/20 11:59 IMPRESSION: NO ACUTE RADIOGRAPHIC FINDING IN THE CHEST. Abdomen/Pelvis CT 09/05/20 00:00 IMPRESSION: 1. Persistent small pericardial effusion with interval development of bilateral small pleural effusions. 2. Rectal contrast without extravasation. A previously demonstrated pelvic fluid collection is revealed to be on the basis of a 6.5 x 4.4 x 4.0 cm abscess which appears diminished in size noting resolution of previously demonstrated air-fluid level within this collection. 3. Interval development of mesenteric fat stranding within the lower abdomen. While no definite focal fluid collection or abscess is discernible, evaluation is limited in the absence of oral and IV contrast. Percutaneous Drainage 09/08/20 00:00 IMPRESSION: Unsuccessful attempts to penetrate the wall of the thick-walled fluid collection in the pelvis with an 18 gauge needle and a 20 gauge x 15 cm spinal needle. 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 Is this a current diagnosis for this admission?: Yes (4) HTN (hypertension) Qualifiers: Hypertension type: essential hypertension Qualified Code(s): I10 - Essential (primary) hypertension Is this a current diagnosis for this admission?: Yes (5) History of stroke with current residual effects Is this a current diagnosis for this admission?: Yes (6) Occluded PICC line Qualifiers: Encounter type: initial encounter Qualified Code(s): T82.898A - Other specified complication of vascular prosthetic devices, implants and grafts, initial encounter Is this a current diagnosis for this admission?: Yes (7) Hypokalemia due to excessive gastrointestinal loss of potassium Is this a current diagnosis for this admission?: Yes (8) Hypomagnesemia Is this a current diagnosis for this admission?: Yes (9) Colostomy stricture Is this a current diagnosis for this admission?: Yes (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 Is this a current diagnosis for this admission?: Yes (11) Pelvic abscess Is this a current diagnosis for this admission?: Yes - Time Time Spent with patient: 25-34 minutes Level of Care: TELE Medications reviewed and adjusted accordingly: Yes Anticipated discharge: Home with Homehealth, SNF Anticipated DC Timeframe: within 72 hours - Inpatient Certification Based on my medical assessment, after consideration of the patient's comorbidities, presenting symptoms, or acuity I expect that the services needed warrant INPATIENT care.: Yes I certify that my determination is in accordance with my understanding of Medicare's requirements for reasonable and necessary INPATIENT services [42 CFR 412.3e].: Yes Medical Necessity: Significant Comorbidiites Make Outpatient Treatment Too Risky, Need Close Monitoring Due to Risk of Patient Decompensation, Need For IV Fluids, Need For Continuous Telemetry Monitoring, Need for IV Antibiotics, Risk of Complication if Not Cared For in Hospital, Risk of Diagnosis Which Will Require Inpatient Eval/Care/Monitoring Post Hospital Care: D/C Regional Service Manager Documentation - Plan Summary Plan Summary: Continue current medication management Follow up on culture findings.
[2020-09-12] MEDS ORDERED: VANCOMYCIN HCL INJ 1000 MG VIAL ONE (22:28)
[2020-09-12] MEDS ORDERED: VANCOMYCIN HCL INJ 500 MG VIAL ONE (22:38)
[2020-09-12] MEDS: ONDANSETRON HCL INJ/PF 4 MG/2 ML SDV IV PRN (23:04)
[2020-09-13] MEDS: INSULIN REG, HUMAN 100 UNIT/ML 3 ML VIAL (PYX) SUBCUT SCH ×4 (01:05→18:59)
[2020-09-13] MEDS: MORPHINE SULFATE 10 MG/ML INJ IV PRN ×5 (02:59→21:29)
[2020-09-13] MEDS: AMINO ACIDS 5 %/DEXTROSE 20 % 1,000 ML IV PRN (05:14)
[2020-09-13 06:04] LABS: INTERNATIONAL RATION (INR) 1.22; PROTHROMBIN TIME 15.6 SEC (11.4-15.4)
[2020-09-13 06:14] LABS: PHOSPHORUS 4.1 mg/dL (2.5-4.5)
[2020-09-13 06:32] LABS: ALBUMIN 2.6 g/dL (3.5-5.0); ALKALINE PHOSPHATASE 130 U/L (38-126); ANION GAP 9 (5-19); ASPARTATE AMINO TRANSFERASE 96 U/L (14-36); BILIRUBIN,DIRECT 0.4 mg/dL (0.0-0.4); BILIRUBIN,TOTAL 0.5 mg/dL (0.2-1.3); BLOOD UREA NITROGEN 19 mg/dL (7-20); CALCIUM 8.8 mg/dL (8.4-10.2); CARBON DIOXIDE 19 mmol/L (22-30); CHLORIDE 107 mmol/L (98-107); GLUCOSE 101 mg/dL (75-110); POTASSIUM 4.2 mmol/L (3.6-5.0); TOTAL PROTEIN 6.2 g/dL (6.3-8.2)
[2020-09-13 06:51] LABS: PREALBUMIN 13.7 mg/dL (17.6-36.0)
--- NOTE | 2020-09-13 09:38 | PDOC PROGRESS REPORT ---
Subjective Progress Note for:: 09/13/20 Reason For Visit: ABDOMINAL PAIN Minimal drainage from pelvic drain placed over the weekend; patient states she is having less of midline drainage. Physical Exam Vital Signs: Temp Pulse Resp BP Pulse Ox 98.4 F 50 L 10 L 114/49 L 100 09/13/20 08:00 09/13/20 08:00 09/13/20 08:00 09/13/20 08:00 09/13/20 08:00 Intake & Output 09/12/20 09/13/20 09/14/20 06:59 06:59 06:59 Intake Total 2817.5 600 Output Total 1810 1275 Balance 1007.5 -675 Weight 69.8 kg 69.6 kg General appearance: PRESENT: no acute distress GI/Abdominal exam: PRESENT: other - Ostomy appliance over colostomy site, with negligible output; midline small bowel fistula still putting out copious amounts of contents Results Laboratory Results: 09/07/20 11:21 09/13/20 04:20 09/13/20 09/13/20 04:20 04:20 Sodium 134.8 L Potassium 4.2 Chloride 107 Carbon Dioxide 19 L Anion Gap 9 BUN 19 Creatinine 0.67 Est GFR ( Amer) > 60 Glucose 101 Calcium 8.8 Phosphorus 4.1 Magnesium 1.6 Cancelled Total Bilirubin 0.5 AST 96 H Alkaline Phosphatase 130 H Total Protein 6.2 L Albumin 2.6 L Prealbumin 13.7 L 09/02/20 15:03 Troponin I 0.013 Impressions: Chest X-Ray 09/02/20 11:59 IMPRESSION: NO ACUTE RADIOGRAPHIC FINDING IN THE CHEST. Abdomen/Pelvis CT 09/05/20 00:00 IMPRESSION: 1. Persistent small pericardial effusion with interval development of bilateral small pleural effusions. 2. Rectal contrast without extravasation. A previously demonstrated pelvic fluid collection is revealed to be on the basis of a 6.5 x 4.4 x 4.0 cm abscess which appears diminished in size noting resolution of previously demonstrated air-fluid level within this collection. 3. Interval development of mesenteric fat stranding within the lower abdomen. While no definite focal fluid collection or abscess is discernible, evaluation is limited in the absence of oral and IV contrast. Percutaneous Drainage 09/08/20 00:00 IMPRESSION: Unsuccessful attempts to penetrate the wall of the thick-walled fluid collection in the pelvis with an 18 gauge needle and a 20 gauge x 15 cm spinal needle. Pelvis Ultrasound 09/11/20 00:00 IMPRESSION: Limited study for abscess drainage Assessment & Plan - Diagnosis (1) Enterocutaneous fistula Plan: Impression: Patient on TPN, bowel rest with persisting copious enterocutaneous fistula drainage, difficult to quantitate volume as there is no collecting appliance in place Recommendations: 1. Continue current management 2. Anticipate pelvic drain removal in the next 24 to 48 hours. (2) At least 2 enterocutaneous fistulas Is this a current diagnosis for this admission?: Yes - Time Time Spent: 30 to 50 Minutes Critical Time spent with patient: Less than 15 minutes Anticipated Discharge Disposition: Home, Self Care Anticipated Discharge Timeframe: when bed available
[2020-09-13] MEDS: FAT EMULSIONS 250 ML IV SCH (12:18)
[2020-09-13] MEDS: NORMAL SALINE 10 ML SDV (SCHEDULED) IV SCH ×2 (12:19→21:40)
[2020-09-13] MEDS: LEVOFLOXACIN 500 MG/D5W RTU 500 MG/100 ML RTUPB IV SCH (12:22)
[2020-09-13] MEDS: ONDANSETRON HCL INJ/PF 4 MG/2 ML SDV IV PRN (12:25)
[2020-09-13] MEDS: DOXYCYCLINE HYCLATE 100 MG in DEXTROSE 5%-WATER 250 ML IV SCH (14:07)
--- NOTE | 2020-09-13 18:59 | PDOC PROGRESS REPORT ---
Subjective Progress Note for:: 09/13/20 Subjective:: No chest pain or difficulty with breathing. No fever or chills. s/p transvaginal pelvic abscess drainage with minimal continue outflow today. No nausea or vomiting. She remain on TPN support and NPO status. Reason For Visit: ABDOMINAL PAIN Physical Exam Vital Signs: Temp Pulse Resp BP Pulse Ox 98.5 F 71 13 128/72 H 100 09/13/20 16:00 09/13/20 16:00 09/13/20 16:00 09/13/20 16:00 09/13/20 08:00 Intake & Output 09/12/20 09/13/20 09/14/20 06:59 06:59 06:59 Intake Total 2817.5 600 Output Total 1810 1275 Balance 1007.5 -675 Weight 69.8 kg 69.6 kg Physical Exam: General appearance: PRESENT: no acute distress Mouth: Moist. EYES: ABSENT: pallor, sclera icterus Respiratory exam: PRESENT: clear to auscultation bucky Cardiovascular exam: PRESENT: RRR, +S1, +S2. ABSENT: diastolic murmur, rubs, systolic murmur GI/Abdominal exam: PRESENT: normal bowel sounds, minimal tenderness - around fistula sites, other - empty colostomy Extremities exam: ABSENT: pedal edema Neurological exam: PRESENT: alert, awake, oriented to person, oriented to place, oriented to time Psychiatric exam: ABSENT: agitated Skin exam: PRESENT: dry, warm, other - improving contact dermatitis lesion around the fistula site. Results Laboratory Results: 09/07/20 11:21 09/13/20 04:20 09/13/20 09/13/20 04:20 04:20 Sodium 134.8 L Potassium 4.2 Chloride 107 Carbon Dioxide 19 L Anion Gap 9 BUN 19 Creatinine 0.67 Est GFR ( Amer) > 60 Glucose 101 Calcium 8.8 Phosphorus 4.1 Magnesium 1.6 Cancelled Total Bilirubin 0.5 AST 96 H Alkaline Phosphatase 130 H Total Protein 6.2 L Albumin 2.6 L Prealbumin 13.7 L 09/02/20 15:03 Troponin I 0.013 Impressions: Chest X-Ray 09/02/20 11:59 IMPRESSION: NO ACUTE RADIOGRAPHIC FINDING IN THE CHEST. Abdomen/Pelvis CT 09/05/20 00:00 IMPRESSION: 1. Persistent small pericardial effusion with interval development of bilateral small pleural effusions. 2. Rectal contrast without extravasation. A previously demonstrated pelvic fluid collection is revealed to be on the basis of a 6.5 x 4.4 x 4.0 cm abscess which appears diminished in size noting resolution of previously demonstrated air-fluid level within this collection. 3. Interval development of mesenteric fat stranding within the lower abdomen. While no definite focal fluid collection or abscess is discernible, evaluation is limited in the absence of oral and IV contrast. Percutaneous Drainage 09/08/20 00:00 IMPRESSION: Unsuccessful attempts to penetrate the wall of the thick-walled fluid collection in the pelvis with an 18 gauge needle and a 20 gauge x 15 cm spinal needle. 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 Is this a current diagnosis for this admission?: Yes (4) HTN (hypertension) Qualifiers: Hypertension type: essential hypertension Qualified Code(s): I10 - Essential (primary) hypertension Is this a current diagnosis for this admission?: Yes (5) History of stroke with current residual effects Is this a current diagnosis for this admission?: Yes (6) Occluded PICC line Qualifiers: Encounter type: initial encounter Qualified Code(s): T82.898A - Other specified complication of vascular prosthetic devices, implants and grafts, initial encounter Is this a current diagnosis for this admission?: Yes (7) Hypokalemia due to excessive gastrointestinal loss of potassium Is this a current diagnosis for this admission?: Yes (8) Hypomagnesemia Is this a current diagnosis for this admission?: Yes (9) Colostomy stricture Is this a current diagnosis for this admission?: Yes (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 Complete Levofloxacin therapy tomorrow and discontinue ther eafter. Obtain US hepatobiliary system and repeat LFT in am. - Time Time Spent with patient: 25-34 minutes Level of Care: TELE Medications reviewed and adjusted accordingly: Yes Anticipated discharge: Home with Homehealth Anticipated DC Timeframe: within 72 hours - Inpatient Certification Based on my medical assessment, after consideration of the patient's comorbidities, presenting symptoms, or acuity I expect that the services needed warrant INPATIENT care.: Yes I certify that my determination is in accordance with my understanding of Medicare's requirements for reasonable and necessary INPATIENT services [42 CFR 412.3e].: Yes Medical Necessity: Significant Comorbidiites Make Outpatient Treatment Too Risky, Need Close Monitoring Due to Risk of Patient Decompensation, Need For IV Fluids, Need For Continuous Telemetry Monitoring, Need for IV Antibiotics, Risk of Complication if Not Cared For in Hospital, Risk of Diagnosis Which Will Require Inpatient Eval/Care/Monitoring Post Hospital Care: D/C Hardware Trainer Documentation - Plan Summary Plan Summary: See attending physician orders for details.
[2020-09-14] MEDS: INSULIN REG, HUMAN 100 UNIT/ML 3 ML VIAL (PYX) SUBCUT SCH ×4 (00:21→19:37)
[2020-09-14] MEDS: MORPHINE SULFATE 10 MG/ML INJ IV PRN ×5 (01:51→20:51)
[2020-09-14] MEDS: AMINO ACIDS 5 %/DEXTROSE 20 % 1,000 ML IV PRN ×2 (01:51→23:15)
[2020-09-14] MEDS: ONDANSETRON HCL INJ/PF 4 MG/2 ML SDV IV PRN ×2 (01:51→20:51)
--- NOTE | 2020-09-14 05:39 | RADIOLOGY REPORT (SQ) ---
CLINICAL HISTORY: Abnormal elevation of liver enzymes COMPARISON: None. TECHNIQUE: US ABDOMEN DOPPLER LIMITED 09/13/2020 12:00 AM CDT FINDINGS: Liver is enlarged. There is no biliary dilatation. Common bile duct measures 9 mm. Portal vein is patent. Cholecystectomy was performed. Right kidney measures 10.9 cm without hydronephrosis. IMPRESSION: Hepatomegaly. No biliary dilatation.
--- NOTE | 2020-09-14 09:12 | PDOC PROGRESS REPORT ---
Subjective Progress Note for:: 09/14/20 Reason For Visit: ABDOMINAL PAIN No sick change in patient's clinical course; negligible drainage from pelvic drain Physical Exam Vital Signs: Temp Pulse Resp BP Pulse Ox 97.9 F 58 L 18 88/50 L 100 09/14/20 08:26 09/14/20 08:26 09/14/20 08:26 09/14/20 08:26 09/14/20 08:26 Intake & Output 09/13/20 09/14/20 09/15/20 06:59 06:59 06:59 Intake Total 600 600 Output Total 1275 1000 Balance -675 -400 Weight 69.6 kg 69.3 kg GI/Abdominal exam: PRESENT: other - Significant enterocutaneous fistula draining; negligible drainage from ostomy appliance over colostomy. Results Laboratory Results: 09/07/20 11:21 09/13/20 04:20 09/02/20 15:03 Troponin I 0.013 Impressions: Chest X-Ray 09/02/20 11:59 IMPRESSION: NO ACUTE RADIOGRAPHIC FINDING IN THE CHEST. Abdomen/Pelvis CT 09/05/20 00:00 IMPRESSION: 1. Persistent small pericardial effusion with interval development of bilateral small pleural effusions. 2. Rectal contrast without extravasation. A previously demonstrated pelvic fluid collection is revealed to be on the basis of a 6.5 x 4.4 x 4.0 cm abscess which appears diminished in size noting resolution of previously demonstrated air-fluid level within this collection. 3. Interval development of mesenteric fat stranding within the lower abdomen. While no definite focal fluid collection or abscess is discernible, evaluation is limited in the absence of oral and IV contrast. Percutaneous Drainage 09/08/20 00:00 IMPRESSION: Unsuccessful attempts to penetrate the wall of the thick-walled fluid collection in the pelvis with an 18 gauge needle and a 20 gauge x 15 cm spinal needle. Pelvis Ultrasound 09/11/20 00:00 IMPRESSION: Limited study for abscess drainage Abdomen Ultrasound 09/13/20 00:00 IMPRESSION: Hepatomegaly. No biliary dilatation. Assessment & Plan - Diagnosis (1) Enterocutaneous fistula Is this a current diagnosis for this admission?: Yes Plan: Impression: Continues high-output enterocutaneous fistula output; negligible pelvic drain output Plan: 1. Reviewed liver ultrasound; no significant pathologic findings; suspect elevated liver function studies secondary to chronic TPN 2. Anticipate pelvic drain removal tomorrow. (2) At least 2 enterocutaneous fistulas Is this a current diagnosis for this admission?: Yes (3) Colostomy stricture Is this a current diagnosis for this admission?: Yes (4) History of stroke with current residual effects Is this a current diagnosis for this admission?: Yes - Time Time Spent: 30 to 50 Minutes Critical Time spent with patient: Less than 15 minutes Smoking Cessation Education: 3 to 10 minutes Medications reviewed and adjusted accordingly: Yes Anticipated Discharge Disposition: Long Term Facility Anticipated Discharge Timeframe: when bed available
[2020-09-14] MEDS: NORMAL SALINE 10 ML SDV (SCHEDULED) IV SCH ×2 (09:50→21:01)
--- NOTE | 2020-09-14 19:22 | PDOC PROGRESS REPORT ---
Subjective Progress Note for:: 09/14/20 Subjective:: No chest pain or difficulty with breathing. No fever or chills. No nausea or vomiting. She remain on TPN support and NPO status. Reason For Visit: ABDOMINAL PAIN Physical Exam Vital Signs: Temp Pulse Resp BP Pulse Ox 98.5 F 70 18 97/49 L 100 09/14/20 00:00 09/14/20 02:00 09/14/20 00:00 09/14/20 00:00 09/14/20 00:00 Intake & Output 09/12/20 09/13/20 09/14/20 06:59 06:59 06:59 Intake Total 2817.5 600 600 Output Total 1810 1275 1000 Balance 1007.5 -675 -400 Weight 69.8 kg 69.6 kg Physical Exam: General appearance: PRESENT: no acute distress Mouth: Moist. EYES: ABSENT: pallor, sclera icterus Respiratory exam: PRESENT: clear to auscultation bucky Cardiovascular exam: PRESENT: RRR, +S1, +S2. ABSENT: diastolic murmur, rubs, systolic murmur GI/Abdominal exam: PRESENT: normal bowel sounds, minimal tenderness - around fistula sites, other - empty colostomy Extremities exam: ABSENT: pedal edema Neurological exam: PRESENT: alert, awake, oriented to person, oriented to place, oriented to time Psychiatric exam: ABSENT: agitated Skin exam: PRESENT: dry, warm, other - improving contact dermatitis lesion around the fistula site. Results Laboratory Results: 09/07/20 11:21 09/13/20 04:20 09/13/20 09/13/20 04:20 04:20 Sodium 134.8 L Potassium 4.2 Chloride 107 Carbon Dioxide 19 L Anion Gap 9 BUN 19 Creatinine 0.67 Est GFR ( Amer) > 60 Glucose 101 Calcium 8.8 Phosphorus 4.1 Magnesium 1.6 Cancelled Total Bilirubin 0.5 AST 96 H Alkaline Phosphatase 130 H Total Protein 6.2 L Albumin 2.6 L Prealbumin 13.7 L 09/02/20 15:03 Troponin I 0.013 Impressions: Chest X-Ray 09/02/20 11:59 IMPRESSION: NO ACUTE RADIOGRAPHIC FINDING IN THE CHEST. Abdomen/Pelvis CT 09/05/20 00:00 IMPRESSION: 1. Persistent small pericardial effusion with interval development of bilateral small pleural effusions. 2. Rectal contrast without extravasation. A previously demonstrated pelvic fluid collection is revealed to be on the basis of a 6.5 x 4.4 x 4.0 cm abscess which appears diminished in size noting resolution of previously demonstrated air-fluid level within this collection. 3. Interval development of mesenteric fat stranding within the lower abdomen. While no definite focal fluid collection or abscess is discernible, evaluation is limited in the absence of oral and IV contrast. Percutaneous Drainage 09/08/20 00:00 IMPRESSION: Unsuccessful attempts to penetrate the wall of the thick-walled fluid collection in the pelvis with an 18 gauge needle and a 20 gauge x 15 cm spinal needle. 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 Is this a current diagnosis for this admission?: Yes (4) HTN (hypertension) Qualifiers: Hypertension type: essential hypertension Qualified Code(s): I10 - Essential (primary) hypertension Is this a current diagnosis for this admission?: Yes (5) History of stroke with current residual effects Is this a current diagnosis for this admission?: Yes (6) Occluded PICC line Qualifiers: Encounter type: initial encounter Qualified Code(s): T82.898A - Other specified complication of vascular prosthetic devices, implants and grafts, initial encounter Is this a current diagnosis for this admission?: Yes (7) Hypokalemia due to excessive gastrointestinal loss of potassium Is this a current diagnosis for this admission?: Yes (8) Hypomagnesemia Is this a current diagnosis for this admission?: Yes (9) Colostomy stricture Is this a current diagnosis for this admission?: Yes (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 Is this a current diagnosis for this admission?: Yes (11) Pelvic abscess Is this a current diagnosis for this admission?: Yes (12) Elevated liver function tests Is this a current diagnosis for this admission?: Yes - Time Time Spent with patient: 25-34 minutes Level of Care: TELE Medications reviewed and adjusted accordingly: Yes Anticipated discharge: Home with Homehealth Anticipated DC Timeframe: within 72 hours - Inpatient Certification Based on my medical assessment, after consideration of the patient's comorbidities, presenting symptoms, or acuity I expect that the services needed warrant INPATIENT care.: Yes I certify that my determination is in accordance with my understanding of Medicare's requirements for reasonable and necessary INPATIENT services [42 CFR 412.3e].: Yes Medical Necessity: Significant Comorbidiites Make Outpatient Treatment Too R isky, Need Close Monitoring Due to Risk of Patient Decompensation, Need For IV Fluids, Need For Continuous Telemetry Monitoring, Risk of Complication if Not Cared For in Hospital, Risk of Diagnosis Which Will Require Inpatient Eval/Care/Monitoring 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 Follow up on pelvic abscess findings.
[2020-09-15] MEDS: INSULIN REG, HUMAN 100 UNIT/ML 3 ML VIAL (PYX) SUBCUT SCH ×5 (00:56→23:36)
[2020-09-15] MEDS: NORMAL SALINE 10 ML SDV (AFTER EACH USE) IV PRN (00:56)
[2020-09-15] MEDS: MORPHINE SULFATE 10 MG/ML INJ IV PRN ×6 (00:57→23:18)
[2020-09-15] MEDS: ONDANSETRON HCL INJ/PF 4 MG/2 ML SDV IV PRN ×3 (05:43→19:12)
[2020-09-15] MEDS: NORMAL SALINE 10 ML SDV (SCHEDULED) IV SCH ×2 (09:53→23:17)
[2020-09-15] MEDS: AMINO ACIDS 5 %/DEXTROSE 20 % 1,000 ML IV PRN (17:43)
--- NOTE | 2020-09-15 19:13 | PDOC PROGRESS REPORT ---
Subjective Progress Note for:: 09/15/20 Subjective:: 50-year-old female with a long, complicated surgical history. She has the presence of a colostomy as well as an enterocutaneous fistula. She presented with pelvic/abdominal pain. She was found to have a pelvic abscess, in the vicinity of her rectal stump and vaginal cuff. Abscess was drained transvaginally. She does again report mild abdominal discomfort. She denies chest pain, shortness of breath, dizziness, fevers, chills, nausea, vomiting, orthostasis, headache. Reason For Visit: ABDOMINAL PAIN Physical Exam Vital Signs: Temp Pulse Resp BP Pulse Ox 97.9 F 63 16 90/45 L 100 09/15/20 10:00 09/15/20 14:00 09/15/20 07:31 09/15/20 07:31 09/15/20 07:31 Intake & Output 09/14/20 09/15/20 09/16/20 06:59 06:59 06:59 Intake Total 600 0 Output Total 1000 480 325 Balance -400 -480 -325 Weight 69.3 kg 66.9 kg Exam: General appearance: PRESENT: no acute distress, cooperative Head exam: PRESENT: atraumatic, normocephalic Eye exam: ABSENT: scleral icterus Mouth exam: PRESENT: neck supple Neck exam: ABSENT: meningismus, tenderness, thyromegaly Respiratory exam: PRESENT: unlabored. ABSENT: tachypnea, wheezes Cardiovascular exam: ABSENT: tachycardia GI/Abdominal exam: PRESENT: soft. ABSENT: distended, tenderness Rectal exam: PRESENT: deferred Gentrourinary exam: PRESENT: other - transvaginal drain with small amount of serosaguinous output Neurological exam: PRESENT: alert, awake, oriented to person, oriented to place Psychiatric exam: ABSENT: agitated, anxious, depressed Focused psych exam: ABSENT: delusional Results Laboratory Results: 09/07/20 11:21 09/13/20 04:20 09/02/20 15:03 Troponin I 0.013 Impressions: Chest X-Ray 09/02/20 11:59 IMPRESSION: NO ACUTE RADIOGRAPHIC FINDING IN THE CHEST. Abdomen/Pelvis CT 09/05/20 00:00 IMPRESSION: 1. Persistent small pericardial effusion with interval development of bilateral small pleural effusions. 2. Rectal contrast without extravasation. A previously demonstrated pelvic fluid collection is revealed to be on the basis of a 6.5 x 4.4 x 4.0 cm abscess which appears diminished in size noting resolution of previously demonstrated air-fluid level within this collection. 3. Interval development of mesenteric fat stranding within the lower abdomen. While no definite focal fluid collection or abscess is discernible, evaluation is limited in the absence of oral and IV contrast. Percutaneous Drainage 09/08/20 00:00 IMPRESSION: Unsuccessful attempts to penetrate the wall of the thick-walled fluid collection in the pelvis with an 18 gauge needle and a 20 gauge x 15 cm spinal needle. Pelvis Ultrasound 09/11/20 00:00 IMPRESSION: Limited study for abscess drainage Abdomen Ultrasound 09/13/20 00:00 IMPRESSION: Hepatomegaly. No biliary dilatation. Assessment & Plan - Diagnosis (1) Pelvic abscess Is this a current diagnosis for this admission?: Yes - Time Anticipated Discharge Disposition: Unknown Anticipated Discharge Timeframe: Unknown - Plan Summary Plan Summary: 50-year-old female status post transvaginal drainage of a small pelvic fluid collection. The cultures are growing Marcelle and VRE. The drain is productive of a small amount of serosanguineous fluid. I have removed her drain at the bedside today. Antibiotics per Dr. Grove. Surgery will sign off at this time. Please renotify with any questions or concerns.
--- NOTE | 2020-09-15 20:50 | PDOC PROGRESS REPORT ---
Subjective Progress Note for:: 09/15/20 Subjective:: I saw patient by the bedside, relatively young female with complicated surgical history she has the presence of colostomy, enterocutaneous fistula, she presented with pelvic pain, she was found to have pelvic abscess in the vicinity of the rectal stump and vaginal cuff. Abscess was drained transvaginally she reports abdominal discomfort, the culture from the drain grew VRE, she also has VRE in the urine. Reason For Visit: ABDOMINAL PAIN Physical Exam Vital Signs: Temp Pulse Resp BP Pulse Ox 97.9 F 63 16 90/45 L 100 09/15/20 10:00 09/15/20 14:00 09/15/20 07:31 09/15/20 07:31 09/15/20 07:31 Intake & Output 09/14/20 09/15/20 09/16/20 06:59 06:59 06:59 Intake Total 600 0 Output Total 1000 480 325 Balance -400 -480 -325 Weight 69.3 kg 66.9 kg General appearance: PRESENT: no acute distress Eye exam: PRESENT: PERRLA Respiratory exam: PRESENT: clear to auscultation bucky Cardiovascular exam: PRESENT: +S1, +S2 GI/Abdominal exam: PRESENT: soft, tenderness Neurological exam: PRESENT: alert, CN II-XII grossly intact Results Laboratory Results: 09/07/20 11:21 09/13/20 04:20 09/02/20 15:03 Troponin I 0.013 Impressions: Chest X-Ray 09/02/20 11:59 IMPRESSION: NO ACUTE RADIOGRAPHIC FINDING IN THE CHEST. Abdomen/Pelvis CT 09/05/20 00:00 IMPRESSION: 1. Persistent small pericardial effusion with interval development of bilateral small pleural effusions. 2. Rectal contrast without extravasation. A previously demonstrated pelvic fluid collection is revealed to be on the basis of a 6.5 x 4.4 x 4.0 cm abscess which appears diminished in size noting resolution of previously demonstrated air-fluid level within this collection. 3. Interval development of mesenteric fat stranding within the lower abdomen. While no definite focal fluid collection or abscess is discernible, evaluation is limited in the absence of oral and IV contrast. Percutaneous Drainage 09/08/20 00:00 IMPRESSION: Unsuccessful attempts to penetrate the wall of the thick-walled fluid collection in the pelvis with an 18 gauge needle and a 20 gauge x 15 cm spinal needle. Pelvis Ultrasound 09/11/20 00:00 IMPRESSION: Limited study for abscess drainage Abdomen Ultrasound 09/13/20 00:00 IMPRESSION: Hepatomegaly. No biliary dilatation. Assessment & Plan - Diagnosis (1) VRE (vancomycin-resistant Enterococci) infection Is this a current diagnosis for this admission?: Yes Plan: She has VRE in the culture of the pelvic abscess and also VRE in the urine I do not see on record that she received linezolid she is still abdominal pain, she will be treated with linezolid for couple of days follow lab (2) Enterocutaneous fistula Is this a current diagnosis for this admission?: Yes Plan: . (3) Pelvic abscess Is this a current diagnosis for this admission?: Yes Plan: . - Time Time Spent with patient: 35 or more minutes Level of Care: MEDICAL Medications reviewed and adjusted accordingly: Yes Anticipated discharge: Home Anticipated DC Timeframe: Other - Plan Summary Plan Summary: She is n.p.o. on TPN,
[2020-09-15 22:24] LABS: ABSOLUTE BASOPHILS # (AUTO) 0.1 10^3/uL (0.0-0.2); ABSOLUTE EOSINOPHILS # (AUTO) 0.4 10^3/uL (0.0-0.6); ABSOLUTE LYMPHOCYTES (AUTO) 2.7 10^3/uL (0.5-4.7); ABSOLUTE MONOCYTES (AUTO) 0.7 10^3/uL (0.1-1.4); ABSOLUTE NEUT (AUTO) 6.1 10^3/uL (1.7-8.2); BASOPHILS % (AUTO) 1.3 % (0-2); EOSINOPHILS % (AUTO) 3.8 % (0-6); HEMATOCRIT 35.2 % (36.0-47.0); HEMOGLOBIN 12.1 g/dL (12.0-15.5); LYMPHOCYTES % (AUTO) 27.2 % (13-45); MEAN CORPUSCULAR HEMOGLOBIN 31.1 pg (27.0-33.4); MEAN CORPUSCULAR HGB CONC 34.4 g/dL (32.0-36.0); MEAN CORPUSCULAR VOLUME 91 fl (80-97); MONOCYTES % (AUTO) 6.6 % (3-13); PLATELET COUNT 221 10^3/uL (150-450); RED BLOOD COUNT 3.89 10^6/uL (3.72-5.28); RED CELL DISTRIBUTION WIDTH 14.7 % (11.5-14.0); SEGMENTED NEUTROPHILS % (AUTO) 61.1 % (42-78); TOTAL CELLS COUNTED % (AUTO) 100 %
[2020-09-15] MEDS: LINEZOLID 600 MG/300 ML RTUPB IV SCH (23:18)
[2020-09-16] MEDS: MORPHINE SULFATE 10 MG/ML INJ IV PRN ×5 (03:18→20:42)
[2020-09-16] MEDS: NORMAL SALINE 10 ML SDV (AFTER EACH USE) IV PRN (03:18)
[2020-09-16] MEDS: ONDANSETRON HCL INJ/PF 4 MG/2 ML SDV IV PRN ×3 (03:18→20:42)
[2020-09-16 06:04] LABS: ABSOLUTE EOSINOPHILS # (AUTO) 0.1 10^3/uL (0.0-0.6); ABSOLUTE LYMPHOCYTES (AUTO) 0.9 10^3/uL (0.5-4.7); ABSOLUTE MONOCYTES (AUTO) 0.7 10^3/uL (0.1-1.4); ABSOLUTE NEUT (AUTO) 11.7 10^3/uL (1.7-8.2); BASOPHILS % (AUTO) 0.2 % (0-2); EOSINOPHILS % (AUTO) 0.7 % (0-6); HEMATOCRIT 33.1 % (36.0-47.0); HEMOGLOBIN 11.3 g/dL (12.0-15.5); LYMPHOCYTES % (AUTO) 6.7 % (13-45); MEAN CORPUSCULAR HGB CONC 34.1 g/dL (32.0-36.0); MEAN CORPUSCULAR VOLUME 91 fl (80-97); PLATELET COUNT 202 10^3/uL (150-450); RED BLOOD COUNT 3.65 10^6/uL (3.72-5.28); RED CELL DISTRIBUTION WIDTH 14.6 % (11.5-14.0); SEGMENTED NEUTROPHILS % (AUTO) 87.4 % (42-78); TOTAL CELLS COUNTED % (AUTO) 100 %; WHITE BLOOD COUNT 13.4 10^3/uL (4.0-10.5)
[2020-09-16] MEDS: INSULIN REG, HUMAN 100 UNIT/ML 3 ML VIAL (PYX) SUBCUT SCH ×3 (06:19→19:29)
[2020-09-16 06:25] LABS: ALKALINE PHOSPHATASE 141 U/L (38-126); ANION GAP 11 (5-19); ASPARTATE AMINO TRANSFERASE 61 U/L (14-36); BILIRUBIN,DIRECT 0.3 mg/dL (0.0-0.4); BILIRUBIN,TOTAL 0.7 mg/dL (0.2-1.3); BLOOD UREA NITROGEN 25 mg/dL (7-20); CALCIUM 9.1 mg/dL (8.4-10.2); CARBON DIOXIDE 19 mmol/L (22-30); CHLORIDE 104 mmol/L (98-107); GLUCOSE 112 mg/dL (75-110); POTASSIUM 4.4 mmol/L (3.6-5.0); TOTAL PROTEIN 6.8 g/dL (6.3-8.2)
[2020-09-16 06:32] LABS: PREALBUMIN 21.2 mg/dL (17.6-36.0)
[2020-09-16] MEDS: LINEZOLID 600 MG/300 ML RTUPB IV SCH ×2 (10:45→23:00)
[2020-09-16] MEDS: AMINO ACIDS 5 %/DEXTROSE 20 % 1,000 ML IV PRN (12:10)
[2020-09-16] MEDS: FAT EMULSIONS 250 ML IV SCH (12:11)
[2020-09-16] MEDS: NORMAL SALINE 10 ML SDV (SCHEDULED) IV SCH ×2 (13:27→22:50)
--- NOTE | 2020-09-16 21:40 | PDOC PROGRESS REPORT ---
Subjective Progress Note for:: 09/16/20 Subjective:: I saw patient by the bedside, relatively young female with complicated surgical history she has the presence of colostomy, enterocutaneous fistula, she presented with pelvic pain, she was found to have pelvic abscess in the vicinity of the rectal stump and vaginal cuff. Abscess was drained transvaginally she reports abdominal discomfort, the culture from the drain grew VRE, she also has VRE in the urine. She complains of pain, she said the present pain medication is not effective Reason For Visit: ABDOMINAL PAIN Physical Exam Vital Signs: Temp Pulse Resp BP Pulse Ox 100.8 F H 92 18 104/53 L 100 09/16/20 20:00 09/16/20 20:00 09/16/20 20:00 09/16/20 20:00 09/16/20 20:00 Intake & Output 09/15/20 09/16/20 09/17/20 06:59 06:59 06:59 Intake Total 0 300 550 Output Total 480 625 915 Balance -480 -325 -365 Weight 66.9 kg 66.9 kg General appearance: PRESENT: no acute distress Eye exam: PRESENT: PERRLA Respiratory exam: PRESENT: clear to auscultation bucky Cardiovascular exam: PRESENT: +S1, +S2 Neurological exam: PRESENT: alert Results Laboratory Results: 09/16/20 05:02 09/16/20 05:02 09/15/20 09/16/20 09/16/20 22:12 05:02 05:02 WBC 10.0 13.4 H RBC 3.89 3.65 L Hgb 12.1 11.3 L Hct 35.2 L 33.1 L MCV 91 91 MCH 31.1 31.0 MCHC 34.4 34.1 RDW 14.7 H 14.6 H Plt Count 221 202 Seg Neutrophils % 61.1 87.4 H Sodium 133.9 L Potassium 4.4 Chloride 104 Carbon Dioxide 19 L Anion Gap 11 BUN 25 H Creatinine 0.70 Est GFR ( Amer) > 60 Glucose 112 H Calcium 9.1 Phosphorus Total Bilirubin 0.7 AST 61 H Alkaline Phosphatase 141 H Total Protein 6.8 Albumin 3.0 L Prealbumin 21.2 09/16/20 05:02 WBC RBC Hgb Hct MCV MCH MCHC RDW Plt Count Seg Neutrophils % Sodium Potassium Chloride Carbon Dioxide Anion Gap BUN Creatinine Est GFR ( Amer) Glucose Calcium Phosphorus 4.2 Total Bilirubin AST Alkaline Phosphatase Total Protein Albumin Prealbumin 09/02/20 15:03 Troponin I 0.013 Impressions: Chest X-Ray 09/02/20 11:59 IMPRESSION: NO ACUTE RADIOGRAPHIC FINDING IN THE CHEST. Abdomen/Pelvis CT 09/05/20 00:00 IMPRESSION: 1. Persistent small pericardial effusion with interval development of bilateral small pleural effusions. 2. Rectal contrast without extravasation. A previously demonstrated pelvic fluid collection is revealed to be on the basis of a 6.5 x 4.4 x 4.0 cm abscess which appears diminished in size noting resolution of previously demonstrated air-fluid level within this collection. 3. Interval development of mesenteric fat stranding within the lower abdomen. While no definite focal fluid collection or abscess is discernible, evaluation is limited in the absence of oral and IV contrast. Percutaneous Drainage 09/08/20 00:00 IMPRESSION: Unsuccessful attempts to penetrate the wall of the thick-walled fluid collection in the pelvis with an 18 gauge needle and a 20 gauge x 15 cm sp inal needle. Pelvis Ultrasound 09/11/20 00:00 IMPRESSION: Limited study for abscess drainage Abdomen Ultrasound 09/13/20 00:00 IMPRESSION: Hepatomegaly. No biliary dilatation. Assessment & Plan - Diagnosis (1) VRE (vancomycin-resistant Enterococci) infection Is this a current diagnosis for this admission?: Yes Plan: She has VRE in the culture of the pelvic abscess and also VRE in the urine I do not see on record that she received linezolid she is still abdominal pain, she will be treated with linezolid for couple of days follow lab (2) Enterocutaneous fistula Is this a current diagnosis for this admission?: Yes Plan: . (3) Pelvic abscess Is this a current diagnosis for this admission?: Yes Plan: Patient started on Dilaudid for pain control - Time Time Spent with patient: 25-34 minutes Level of Care: MEDICAL Medications reviewed and adjusted accordingly: Yes Anticipated discharge: Home
[2020-09-17] MEDS: HYDROMORPHONE HCL INJ/PF 2 MG/ML AMPULE IV PRN ×6 (00:25→21:21)
[2020-09-17] MEDS: NORMAL SALINE 10 ML SDV (AFTER EACH USE) IV PRN (00:27)
[2020-09-17] MEDS: INSULIN REG, HUMAN 100 UNIT/ML 3 ML VIAL (PYX) SUBCUT SCH ×4 (00:30→18:22)
[2020-09-17] MEDS: AMINO ACIDS 5 %/DEXTROSE 20 % 1,000 ML IV PRN (08:00)
[2020-09-17] MEDS: ONDANSETRON HCL INJ/PF 4 MG/2 ML SDV IV PRN ×3 (08:10→21:21)
[2020-09-17 09:15] LABS: ABSOLUTE EOSINOPHILS # (AUTO) 0.1 10^3/uL (0.0-0.6); ABSOLUTE MONOCYTES (AUTO) 0.9 10^3/uL (0.1-1.4); ABSOLUTE NEUT (AUTO) 12.1 10^3/uL (1.7-8.2); BASOPHILS % (AUTO) 0.2 % (0-2); EOSINOPHILS % (AUTO) 0.4 % (0-6); HEMATOCRIT 35.8 % (36.0-47.0); HEMOGLOBIN 12.3 g/dL (12.0-15.5); LYMPHOCYTES % (AUTO) 13.4 % (13-45); MEAN CORPUSCULAR HEMOGLOBIN 31.1 pg (27.0-33.4); MEAN CORPUSCULAR HGB CONC 34.3 g/dL (32.0-36.0); MEAN CORPUSCULAR VOLUME 91 fl (80-97); MONOCYTES % (AUTO) 5.7 % (3-13); RED BLOOD COUNT 3.95 10^6/uL (3.72-5.28); RED CELL DISTRIBUTION WIDTH 14.6 % (11.5-14.0); SEGMENTED NEUTROPHILS % (AUTO) 80.3 % (42-78); TOTAL CELLS COUNTED % (AUTO) 100 %; WHITE BLOOD COUNT 15.1 10^3/uL (4.0-10.5)
[2020-09-17] MEDS: LINEZOLID 600 MG/300 ML RTUPB IV SCH ×2 (09:40→21:13)
[2020-09-17 09:54] LABS: PLATELET COUNT 156 10^3/uL (150-450)
[2020-09-17] MEDS: NORMAL SALINE 10 ML SDV (SCHEDULED) IV SCH ×2 (15:06→21:14)
--- NOTE | 2020-09-17 21:16 | PDOC PROGRESS REPORT ---
Subjective Progress Note for:: 09/17/20 Subjective:: I saw patient by the bedside, relatively young female with complicated surgical history she has the presence of colostomy, enterocutaneous fistula, she presented with pelvic pain, she was found to have pelvic abscess in the vicinity of the rectal stump and vaginal cuff. Abscess was drained transvaginally she reports abdominal discomfort, the culture from the drain grew VRE, she also has VRE in the urine. She complains of pain, she said the present pain medication is not effective,this was changed to dilaudid Reason For Visit: ABDOMINAL PAIN Physical Exam Vital Signs: Temp Pulse Resp BP Pulse Ox 97.5 F 70 18 106/61 100 09/17/20 19:28 09/17/20 19:28 09/17/20 19:28 09/17/20 19:28 09/17/20 19:28 Intake & Output 09/16/20 09/17/20 09/18/20 06:59 06:59 06:59 Intake Total 300 1200 300 Output Total 625 1865 275 Balance -325 -665 25 Weight 66.9 kg 68.2 kg 68.2 kg General appearance: PRESENT: no acute distress Eye exam: PRESENT: PERRLA Respiratory exam: PRESENT: clear to auscultation bucky Cardiovascular exam: PRESENT: +S1, +S2 Results Laboratory Results: 09/17/20 08:42 09/16/20 05:02 09/17/20 08:42 WBC 15.1 H RBC 3.95 Hgb 12.3 Hct 35.8 L MCV 91 MCH 31.1 MCHC 34.3 RDW 14.6 H Plt Count 156 Seg Neutrophils % 80.3 H 09/02/20 15:03 Troponin I 0.013 Impressions: Chest X-Ray 09/02/20 11:59 IMPRESSION: NO ACUTE RADIOGRAPHIC FINDING IN THE CHEST. Abdomen/Pelvis CT 09/05/20 00:00 IMPRESSION: 1. Persistent small pericardial effusion with interval development of bilateral small pleural effusions. 2. Rectal contrast without extravasation. A previously demonstrated pelvic fluid collection is revealed to be on the basis of a 6.5 x 4.4 x 4.0 cm abscess which appears diminished in size noting resolution of previously demonstrated air-fluid level within this collection. 3. Interval development of mesenteric fat stranding within the lower abdomen. While no definite focal fluid collection or abscess is discernible, evaluation is limited in the absence of oral and IV contrast. Percutaneous Drainage 09/08/20 00:00 IMPRESSION: Unsuccessful attempts to penetrate the wall of the thick-walled fluid collection in the pelvis with an 18 gauge needle and a 20 gauge x 15 cm spinal needle. Pelvis Ultrasound 09/11/20 00:00 IMPRESSION: Limited study for abscess drainage Abdomen Ultrasound 09/13/20 00:00 IMPRESSION: Hepatomegaly. No biliary dilatation. Assessment & Plan - Diagnosis (1) VRE (vancomycin-resistant Enterococci) infection Is this a current diagnosis for this admission?: Yes Plan: Continue the intravenous zyvox (2) Enterocutaneous fistula Is this a current diagnosis for this admission?: Yes (3) Pelvic abscess Is this a current diagnosis for this admission?: Yes - Time Time Spent with patient: 25-34 minutes Level of Care: MEDICAL Medications reviewed and adjusted accordingly: Yes Anticipated discharge: Home - Inpatient Certification Based on my medical assessment, after consideration of the patient's comorbidities, presenting symptoms, or acuity I expect that the services needed warrant INPATIENT care.: Yes I certify that my determination is in accordance with my understanding of Medicare's requirements for reasonable and necessary INPATIENT services [42 CFR 412.3e].: Yes
[2020-09-18] MEDS: HYDROMORPHONE HCL INJ/PF 2 MG/ML AMPULE IV PRN ×6 (00:50→22:24)
[2020-09-18] MEDS: AMINO ACIDS 5 %/DEXTROSE 20 % 1,000 ML IV PRN ×2 (02:38→22:01)
[2020-09-18] MEDS: INSULIN REG, HUMAN 100 UNIT/ML 3 ML VIAL (PYX) SUBCUT SCH ×4 (05:34→18:27)
[2020-09-18 08:23] LABS: ABSOLUTE EOSINOPHILS # (AUTO) 0.2 10^3/uL (0.0-0.6); ABSOLUTE LYMPHOCYTES (AUTO) 2.4 10^3/uL (0.5-4.7); ABSOLUTE MONOCYTES (AUTO) 2.1 10^3/uL (0.1-1.4); ABSOLUTE NEUT (AUTO) 9.7 10^3/uL (1.7-8.2); BASOPHILS % (AUTO) 0.3 % (0-2); EOSINOPHILS % (AUTO) 1.3 % (0-6); HEMATOCRIT 31.1 % (36.0-47.0); HEMOGLOBIN 10.8 g/dL (12.0-15.5); LYMPHOCYTES % (AUTO) 16.7 % (13-45); MEAN CORPUSCULAR HEMOGLOBIN 31.2 pg (27.0-33.4); MEAN CORPUSCULAR HGB CONC 34.6 g/dL (32.0-36.0); MEAN CORPUSCULAR VOLUME 90 fl (80-97); MONOCYTES % (AUTO) 14.6 % (3-13); PLATELET COUNT 174 10^3/uL (150-450); RED BLOOD COUNT 3.45 10^6/uL (3.72-5.28); RED CELL DISTRIBUTION WIDTH 14.4 % (11.5-14.0); SEGMENTED NEUTROPHILS % (AUTO) 67.1 % (42-78); TOTAL CELLS COUNTED % (AUTO) 100 %; WHITE BLOOD COUNT 14.4 10^3/uL (4.0-10.5)
[2020-09-18] MEDS: ONDANSETRON HCL INJ/PF 4 MG/2 ML SDV IV PRN ×2 (08:52→22:24)
[2020-09-18] MEDS: LINEZOLID 600 MG/300 ML RTUPB IV SCH ×2 (11:00→22:01)
[2020-09-18] MEDS: NORMAL SALINE 10 ML SDV (SCHEDULED) IV SCH ×2 (12:48→22:28)
--- NOTE | 2020-09-18 16:13 | PDOC PROGRESS REPORT ---
Subjective Progress Note for:: 09/18/20 Subjective:: I saw patient by the bedside, relatively young female with complicated surgical history she has the presence of colostomy, enterocutaneous fistula, she presented with pelvic pain, she was found to have pelvic abscess in the vicinity of the rectal stump and vaginal cuff. Abscess was drained transvaginally she reports abdominal discomfort, the culture from the drain grew VRE, she also has VRE in the urine. She complains of pain, she said the present pain medication is not effective,this was changed to dilaudid 09/18/2020 She has no new complaints the Dilaudid is controlling the pain Reason For Visit: ABDOMINAL PAIN Physical Exam Vital Signs: Temp Pulse Resp BP Pulse Ox 98.0 F 71 16 96/50 L 100 09/18/20 11:51 09/18/20 14:00 09/18/20 11:51 09/18/20 11:51 09/18/20 11:51 Intake & Output 09/17/20 09/18/20 09/19/20 06:59 06:59 05:59 Intake Total 1200 600 300 Output Total 1865 1135 Balance -665 -535 300 Weight 68.2 kg 66.6 kg General appearance: PRESENT: no acute distress Eye exam: PRESENT: PERRLA Respiratory exam: PRESENT: clear to auscultation bucky Cardiovascular exam: PRESENT: +S1, +S2 GI/Abdominal exam: PRESENT: soft Neurological exam: PRESENT: alert Results Laboratory Results: 09/18/20 07:35 09/16/20 05:02 09/18/20 07:35 WBC 14.4 H RBC 3.45 L Hgb 10.8 L Hct 31.1 L MCV 90 MCH 31.2 MCHC 34.6 RDW 14.4 H Plt Count 174 Seg Neutrophils % 67.1 09/02/20 15:03 Troponin I 0.013 Impressions: Chest X-Ray 09/02/20 11:59 IMPRESSION: NO ACUTE RADIOGRAPHIC FINDING IN THE CHEST. Abdomen/Pelvis CT 09/05/20 00:00 IMPRESSION: 1. Persistent small pericardial effusion with interval development of bilateral small pleural effusions. 2. Rectal contrast without extravasation. A previously demonstrated pelvic fluid collection is revealed to be on the basis of a 6.5 x 4.4 x 4.0 cm abscess which appears diminished in size noting resolution of previously demonstrated air-fluid level within this collection. 3. Interval development of mesenteric fat stranding within the lower abdomen. While no definite focal fluid collection or abscess is discernible, evaluation is limited in the absence of oral and IV contrast. Percutaneous Drainage 09/08/20 00:00 IMPRESSION: Unsuccessful attempts to penetrate the wall of the thick-walled fluid collection in the pelvis with an 18 gauge needle and a 20 gauge x 15 cm spinal needle. Pelvis Ultrasound 09/11/20 00:00 IMPRESSION: Limited study for abscess drainage Abdomen Ultrasound 09/13/20 00:00 IMPRESSION: Hepatomegaly. No biliary dilatation. Assessment & Plan - Diagnosis (1) VRE (vancomycin-resistant Enterococci) infection Is this a current diagnosis for this admission?: Yes Plan: Continue the intravenous zyvox (2) Enterocutaneous fistula Is this a current diagnosis for this admission?: Yes (3) Pelvic abscess Is this a current diagnosis for this admission?: Yes - Time Time Spent with patient: 35 or more minutes Level of Care: IMCU Anticipated discharge: Home Anticipated DC Timeframe: within 72 hours
[2020-09-19] MEDS: INSULIN REG, HUMAN 100 UNIT/ML 3 ML VIAL (PYX) SUBCUT SCH ×4 (00:07→18:02)
[2020-09-19] MEDS: HYDROMORPHONE HCL INJ/PF 2 MG/ML AMPULE IV PRN ×6 (05:30→20:57)
[2020-09-19] MEDS: ONDANSETRON HCL INJ/PF 4 MG/2 ML SDV IV PRN ×3 (05:30→17:56)
[2020-09-19 06:26] LABS: ABSOLUTE MONOCYTES (AUTO) 1.4 10^3/uL (0.1-1.4); ABSOLUTE NEUT (AUTO) 9.6 10^3/uL (1.7-8.2); BASOPHILS % (AUTO) 0.3 % (0-2); EOSINOPHILS % (AUTO) 0.3 % (0-6); HEMATOCRIT 31.5 % (36.0-47.0); HEMOGLOBIN 10.7 g/dL (12.0-15.5); LYMPHOCYTES % (AUTO) 15.5 % (13-45); MEAN CORPUSCULAR HEMOGLOBIN 30.8 pg (27.0-33.4); MEAN CORPUSCULAR HGB CONC 33.9 g/dL (32.0-36.0); MEAN CORPUSCULAR VOLUME 91 fl (80-97); MONOCYTES % (AUTO) 10.7 % (3-13); PLATELET COUNT 204 10^3/uL (150-450); RED BLOOD COUNT 3.47 10^6/uL (3.72-5.28); RED CELL DISTRIBUTION WIDTH 14.5 % (11.5-14.0); SEGMENTED NEUTROPHILS % (AUTO) 73.2 % (42-78); TOTAL CELLS COUNTED % (AUTO) 100 %; WHITE BLOOD COUNT 13.1 10^3/uL (4.0-10.5)
[2020-09-19] MEDS: NORMAL SALINE 10 ML SDV (SCHEDULED) IV SCH ×2 (09:17→22:24)
[2020-09-19] MEDS: LINEZOLID 600 MG/300 ML RTUPB IV SCH ×2 (09:18→22:24)
--- NOTE | 2020-09-19 14:32 | PDOC PROGRESS REPORT ---
Subjective Progress Note for:: 09/19/20 Subjective:: I saw patient by the bedside, relatively young female with complicated surgical history she has the presence of colostomy, enterocutaneous fistula, she presented with pelvic pain, she was found to have pelvic abscess in the vicinity of the rectal stump and vaginal cuff. Abscess was drained transvaginally she reports abdominal discomfort, the culture from the drain grew VRE, she also has VRE in the urine. She complains of pain, she said the present pain medication is not effective,this was changed to dilaudid 09/18/2020 She has no new complaints the Dilaudid is controlling the pain 09/19/2020 She has no new complaints ,continue present treatment Reason For Visit: ABDOMINAL PAIN Physical Exam Vital Signs: Temp Pulse Resp BP Pulse Ox 98.1 F 73 17 108/59 L 100 09/19/20 13:08 09/19/20 13:08 09/19/20 13:08 09/19/20 13:08 09/19/20 13:08 Intake & Output 09/18/20 09/19/20 09/20/20 07:59 06:59 06:59 Intake Total 300 Output Total 275 Balance 25 Weight General appearance: PRESENT: no acute distress Eye exam: PRESENT: PERRLA Respiratory exam: PRESENT: clear to auscultation bucky Cardiovascular exam: PRESENT: +S1, +S2 GI/Abdominal exam: PRESENT: soft Neurological exam: PRESENT: alert, CN II-XII grossly intact Results Laboratory Results: 09/19/20 05:50 09/16/20 05:02 09/19/20 05:50 WBC 13.1 H RBC 3.47 L Hgb 10.7 L Hct 31.5 L MCV 91 MCH 30.8 MCHC 33.9 RDW 14.5 H Plt Count 204 Seg Neutrophils % 73.2 09/02/20 15:03 Troponin I 0.013 Impressions: Chest X-Ray 09/02/20 11:59 IMPRESSION: NO ACUTE RADIOGRAPHIC FINDING IN THE CHEST. Abdomen/Pelvis CT 09/05/20 00:00 IMPRESSION: 1. Persistent small pericardial effusion with interval development of bilateral small pleural effusions. 2. Rectal contrast without extravasation. A previously demonstrated pelvic fluid collection is revealed to be on the basis of a 6.5 x 4.4 x 4.0 cm abscess which appears diminished in size noting resolution of previously demonstrated air-fluid level within this collection. 3. Interval development of mesenteric fat stranding within the lower abdomen. While no definite focal fluid collection or abscess is discernible, evaluation is limited in the absence of oral and IV contrast. Percutaneous Drainage 09/08/20 00:00 IMPRESSION: Unsuccessful attempts to penetrate the wall of the thick-walled fluid collection in the pelvis with an 18 gauge needle and a 20 gauge x 15 cm spinal needle. Pelvis Ultrasound 09/11/20 00:00 IMPRESSION: Limited study for abscess drainage Abdomen Ultrasound 09/13/20 00:00 IMPRESSION: Hepatomegaly. No biliary dilatation. Assessment & Plan - Diagnosis (1) VRE (vancomycin-resistant Enterococci) infection Is this a current diagnosis for this admission?: Yes Plan: Continue the intravenous zyvox (2) Enterocutaneous fistula Is this a current diagnosis for this admission?: Yes (3) Pelvic abscess Is this a current diagnosis for this admission?: Yes - Time Time Spent with patient: 25-34 minutes Level of Care: MEDICAL Anticipated discharge: Home Anticipated DC Timeframe: within 72 hours
[2020-09-19] MEDS: AMINO ACIDS 5 %/DEXTROSE 20 % 1,000 ML IV PRN (15:00)
[2020-09-20] MEDS: HYDROMORPHONE HCL INJ/PF 2 MG/ML AMPULE IV PRN ×6 (00:06→20:57)
[2020-09-20] MEDS: ONDANSETRON HCL INJ/PF 4 MG/2 ML SDV IV PRN ×4 (00:06→20:57)
[2020-09-20] MEDS: INSULIN REG, HUMAN 100 UNIT/ML 3 ML VIAL (PYX) SUBCUT SCH ×4 (06:20→17:40)
[2020-09-20] MEDS: LINEZOLID 600 MG/300 ML RTUPB IV SCH ×2 (11:09→22:14)
[2020-09-20] MEDS: FAT EMULSIONS 250 ML IV SCH (11:15)
[2020-09-20] MEDS: NORMAL SALINE 10 ML SDV (SCHEDULED) IV SCH ×2 (11:34→22:15)
[2020-09-20 11:44] LABS: ABSOLUTE LYMPHOCYTES (AUTO) 2.2 10^3/uL (0.5-4.7); ABSOLUTE MONOCYTES (AUTO) 1.4 10^3/uL (0.1-1.4); BASOPHILS % (AUTO) 0.2 % (0-2); EOSINOPHILS % (AUTO) 0.2 % (0-6); HEMATOCRIT 30.5 % (36.0-47.0); HEMOGLOBIN 10.7 g/dL (12.0-15.5); LYMPHOCYTES % (AUTO) 16.3 % (13-45); MEAN CORPUSCULAR HEMOGLOBIN 31.4 pg (27.0-33.4); MEAN CORPUSCULAR HGB CONC 35.1 g/dL (32.0-36.0); MEAN CORPUSCULAR VOLUME 90 fl (80-97); MONOCYTES % (AUTO) 10.1 % (3-13); PLATELET COUNT 249 10^3/uL (150-450); RED BLOOD COUNT 3.41 10^6/uL (3.72-5.28); RED CELL DISTRIBUTION WIDTH 14.8 % (11.5-14.0); SEGMENTED NEUTROPHILS % (AUTO) 73.2 % (42-78); TOTAL CELLS COUNTED % (AUTO) 100 %; WHITE BLOOD COUNT 13.7 10^3/uL (4.0-10.5)
[2020-09-20 11:57] LABS: ALBUMIN 3.2 g/dL (3.5-5.0); ALKALINE PHOSPHATASE 186 U/L (38-126); ANION GAP 11 (5-19); ASPARTATE AMINO TRANSFERASE 24 U/L (14-36); BILIRUBIN,DIRECT 0.2 mg/dL (0.0-0.4); BILIRUBIN,TOTAL 0.6 mg/dL (0.2-1.3); BLOOD UREA NITROGEN 15 mg/dL (7-20); CALCIUM 9.4 mg/dL (8.4-10.2); CARBON DIOXIDE 21 mmol/L (22-30); CHLORIDE 99 mmol/L (98-107); GLUCOSE 92 mg/dL (75-110); POTASSIUM 5.3 mmol/L (3.6-5.0); TOTAL PROTEIN 7.6 g/dL (6.3-8.2)
[2020-09-20 11:58] LABS: PHOSPHORUS 4.8 mg/dL (2.5-4.5)
[2020-09-20 12:04] LABS: PREALBUMIN 15.8 mg/dL (17.6-36.0)
[2020-09-20] MEDS: AMINO ACIDS 5 %/DEXTROSE 20 % 1,000 ML IV PRN (13:52)
[2020-09-20] MEDS: OCTREOTIDE ACETATE INJ/PF 100 MCG/1 ML SDV SUBCUT SCH (18:39)
[2020-09-21] MEDS: HYDROMORPHONE HCL INJ/PF 2 MG/ML AMPULE IV PRN ×7 (00:02→22:29)
[2020-09-21] MEDS: INSULIN REG, HUMAN 100 UNIT/ML 3 ML VIAL (PYX) SUBCUT SCH ×4 (05:13→17:31)
[2020-09-21] MEDS: ONDANSETRON HCL INJ/PF 4 MG/2 ML SDV IV PRN ×3 (05:18→19:10)
[2020-09-21] MEDS: LINEZOLID 600 MG/300 ML RTUPB IV SCH ×2 (09:13→22:28)
[2020-09-21] MEDS: NORMAL SALINE 10 ML SDV (SCHEDULED) IV SCH ×2 (09:13→22:30)
[2020-09-21] MEDS: OCTREOTIDE ACETATE INJ/PF 100 MCG/1 ML SDV SUBCUT SCH ×2 (09:14→17:32)
--- NOTE | 2020-09-21 09:24 | PDOC PROGRESS REPORT ---
Subjective Progress Note for:: 09/20/20 Subjective:: There is report of recurrence of copious drainage from her fistulae openings. She reported lass nausea and abdominal pain but denied any vomiting. No fever or chills. Pelvic drainage tube has been removed. Reason For Visit: ABDOMINAL PAIN Physical Exam Vital Signs: Temp Pulse Resp BP Pulse Ox 98.2 F 88 17 97/60 L 100 09/20/20 13:19 09/20/20 14:00 09/20/20 13:19 09/20/20 13:19 09/20/20 13:19 Intake & Output 09/19/20 09/20/20 09/21/20 06:59 06:59 06:59 Intake Total 600 250 Output Total 1100 Balance -500 250 Weight 66 kg 66 kg Physical Exam: General appearance: PRESENT: no acute distress Mouth: Moist. EYES: ABSENT: pallor, sclera icterus Respiratory exam: PRESENT: clear to auscultation bilateral Cardiovascular exam: PRESENT: RRR, +S1, +S2. ABSENT: diastolic murmur, rubs, systolic murmur GI/Abdominal exam: PRESENT: normal bowel sounds, minimal tenderness - around fistula sites, other - empty colostomy Extremities exam: ABSENT: pedal edema Neurological exam: PRESENT: alert, awake, oriented to person, oriented to place, oriented to time Psychiatric exam: ABSENT: agitated Skin exam: PRESENT: dry, warm, other - improving contact dermatitis lesion around the fistula site. Results Laboratory Results: 09/20/20 11:20 09/20/20 11:20 09/20/20 09/20/20 09/20/20 11:20 11: 11:20 WBC 13.7 H RBC 3.41 L Hgb 10.7 L Hct 30.5 L MCV 90 MCH 31.4 MCHC 35.1 RDW 14.8 H Plt Count 249 Seg Neutrophils % 73.2 Sodium 131.4 L Potassium 5.3 H Chloride 99 Carbon Dioxide 21 L Anion Gap 11 BUN 15 Creatinine 0.66 Est GFR ( Amer) > 60 Glucose 92 Calcium 9.4 Phosphorus 4.8 H Magnesium 1.8 Total Bilirubin 0.6 AST 24 Alkaline Phosphatase 186 H Total Protein 7.6 Albumin 3.2 L Prealbumin 15.8 L 09/02/20 15:03 Troponin I 0.013 Impressions: Chest X-Ray 09/02/20 11:59 IMPRESSION: NO ACUTE RADIOGRAPHIC FINDING IN THE CHEST. Abdomen/Pelvis CT 09/05/20 00:00 IMPRESSION: 1. Persistent small pericardial effusion with interval development of bilateral small pleural effusions. 2. Rectal contrast without extravasation. A previously demonstrated pelvic fluid collection is revealed to be on the basis of a 6.5 x 4.4 x 4.0 cm abscess which appears diminished in size noting resolution of previously demonstrated air-fluid level within this collection. 3. Interval development of mesenteric fat stranding within the lower abdomen. While no definite focal fluid collection or abscess is discernible, evaluation is limited in the absence of oral and IV contrast. Percutaneous Drainage 09/08/20 00:00 IMPRESSION: Unsuccessful attempts to penetrate the wall of the thick-walled fluid collection in the pelvis with an 18 gauge needle and a 20 gauge x 15 cm spinal needle. Pelvis Ultrasound 09/11/20 00:00 IMPRESSION: Limited study for abscess drainage Abdomen Ultrasound 09/13/20 00:00 IMPRESSION: Hepatomegaly. No biliary dilatation. 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 Is this a current diagnosis for this admission?: Yes (4) HTN (hypertension) Qualifiers: Hypertension type: essential hypertension Qualified Code(s): I10 - Essential (primary) hypertension Is this a current diagnosis for this admission?: Yes (5) History of stroke with current residual effects Is this a current diagnosis for this admission?: Yes (6) Occluded PICC line Qualifiers: Encounter type: initial encounter Qualified Code(s): T82.898A - Other specified complication of vascular prosthetic devices, implants and grafts, initial encounter Is this a current diagnosis for this admission?: Yes (7) Hypokalemia due to excessive gastrointestinal loss of potassium Is this a current diagnosis for this admission?: Yes (8) Hypomagnesemia Is this a current diagnosis for this admission?: Yes (9) Colostomy stricture Is this a current diagnosis for this admission?: Yes (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 Is this a current diagnosis for this admission?: Yes (11) Pelvic abscess Is this a current diagnosis for this admission?: Yes (12) Elevated liver function tests Is this a current diagnosis for this admission?: Yes - Time Time Spent with patient: 25-34 minutes Level of Care: TELE Medications reviewed and adjusted accordingly: Yes Anticipated discharge: Home with Homehealth Anticipated DC Timeframe: within 72 hours - Inpatient Certification Based on my medical assessment, after consideration of the patient's comorbidities, presenting symptoms, or acuity I expect that the services needed warrant INPATIENT care.: Yes I certify that my determination is in accordance with my understanding of Medicare's requirements for reasonable and necessary INPATIENT services [42 CFR 412.3e].: Yes Medical Necessity: Significant Comorbidiites Make Outpatient Treatment Too Risky, Need Close Monitoring Due to Risk of Patient Decompensation, Need For Continuous Telemetry Monitoring, Need for IV Antibiotics, Risk of Complication if Not Cared For in Hospital, Risk of Diagnosis Which Will Require Inpatient Eval/Care/Monitoring Post Hospital Care: D/C Lumber Salvager Documentation - Plan Summary Plan Summary: Start on Octreotide therapy for high output fistulae. Maintain on current antibiotic therapy. Request wound nurse reevaluation for possible ostomy bag attachment to fistulae.
[2020-09-21 10:00] LABS: ABSOLUTE BASOPHILS # (AUTO) 0.1 10^3/uL (0.0-0.2); ABSOLUTE EOSINOPHILS # (AUTO) 0.2 10^3/uL (0.0-0.6); ABSOLUTE LYMPHOCYTES (AUTO) 2.2 10^3/uL (0.5-4.7); ABSOLUTE MONOCYTES (AUTO) 1.7 10^3/uL (0.1-1.4); ABSOLUTE NEUT (AUTO) 9.7 10^3/uL (1.7-8.2); BASOPHILS % (AUTO) 0.8 % (0-2); EOSINOPHILS % (AUTO) 1.7 % (0-6); HEMATOCRIT 29.9 % (36.0-47.0); HEMOGLOBIN 10.1 g/dL (12.0-15.5); LYMPHOCYTES % (AUTO) 15.6 % (13-45); MEAN CORPUSCULAR HEMOGLOBIN 30.8 pg (27.0-33.4); MEAN CORPUSCULAR HGB CONC 33.8 g/dL (32.0-36.0); MEAN CORPUSCULAR VOLUME 91 fl (80-97); MONOCYTES % (AUTO) 12.2 % (3-13); PLATELET COUNT 246 10^3/uL (150-450); RED BLOOD COUNT 3.28 10^6/uL (3.72-5.28); RED CELL DISTRIBUTION WIDTH 14.7 % (11.5-14.0); SEGMENTED NEUTROPHILS % (AUTO) 69.7 % (42-78); TOTAL CELLS COUNTED % (AUTO) 100 %; WHITE BLOOD COUNT 13.9 10^3/uL (4.0-10.5)
[2020-09-21] MEDS: AMINO ACIDS 5 %/DEXTROSE 20 % 1,000 ML IV PRN (10:58)
--- NOTE | 2020-09-21 17:59 | PDOC PROGRESS REPORT ---
Subjective Progress Note for:: 09/21/20 Subjective:: Less fistulae openings drainage so far today. She reported less nausea. No vomiting. No fever or chills. No chest pain or difficulty with breathing. Reason For Visit: ABDOMINAL PAIN Physical Exam Vital Signs: Temp Pulse Resp BP Pulse Ox 98.2 F 73 16 80/43 L 100 09/21/20 08:54 09/21/20 08:51 09/21/20 08:51 09/21/20 08:51 09/21/20 08:51 Intake & Output 09/20/20 09/21/20 09/22/20 06:59 06:59 06:59 Intake Total 600 850 300 Output Total 1100 1050 Balance -500 -200 300 Weight 66 kg 66.2 kg Physical Exam: General appearance: PRESENT: no acute distress Mouth: Moist. EYES: ABSENT: pallor, sclera icterus Respiratory exam: PRESENT: clear to auscultation bilateral Cardiovascular exam: PRESENT: RRR, +S1, +S2. ABSENT: diastolic murmur, rubs, systolic murmur GI/Abdominal exam: PRESENT: normal bowel sounds, minimal tenderness - around fistula sites, other - empty colostomy Extremities exam: ABSENT: pedal edema Neurological exam: PRESENT: alert, awake, oriented to person, oriented to place, oriented to time Psychiatric exam: ABSENT: agitated Skin exam: PRESENT: dry, warm, other - improving contact dermatitis lesion around the fistula site. Results Laboratory Results: 09/21/20 09:40 09/20/20 11:20 09/21/20 09:40 WBC 13.9 H RBC 3.28 L Hgb 10.1 L Hct 29.9 L MCV 91 MCH 30.8 MCHC 33.8 RDW 14.7 H Plt Count 246 Seg Neutrophils % 69.7 09/02/20 15:03 Troponin I 0.013 Impressions: Chest X-Ray 09/02/20 11:59 IMPRESSION: NO ACUTE RADIOGRAPHIC FINDING IN THE CHEST. Abdomen/Pelvis CT 09/05/20 00:00 IMPRESSION: 1. Persistent small pericardial effusion with interval development of bilateral small pleural effusions. 2. Rectal contrast without extravasation. A previously demonstrated pelvic fluid collection is revealed to be on the basis of a 6.5 x 4.4 x 4.0 cm abscess which appears diminished in size noting resolution of previously demonstrated air-fluid level within this collection. 3. Interval development of mesenteric fat stranding within the lower abdomen. While no definite focal fluid collection or abscess is discernible, evaluation is limited in the absence of oral and IV contrast. Percutaneous Drainage 09/08/20 00:00 IMPRESSION: Unsuccessful attempts to penetrate the wall of the thick-walled fluid collection in the pelvis with an 18 gauge needle and a 20 gauge x 15 cm spinal needle. Pelvis Ultrasound 09/11/20 00:00 IMPRESSION: Limited study for abscess drainage Abdomen Ultrasound 09/13/20 00:00 IMPRESSION: Hepatomegaly. No biliary dilatation. Assessment & Plan - Diagnosis (1) Urinary tract infection Qualifiers: Urinary tract infection type: site unspecified Hematuria presence: without hematuria Qualified Code(s): N39.0 - Urinary tract infection, site not specifi ed Is this a current diagnosis for this admission?: Yes (2) Failure of outpatient treatment Is this a current diagnosis for this admission?: Yes (3) 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 Is this a current diagnosis for this admission?: Yes (4) HTN (hypertension) Qualifiers: Hypertension type: essential hypertension Qualified Code(s): I10 - Essential (primary) hypertension Is this a current diagnosis for this admission?: Yes (5) History of stroke with current residual effects Is this a current diagnosis for this admission?: Yes (6) Occluded PICC line Qualifiers: Encounter type: initial encounter Qualified Code(s): T82.898A - Other specified complication of vascular prosthetic devices, implants and grafts, initial encounter Is this a current diagnosis for this admission?: Yes (7) Hypokalemia due to excessive gastrointestinal loss of potassium Is this a current diagnosis for this admission?: Yes (8) Hypomagnesemia Is this a current diagnosis for this admission?: Yes (9) Colostomy stricture Is this a current diagnosis for this admission?: Yes (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 Is this a current diagnosis for this admission?: Yes (11) Pelvic abscess Is this a current diagnosis for this admission?: Yes (12) Elevated liver function tests Is this a current diagnosis for this admission?: Yes - Time Time Spent with patient: 25-34 minutes Level of Care: TELE Medications reviewed and adjusted accordingly: Yes Anticipated discharge: Home with Homehealth Anticipated DC Timeframe: within 72 hours - Inpatient Certification Based on my medical assessment, after consideration of the patient's comorbidities, presenting symptoms, or acuity I expect that the services needed warrant INPATIENT care.: Yes I certify that my determination is in accordance with my understanding of Medicare's requirements for reasonable and necessary INPATIENT services [42 CFR 412.3e].: Yes Medical Necessity: Significant Comorbidiites Make Outpatient Treatment Too Risky, Need Close Monitoring Due to Risk of Patient Decompensation, Need For IV Fluids, Need For Continuous Telemetry Monitoring, Need for IV Antibiotics, Risk of Complication if Not Cared For in Hospital, Risk of Diagnosis Which Will Require Inpatient Eval/Care/Monitoring Post Hospital Care: D/C Sports Internship Documentation - Plan Summary Plan Summary: Maintain on Octreotide at 100 mcg SC daily from tomorrow. Continue all other current medication management. Follow up on schedule TPN lab for tomorrow. D/C senior production planner to initiate plan for home TPN and WELLNESS SPECIALIST services with TPN- [facility] and [facility]IST- [facility] upon discharge.
[2020-09-22] MEDS: INSULIN REG, HUMAN 100 UNIT/ML 3 ML VIAL (PYX) SUBCUT SCH ×4 (01:00→18:42)
[2020-09-22] MEDS: ONDANSETRON HCL INJ/PF 4 MG/2 ML SDV IV PRN ×4 (01:43→22:02)
[2020-09-22] MEDS: HYDROMORPHONE HCL INJ/PF 2 MG/ML AMPULE IV PRN ×7 (01:43→22:02)
[2020-09-22] MEDS: AMINO ACIDS 5 %/DEXTROSE 20 % 1,000 ML IV PRN (06:21)
[2020-09-22] MEDS: OCTREOTIDE ACETATE INJ/PF 100 MCG/1 ML SDV SUBCUT SCH ×2 (09:13→18:45)
[2020-09-22] MEDS: NORMAL SALINE 10 ML SDV (SCHEDULED) IV SCH ×2 (09:13→22:03)
[2020-09-22] MEDS: LINEZOLID 600 MG/300 ML RTUPB IV SCH (10:34)
[2020-09-22 10:35] LABS: ABSOLUTE BASOPHILS # (AUTO) 0.1 10^3/uL (0.0-0.2); ABSOLUTE EOSINOPHILS # (AUTO) 0.4 10^3/uL (0.0-0.6); ABSOLUTE LYMPHOCYTES (AUTO) 2.5 10^3/uL (0.5-4.7); ABSOLUTE MONOCYTES (AUTO) 1.5 10^3/uL (0.1-1.4); ABSOLUTE NEUT (AUTO) 8.3 10^3/uL (1.7-8.2); BASOPHILS % (AUTO) 1.1 % (0-2); EOSINOPHILS % (AUTO) 2.8 % (0-6); HEMATOCRIT 28.3 % (36.0-47.0); HEMOGLOBIN 10.1 g/dL (12.0-15.5); LYMPHOCYTES % (AUTO) 19.6 % (13-45); MEAN CORPUSCULAR HGB CONC 35.6 g/dL (32.0-36.0); MEAN CORPUSCULAR VOLUME 90 fl (80-97); MONOCYTES % (AUTO) 11.5 % (3-13); PLATELET COUNT 265 10^3/uL (150-450); RED BLOOD COUNT 3.15 10^6/uL (3.72-5.28); RED CELL DISTRIBUTION WIDTH 14.4 % (11.5-14.0); TOTAL CELLS COUNTED % (AUTO) 100 %; WHITE BLOOD COUNT 12.7 10^3/uL (4.0-10.5)
[2020-09-23] MEDS: INSULIN REG, HUMAN 100 UNIT/ML 3 ML VIAL (PYX) SUBCUT SCH ×4 (01:01→18:50)
[2020-09-23] MEDS: HYDROMORPHONE HCL INJ/PF 2 MG/ML AMPULE IV PRN ×7 (01:03→22:37)
[2020-09-23] MEDS: AMINO ACIDS 5 %/DEXTROSE 20 % 1,000 ML IV PRN ×2 (01:03→20:31)
[2020-09-23] MEDS: ONDANSETRON HCL INJ/PF 4 MG/2 ML SDV IV PRN ×3 (04:11→18:57)
--- NOTE | 2020-09-23 08:39 | PDOC PROGRESS REPORT ---
Subjective Progress Note for:: 09/22/20 Subjective:: No chest pain or difficulty with breathing. No nausea or vomiting. No fever or chills. Less fistulae openings drainage so far today. Reason For Visit: ABDOMINAL PAIN Physical Exam Vital Signs: Temp Pulse Resp BP Pulse Ox 98.4 F 66 17 102/68 100 09/22/20 10:00 09/22/20 09:17 09/22/20 09:17 09/22/20 09:17 09/22/20 09:17 Intake & Output 09/21/20 09/22/20 09/23/20 06:59 06:59 06:59 Intake Total 850 600 300 Output Total 1050 1650 Balance -200 -1050 300 Weight 66.2 kg 66.2 kg 66.2 kg Physical Exam: General appearance: PRESENT: no acute distress Mouth: Moist. EYES: ABSENT: pallor, sclera icterus Respiratory exam: PRESENT: clear to auscultation bilateral Cardiovascular exam: PRESENT: RRR, +S1, +S2. ABSENT: diastolic murmur, rubs, systolic murmur GI/Abdominal exam: PRESENT: normal bowel sounds, minimal tenderness - around fistula sites, other - empty colostomy Extremities exam: ABSENT: pedal edema Neurological exam: PRESENT: alert, awake, oriented to person, oriented to place, oriented to time Psychiatric exam: ABSENT: agitated Skin exam: PRESENT: dry, warm, other - improving contact dermatitis lesion around the fistula site. Results Laboratory Results: 09/22/20 09:35 09/20/20 11:20 09/22/20 09:35 WBC 12.7 H RBC 3.15 L Hgb 10.1 L Hct 28.3 L MCV 90 MCH 32.0 MCHC 35.6 RDW 14.4 H Plt Count 265 Seg Neutrophils % 65.0 09/02/20 15:03 Troponin I 0.013 Impressions: Chest X-Ray 09/02/20 11:59 IMPRESSION: NO ACUTE RADIOGRAPHIC FINDING IN THE CHEST. Abdomen/Pelvis CT 09/05/20 00:00 IMPRESSION: 1. Persistent small pericardial effusion with interval development of bilateral small pleural effusions. 2. Rectal contrast without extravasation. A previously demonstrated pelvic fluid collection is revealed to be on the basis of a 6.5 x 4.4 x 4.0 cm abscess which appears diminished in size noting resolution of previously demonstrated air-fluid level within this collection. 3. Interval development of mesenteric fat stranding within the lower abdomen. While no definite focal fluid collection or abscess is discernible, evaluation is limited in the absence of oral and IV contrast. Percutaneous Drainage 09/08/20 00:00 IMPRESSION: Unsuccessful attempts to penetrate the wall of the thick-walled fluid collection in the pelvis with an 18 gauge needle and a 20 gauge x 15 cm spinal needle. Pelvis Ultrasound 09/11/20 00:00 IMPRESSION: Limited study for abscess drainage Abdomen Ultrasound 09/13/20 00:00 IMPRESSION: Hepatomegaly. No biliary dilatation. 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 Is this a current diagnosis for this admission?: Yes (4) HTN (hypertension) Qualifiers: Hypertension type: essential hypertension Qualified Code(s): I10 - Essential (primary) hypertension Is this a current diagnosis for this admission?: Yes (5) History of stroke with current residual effects Is this a current diagnosis for this admission?: Yes (6) Occluded PICC line Qualifiers: Encounter type: initial encounter Qualified Code(s): T82.898A - Other specified complication of vascular prosthetic devices, implants and grafts, initial encounter Is this a current diagnosis for this admission?: Yes (7) Hypokalemia due to excessive gastrointestinal loss of potassium Is this a current diagnosis for this admission?: Yes (8) Hypomagnesemia Is this a current diagnosis for this admission?: Yes (9) Colostomy stricture Is this a current diagnosis for this admission?: Yes (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 Is this a current diagnosis for this admission?: Yes (11) Pelvic abscess Is this a current diagnosis for this admission?: Yes (12) Elevated liver function tests Is this a current diagnosis for this admission?: Yes - Time Time Spent with patient: 25-34 minutes Level of Care: TELE Medications reviewed and adjusted accordingly: Yes Anticipated discharge: Home with Homehealth Anticipated DC Timeframe: within 72 hours - Inpatient Certification Based on my medical assessment, after consideration of the patient's comorbidities, presenting symptoms, or acuity I expect that the services needed warrant INPATIENT care.: Yes I certify that my determination is in accordance with my understanding of Medicare's requirements for reasonable and necessary INPATIENT services [42 CFR 412.3e].: Yes Medical Necessity: Significant Comorbidiites Make Outpatient Treatment Too Risky, Need Close Monitoring Due to Risk of Patient Decompensation, Need For IV Fluids, Need For Continuous Telemetry Monitoring, Need for IV Antibiotics, Risk of Complication if Not Cared For in Hospital, Risk of Diagnosis Which Will Require Inpatient Eval/Care/Monitoring Post Hospital Care: D/C Production Team Advisor Documentation - Plan Summary Plan Summary: Continue current medication management. We will try to confirm her outpatient appointment with [facility] tomorrow. Possible d/c in next 48 hours discussed with patient during this visit.
[2020-09-23 08:41] LABS: ABSOLUTE BASOPHILS # (AUTO) 0.1 10^3/uL (0.0-0.2); ABSOLUTE EOSINOPHILS # (AUTO) 0.3 10^3/uL (0.0-0.6); ABSOLUTE LYMPHOCYTES (AUTO) 1.9 10^3/uL (0.5-4.7); ABSOLUTE MONOCYTES (AUTO) 1.1 10^3/uL (0.1-1.4); ABSOLUTE NEUT (AUTO) 6.5 10^3/uL (1.7-8.2); BASOPHILS % (AUTO) 0.5 % (0-2); EOSINOPHILS % (AUTO) 3.4 % (0-6); HEMATOCRIT 29.4 % (36.0-47.0); HEMOGLOBIN 10.1 g/dL (12.0-15.5); LYMPHOCYTES % (AUTO) 19.4 % (13-45); MEAN CORPUSCULAR HEMOGLOBIN 31.3 pg (27.0-33.4); MEAN CORPUSCULAR HGB CONC 34.4 g/dL (32.0-36.0); MEAN CORPUSCULAR VOLUME 91 fl (80-97); MONOCYTES % (AUTO) 11.1 % (3-13); PLATELET COUNT 270 10^3/uL (150-450); RED BLOOD COUNT 3.24 10^6/uL (3.72-5.28); RED CELL DISTRIBUTION WIDTH 14.5 % (11.5-14.0); SEGMENTED NEUTROPHILS % (AUTO) 65.6 % (42-78); TOTAL CELLS COUNTED % (AUTO) 100 %
[2020-09-23 09:03] LABS: ALKALINE PHOSPHATASE 187 U/L (38-126); ANION GAP 9 (5-19); ASPARTATE AMINO TRANSFERASE 30 U/L (14-36); BILIRUBIN,DIRECT 0.1 mg/dL (0.0-0.4); BILIRUBIN,TOTAL 0.4 mg/dL (0.2-1.3); BLOOD UREA NITROGEN 15 mg/dL (7-20); CALCIUM 9.4 mg/dL (8.4-10.2); CARBON DIOXIDE 26 mmol/L (22-30); CHLORIDE 99 mmol/L (98-107); GLUCOSE 100 mg/dL (75-110); POTASSIUM 4.4 mmol/L (3.6-5.0)
[2020-09-23 09:10] LABS: PREALBUMIN 15.9 mg/dL (17.6-36.0)
[2020-09-23] MEDS: OCTREOTIDE ACETATE INJ/PF 100 MCG/1 ML SDV SUBCUT SCH (10:18)
[2020-09-23] MEDS: FAT EMULSIONS 250 ML IV SCH (10:18)
[2020-09-23] MEDS: NORMAL SALINE 10 ML SDV (SCHEDULED) IV SCH ×2 (10:18→22:38)
--- NOTE | 2020-09-23 12:32 | PDOC PROGRESS REPORT ---
Subjective Progress Note for:: 09/23/20 Subjective:: No chest pain or difficulty with breathing. No nausea or vomiting. No fever or chills. There is no significant change fistulae openings drainage. Reason For Visit: ABDOMINAL PAIN Physical Exam Vital Signs: Temp Pulse Resp BP Pulse Ox 98.0 F 63 17 112/58 L 100 09/23/20 08:38 09/23/20 08:38 09/23/20 08:38 09/23/20 08:38 09/23/20 08:38 Intake & Output 09/22/20 09/23/20 09/24/20 06:59 06:59 06:59 Intake Total 600 300 Output Total 1650 800 Balance -1050 -500 Weight 66.2 kg 66.8 kg Physical Exam: General appearance: PRESENT: no acute distress Mouth: Moist. EYES: ABSENT: pallor, sclera icterus Respiratory exam: PRESENT: clear to auscultation bilateral Cardiovascular exam: PRESENT: RRR, +S1, +S2. ABSENT: diastolic murmur, rubs, systolic murmur GI/Abdominal exam: PRESENT: normal bowel sounds, minimal tenderness - around fistula sites, other - empty colostomy Extremities exam: ABSENT: pedal edema Neurological exam: PRESENT: alert, awake, oriented to person, oriented to place, oriented to time Psychiatric exam: ABSENT: agitated Skin exam: PRESENT: dry, warm, other - improving contact dermatitis lesion around the fistula site. Results Laboratory Results: 09/23/20 08:19 09/22/20 09/23/20 09:35 08:19 WBC 12.7 H 10.0 RBC 3.15 L 3.24 L Hgb 10.1 L 10.1 L Hct 28.3 L 29.4 L MCV 90 91 MCH 32.0 31.3 MCHC 35.6 34.4 RDW 14.4 H 14.5 H Plt Count 265 270 Seg Neutrophils % 65.0 65.6 09/02/20 15:03 Troponin I 0.013 Impressions: Chest X-Ray 09/02/20 11:59 IMPRESSION: NO ACUTE RADIOGRAPHIC FINDING IN THE CHEST. Abdomen/Pelvis CT 09/05/20 00:00 IMPRESSION: 1. Persistent small pericardial effusion with interval development of bilateral small pleural effusions. 2. Rectal contrast without extravasation. A previously demonstrated pelvic fluid collection is revealed to be on the basis of a 6.5 x 4.4 x 4.0 cm abscess which appears diminished in size noting resolution of previously demonstrated air-fluid level within this collection. 3. Interval development of mesenteric fat stranding within the lower abdomen. While no definite focal fluid collection or abscess is discernible, evaluation is limited in the absence of oral and IV contrast. Percutaneous Drainage 09/08/20 00:00 IMPRESSION: Unsuccessful attempts to penetrate the wall of the thick-walled fluid collection in the pelvis with an 18 gauge needle and a 20 gauge x 15 cm spinal needle. Pelvis Ultrasound 09/11/20 00:00 IMPRESSION: Limited study for abscess drainage Abdomen Ultrasound 09/13/20 00:00 IMPRESSION: Hepatomegaly. No biliary dilatation. 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 Is this a current diagnosis for this admission?: Yes (4) HTN (hypertension) Qualifiers: Hypertension type: essential hypertension Qualified Code(s): I10 - Essential (primary) hypertension Is this a current diagnosis for this admission?: Yes (5) History of stroke with current residual effects Is this a current diagnosis for this admission?: Yes Plan: Patient will benefit from hospital bed in management of her transfer and wound management upon discharge. 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 (11) Pelvic abscess Is this a current diagnosis for this admission?: Yes (12) Elevated liver function tests Is this a current diagnosis for this admission?: Yes - Time Time Spent with patient: 25-34 minutes Level of Care: TELE Medications reviewed and adjusted accordingly: Yes Anticipated discharge: Home with Homehealth Anticipated DC Timeframe: within 72 hours - Inpatient Certification Based on my medical assessment, after consideration of the patient's comorbidities, presenting symptoms, or acuity I expect that the services needed warrant INPATIENT care.: Yes I certify that my determination is in accordance with my understanding of Medicare's requirements for reasonable and necessary INPATIENT services [42 CFR 412.3e].: Yes Medical Necessity: Significant Comorbidiites Make Outpatient Treatment Too Risky, Need Close Monitoring Due to Risk of Patient Decompensation, Need For IV Fluids, Risk of Complication if Not Cared For in Hospital, Risk of Diagnosis Which Will Require Inpatient Eval/Care/Monitoring Post Hospital Care: D/C Turnaround Planner Documentation - Plan Summary Plan Summary: Continue current medication management. Plan for discharge tomorrow if home TPN, VNS, PCS, and hospital bed can be completed. She will need set up for follow up with [facility] team in outpatient clinic.
[2020-09-24] MEDS: INSULIN REG, HUMAN 100 UNIT/ML 3 ML VIAL (PYX) SUBCUT SCH ×3 (02:57→15:02)
[2020-09-24] MEDS: HYDROMORPHONE HCL INJ/PF 2 MG/ML AMPULE IV PRN ×3 (03:54→15:01)
[2020-09-24] MEDS: ONDANSETRON HCL INJ/PF 4 MG/2 ML SDV IV PRN ×2 (03:55→10:24)
[2020-09-24] MEDS: NORMAL SALINE 10 ML SDV (SCHEDULED) IV SCH (10:25)
[2020-09-24] MEDS: OCTREOTIDE ACETATE INJ/PF 100 MCG/1 ML SDV SUBCUT SCH (10:28)
--- NOTE | 2020-09-24 12:44 | PDOC DISCHARGE SUMMARY ---
Impression - Admit/DC Date/PCP Admission Date/Primary Care Provider: 09/02/20 19:57 RILEY VALVERDE Discharge Date: 09/24/20 - Discharge Diagnosis (1) Urinary tract infection Is this a current diagnosis for this admission?: Yes (2) Failure of outpatient treatment Is this a current diagnosis for this admission?: Yes (3) 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 Is this a current diagnosis for this admission?: Yes (4) HTN (hypertension) Is this a current diagnosis for this admission?: Yes (5) History of stroke with current residual effects Is this a current diagnosis for this admission?: Yes (6) Occluded PICC line Is this a current diagnosis for this admission?: Yes (7) Hypokalemia due to excessive gastrointestinal loss of potassium Is this a current diagnosis for this admission?: Yes (8) Hypomagnesemia Is this a current diagnosis for this admission?: Yes (9) Colostomy stricture Is this a current diagnosis for this admission?: Yes (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 There was associated worsening contact dermatitis around the ostomy sites on her anterior abdominal wall. She was seen in consultation by the surgicalist team with recommendation for tertiary transfer due to concern for ongoing intra-abdominal pathologic process particularly with concern for pelvic collection suggestive of possible abscess. Attempts at transfer to [facility] and [facility] were unsuccessful due to limited bed space and need for initial surgical team further engagement. She was eventually taken to our surgical suite for per vag inal drainage of the collection by Dr. Lujan on 09/11/2020. Her hospitalization was further complicated by need for nutrition support on TPN due to prolong NPO status to address her high out enterocuteneous fistula complication from prior surgery and severe contact dermatitis. She was seen in consultation by the wound/ostomy nurse during this hospitalization. She will be discharge home today with home infusion and home health services. She is schedule to follow up with [facility] Surgical team as earlier schedule. She will follow up with me as instructed upon discharge. The patient has a medical condition which requires positioning of the body in ways not feasible with an ordinary bed. The patient requires positioning of the body in ways not feasible with an ordinary bed in order to alleviate pain. - Additional Information Resuscitation Status: Full Code Referrals: [facility] [Other] [facility] [Other] - 10/08/20 11:30 am RILEY VALVERDE MD [Primary Care Provider] - 10/05/20 10:00 am Prescriptions: Octreotide Acetate 100 mcg SUBCUT DAILY #30 syringe Home Medications: Atorvastatin Calcium [Lipitor 20 mg Tablet] 20 mg PO QHS 09/02/20 Diphenoxylate HCl/Atrop Sulf [Lomotil 2.5 mg Tablet] 1 tab PO QIDP PRN 09/02/20 Ondansetron [Zofran Odt 4 mg Tablet] 4 mg PO BID 09/02/20 Pantoprazole Sodium [Protonix [address] Tablet] 40 mg PO DAILY 09/02/20 Sumatriptan Succinate [Imitrex 50 mg Tablet] 50 mg PO Q2HP PRN 09/02/20 Octreotide Acetate 100 mcg SUBCUT DAILY #30 syringe 09/24/20 Additional Information: The patient has a medical condition which requires positioning of the body in ways not feasible with an ordinary bed. The patient requires positioning of the body in ways not feasible with an ordinary bed in order to alleviate pain. History of Present Illiness History of Present Illness: CHARIS KUNZ is a 50 year old female patient known to my practice who presented to the ED with complaint about abdominal pain more around her leaking fistula ostomy bag. She reported associated nausea but vomiting. There is associated worsening contact dermatitis lesion from ostomy content on her anterior abdominal wall. She had abdominal surgery in November, following her tr ansfer from [facility] to [facility] due to emphysematous interstitial cystitis. She developed complication from surgery necessitating diverting colostomy and small bowel fistula with ostomy. She was transferred to [facility] in [place] and eventually had a stay at [facility] due to infection at site of her fistular ostomy. She was subsequently taken to [place] by daughter. She has been on TPN support through a subcutaneous tunnel PICC line. She was at this ED on 08/28/2020 due to abdominal pain and her urine culture did grew Proteus Mirabilis and Klebsiella Aerogenes both sensitive to Levofloxacin. She was prescribed oral Levofloxacin on 08/30/2020 and she reported compliance with administration. Her initial ED evaluation was significant for tachycardia, abnormal CT abdomen findings worrisome for enteritis due to fluid collection in her rectum, and worsening leukocytosis. She was advised admission due to failure of oral therapy. Her morbidities are as listed below. Hospital Course Hospital Course: Patient was admitted for abdominal pain around her leaking fistulae ostomy with associated nausea without vomiting. There was associated worsening contact dermatitis around the ostomy sites on her anterior abdominal wall. She was seen in consultation by the surgicalist team with recommendation for tertiary transfer due to concern for ongoing intra-abdominal pathologic process particularly with concern for pelvic collection suggestive of possible abscess. Attempts at transfer to [facility] and [facility] were unsuccessful due to limited bed space and need for initial surgical team further engagement. She was eventually taken to our surgical suite for per vaginal drainage of the collection by Dr. Lujan on 09/11/2020. Her hospitalization was further complicated by need for nutrition support on TPN due to prolong NPO status to address her high out enterocuteneous fistula complica tion from prior surgery and severe contact dermatitis. She was seen in consultation by the wound/ostomy nurse during this hospitalization. She will be discharge home today with home infusion and home health services. She is schedule to follow up with [facility] Surgical team as earlier schedule. She will follow up with me as instructed upon discharge. The patient has a medical condition which requires positioning of the body in ways not feasible with an ordinary bed. The patient requires positioning of the body in ways not feasible with an ordinary bed in order to alleviate pain. Physical Exam Vital Signs: Temp Pulse Resp BP Pulse Ox 98.4 F 79 14 105/47 L 100 09/24/20 08:41 09/24/20 08:41 09/24/20 08:41 09/24/20 08:41 09/24/20 08:41 Intake & Output 09/23/20 09/24/20 09/25/20 06:59 06:59 06:59 Intake Total 300 250 Output Total 800 850 Balance -500 -600 Weight 66.8 kg 67.2 kg General appearance: PRESENT: no acute distress Mouth: Moist. EYES: ABSENT: pallor, sclera icterus Respiratory exam: PRESENT: clear to auscultation bilateral Cardiovascular exam: PRESENT: RRR, +S1, +S2. ABSENT: diastolic murmur, rubs, systolic murmur GI/Abdominal exam: PRESENT: normal bowel sounds, minimal tenderness - around fistula sites, other - empty colostomy Extremities exam: ABSENT: pedal edema Neurological exam: PRESENT: alert, awake, oriented to person, oriented to place, oriented to time Psychiatric exam: ABSENT: agitated Skin exam: PRESENT: dry, warm, other - improving contact dermatitis lesion around the fistula site. Results Laboratory Results: WBC 10.0 10^3/uL (4.0-10.5) 09/23/20 08:19 RBC 3.24 10^6/uL (3.72-5.28) L 09/23/20 08:19 Hgb 10.1 g/dL (12.0-15.5) L 09/23/20 08:19 Hct 29.4 % (36.0-47.0) L 09/23/20 08:19 MCV 91 fl (80-97) 09/23/20 08:19 MCH 31.3 pg (27.0-33.4) 09/23/20 08:19 MCHC 34.4 g/dL (32.0-36.0) 09/23/20 08:19 RDW 14.5 % (11.5-14.0) H 09/23/20 08:19 Plt Count 270 10^3/uL (150-450) 09/23/20 08:19 Lymph % (Auto) 19.4 % (13-45) 09/23/20 08:19 [place] % (Auto) 11.1 % (3-13) 09/23/20 08:19 Eos % (Auto) 3.4 % (0-6) 09/23/20 08:19 Baso % (Auto) 0.5 % (0-2) 09/23/20 08:19 Absolute Neuts (auto) 6.5 10^3/uL (1.7-8.2) 09/23/20 08:19 Absolute Lymphs (auto) 1.9 10^3/uL (0.5-4.7) 09/23/20 08:19 Absolute Monos (auto) 1.1 10^3/uL (0.1-1.4) 09/23/20 08:19 Absolute Eos (auto) 0.3 10^3/uL (0.0-0.6) 09/23/20 08:19 Absolute Basos (auto) 0.1 10^3/uL (0.0-0.2) 09/23/20 08:19 Total Counted 100 09/06/20 04:45 Seg Neutrophils % 65.6 % (42-78) 09/23/20 08:19 Seg Neuts % (Manual) 72 % (42-78) 09/06/20 04:45 Lymphocytes % (Manual) 20 % (13-45) 09/06/20 04:45 Monocytes % (Manual) 5 % (3-13) 09/06/20 04:45 Eosinophils % (Manual) 2 % (0-6) 09/06/20 04:45 Basophils % (Manual) 1 % (0-2) 09/06/20 04:45 Abs Neuts (Manual) 4.5 10^3/uL (1.7-8.2) 09/06/20 04:45 Abs Lymphs (Manual) 1.3 10^3/uL (0.5-4.7) 09/06/20 04:45 Abs Monocytes (Manual) 0.3 10^3/uL (0.1-1.4) 09/06/20 04:45 Absolute Eos (Manual) 0.1 10^3/uL (0.0-0.6) 09/06/20 04:45 Abs Basophils (Manual) 0.1 10^3/uL (0.0-0.2) 09/06/20 04:45 Platelet Estimate Cancelled 09/03/20 07:13 Platelet Comment ADEQUATE 09/06/20 04:45 RBC Morph Comment NORMO-CYTIC/CHROMIC 09/06/20 04:45 PT 15.6 SEC (11.4-15.4) H 09/13/20 04:20 INR 1.22 09/13/20 04:20 APTT 35.7 SEC (23.5-35.8) 09/02/20 15:03 Sodium 134.0 mmol/L (137-145) L 09/23/20 08:19 Potassium 4.4 mmol/L (3.6-5.0) 09/23/20 08:19 Chloride 99 mmol/L (98-107) 09/23/20 08:19 Carbon Dioxide 26 mmol/L (22-30) 09/23/20 08:19 Anion Gap 9 (5-19) 09/23/20 08:19 BUN 15 mg/dL (7-20) 09/23/20 08:19 Creatinine 0.63 mg/dL (0.52-1.25) 09/23/20 08:19 Est GFR ( Amer) > 60 (>60) 09/23/20 08:19 Est GFR (MDRD) Non-Af > 60 (>60) 09/23/20 08:19 Glucose 100 mg/dL (75-110) 09/23/20 08:19 POC Glucose 110 mg/dL (70-110) 09/24/20 06:31 Lactic Acid 0.9 mmol/L (0.7-2.1) 09/03/20 21:40 Calcium 9.4 mg/dL (8.4-10.2) 09/23/20 08:19 Phosphorus 4.5 mg/dL (2.5-4.5) 09/23/20 08:19 Magnesium 1.8 mg/dL (1.6-2.3) 09/20/20 11:20 Total Bilirubin 0.4 mg/dL (0.2-1.3) 09/23/20 08:19 Direct Bilirubin 0.1 mg/dL (0.0-0.4) 09/23/20 08:19 Neonat Total Bilirubin Not Reportable 09/23/20 08:19 Neonat Direct Bilirubin Not Reportable 09/23/20 08:19 Neonat Indirect Bili Not Reportable 09/23/20 08:19 AST 30 U/L (14-36) 09/23/20 08:19 ALT 42 U/L (<35) H 09/23/20 08:19 Alkaline Phosphatase 187 U/L (38-126) H 09/23/20 08:19 Troponin I 0.013 ng/mL 09/02/20 15:03 Total Protein 7.0 g/dL (6.3-8.2) 09/23/20 08:19 Albumin 3.0 g/dL (3.5-5.0) L 09/23/20 08:19 Prealbumin 15.9 mg/dL (17.6-36.0) L 09/23/20 08:19 Triglycerides 86 mg/dL (<150) 09/06/20 04:45 Urine Color YELLOW 09/02/20 15:28 Urine Appearance CLOUDY 09/02/20 15:28 Urine pH 6.0 (5.0-9.0) 09/02/20 15:28 Ur Specific [place] 1.025 09/02/20 15:28 Urine Protein 30 mg/dL (NEGATIVE) H 09/02/20 15:28 Urine Glucose (UA) NEGATIVE mg/dL (NEGATIVE) 09/02/20 15:28 Urine Ketones 20 mg/dL (NEGATIVE) H 09/02/20 15:28 Urine Blood NEGATIVE (NEGATIVE) 09/02/20 15:28 Urine Nitrite (Reflex) NEGATIVE (NEGATIVE) 09/02/20 15:28 Urine Bilirubin NEGATIVE (NEGATIVE) 09/02/20 15:28 Urine Urobilinogen NEGATIVE mg/dL (<2.0) 09/02/20 15:28 Leukocyte Esterase Rfl LARGE (NEGATIVE) H 09/02/20 15:28 Urine RBC (Auto) 24 /HPF 09/02/20 15:28 U Hyaline Cast (Auto) 9 /LPF 09/02/20 15:28 Urine Bacteria (Auto) TRACE /HPF 09/02/20 15:28 Urine WBC (Reflex) 81 /HPF 09/02/20 15:28 Squamous Epi Cells Auto 22 /HPF 09/02/20 15:28 U Non-Squamous Epis Auto 2 /HPF 09/02/20 15:28 Urine Mucus (Auto) RARE /LPF 09/02/20 15:28 Urine Yeast (Budding) PRESENT /HPF 09/02/20 15:28 Urine Ascorbic Acid NEGATIVE (NEGATIVE) 09/02/20 15:28 COVID-19 Source See comment 09/08/20 22:50 COVID-19 (GUMARO) Not Detected (Not Detect) 09/08/20 22:50 Slides for Path Review Cancelled 09/03/20 07:13 Blood Type O POSITIVE 09/05/20 10:25 Antibody Screen POSITIVE 09/05/20 10:25 Antibody Identification Anti-Jka 09/05/20 10:25 Direct Antiglob Test NEGATIVE 09/05/20 10:25 Crossmatch See Detail 09/05/20 10:25 09/02/20 15:03 Troponin I 0.013 Impressions: Chest X-Ray 09/02/20 11:59 IMPRESSION: NO ACUTE RADIOGRAPHIC FINDING IN THE CHEST. Abdomen/Pelvis CT 09/02/20 15:55 IMPRESSION: 1. Small pericardial effusion. 2. Dilated common bile duct, likely secondary to prior cholecystectomy. 3. Fluid in the rectum. Correlate for an enteritis. 4. There appear to be 2 ostomies. Abdomen/Pelvis CT 09/05/20 00:00 IMPRESSION: 1. Persistent small pericardial effusion with interval development of bilateral small pleural effusions. 2. Rectal contrast without extravasation. A previously demonstrated pelvic fluid collection is revealed to be on the basis of a 6.5 x 4.4 x 4.0 cm abscess which appears diminished in size noting resolution of previously demonstrated air-fluid level within this collection. 3. Interval development of mesenteric fat stranding within the lower abdomen. While no definite focal fluid collection or abscess is discernible, evaluation is limited in the absence of oral and IV contrast. Percutaneous Drainage 09/08/20 00:00 IMPRESSION: Unsuccessful attempts to penetrate the wall of the thick-walled fluid collection in the pelvis with an 18 gauge needle and a 20 gauge x 15 cm spinal needle. Pelvis Ultrasound 09/11/20 00:00 IMPRESSION: Limited study for abscess drainage Abdomen Ultrasound 09/13/20 00:00 IMPRESSION: Hepatomegaly. No biliary dilatation. Plan Health Concerns: Future management of high output fistulae, nutrition, and high risk of readmission and service utilization. Plan of Treatment: Nutritional support with home TPN, follow up with [facility] surgical team, fistulae surrounding area skin management Goals: Reduce readmission risk level, wound management Time Spent: Greater than 30 Minutes Stroke Is this a Stroke Patient?: No Acute Heart Failure Is this a Heart Failure Patient?: No
[2020-09-24 12:57] LABS: ABSOLUTE EOSINOPHILS # (AUTO) 0.1 10^3/uL (0.0-0.6); ABSOLUTE LYMPHOCYTES (AUTO) 0.9 10^3/uL (0.5-4.7); ABSOLUTE MONOCYTES (AUTO) 0.7 10^3/uL (0.1-1.4); ABSOLUTE NEUT (AUTO) 5.8 10^3/uL (1.7-8.2); BASOPHILS % (AUTO) 0.4 % (0-2); EOSINOPHILS % (AUTO) 1.2 % (0-6); HEMATOCRIT 32.1 % (36.0-47.0); HEMOGLOBIN 11.2 g/dL (12.0-15.5); LYMPHOCYTES % (AUTO) 11.9 % (13-45); MEAN CORPUSCULAR HEMOGLOBIN 30.9 pg (27.0-33.4); MEAN CORPUSCULAR HGB CONC 34.8 g/dL (32.0-36.0); MEAN CORPUSCULAR VOLUME 89 fl (80-97); MONOCYTES % (AUTO) 8.8 % (3-13); PLATELET COUNT 232 10^3/uL (150-450); RED BLOOD COUNT 3.62 10^6/uL (3.72-5.28); RED CELL DISTRIBUTION WIDTH 14.5 % (11.5-14.0); SEGMENTED NEUTROPHILS % (AUTO) 77.7 % (42-78); TOTAL CELLS COUNTED % (AUTO) 100 %; WHITE BLOOD COUNT 7.4 10^3/uL (4.0-10.5)
[2020-09-24 15:52] VITALS: BP 119/76
== END 2020-09-24 16:00 | disposition home health service (06) | DRG 393 ==
LOC: ER 11:14 → EH 19:57 → 4W 21:59 → 4N 09-06 03:57
PROVIDERS: ADMIT Internal Medicine Geriatric Medicine; ATTEND Internal Medicine Geriatric Medicine
PROC: 30233N1 Transfusion of Nonautologous Red Blood Cells into Peripheral Vein, Percutaneous Approach (ICD-10-PCS; 2020-09-05)
PROC: 3E0436Z Introduction of Nutritional Substance into Central Vein, Percutaneous Approach (ICD-10-PCS; 2020-09-06)
PROC: 0WJJ3ZZ Inspection of Pelvic Cavity, Percutaneous Approach (ICD-10-PCS; 2020-09-08)
PROC: 0W9 Anatomical Regions, General, Drainage (ICD-10-PCS; principal; 2020-09-11 10:00)
DX: K63.2 Fistula of intestine (principal); K65.1 Peritoneal abscess; N39.0 Urinary tract infection, site not specified; I69.351 Hemiplegia and hemiparesis following cerebral infarction affecting right dominant side; T82.898A Other specified complication of vascular prosthetic devices, implants and grafts, initial encounter; Z16.21 Resistance to vancomycin; I10 Essential (primary) hypertension; M13.862 Other specified arthritis, left knee; M13.842 Other specified arthritis, left hand; L24.89 Irritant contact dermatitis due to other agents; Y83.8 Other surgical procedures as the cause of abnormal reaction of the patient, or of later complication, without mention of misadventure at the time of the procedure; E87.6 Hypokalemia; E83.42 Hypomagnesemia; E86.0 Dehydration; E88.09 Other disorders of plasma-protein metabolism, not elsewhere classified; B96.4 Proteus (mirabilis) (morganii) as the cause of diseases classified elsewhere; B96.20 Unspecified Escherichia coli [E. coli] as the cause of diseases classified elsewhere; Z20.828 Contact with and (suspected) exposure to other viral communicable diseases; R79.89 Other specified abnormal findings of blood chemistry; B37.9 Candidiasis, unspecified; Z93.3 Colostomy status; Z88.8 Allergy status to other drugs, medicaments and biological substances; Z88.0 Allergy status to penicillin; Z90.49 Acquired absence of other specified parts of digestive tract; Z87.891 Personal history of nicotine dependence
CPT/HCPCS: 36415; 36430; 71045; 74176; 75989; 76705; 76857; 80048; 80053; 81001; 82962; 83605; 83735; 84100; 84134; 84478; 84484; 85025; 85027; 85610; 85730; 86850; 86870; 86880; 86900; 86901; 86902; 86920; 86922; 87040; 87070; 87075; 87077; 87086; 87088; 87150; 87186; 87205; 87635; 902; 93005; 93010; 93976; 96361; 96374; 96375; 99285; C1729; C1769; C9803; J0692; J1170; J1642; J1815; J1885; J1940; J1956; J2020; J2250; J2270; J2354; J2370; J2405; J2704; J2997; J3010; J3475; J3480; J3490; J7030; J7040; J7060; P9016; P9047; S0119

== ENCOUNTER 2020-10-05 12:37 | Inpatient (IN) | payer MEDICARE ==
--- NOTE | 2020-10-05 12:52 | ER Document Report ---
ED Medical Screen (RME) - General Chief Complaint: Abnormal Lab Results Stated Complaint: ABNORMAL LABS Time Seen by Provider: 10/05/20 12:48 Primary Care Provider: RILEY VALVERDE MD [Primary Care Provider] - Follow up as needed Mode of Arrival: Wheelchair Information source: Patient Notes: 50-year-old female presented to ED from the doctor's office. Dr. Valverde sent her to the ED for an elevated white count. The white count on the lab papers that he sent worth her her white count was 28.4. She is breathing with some difficulty. Respirations are 40 she is having some difficulty with breathing. We will get chest x-ray blood and urine and have her seen by a provider I have greeted and performed a rapid initial assessment of this patient. A comprehensive ED assessment and evaluation of the patient, analysis of test results and completion of medical decision making process will be conducted by an additional ED providers. TRAVEL OUTSIDE OF THE [place] IN LAST 30 DAYS: No - Related Data Allergies/Adverse Reactions: methadone [Methadone] Allergy (Verified 09/02/20 11:52) Penicillins Allergy (Verified 09/02/20 11:52) Past Medical History - Past Medical History Cardiac Medical History: Reports: Hx Hypertension Denies: Hx Coronary Artery Disease, Hx Heart Attack Pulmonary Medical History: Denies: Hx Asthma, Hx Bronchitis, Hx COPD, Hx Pneumonia Neurological Medical History: Reports: Hx Cerebrovascular Accident - 14YRS AGO AFFECTED RIGHT SIDE, ABLE TO AMBULATE. Denies: Hx Seizures Renal/ Medical History: Denies: Hx Peritoneal Dialysis Musculoskeltal Medical History: Reports Hx Arthritis - LEFT KNEE AND HAND, Reports Hx Musculoskeletal Trauma Psychiatric Medical History: Reports: Hx Depression Past Surgical History: Reports: Hx Abdominal Surgery, Hx Section, Hx Neurologic Surgery - aneurysm clip, Hx Orthopedic Surgery - back surgery - Immunizations Hx Diphtheria, Pertussis, Tetanus Vaccination: Yes Physical Exam - Vital signs Vitals: Temp Pulse Resp BP Pulse Ox 97.4 F 126 H 32 H 111/68 100 10/05/20 12:42 10/05/20 12:42 10/05/20 12:42 10/05/20 12:42 10/05/20 12:42 Course - Vital Signs Vital signs: Temp Pulse Resp BP Pulse Ox 97.4 F 126 H 32 H 111/68 100 10/05/20 12:42 10/05/20 12:42 10/05/20 12:42 10/05/20 12:42 10/05/20 12:42 Doctor's Discharge - Discharge Referrals: RILEY VALVERDE MD [Primary Care Provider] - Follow up as needed
[2020-10-05 14:51] LABS: HEMATOCRIT 30.1 % (36.0-47.0); HEMOGLOBIN 10.3 g/dL (12.0-15.5); MEAN CORPUSCULAR HEMOGLOBIN 30.4 pg (27.0-33.4); MEAN CORPUSCULAR HGB CONC 34.3 g/dL (32.0-36.0); MEAN CORPUSCULAR VOLUME 89 fl (80-97); PLATELET COUNT 198 10^3/uL (150-450); RED CELL DISTRIBUTION WIDTH 15.6 % (11.5-14.0); WHITE BLOOD COUNT 26.1 10^3/uL (4.0-10.5)
[2020-10-05 15:08] LABS: ALBUMIN 3.3 g/dL (3.5-5.0); ALKALINE PHOSPHATASE 413 U/L (38-126); ANION GAP 17 (5-19); ASPARTATE AMINO TRANSFERASE 62 U/L (14-36); BILIRUBIN,DIRECT 0.8 mg/dL (0.0-0.4); BILIRUBIN,TOTAL 1.5 mg/dL (0.2-1.3); BLOOD UREA NITROGEN 63 mg/dL (7-20); CALCIUM 9.8 mg/dL (8.4-10.2); CARBON DIOXIDE 17 mmol/L (22-30); CHLORIDE 96 mmol/L (98-107); GLUCOSE 311 mg/dL (75-110); POTASSIUM 3.2 mmol/L (3.6-5.0); TOTAL PROTEIN 8.3 g/dL (6.3-8.2)
[2020-10-05 15:14] LABS: ABSOLUTE LYMPHOCYTES# (MANUAL) 1.3 10^3/uL (0.5-4.7); ABSOLUTE MONOCYTES # (MANUAL) 1.6 10^3/uL (0.1-1.4); BASOPHILS % (MANUAL) 0 % (0-2); EOSINOPHILS % (MANUAL) 0 % (0-6); LYMPHOCYTES % (MANUAL) 5 % (13-45); MONOCYTES % (MANUAL) 6 % (3-13); SEGMENTED NEUTROPHILS % (MAN) 89 % (42-78); TOTAL CELLS COUNTED 100
[2020-10-05 15:15] LABS: ANISOCYTOSIS 1+; PLATELET CLUMPS PRESENT; PLATELET COMMENT ADEQUATE; POIKILOCYTOSIS 1+; TARGET CELLS SLIGHT; TEAR DROP CELLS 1+
[2020-10-05 15:16] LABS: PLATELET LARGE PRESENT; TOXIC GRANULATION SLIGHT
[2020-10-05 15:17] LABS: TOXIC VACUOLATION PRESENT
--- NOTE | 2020-10-05 15:46 | ER Document Report ---
ED General - General Chief Complaint: Abnormal Lab Results Stated Complaint: ABNORMAL LABS Time Seen by Provider: 10/05/20 12:48 Primary Care Provider: RILEY VALVERDE MD [Primary Care Provider] - Follow up as needed Mode of Arrival: Wheelchair Information source: Patient Notes: Patient is a 50-year-old female presenting to the emergency department chief complaint of abnormal labs. Patient was sent in by her primary care provider Dr. Valverde because of elevated white blood cells. Patient is a very poor historian however has had weakness nausea and shortness of breath for approximately a week. TRAVEL OUTSIDE OF THE [place] IN LAST 30 DAYS: No - HPI Onset: Last week Onset/Duration: Gradual, Persistent Quality of pain: Achy Severity: Mild Pain Level: 1 Associated symptoms: Nausea, Slow to respond, Weakness Exacerbated by: Denies Relieved by: Denies Similar symptoms previously: Yes Recently seen / treated by doctor: Yes - Related Data Allergies/Adverse Reactions: methadone [Methadone] Allergy (Verified 10/05/20 13:48) Penicillins Allergy (Verified 10/05/20 13:48) Past Medical History - General Information source: Patient, DrStew Office, [facility] Records - Social History Smoking Status: Former Smoker Chew tobacco use (# tins/day): No Frequency of alcohol use: None Drug Abuse: None Family History: None, Reviewed & Not Pertinent Patient has suicidal ideation: No Patient has homicidal ideation: No - Past Medical History Cardiac Medical History: Reports: Hx Hypertension Denies: Hx Coronary Artery Disease, Hx Heart Attack Pulmonary Medical History: Denies: Hx Asthma, Hx Bronchitis, Hx COPD, Hx Pneumonia Neurological Medical History: Reports: Hx Cerebrovascular Accident - 14YRS AGO AFFECTED RIGHT SIDE, ABLE TO AMBULATE. Denies: Hx Seizures Renal/ Medical History: Denies: Hx Peritoneal Dialysis Musculoskeletal Medical History: Reports Hx Arthritis - LEFT KNEE AND HAND, Reports Hx Musculoskeletal Trauma Psychiatric Medical History: Reports: Hx Depression Past Surgical History: Reports: Hx Abdominal Surgery, Hx Section, Hx Neurologic Surgery - aneurysm clip, Hx Orthopedic Surgery - back surgery - Immunizations Hx Diphtheria, Pertussis, Tetanus Vaccination: Yes Review of Systems - Review of Systems Notes: REVIEW OF SYSTEMS: CONSTITUTIONAL : Per HPI EENT: Denies eye, ear, throat, or mouth pain or symptoms. Denies nasal or sinus congestion. CARDIOVASCULAR: Denies chest pain. RESPIRATORY: Per HPI GASTROINTESTINAL: Per HPI GENITOURINARY: Denies difficulty urinating, painful urination, burning, frequency, or blood in urine. MUSCULOSKELETAL: Denies neck or back pain or joint pain or swelling. SKIN: Denies rash or skin lesions. HEMATOLOGIC : Denies easy bruising or bleeding. NEUROLOGICAL: Per HPI PSYCHIATRIC: Denies suicidal or homicidal ideations 10 Systems are negative unless otherwise specified above Physical Exam - Vital signs Vitals: Temp Pulse Resp BP Pulse Ox 97.4 F 126 H 32 H 111/68 100 10/05/20 12:42 10/05/20 12:42 10/05/20 12:42 10/05/20 12:42 10/05/20 12:42 - Notes Notes: PHYSICAL EXAMINATION: GENERAL: Patient is a 50-year-old female presenting to the emergency department for evaluation patient has extreme difficulty speaking HEAD: Atraumatic, normocephalic. EYES: Pupils equal round and reactive to light, extraocular movements intact, sclera anicteric, conjunctiva are normal. ENT: nares patent, oropharynx clear without exudates. Dry mucous membranes. NECK: Normal range of motion, supple without lymphadenopathy, no appreciable JVD, signs of probable prior tracheotomy LUNGS: Lungs clear to auscultation bilaterally and equal. No wheezes rales or rhonchi. Poor Excursion HEART: Regular rate and rhythm without murmurs ABDOMEN: Abdomen shows a colostomy bag on the left hand lower abdomen which appears to have been leaking. There is a midline poorly healing incision/scar just inferior to the umbilicus, the site is moist, there is some type of red ointment to the area. Abdomen is diffusely tender bowel sounds are markedly decreased. EXTREMITIES: Active full range of motion, no pitting or edema. No cyanosis. 2+ pulses x4 NEUROLOGICAL: No focal neurological deficits. Moves all extremities spontaneously and on command. SKIN: Warm, Dry, and intact. Poor turgor, no rashes or lesions noted. Course - Re-evaluation Re-evalutation: 10/05/20 19:35 Patient has been maintained on a air sampling and monitoring while in the emergency department IV fluids have been requested 2 L total to initiate rehydration and management of elevated lactic acid. The patient has had a wound culture to the site requested and CT of abdomen and pelvis without contrast. Patient has very poor venous access but does have access through her port in her right upper chest. Portable chest x-ray read by radiology as negative normal. Patient has been tachycardic thus a EKG has been ordered. I did speak with the patient's primary care provider who stated that he would like a call back after laboratory and radiologic studies had been resulted. Patient because of her penicillin allergy was given 900 mg of clindamycin IV. 10/05/20 19:39 Patient will be signed out to oncoming physician for final disposition after remainder of labs and radiologic studies have occurred. - Vital Signs Vital signs: Temp Pulse Resp BP Pulse Ox 98.8 F 126 H 30 H 137/88 H 99 10/05/20 18:00 10/05/20 12:42 10/05/20 18:00 10/05/20 18:00 10/05/20 18:00 - Laboratory Result Diagrams: 10/05/20 14:23 10/05/20 14:23 Laboratory results interpreted by me: 10/05/20 10/05/20 10/05/20 14:23 14:23 17:41 WBC 26.1 H RBC 3.40 L Hgb 10.3 L Hct 30.1 L RDW 15.6 H Seg Neuts % (Manual) 89 H Lymphocytes % (Manual) 5 L Abs Neuts (Manual) 23.2 H Abs Monocytes (Manual) 1.6 H Sodium 130.4 L Potassium 3.2 L Chloride 96 L Carbon Dioxide 17 L BUN 63 H Est GFR (MDRD) Non-Af 54 L Glucose 311 H Lactic Acid 3.7 H Total Bilirubin 1.5 H Direct Bilirubin 0.8 H AST 62 H ALT 87 H Alkaline Phosphatase 413 H Total Protein 8.3 H Albumin 3.3 L Urine Protein Urine Glucose (UA) Urine Blood Ur Leukocyte Esterase 10/05/20 18:32 WBC RBC Hgb Hct RDW Seg Neuts % (Manual) Lymphocytes % (Manual) Abs Neuts (Manual) Abs Monocytes (Manual) Sodium Potassium Chloride Carbon Dioxide BUN Est GFR (MDRD) Non-Af Glucose Lactic Acid Total Bilirubin Direct Bilirubin AST ALT Alkaline Phosphatase Total Protein Albumin Urine Protein 30 H Urine Glucose (UA) 50 H Urine Blood SMALL H Ur Leukocyte Esterase TRACE H - Diagnostic Test Radiology reviewed: Reports reviewed Discharge - Discharge Clinical Impression: Hypokalemia Abdominal pain Qualifiers: Abdominal location: generalized Qualified Code(s): R10.84 - Generalized abdominal pain Hypotension Qualifiers: Hypotension type: hypotension due to hypovolemia Qualified Code(s): I95.89 - Other hypotension; E86.1 - Hypovolemia Condition: Fair Disposition: ADMITTED OBSERVATION Admitting Provider: [place] Referrals: RILEY VALVERDE MD [Primary Care Provider] - Follow up as needed
--- NOTE | 2020-10-05 17:30 | RADIOLOGY REPORT (SQ) ---
EXAM DESCRIPTION: CHEST 2 VIEWS IMAGES COMPLETED DATE/TIME: 10/05/2020 1:26 pm REASON FOR STUDY: Congestion sick sister states negative Covid COMPARISON: 09/02/2020. EXAM PARAMETERS: NUMBER OF VIEWS: two views TECHNIQUE: Digital Frontal and Lateral radiographic views of the chest acquired. RADIATION DOSE: NA LIMITATIONS: none FINDINGS: LUNGS AND PLEURA: No opacities, masses or pneumothorax. No pleural effusion. MEDIASTINUM AND HILAR STRUCTURES: No masses or contour abnormalities. HEART AND VASCULAR STRUCTURES: Heart normal size. No evidence for failure. BONES: No acute findings. HARDWARE: Central line. OTHER: No other significant finding. IMPRESSION: NO ACUTE RADIOGRAPHIC FINDING IN THE CHEST. TECHNICAL DOCUMENTATION: JOB ID: [id number] 2010 [employer]- All Rights Reserved Reading location - IP/workstation name: [email or web address]
[2020-10-05] MEDS ORDERED: NORMAL SALINE 1000 ML 1,000 ML IV PRN (18:35)
[2020-10-05 19:06] LABS: APPEARANCE,URINE SLIGHTLY-CLOUDY; BILIRUBIN,URINE NEGATIVE (NEGATIVE); COLOR,URINE YELLOW; GLUCOSE, URINE 50 mg/dL (NEGATIVE); KETONES,URINE NEGATIVE (NEGATIVE); LEUKOCYTE ESTERASE,URINE TRACE (NEGATIVE); NITRITE,URINE NEGATIVE (NEGATIVE); PROTEIN,URINE 30 mg/dL (NEGATIVE); URINE SPECIFIC GRAVITY 1.018; UROBILINOGEN,URINE NEGATIVE mg/dL (<2.0)
[2020-10-05] MEDS ORDERED: CLINDAMYCIN 900 MG/D5W RTU 900 MG/50 ML RTUPB IV ONE (19:06)
--- NOTE | 2020-10-05 21:26 | RADIOLOGY REPORT (SQ) ---
EXAM DESCRIPTION: CT ABDOMEN PELVIS WITHOUT IV CONTRAST COMPLETED DATE/TME: 10/05/2020 20:39 CLINICAL HISTORY: 50 years, Female, abd pain COMPARISON: CT from 11/26/2019. TECHNIQUE: Axial images without IV contrast. Sagittal coronal reconstruction. Images stored on PACS. All CT scanners at this facility use dose modulation, iterative reconstruction, and/or weight based dosing when appropriate to reduce radiation dose to as low as reasonably achievable (ALARA). FINDINGS: Mild to moderate pericardial effusion minimally larger since 11/26/2019. Up to 12 mm in diameter. Mildly nodular infiltrate in the right lower lobe medially. One of the tiny lesions on the right appears cavitated. Minimal changes on the left. Since 06/07/2020, generalized improvement in both lower lobes but some of the nodularities described today are new. Mild hepatomegaly. No suspicious focal lesions. Mild splenomegaly. Hepatosplenomegaly increased since 11/26/2019. Gallbladder removed. 8.5 mm common bile duct is unchanged. Pancreas is unremarkable. Minimal thickening of the adrenal glands unchanged. No suspicious nodule. Kidneys mildly enlarged and larger since previous CT. No hydronephrosis or focal lesions. Aorta and para-aortic regions are unremarkable. There is a moderate ventral hernia with herniation of the antrum of the stomach and the left lobe of the liver. The hernia described is superior to the umbilicus. At the umbilical level and inferior to it is postsurgical thickening without obvious hernia... There is a defect in the left anterolateral abdominal wall. Question ostomy but an obvious loop of bowel is not seen. There is mild thickening and air bubble. Previous bowel dilatation resolved. No acute intrinsic bowel abnormalities.. CT of the pelvis demonstrates resolution of previous emphysematous cystitis. There is currently a large fluid and air-containing structure posterior to the urinary bladder that is displaced anteriorly. The finding measures approximately 7 cm in diameter. Relatively thin wall. However abscesses suspected. There is evidence for anastomotic surgery in sigmoid colon adjacent to this suspected abscess.. There is no free fluid or adenopathy. Bony pelvis is unremarkable. IMPRESSION: 1. There is a large well-defined fluid collection also containing air posterior to the urinary bladder suspicious for abscess. The wall is relatively thin not typical of abscess. The findings is in proximity to anastomotic surgery associated with the sigmoid colon. 2. There has been increase in size of a ventral hernia in the upper abdominal wall which now contains distal stomach and left lobe of liver. 2. New postsurgical abnormalities associated with the umbilicus and inferior to the umbilicus. Predominantly soft tissue thickening. Cannot completely exclude a small component of fluid/abscess or phlegmon in that region also. 3. There is a left anterior abdominal wall defect which is questionably an ostomy but obvious bowel is not seen. There are some inflammatory changes in that region. 4. Since previous CT from 11/26/2019, hepatosplenomegaly has increased. Renal size is increased. Rule out renal medical disease. Suggest clinical correlation. 5. Mild to moderate pericardial effusion minimally increased since previous CT. 6. Previous pleural-parenchymal abnormalities improved. However new subtle nodular findings in the right lower lobe possibly infectious. One of the nodular lesions demonstrates a tiny cavitation.
--- NOTE | 2020-10-05 23:48 | EKG REPORT ---
SEVERITY:- BORDERLINE ECG - SINUS TACHYCARDIA BORDERLINE PROLONGED QT INTERVAL : Confirmed by: Veronica Lopez MD 05-Oct-2020 23:48:24
[2020-10-06] MEDS ORDERED: DEXTROSE 50%-WATER 25 GM/50 ML DISP.SYRIN IV PRN ×2 (08:17)
[2020-10-06] MEDS ORDERED: DEXTROSE 40% GEL 15 GM TUBE PO PRN ×2 (08:17)
[2020-10-06] MEDS ORDERED: GLUCAGON,HUMAN RECOMB 1 MG INJ SUBCUT PRN (08:17)
[2020-10-06] MEDS ORDERED: NORMAL SALINE 1000 ML 1,000 ML IV PRN (08:18)
[2020-10-06] MEDS ORDERED: DEXTROSE 10%-WATER 1,000 ML IV PRN (08:26)
--- NOTE | 2020-10-06 10:17 | PDOC H&P ---
History of Present Illness Admission Date/PCP: 10/05/20 22:13 RILEY VALVERDE Patient complains of: Elevated WBC History of Present Illness: CHARIS KUNZ is a 50 year old female patient known to my practice who presented to the office for transitional follow up visit since her discharged form the hospital on 09/24/2020. She has been on home health agency service with visiting nurse for her enterocutaneous fistulae and colostomy management along with TPN infusion. Her recent CBC with differential revealed worsening leukocytosis with left shift. She was started on Linezolid and Diflucan therapy based on her last admission pelvic abscess culture report but her compliance is in doubt. Upon arrival in the office she was found tachycardia, tachypneic and unable to ascertain her blood pressure. Her CBC with differential continue to show leukocytosis with left shift. There was no bed available for direct admission and she was referred to the ED for further evaluation and management for possible admission. Her initial ED evaluation were in line with the office finding but her CT abdomen/pelvic revealed right lower lung air space disease process. She will be admitted for pneumonia with probable sepsis in view of her associated vitals parameters. Past Medical History Cardiac Medical History: Reports: Hypertension Denies: Coronary Artery Disease, Myocardial Infarction Pulmonary Medical History: Denies: Asthma, Bronchitis, Chronic Obstructive Pulmonary Disease (COPD), Pneumonia Neurological Medical History: Denies: Seizures Musculoskeltal Medical History: Reports: Arthritis - LEFT KNEE AND HAND Psychiatric Medical History: Reports: Depression Hematology: Denies: Anemia Past Surgical History Past Surgical History: Reports: Section, Orthopedic Surgery - back surgery Social History Smoking Status: Former Smoker Frequency of Alcohol Use: None Hx Recreational Drug Use: No Drugs: None Hx Prescription Drug Abuse: No - Advance Directive Resuscitation Status: Full Code Family History Family History: None, Reviewed & Not Pertinent Parental Family History Reviewed: Yes Children Family History Reviewed: Yes Sibling(s) Family History Reviewed.: Yes Medication/Allergy Home Medications: Atorvastatin Calcium [Lipitor 20 mg Tablet] 20 mg PO QHS #30 09/24/20 Diphenoxylate HCl/Atrop Sulf [Lomotil 2.5 mg Tablet] 1 tab PO QIDP PRN #60 09/24/20 Oxycodone HCl [Oxy-Ir 5 mg Tablet] 5 mg PO Q4HP PRN #60 tablet 09/24/20 Pantoprazole Sodium [Protonix [address] Tablet] 40 mg PO DAILY #30 09/24/20 Sumatriptan Succinate [Imitrex 50 mg Tablet] 50 mg PO Q2HP PRN #14 09/24/20 Linezolid [Zyvox 600 mg Tablet] 600 mg PO Q12 10/06/20 Allergies/Adverse Reactions: methadone [Methadone] Allergy (Verified 10/05/20 13:48) Penicillins Allergy (Verified 10/05/20 13:48) Review of Systems Constitutional: PRESENT: chills, fatigue, weakness. ABSENT: fever(s), headache(s) Eyes: ABSENT: visual disturbances Ears: ABSENT: hearing changes Nose, Mouth, and Throat: ABSENT: sore throat Cardiovascular: PRESENT: dyspnea on exertion. ABSENT: chest pain, edema, orthropnea, palpitations Respiratory: PRESENT: dyspnea. ABSENT: cough, hemoptysis Gastrointestinal: PRESENT: nausea. ABSENT: abdominal pain, constipation, diarrhea, hematemesis, hematochezia, vomiting Genitourinary: ABSENT: dysuria, hematuria Musculoskeletal: ABSENT: joint swelling Integumentary: ABSENT: rash, wounds Neurological: ABSENT: abnormal gait, abnormal speech, confusion, dizziness, focal weakness, syncope Psychiatric: ABSENT: anxiety, depression, homidical ideation, suicidal ideation Endocrine: ABSENT: cold intolerance, heat intolerance, polydipsia, polyuria Hematologic/Lymphatic: ABSENT: easy bleeding, easy bruising, lymphadenopathy Allergic/Immunologic: ABSENT: seasonal rhinorrhea Physical Exam Vital Signs: Temp Pulse Resp BP Pulse Ox 99.1 F 126 H 17 101/60 98 10/05/20 22:00 10/05/20 12:42 10/06/20 04:01 10/06/20 04:01 10/06/20 04:01 Intake & Output 10/05/20 10/06/20 10/07/20 06:59 06:59 06:59 Intake Total 1050 Balance 1050 Weight 61.7 kg General appearance: PRESENT: no acute distress Head exam: PRESENT: atraumatic, normocephalic Eye exam: PRESENT: conjunctiva pink, EOMI, PERRLA. ABSENT: scleral icterus Ear exam: PRESENT: normal external ear exam Mouth exam: PRESENT: moist, tongue midline Neck exam: PRESENT: full ROM. ABSENT: carotid bruit, JVD, lymphadenopathy, thyromegaly Respiratory exam: PRESENT: clear to auscultation bucky, decreased breath sounds - at lung bases Cardiovascular exam: PRESENT: +S1, +S2, tachycardia. ABSENT: diastolic murmur, rubs, systolic murmur Pulses: PRESENT: normal dorsalis pedis pul, +2 pedal pulses bilateral Vascular exam: PRESENT: normal capillary refill. ABSENT: pallor GI/Abdominal exam: PRESENT: normal bowel sounds, soft, other - abdominal wall enetrocuteneous fistulae and colostomy with stroma contact irritation to the surrounding skin. ABSENT: distended, guarding, mass, organolmegaly, rebound, tenderness Rectal exam: PRESENT: deferred Neurological exam: PRESENT: alert, awake, oriented to person, oriented to place, oriented to time, oriented to situation, CN II-XII grossly intact. ABSENT: motor sensory deficit Psychiatric exam: PRESENT: appropriate affect, normal mood. ABSENT: homicidal ideation, suicidal ideation Skin exam: PRESENT: dry, intact, warm, other - contact irritation to skin surround fistulae draining sites. ABSENT: cyanosis, rash Results Laboratory Results: 10/05/20 14:23 10/05/20 14:23 10/05/20 10/05/20 10/05/20 14:23 14:23 17:41 WBC 26.1 H RBC 3.40 L Hgb 10.3 L Hct 30.1 L MCV 89 MCH 30.4 MCHC 34.3 RDW 15.6 H Plt Count 198 Seg Neutrophils % Not Reportable Sodium 130.4 L Potassium 3.2 L Chloride 96 L Carbon Dioxide 17 L Anion Gap 17 BUN 63 H Creatinine 1.06 Est GFR ( Amer) > 60 Glucose 311 H Lactic Acid 3.7 H Calcium 9.8 Total Bilirubin 1.5 H AST 62 H Alkaline Phosphatase 413 H Total Protein 8.3 H Albumin 3.3 L Urine Color Urine Appearance Urine pH Ur Specific [place] Urine Protein Urine Glucose (UA) Urine Ketones Urine Blood Urine Nitrite Ur Leukocyte Esterase Urine WBC (Auto) Urine RBC (Auto) 10/05/20 18:32 WBC RBC Hgb Hct MCV MCH MCHC RDW Plt Count Seg Neutrophils % Sodium Potassium Chloride Carbon Dioxide Anion Gap BUN Creatinine Est GFR ( Amer) Glucose Lactic Acid Calcium Total Bilirubin AST Alkaline Phosphatase Total Protein Albumin Urine Color YELLOW Urine Appearance SLIGHTLY-CLOUDY Urine pH 6.0 Ur Specific [place] 1.018 Urine Protein 30 H Urine Glucose (UA) 50 H Urine Ketones NEGATIVE Urine Blood SMALL H Urine Nitrite NEGATIVE Ur Leukocyte Esterase TRACE H Urine WBC (Auto) 10 Urine RBC (Auto) 2 10/05/20 16:09 Blood Blood Culture (PCR) - Final Enterobacteriaceae Group 10/05/20 14:23 Blood Blood Culture (PCR) - Final Enterobacteriaceae Group Impressions: Chest X-Ray 10/05/20 12:54 IMPRESSION: NO ACUTE RADIOGRAPHIC FINDING IN THE CHEST. Abdomen/Pelvis CT 10/05/20 17:56 IMPRESSION: 1. There is a large well-defined fluid collection also containing air posterior to the urinary bladder suspicious for abscess. The wall is relatively thin not typical of abscess. The findings is in proximity to anastomotic surgery associated with the sigmoid colon. 2. There has been increase in size of a ventral hernia in the upper abdominal wall which now contains distal stomach and left lobe of liver. 2. New postsurgical abnormalities associated with the umbilicus and inferior to the umbilicus. Predominantly soft tissue thickening. Cannot completely exclude a small component of fluid/abscess or phlegmon in that region also. 3. There is a left anterior abdominal wall defect which is questionably an ostomy but obvious bowel is not seen. There are some inflammatory changes in that region. 4. Since previous CT from 11/26/2019, hepatosplenomegaly has increased. Renal size is increased. Rule out renal medical disease. Suggest clinical correlation. 5. Mild to moderate pericardial effusion minimally increased since previous CT. 6. Previous pleural-parenchymal abnormalities improved. However new subtle nodular findings in the right lower lobe possibly infectious. One of the nodular lesions demonstrates a tiny cavitation. Assessment & Plan - Diagnosis (1) Pneumonia Qualifiers: Pneumonia type: due to unspecified organism Laterality: right Lung lo cation: lower lobe of lung Qualified Code(s): J18.9 - Pneumonia, unspecified organism Is this a current diagnosis for this admission?: Yes Plan: See admitting attending physician orders for details about care (2) Sepsis Qualifiers: Sepsis type: sepsis due to unspecified organism Is this a current diagnosis for this admission?: Yes Plan: See admitting attending physician orders for details about care (3) Hypoalbuminemia Is this a current diagnosis for this admission?: Yes Plan: See admitting attending physician orders for details about care (4) Enterocutaneous fistula Is this a current diagnosis for this admission?: Yes Plan: See admitting attending physician orders for details about care (5) Hypovolemia dehydration Is this a current diagnosis for this admission?: Yes Plan: See admitting attending physician orders for details about care (6) Hypokalemia Is this a current diagnosis for this admission?: Yes Plan: See admitting attending physician orders for details about care (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 Is this a current diagnosis for this admission?: Yes Plan: See admitting attending physician orders for details about care (8) Colostomy stricture Is this a current diagnosis for this admission?: Yes Plan: See admitting attending physician orders for details about care (9) History of stroke with current residual effects Is this a current diagnosis for this admission?: Yes Plan: See admitting attending physician orders for details about care - Time Time Spent: 50 to 70 Minutes Medications reviewed and adjusted accordingly: Yes Anticipated Discharge Disposition: Home with Home Health Anticipated Discharge Timeframe: within 72 hours - Inpatient Certification Based on my medical assessment, after consideration of the patient's comorbiditi es, presenting symptoms, or acuity I expect that the services needed warrant INPATIENT care.: Yes I certify that my determination is in accordance with my understanding of [facility]'s requirements for reasonable and necessary INPATIENT services [42 CFR 412.3e].: Yes Medical Necessity: Significant Comorbidiites Make Outpatient Treatment Too Risky, Need Close Monitoring Due to Risk of Patient Decompensation, Need For IV Fluids, Need For Continuous Telemetry Monitoring, Need for IV Antibiotics, Risk of Complication if Not Cared For in Hospital, Risk of Diagnosis Which Will Require Inpatient Eval/Care/Monitoring Post Hospital Care: D/C Director Of Recruiting Documentation - Plan Summary Plan Summary: See admitting attending physician orders for details about care plan
[2020-10-06] MEDS: PANTOPRAZOLE SODIUM 40 MG VIAL IV SCH ×2 (11:57→22:12)
[2020-10-06] MEDS: OXYCODONE HCL IR 5 MG TABLET PO PRN (11:57)
[2020-10-06] MEDS: LEVOFLOXACIN 500 MG/D5W RTU 500 MG/100 ML RTUPB IV SCH (12:16)
[2020-10-06] MEDS: AZTREONAM 1 GM in DEXTROSE 5%-WATER 50 ML IV SCH ×2 (13:58→18:43)
[2020-10-06] MEDS: ONDANSETRON HCL INJ/PF 4 MG/2 ML SDV IV PRN (14:10)
[2020-10-06] MEDS: INSULIN REG, HUMAN 100 UNIT/ML 3 ML VIAL (PYX) SUBCUT SCH ×2 (14:10→18:17)
[2020-10-06] MEDS: OCTREOTIDE ACETATE INJ/PF 100 MCG/1 ML SDV SUBCUT SCH ×2 (16:47→22:31)
[2020-10-06 20:02] LABS: HEMATOCRIT 24.9 % (36.0-47.0); HEMOGLOBIN 8.7 g/dL (12.0-15.5); MEAN CORPUSCULAR HEMOGLOBIN 30.7 pg (27.0-33.4); MEAN CORPUSCULAR HGB CONC 34.9 g/dL (32.0-36.0); MEAN CORPUSCULAR VOLUME 88 fl (80-97); PLATELET COUNT 169 10^3/uL (150-450); RED BLOOD COUNT 2.83 10^6/uL (3.72-5.28); RED CELL DISTRIBUTION WIDTH 15.5 % (11.5-14.0); WHITE BLOOD COUNT 22.6 10^3/uL (4.0-10.5)
[2020-10-06 20:07] LABS: INTERNATIONAL RATION (INR) 1.28; PROTHROMBIN TIME 16.2 SEC (11.4-15.4)
--- NOTE | 2020-10-06 20:50 | PDOC CONSULTATION ---
Consultation Consult Date: 10/06/20 Provider Consulted: SURGICAL SURGICALIST Consult reason:: pelvic fluid collection History of Present Illness Admission Date/PCP: 10/05/20 22:13 RILEY VALVERDE History of Present Illness: CHARIS KUNZ is a 50 year old female seen in consultation at the request of Dr. Valverde. Patient has been seen previously for a pelvic abscess. This small pelvic abscess occurred at the vaginal cuff, and was drained via transvaginal drainage several weeks ago. She had a Malecot drain for several days, which was removed. The patient presents today with an occluded PICC line. A CT scan of the abdomen shows a pelvic fluid collection in the same location as before. Patient complains of pelvic pain, however this is chronic for her. 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 She complains of malaise, fatigue, chronic pain, enterocutaneous fistula. She denies chest pain, shortness of breath, headache, dizziness, or blurry vision. Past Medical History Cardiac Medical History: Reports: Hypertension Denies: Coronary Artery Disease, Myocardial Infarction Pulmonary Medical History: Denies: Asthma, Bronchitis, Chronic Obstructive Pulmonary Disease (COPD), Pneumonia Neurological Medical History: Denies: Seizures Musculoskeltal Medical History: Reports: Arthritis - LEFT KNEE AND HAND Psychiatric Medical History: Reports: Depression Hematology: Denies: Anemia Past Surgical History Past Surgical History: Reports: Section, Orthopedic Surgery - back surgery Social History Smoking Status: Former Smoker Frequency of Alcohol Use: None Hx Recreational Drug Use: No Drugs: None Hx Prescription Drug Abuse: No - Advance Directive Resuscitation Status: Full Code Family History Family History: None, Reviewed & Not Pertinent Parental Family History Reviewed: Yes Children Family History Reviewed: Yes Sibling(s) Family History Reviewed.: Yes Medication/Allergy Home Medications: Atorvastatin Calcium [Lipitor 20 mg Tablet] 20 mg PO QHS #30 09/24/20 Diphenoxylate HCl/Atrop Sulf [Lomotil 2.5 mg Tablet] 1 tab PO QIDP PRN #60 09/24/20 Oxycodone HCl [Oxy-Ir 5 mg Tablet] 5 mg PO Q4HP PRN #60 tablet 09/24/20 Pantoprazole Sodium [Protonix [address] Tablet] 40 mg PO DAILY #30 09/24/20 Sumatriptan Succinate [Imitrex 50 mg Tablet] 50 mg PO Q2HP PRN #14 11/06/20 Linezolid [Zyvox 600 mg Tablet] 600 mg PO Q12 10/06/20 Allergies/Adverse Reactions: methadone [Methadone] Allergy (Verified 10/05/20 13:48) Penicillins Allergy (Verified 10/05/20 13:48) Review of Systems Constitutional: PRESENT: fatigue, weakness. ABSENT: chills, fever(s), headache(s) Ears: ABSENT: hearing changes Nose, Mouth, and Throat: ABSENT: sore throat Cardiovascular: ABSENT: chest pain Respiratory: ABSENT: cough Gastrointestinal: PRESENT: abdominal pain. ABSENT: vomiting Genitourinary: PRESENT: dysuria, other - Indwelling catheter Musculoskeletal: PRESENT: back pain Integumentary: PRESENT: pruritus, rash - At enterocutaneous fistula site Neurological: ABSENT: confusion, convulsions, dizziness Psychiatric: PRESENT: depression. ABSENT: anxiety Endocrine: ABSENT: cold intolerance, heat intolerance Hematologic/Lymphatic: ABSENT: easy bleeding, easy bruising Physical Exam Vital Signs: Temp Pulse Resp BP Pulse Ox 97.6 F 78 19 92/54 L 99 10/06/20 18:00 10/06/20 18:00 10/06/20 18:00 10/06/20 18:00 10/06/20 18:00 Intake & Output 10/05/20 10/06/20 10/07/20 06:59 06:59 06:59 Intake Total 1050 100 Balance 1050 100 Weight 61.7 kg General appearance: PRESENT: no acute distress Head exam: PRESENT: atraumatic, normocephalic Eye exam: PRESENT: EOMI. ABSENT: scleral icterus Mouth exam: PRESENT: moist Neck exam: ABSENT: meningismus, tenderness, thyromegaly, tracheal deviation Respiratory exam: PRESENT: unlabored. ABSENT: tachypnea Cardiovascular exam: ABSENT: tachycardia Vascular exam: ABSENT: pallor GI/Abdominal exam: PRESENT: soft, other - Left lower quadrant ostomy present. Midline enterocutaneous fistula draining bile.. ABSENT: firm, guarding, tenderness Rectal exam: PRESENT: deferred Gentrourinary exam: PRESENT: other - Vaginal speculum exam reveals a spastic pelvic floor, and a large amount of fluid and air within the vagina. Extremities exam: PRESENT: other - Spasticity and immobility of the right upper and right lower extremities. Musculoskeletal exam: PRESENT: deformity - Contracture of the right upper extremity with spasticity, related to stroke. Neurological exam: PRESENT: alert, awake, oriented to person, oriented to place, oriented to time, oriented to situation Psychiatric exam: ABSENT: agitated, anxious Focused psych exam: ABSENT: delusional Skin exam: PRESENT: rash - Surrounding enterocutaneous fistula. ABSENT: cyanosis, jaundice Results Laboratory Results: 10/06/20 19:38 10/05/20 14:23 10/06/20 10/06/20 10/06/20 19:38 19:38 19:48 WBC 22.6 H RBC 2.83 L Hgb 8.7 L Hct 24.9 L MCV 88 MCH 30.7 MCHC 34.9 RDW 15.5 H Plt Count 169 Magnesium 3.0 H Triglycerides 132 10/05/20 16:09 Blood Blood Culture (PCR) - Final Enterobacteriaceae Group 10/05/20 14:23 Blood Blood Culture (PCR) - Final Enterobacteriaceae Group Impressions: Chest X-Ray 10/05/20 12:54 IMPRESSION: NO ACUTE RADIOGRAPHIC FINDING IN THE CHEST. Abdomen/Pelvis CT 10/05/20 17:56 IMPRESSION: 1. There is a large well-defined fluid collection also containing air posterior to the urinary bladder suspicious for abscess. The wall is relatively thin not typical of abscess. The findings is in proximity to anastomotic surgery associated with the sigmoid colon. 2. There has been increase in size of a ventral hernia in the upper abdominal wall which now contains distal stomach and left lobe of liver. 2. New postsurgical abnormalities associated with the umbilicus and inferior to the umbilicus. Predominantly soft tissue thickening. Cannot completely exclude a small component of fluid/abscess or phlegmon in that region also. 3. There is a left anterior abdominal wall defect which is questionably an ostomy but obvious bowel is not seen. There are some inflammatory changes in that region. 4. Since previous CT from 11/26/2019, hepatosplenomegaly has increased. Renal size is increased. Rule out renal medical disease. Suggest clinical correlation. 5. Mild to moderate pericardial effusion minimally increased since previous CT. 6. Previous pleural-parenchymal abnormalities improved. However new subtle nodular findings in the right lower lobe possibly infectious. One of the nodular lesions demonstrates a tiny cavitation. Assessment & Plan - Diagnosis (1) Pelvic abscess Is this a current diagnosis for this admission?: Yes - Plan Summary Plan Summary: 50-year-old female with a previously drained fluid collection/abscess at the vaginal cuff. The patient represents with a pelvic fluid collection. I have examined her vagina in the room with a speculum this evening. There was a large amount of air and fluid within the vagina. This may be related to the spasticity seen in her pelvic floor. I inserted a 30 [place]ic Malecot for drainage purposes. This may resolve the fluid collection completely. Repeat CT scan of the pelvis tomorrow to assess for any residual fluid, that is not treated with the Malecot drain. If residual fluid exists, I would recommend percutaneous CT-guided drainage. Surgery will follow.
[2020-10-06] MEDS: ATORVASTATIN CALCIUM 20 MG TABLET PO SCH (22:12)
[2020-10-06] MEDS: DEXTROSE 5%-NORMAL SALINE 1,000 ML IV PRN (22:13)
[2020-10-06] MEDS ORDERED: OCTREOTIDE ACETATE INJ/PF 100 MCG/1 ML SDV ONE (22:29)
[2020-10-07] MEDS: INSULIN REG, HUMAN 100 UNIT/ML 3 ML VIAL (PYX) SUBCUT SCH ×4 (00:10→17:55)
[2020-10-07] MEDS: AZTREONAM 1 GM in DEXTROSE 5%-WATER 50 ML IV SCH ×3 (02:27→18:05)
[2020-10-07] MEDS ORDERED: OCTREOTIDE ACETATE INJ/PF 100 MCG/1 ML SDV ONE (05:14)
[2020-10-07] MEDS: OCTREOTIDE ACETATE INJ/PF 100 MCG/1 ML SDV SUBCUT SCH ×3 (05:32→21:48)
[2020-10-07 06:43] LABS: HEMATOCRIT 24.4 % (36.0-47.0); HEMOGLOBIN 8.3 g/dL (12.0-15.5); MEAN CORPUSCULAR HEMOGLOBIN 30.2 pg (27.0-33.4); MEAN CORPUSCULAR HGB CONC 33.9 g/dL (32.0-36.0); MEAN CORPUSCULAR VOLUME 89 fl (80-97); PLATELET COUNT 176 10^3/uL (150-450); RED BLOOD COUNT 2.74 10^6/uL (3.72-5.28); RED CELL DISTRIBUTION WIDTH 15.4 % (11.5-14.0)
[2020-10-07 07:05] LABS: ALBUMIN 2.7 g/dL (3.5-5.0); ALKALINE PHOSPHATASE 267 U/L (38-126); ANION GAP 9 (5-19); ASPARTATE AMINO TRANSFERASE 55 U/L (14-36); BILIRUBIN,DIRECT 0.4 mg/dL (0.0-0.4); BLOOD UREA NITROGEN 41 mg/dL (7-20); CARBON DIOXIDE 23 mmol/L (22-30); CHLORIDE 104 mmol/L (98-107); GLUCOSE 120 mg/dL (75-110); PHOSPHORUS 3.8 mg/dL (2.5-4.5); POTASSIUM 3.5 mmol/L (3.6-5.0); TOTAL PROTEIN 7.2 g/dL (6.3-8.2)
[2020-10-07 07:12] LABS: PREALBUMIN 14.1 mg/dL (17.6-36.0)
[2020-10-07 07:23] LABS: ABSOLUTE LYMPHOCYTES# (MANUAL) 2.1 10^3/uL (0.5-4.7); ABSOLUTE MONOCYTES # (MANUAL) 1.8 10^3/uL (0.1-1.4); BASOPHILS % (MANUAL) 0 % (0-2); EOSINOPHILS % (MANUAL) 0 % (0-6); LYMPHOCYTES % (MANUAL) 9 % (13-45); MONOCYTES % (MANUAL) 8 % (3-13); SEGMENTED NEUTROPHILS % (MAN) 83 % (42-78); TOTAL CELLS COUNTED 100
[2020-10-07 07:25] LABS: ANISOCYTOSIS SLIGHT; PLATELET COMMENT ADEQUATE; POLYCHROMASIA SLIGHT; TOXIC GRANULATION SLIGHT; TOXIC VACUOLATION PRESENT
[2020-10-07] MEDS: DEXTROSE 5%-NORMAL SALINE 1,000 ML IV PRN ×2 (08:30→20:11)
[2020-10-07] MEDS: LEVOFLOXACIN 500 MG/D5W RTU 500 MG/100 ML RTUPB IV SCH (09:36)
[2020-10-07] MEDS: OXYCODONE HCL IR 5 MG TABLET PO PRN ×3 (09:36→23:57)
[2020-10-07] MEDS: PANTOPRAZOLE SODIUM 40 MG VIAL IV SCH ×2 (09:36→21:27)
[2020-10-07] MEDS ORDERED: FAT EMULSIONS 250 ML IV SCH (10:00)
--- NOTE | 2020-10-07 12:00 | RADIOLOGY REPORT (SQ) ---
EXAM DESCRIPTION: CT PELVIS WITHOUT IMAGES COMPLETED DATE/TIME: 10/07/2020 8:43 am REASON FOR STUDY: re-eval pelvic fluid collection. 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 Images reviewed wi th soft tissue and bone windows. Reconstructed coronal and sagittal MPR images reviewed. All images stored on PACS. All CT scanners at this facility use dose modulation, iterative reconstruction, and/or weight based d osing when appropriate to reduce radiation dose to as low as reasonably achievable (ALARA). [facility]: Dose Right [facility]: CareDose [facility]: Dose Right [facility]: Teradose 4D [facility]: Smart [employer] RADIATION DOSE: CT Rad equipment meets quality standard of care and radiation dose reduction techniq ues were employed. CTDIvol: 4.3 mGy. DLP: 136 mGy-cm. mGy. LIMITATIONS: None. FINDINGS: Imaging of the pelvis without contrast shows a large-bore Mallinkrodt drainage catheter in the pelvis by way of the vagina. The large fluid collection previously present is no longer present . The urinary bladder appears normal. IMPRESSION: No residual fluid collection in the pelvis. Large bore drainage catheter remains in lisa ce. TECHNICAL DOCUMENTATION: JOB ID: [id number] Quality ID # [id number]: Final reports with documentation of one or more dose reduction techniques (e.g., Au tomated exposure control, adjustment of the mA and/or kV according to patient size, use of iterative reconstruction technique) 2010 [employer]- All Rights Reserved Reading location - IP/workstation name: [email or web address]
--- NOTE | 2020-10-07 12:26 | PDOC PROGRESS REPORT ---
Subjective Date:: 10/07/20 Subjective:: Some abdominal pain. Reason For Visit: PNEUMONIA, SEPSIS UNSPECIFIED PROTEIN MALNUTRITION Physical Exam Vital Signs: Temp Pulse Resp BP Pulse Ox 98.0 F 65 19 97/61 L 100 10/07/20 11:40 10/07/20 11:40 10/07/20 11:40 10/07/20 11:40 10/07/20 11:40 Intake & Output 10/06/20 10/07/20 10/08/20 06:59 06:59 06:59 Intake Total 1050 1142 Output Total 200 Balance 1050 942 Weight 61.7 kg 61.7 kg General appearance: PRESENT: no acute distress, cooperative Respiratory exam: PRESENT: clear to auscultation bucky Cardiovascular exam: PRESENT: RRR GI/Abdominal exam: PRESENT: other - Soft, fistula is noted. Mild diffuse abdominal tenderness without peritoneal signs. Ostomy bag flat. Vaginal drain in place with no active drainage at this time. Results Laboratory Results: 10/07/20 06:18 10/07/20 06:18 10/06/20 10/06/20 10/06/20 19:38 19:38 19:48 WBC 22.6 H RBC 2.83 L Hgb 8.7 L Hct 24.9 L MCV 88 MCH 30.7 MCHC 34.9 RDW 15.5 H Plt Count 169 Seg Neutrophils % Sodium Potassium Chloride Carbon Dioxide Anion Gap BUN Creatinine Est GFR ( Amer) Glucose Calcium Phosphorus Magnesium 3.0 H Total Bilirubin AST Alkaline Phosphatase Total Protein Albumin Prealbumin Triglycerides 132 10/07/20 10/07/20 06:18 06:18 WBC 23.0 H RBC 2.74 L Hgb 8.3 L Hct 24.4 L MCV 89 MCH 30.2 MCHC 33.9 RDW 15.4 H Plt Count 176 Seg Neutrophils % Not Reportable Sodium 136.4 L Potassium 3.5 L Chloride 104 Carbon Dioxide 23 Anion Gap 9 BUN 41 H Creatinine 0.84 Est GFR ( Amer) > 60 Glucose 120 H Calcium 8.0 L Phosphorus 3.8 Magnesium Total Bilirubin 1.0 AST 55 H Alkaline Phosphatase 267 H Total Protein 7.2 Albumin 2.7 L Prealbumin 14.1 L Triglycerides 10/05/20 18:32 Abdomen - Belly Button Gram Stain - Final 10/05/20 18:32 Abdomen - Belly Button Wound Culture - Final Klebsiella(Enterobac)Aerogenes 10/05/20 14:23 Blood Blood Culture (PCR) - Final Enterobacteriaceae Group 10/05/20 14:23 Blood Blood Culture - Final Klebsiella(Enterobac)Aerogenes 10/05/20 16:09 Blood Blood Culture (PCR) - Final Enterobacteriaceae Group 10/05/20 16:09 Blood Blood Culture - Final Klebsiella(Enterobac)Aerogenes Impressions: Chest X-Ray 10/05/20 12:54 IMPRESSION: NO ACUTE RADIOGRAPHIC FINDING IN THE CHEST. Abdomen/Pelvis CT 10/05/20 17:56 IMPRESSION: 1. There is a large well-defined fluid collection also containing air posterior to the urinary bladder suspicious for abscess. The wall is relatively thin not typical of abscess. The findings is in proximity to anastomotic surgery associated with the sigmoid colon. 2. There has been increase in size of a ventral hernia in the upper abdominal wall which now contains distal stomach and left lobe of liver. 2. New postsurgical abnormalities associated with the umbilicus and inferior to the umbilicus. Predominantly soft tissue thickening. Cannot completely exclude a small component of fluid/abscess or phlegmon in that region also. 3. There is a left anterior abdominal wall defect which is questionably an ostomy but obvious bowel is not seen. There are some inflammatory changes in that region. 4. Since previous CT from 11/26/2019, hepatosplenomegaly has increased. Renal size is increased. Rule out renal medical disease. Suggest clinical correlation. 5. Mild to moderate pericardial effusion minimally increased since previous CT. 6. Previous pleural-parenchymal abnormalities improved. However new subtle nodular findings in the right lower lobe possibly infectious. One of the nodular lesions demonstrates a tiny cavitation. Pelvis CT 10/07/20 08:00 IMPRESSION: No residual fluid collection in the pelvis. Large bore drainage catheter remains in place. Assessment & Plan - Diagnosis (1) Pelvic abscess Is this a current diagnosis for this admission?: Yes Plan: On follow-up by CT scan after vaginal drain placement, the Malecot drain appears to be within the abscess cavity with decompression of the abscess cavity. We will keep in place. - Time Anticipated Discharge Disposition: Home with Home Health Anticipated Discharge Timeframe: one week
--- NOTE | 2020-10-07 18:36 | PDOC PROGRESS REPORT ---
Subjective Date:: 10/07/20 Subjective:: No fever or chills. Intermittent nausea and abdominal pain but no vomiting. No c hest pain or difficulty with breathing. Remain NPO for feeding. Attempts at PICC line placement postponed till tomorrow. Surgical team input noted. Reason For Visit: PNEUMONIA, SEPSIS UNSPECIFIED PROTEIN MALNUTRITION Physical Exam Vital Signs: Temp Pulse Resp BP Pulse Ox 98.0 F 63 19 97/61 L 100 10/07/20 11:40 10/07/20 14:00 10/07/20 11:40 10/07/20 11:40 10/07/20 11:40 Intake & Output 10/06/20 10/07/20 10/08/20 06:59 06:59 06:59 Intake Total 1050 1142 1100 Output Total 200 Balance 3824 953 5710 Weight 61.7 kg 61.7 kg General appearance: PRESENT: no acute distress, well-developed, well-nourished Head exam: PRESENT: atraumatic, normocephalic Eye exam: PRESENT: conjunctiva pink. ABSENT: scleral icterus Mouth exam: PRESENT: moist - fairly Respiratory exam: PRESENT: clear to auscultation bucky, decreased breath sounds - at lung bases Cardiovascular exam: PRESENT: RRR, +S1, +S2. ABSENT: diastolic murmur, rubs, systolic murmur Vascular exam: ABSENT: pallor GI/Abdominal exam: PRESENT: normal bowel sounds, soft, tenderness - around her ostomy sites, other - nonfunctioning colostomy with two fistulae ostomy with open drainage, surrounding skin erythema from gastric content contact irritation Extremities exam: ABSENT: pedal edema Neurological exam: PRESENT: alert, awake, oriented to person, oriented to place, oriented to time, oriented to situation, CN II-XII grossly intact. ABSENT: motor sensory deficit Psychiatric exam: PRESENT: appropriate affect, normal mood. ABSENT: homicidal ideation, suicidal ideation Skin exam: PRESENT: dry, warm, other - as noted above Results Laboratory Results: 10/07/20 06:18 10/07/20 06:18 10/06/20 10/06/20 10/06/20 19:38 19:38 19:48 WBC 22.6 H RBC 2.83 L Hgb 8.7 L Hct 24.9 L MCV 88 MCH 30.7 MCHC 34.9 RDW 15.5 H Plt Count 169 Seg Neutrophils % Sodium Potassium Chloride Carbon Dioxide Anion Gap BUN Creatinine Est GFR ( Amer) Glucose Calcium Phosphorus Magnesium 3.0 H Total Bilirubin AST Alkaline Phosphatase Total Protein Albumin Prealbumin Triglycerides 132 10/07/20 10/07/20 06:18 06:18 WBC 23.0 H RBC 2.74 L Hgb 8.3 L Hct 24.4 L MCV 89 MCH 30.2 MCHC 33.9 RDW 15.4 H Plt Count 176 Seg Neutrophils % Not Reportable Sodium 136.4 L Potassium 3.5 L Chloride 104 Carbon Dioxide 23 Anion Gap 9 BUN 41 H Creatinine 0.84 Est GFR ( Amer) > 60 Glucose 120 H Calcium 8.0 L Phosphorus 3.8 Magnesium Total Bilirubin 1.0 AST 55 H Alkaline Phosphatase 267 H Total Protein 7.2 Albumin 2.7 L Prealbumin 14.1 L Triglycerides 10/05/20 18:32 Abdomen - Belly Button Gram Stain - Final 10/05/20 18:32 Abdomen - Belly Button Wound Culture - Final Klebsiella(Enterobac)Aerogenes 10/05/20 14:23 Blood Blood Culture (PCR) - Final Enterobacteriaceae Group 10/05/20 14:23 Blood Blood Culture - Final Klebsiella(Enterobac)Aerogenes 10/05/20 16:09 Blood Blood Culture (PCR) - Final Enterobacteriaceae Group 10/05/20 16:09 Blood Blood Culture - Final Klebsiella(Enterobac)Aerogenes Impressions: Chest X-Ray 10/05/20 12:54 IMPRESSION: NO ACUTE RADIOGRAPHIC FINDING IN THE CHEST. Abdomen/Pelvis CT 10/05/20 17:56 IMPRESSION: 1. There is a large well-defined fluid collection also containing air posterior to the urinary bladder suspicious for abscess. The wall is relatively thin not typical of abscess. The findings is in proximity to anastomotic surgery associated with the sigmoid colon. 2. There has been increase in size of a ventral hernia in the upper abdominal wall which now contains distal stomach and left lobe of liver. 2. New postsurgical abnormalities associated with the umbilicus and inferior to the umbilicus. Predominantly soft tissue thickening. Cannot completely exclude a small component of fluid/abscess or phlegmon in that region also. 3. There is a left anterior abdominal wall defect which is questionably an ostomy but obvious bowel is not seen. There are some inflammatory changes in that region. 4. Since previous CT from 11/26/2019, hepatosplenomegaly has increased. Renal size is increased. Rule out renal medical disease. Suggest clinical correlation. 5. Mild to moderate pericardial effusion minimally increased since previous CT. 6. Previous pleural-parenchymal abnormalities improved. However new subtle nodular findings in the right lower lobe possibly infectious. One of the nodular lesions demonstrates a tiny cavitation. Pelvis CT 10/07/20 08:00 IMPRESSION: No residual fluid collection in the pelvis. Large bore drainage catheter remains in place. Assessment & Plan - Diagnosis (1) Pneumonia Qualifiers: Pneumonia type: due to unspecified organism Laterality: right Lung location: lower lobe of lung Qualified Code(s): J18.9 - Pneumonia, unspecified organism Is this a current diagnosis for this admission?: Yes (2) Sepsis Qualifiers: Sepsis type: sepsis due to unspecified organism Is this a current diagnosis for this admission?: Yes (3) Hypoalbuminemia Is this a current diagnosis for this admission?: Yes (4) Enterocutaneous fistula Is this a current diagnosis for this admission?: Yes (5) Hypovolemia dehydration Is this a current diagnosis for this admission?: Yes (6) Hypokalemia Is this a current diagnosis for this admission?: Yes (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 Is this a current diagnosis for this admission?: Yes (8) Colostomy stricture Is this a current diagnosis for this admission?: Yes (9) History of stroke with current residual effects Is this a current diagnosis for this admission?: Yes - Time Time Spent with patient: 25-34 minutes Level of Care: IMCU Medications reviewed and adjusted accordingly: Yes Anticipated discharge: Home with Homehealth Anticipated DC Timeframe: within 72 hours - Inpatient Certification Based on my medical assessment, after consideration of the patient's comorbidities, presenting symptoms, or acuity I expect that the services needed warrant INPATIENT care.: Yes I certify that my determination is in accordance with my understanding of Medicare's requirements for reasonable and necessary INPATIENT services [42 CFR 412.3e].: Yes Medical Necessity: Significant Comorbidiites Make Outpatient Treatment Too Risky, Need Close Monitoring Due to Risk of Patient Decompensation, Need For IV Fluids, Need For Continuous Telemetry Monitoring, Need for IV Antibiotics, Risk of Complication if Not Cared For in Hospital, Risk of Diagnosis Which Will Require Inpatient Eval/Care/Monitoring Post Hospital Care: D/C It Network Engineer Documentation - Plan Summary Plan Summary: Continue current antibiotic coverage. Obtain pelvic drainage specimen for culture and sensitivity. follow up on PICC line replacement tomorrow. Hold off TPN until new PICC line is placed.
[2020-10-07] MEDS: POTASSI CL 20 MEQ/50 ML RIDER 20 MEQ/50 ML RTUPB IV SCH ×2 (19:54→23:02)
[2020-10-07 20:50] LABS: ABSOLUTE BASOPHILS # (AUTO) 0.1 10^3/uL (0.0-0.2); ABSOLUTE EOSINOPHILS # (AUTO) 0.2 10^3/uL (0.0-0.6); ABSOLUTE LYMPHOCYTES (AUTO) 2.3 10^3/uL (0.5-4.7); ABSOLUTE MONOCYTES (AUTO) 1.3 10^3/uL (0.1-1.4); ABSOLUTE NEUT (AUTO) 12.2 10^3/uL (1.7-8.2); BASOPHILS % (AUTO) 0.3 % (0-2); EOSINOPHILS % (AUTO) 1.2 % (0-6); HEMATOCRIT 24.1 % (36.0-47.0); HEMOGLOBIN 8.1 g/dL (12.0-15.5); LYMPHOCYTES % (AUTO) 14.4 % (13-45); MEAN CORPUSCULAR HGB CONC 33.5 g/dL (32.0-36.0); MEAN CORPUSCULAR VOLUME 90 fl (80-97); MONOCYTES % (AUTO) 8.1 % (3-13); PLATELET COUNT 180 10^3/uL (150-450); RED BLOOD COUNT 2.69 10^6/uL (3.72-5.28); RED CELL DISTRIBUTION WIDTH 15.4 % (11.5-14.0); TOTAL CELLS COUNTED % (AUTO) 100 %
[2020-10-07 21:08] LABS: ALBUMIN 2.4 g/dL (3.5-5.0); ALKALINE PHOSPHATASE 213 U/L (38-126); ANION GAP 8 (5-19); ASPARTATE AMINO TRANSFERASE 40 U/L (14-36); BILIRUBIN,DIRECT 0.2 mg/dL (0.0-0.4); BILIRUBIN,TOTAL 0.8 mg/dL (0.2-1.3); BLOOD UREA NITROGEN 27 mg/dL (7-20); CALCIUM 7.7 mg/dL (8.4-10.2); CARBON DIOXIDE 20 mmol/L (22-30); CHLORIDE 108 mmol/L (98-107); GLUCOSE 124 mg/dL (75-110); TOTAL PROTEIN 6.5 g/dL (6.3-8.2)
[2020-10-07 21:13] LABS: POTASSIUM 4.7 mmol/L (3.6-5.0)
[2020-10-07] MEDS: ATORVASTATIN CALCIUM 20 MG TABLET PO SCH (21:27)
[2020-10-08] MEDS: POTASSI CL 20 MEQ/50 ML RIDER 20 MEQ/50 ML RTUPB IV SCH
[2020-10-08] MEDS: AZTREONAM 1 GM in DEXTROSE 5%-WATER 50 ML IV SCH ×3 (02:12→18:38)
[2020-10-08] MEDS: OCTREOTIDE ACETATE INJ/PF 100 MCG/1 ML SDV SUBCUT SCH ×4 (05:47→21:11)
[2020-10-08] MEDS: DEXTROSE 5%-NORMAL SALINE 1,000 ML IV PRN (08:15)
[2020-10-08] MEDS ORDERED: HEPARIN SODIUM,PORCINE/NS/PF 0 UNIT/0 ML RTUINJ IV ONE (09:01)
[2020-10-08] MEDS ORDERED: LIDOCAINE 1% INJ-PF (10 MG/ML) 30 ML SDV ONE (09:01)
--- NOTE | 2020-10-08 11:14 | PDOC PROGRESS REPORT ---
Subjective Date:: 10/08/20 Subjective:: comfortable, wants to eat Reason For Visit: PNEUMONIA, SEPSIS UNSPECIFIED PROTEIN MALNUTRITION Physical Exam Vital Signs: Temp Pulse Resp BP Pulse Ox 97.7 F 73 17 92/47 L 100 10/08/20 07:55 10/08/20 07:55 10/08/20 07:55 10/08/20 07:55 10/08/20 07:55 Intake & Output 10/07/20 10/08/20 10/09/20 06:59 06:59 06:59 Intake Total 1142 3224 Output Total 200 Balance 942 3224 Weight 61.7 kg 61.4 kg General appearance: PRESENT: no acute distress Head exam: PRESENT: normocephalic Eye exam: PRESENT: EOMI Mouth exam: PRESENT: moist Teeth exam: PRESENT: poor dentation Neck exam: PRESENT: full ROM Respiratory exam: PRESENT: clear to auscultation bucky Cardiovascular exam: PRESENT: RRR Pulses: PRESENT: normal femoral pulses Vascular exam: PRESENT: normal capillary refill GI/Abdominal exam: PRESENT: soft Rectal exam: PRESENT: deferred Gentrourinary exam: PRESENT: other - malecot drain in place Neurological exam: PRESENT: awake Skin exam: PRESENT: dry Results Laboratory Results: 10/07/20 20:01 10/07/20 22:00 10/07/20 10/07/20 10/07/20 20:01 20:01 22:00 WBC 16.0 H RBC 2.69 L Hgb 8.1 L Hct 24.1 L MCV 90 MCH 30.0 MCHC 33.5 RDW 15.4 H Plt Count 180 Seg Neutrophils % 76.0 Sodium 136.1 L Potassium 4.7 D 3.8 Chloride 108 H Carbon Dioxide 20 L Anion Gap 8 BUN 27 H Creatinine 0.63 Est GFR ( Amer) > 60 Glucose 124 H Calcium 7.7 L Magnesium 2.6 H Total Bilirubin 0.8 AST 40 H Alkaline Phosphatase 213 H Total Protein 6.5 Albumin 2.4 L 10/05/20 18:32 Abdomen - Belly Button Gram Stain - Final 10/05/20 18:32 Abdomen - Belly Button Wound Culture - Final Klebsiella(Enterobac)Aerogenes 10/05/20 14:23 Blood Blood Culture (PCR) - Final Enterobacteriaceae Group 10/05/20 14:23 Blood Blood Culture - Final Klebsiella(Enterobac)Aerogenes 10/05/20 16:09 Blood Blood Culture (PCR) - Final Enterobacteriaceae Group 10/05/20 16:09 Blood Blood Culture - Final Klebsiella(Enterobac)Aerogenes Impressions: Chest X-Ray 10/05/20 12:54 IMPRESSION: NO ACUTE RADIOGRAPHIC FINDING IN THE CHEST. Abdomen/Pelvis CT 10/05/20 17:56 IMPRESSION: 1. There is a large well-defined fluid collection also containing air posterior to the urinary bladder suspicious for abscess. The wall is relatively thin not typical of abscess. The findings is in proximity to anastomotic surgery associated with the sigmoid colon. 2. There has been increase in size of a ventral hernia in the upper abdominal wall which now contains distal stomach and left lobe of liver. 2. New postsurgical abnormalities associated with the umbilicus and inferior to the umbilicus. Predominantly soft tissue thickening. Cannot completely exclude a small component of fluid/abscess or phlegmon in that region also. 3. There is a left anterior abdominal wall defect which is questionably an ostomy but obvious bowel is not seen. There are some inflammatory changes in that region. 4. Since previous CT from 11/26/2019, hepatosplenomegaly has increased. Renal size is increased. Rule out renal medical disease. Suggest clinical correlation. 5. Mild to moderate pericardial effusion minimally increased since previous CT. 6. Previous pleural-parenchymal abnormalities improved. However new subtle nodular findings in the right lower lobe possibly infectious. One of the nodular lesions demonstrates a tiny cavitation. Pelvis CT 10/07/20 08:00 IMPRESSION: No residual fluid collection in the pelvis. Large bore drainage catheter remains in place. Assessment & Plan - Time Anticipated Discharge Disposition: unk Anticipated Discharge Timeframe: unk - Plan Summary Plan Summary: s/p drainage of vaginal fluid collection due to prob pelvic spasm now drain in place wbc decreasing pt can be discharged with drain in place should f/u family therapist surgery will sign off at this time please consult if you need any further assistance.
[2020-10-08] MEDS: PANTOPRAZOLE SODIUM 40 MG VIAL IV SCH ×2 (12:09→21:11)
--- NOTE | 2020-10-08 14:17 | RADIOLOGY REPORT (SQ) ---
EXAM DESCRIPTION: PICC INSERTION IMAGES COMPLETED DATE/TIME: 10/08/2020 2:07 pm REASON FOR STUDY: IV ACCESS A41.50 GRAM-NEGATIVE SEPSIS, UNSPECIFIED E46 UNSPECIFIED PROTEIN-CALOR IE MALNUTRITION K65.1 PERITONEAL ABSCESS COMPARISON: None. FLUOROSCOPY TIME: 52 seconds 3 images saved to PACS. TECHNIQUE: Fluoroscopic and ultrasound guided PICC placement. LIMITATIONS: None. PROCEDURE: After written consent and assessment were obtained, the patient was brought into the fluo roscopy room and placed supine on the table. Ultrasound evaluation of potential access sites were per formed. After successfully identifying a patent left basilic vein, the left arm was prepped and drape d in a sterile fashion along with the ultrasound probe. The entry site was anesthetized with 1% lidoc ezequiel. A 21 gauge 7 cm needle was advanced through the skin and into the basilic vein under live ultra sound guidance. An ultrasound image was saved to PACS confirming access site. A .018 guide wire was then inserted through the needle and into the venous system. The needle was then removed and an 11 b lade scalpel was used to make a 1cm skin incision. A 5 fr peel-away sheath was advanced over the wir e and into the venous system. A measurement was then made using the existing wire and live fluoroscop ic guidance. The wire was then removed and trimmed. The PICC was advanced through the peel-away sheat h and into the venous system. The peel-away sheath was removed and the catheter was adhered to the pa tients arm with a stat lock. The catheter was then aspirated and flushed and a sterile bandage was pl aced over the access site. A fluoroscopic spot image was saved to PACS confirming the catheter tip w ithin the the SVC. IMPRESSION: SUCCESSFUL PLACEMENT OF A 5 FR DUAL LUMEN 36 cm CM PICC IN THE LEFT BASILIC VEIN. COMMENT: Patient medication list reviewed: Yes- Quality ID# [id number]:Eligible professional attests to doc umenting in the medical record they obtained, updated, or reviewed the patient's current medications. . Quality ID 145: Final reports for procedures using fluoroscopy that document radiation exposure yasmeen tatyana, or exposure time and number of fluorographic images (if radiation exposure indices are not avail able) Quality ID #76: The patient was prepped and draped using maximum sterile barrier technique including cap, mask, sterile gown, sterile gloves, a large sterile sheet, hand hygiene, and 2% Chlorhexidine fo r cutaneous antisepsis. When ultrasound is used, sterile ultrasound techniques are followed requiring sterile gel and sterile probes. TECHNICAL DOCUMENTATION: JOB ID: [id number] 2010 [employer]- All Rights Reserved rev-04/05 Reading location - IP/workstation name: [email or web address]
--- NOTE | 2020-10-08 14:23 | RADIOLOGY REPORT (SQ) ---
EXAM DESCRIPTION: REMOVAL TUNNELED CENTRAL LINE IMAGES COMPLETED DATE/TIME: 10/08/2020 2:12 pm REASON FOR STUDY: REMOVAL OF TUNNELED PICC A41.50 GRAM-NEGATIVE SEPSIS, UNSPECIFIED E46 UNSPECIFIE D PROTEIN-CALORIE MALNUTRITION K65.1 PERITONEAL ABSCESS COMPARISON: None. FLUORO TIME: None. 1. Images saved to PACS LIMITATIONS: None. PROCEDURE: After obtaining informed consent and explaining the risks and benefits of conscious sedat ion, the patient was brought to the special procedures suite and was placed supine on the fluoroscopy table. The patient was prepped and draped in the usual sterile fashion. 1% lidocaine was used for local anesthesia. The indwelling tunneled central line was removed in total using blunt dissection. There were no comp lications. Sterile dressing was applied over the removal side. IMPRESSION: Successful tunneled catheter removal as described. COMMENT: Patient medication list reviewed: Yes- Quality ID# [id number]:Eligible professional attests to doc umenting in the medical record they obtained, updated, or reviewed the patient's current medications. Quality ID #76: The patient was prepped and draped using maximum sterile barrier technique including cap, mask, sterile gown, sterile gloves, a large sterile sheet, hand hygiene, and 2% Chlorhexidine fo r cutaneous antisepsis. When ultrasound is used, sterile ultrasound techniques are followed requiring sterile gel and sterile probes. Quality ID 145: Final reports for procedures using fluoroscopy that document radiation exposure yasmeen tatyana, or exposure time and number of fluorographic images (if radiation exposure indices are not avail able) TECHNICAL DOCUMENTATION: JOB ID: [id number] 2010 [employer]- All Rights Reserved Reading location - IP/workstation name: [email or web address]
[2020-10-08] MEDS: LEVOFLOXACIN 500 MG/D5W RTU 500 MG/100 ML RTUPB IV SCH (15:04)
[2020-10-08] MEDS ORDERED: DEXTROSE 10%-WATER 1,000 ML IV PRN (16:01)
--- NOTE | 2020-10-08 16:01 | PDOC PROGRESS REPORT ---
Subjective Date:: 10/08/20 Subjective:: No fever or chills. Intermittent nausea and abdominal pain but no vomiting. Jodee in on NPO status. No chest pain or difficulty with breathing. S/P PICC line placement and removal of her tunnel PICC line. Reason For Visit: PNEUMONIA, SEPSIS UNSPECIFIED PROTEIN MALNUTRITION Physical Exam Vital Signs: Temp Pulse Resp BP Pulse Ox 98.6 F 71 17 103/48 L 100 10/08/20 12:15 10/08/20 12:15 10/08/20 07:55 10/08/20 12:15 10/08/20 12:15 Intake & Output 10/07/20 10/08/20 10/09/20 06:59 06:59 06:59 Intake Total 1142 3224 Output Total 200 Balance 942 3224 Weight 61.7 kg 61.4 kg Physical Exam: General appearance: PRESENT: no acute distress, well-developed, well-nourished Head exam: PRESENT: atraumatic, normocephalic Eye exam: PRESENT: conjunctiva pink. ABSENT: pallor, sclera icterus Mouth exam: PRESENT: moist - fairly Respiratory exam: PRESENT: clear to auscultation bucky, decreased breath sounds - at lung bases Cardiovascular exam: PRESENT: RRR, +S1, +S2. ABSENT: diastolic murmur, rubs, systolic murmur GI/Abdominal exam: PRESENT: normal bowel sounds, soft, tenderness - around her ostomy sites, other - nonfunctioning colostomy with two fistulae ostomy with open drainage, surrounding skin erythema from gastric content contact irritation Extremities exam: ABSENT: pedal edema : Vaginal drainage tube for pelvic abscess in situ with reported minimal drainage presently. Neurological exam: PRESENT: alert, awake, oriented to person, oriented to place, oriented to time, oriented to situation, CN II-XII grossly intact. ABSENT: motor sensory deficit Psychiatric exam: PRESENT: appropriate affect, normal mood. ABSENT: homicidal ideation, suicidal ideation Skin exam: PRESENT: dry, warm, other - as noted above Results Laboratory Results: 10/07/20 20:01 10/07/20 22:00 10/07/20 10/07/20 10/07/20 20:01 20:01 22:00 WBC 16.0 H RBC 2.69 L Hgb 8.1 L Hct 24.1 L MCV 90 MCH 30.0 MCHC 33.5 RDW 15.4 H Plt Count 180 Seg Neutrophils % 76.0 Sodium 136.1 L Potassium 4.7 D 3.8 Chloride 108 H Carbon Dioxide 20 L Anion Gap 8 BUN 27 H Creatinine 0.63 Est GFR ( Amer) > 60 Glucose 124 H Calcium 7.7 L Magnesium 2.6 H Total Bilirubin 0.8 AST 40 H Alkaline Phosphatase 213 H Total Protein 6.5 Albumin 2.4 L Impressions: Chest X-Ray 10/05/20 12:54 IMPRESSION: NO ACUTE RADIOGRAPHIC FINDING IN THE CHEST. Abdomen/Pelvis CT 10/05/20 17:56 IMPRESSION: 1. There is a large well-defined fluid collection also containing air posterior to the urinary bladder suspicious for abscess. The wall is relatively thin not typical of abscess. The findings is in proximity to anastomotic surgery associated with the sigmoid colon. 2. There has been increase in size of a ventral hernia in the upper abdominal wall which now contains distal stomach and left lobe of liver. 2. New postsurgical abnormalities associated with the umbilicus and inferior to the umbilicus. Predominantly soft tissue thickening. Cannot completely exclude a small component of fluid/abscess or phlegmon in that region also. 3. There is a left anterior abdominal wall defect which is questionably an ostomy but obvious bowel is not seen. There are some inflammatory changes in that region. 4. Since previous CT from 11/26/2019, hepatosplenomegaly has increased. Renal size is increased. Rule out renal medical disease. Suggest clinical correlation. 5. Mild to moderate pericardial effusion minimally increased since previous CT. 6. Previous pleural-parenchymal abnormalities improved. However new subtle nodular findings in the right lower lobe possibly infectious. One of the nodular lesions demonstrates a tiny cavitation. Pelvis CT 10/07/20 08:00 IMPRESSION: No residual fluid collection in the pelvis. Large bore drainage catheter remains in place. PICC Line Insertion 10/08/20 00:00 IMPRESSION: SUCCESSFUL PLACEMENT OF A 5 FR DUAL LUMEN 36 cm CM PICC IN THE LEFT BASILIC VEIN. Tunnelled Catheter Removal 10/08/20 00:00 IMPRESSION: Successful tunneled catheter removal as described. Assessment & Plan - Diagnosis (1) Pneumonia Qualifiers: Pneumonia type: due to unspecified organism Laterality: right Lung location: lower lobe of lung Qualified Code(s): J18.9 - Pneumonia, unspecified organism Is this a current diagnosis for this admission?: Yes (2) Sepsis Qualifiers: Sepsis type: sepsis due to unspecified organism Is this a current diagnosis for this admission?: Yes (3) Hypoalbuminemia Is this a current diagnosis for this admission?: Yes (4) Enterocutaneous fistula Is this a current diagnosis for this admission?: Yes (5) Hypovolemia dehydration Is this a current diagnosis for this admission?: Yes (6) Hypokalemia Is this a current diagnosis for this admission?: Yes (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 Is this a current diagnosis for this admission?: Yes (8) Colostomy stricture Is this a current diagnosis for this admission?: Yes (9) History of stroke with current residual effects Is this a current diagnosis for this admission?: Yes (10) Pelvic abscess Is this a current diagnosis for this admission?: Yes Plan: Start on Diflucan 400 mg IV daily. Maintain on all other current medication management. We will restart on TPN for nutritional support. - Time Time Spent with patient: 25-34 minutes Level of Care: TELE Medications reviewed and adjusted accordingly: Yes Anticipated discharge: Home with Homehealth Anticipated DC Timeframe: within 72 hours - Inpatient Certification Based on my medical assessment, after consideration of the patient's comorbidities, presenting symptoms, or acuity I expect that the services needed warrant INPATIENT care.: Yes I certify that my determination is in accordance with my understanding of Medicare's requirements for reasonable and necessary INPATIENT services [42 CFR 412.3e].: Yes Medical Necessity: Significant Comorbidiites Make Outpatient Treatment Too Risky, Need Close Monitoring Due to Risk of Patient Decompensation, Need For IV Fluids, Need For Continuous Telemetry Monitoring, Need for IV Antibiotics, Need for Surgery, Risk of Complication if Not Cared For in Hospital, Risk of Diagnosis Which Will Require Inpatient Eval/Care/Monitoring Post Hospital Care: D/C Deck Lid Fitter Documentation - Plan Summary Plan Summary: See attending physician orders for details about care plan.
[2020-10-08] MEDS ORDERED: FLUCONAZOLE 400 MG/NS RTU 400 MG/200 ML RTUPB IV ONE (18:00)
[2020-10-08] MEDS: INSULIN REG, HUMAN 100 UNIT/ML 3 ML VIAL (PYX) SUBCUT SCH (19:15)
[2020-10-08 19:25] LABS: INTERNATIONAL RATION (INR) 1.32; PROTHROMBIN TIME 16.6 SEC (11.4-15.4)
[2020-10-08 20:59] LABS: HEMOGLOBIN 8.1 g/dL (12.0-15.5); MEAN CORPUSCULAR HEMOGLOBIN 30.7 pg (27.0-33.4); MEAN CORPUSCULAR HGB CONC 33.9 g/dL (32.0-36.0); MEAN CORPUSCULAR VOLUME 91 fl (80-97); PLATELET COUNT 204 10^3/uL (150-450); RED BLOOD COUNT 2.66 10^6/uL (3.72-5.28); RED CELL DISTRIBUTION WIDTH 15.2 % (11.5-14.0); WHITE BLOOD COUNT 14.8 10^3/uL (4.0-10.5)
[2020-10-08] MEDS: ATORVASTATIN CALCIUM 20 MG TABLET PO SCH ×2 (21:11→21:23)
[2020-10-08] MEDS: NORMAL SALINE 10 ML SDV (SCHEDULED) IV SCH (21:12)
[2020-10-09] MEDS: INSULIN REG, HUMAN 100 UNIT/ML 3 ML VIAL (PYX) SUBCUT SCH ×4 (00:07→18:49)
[2020-10-09] MEDS: AZTREONAM 1 GM in DEXTROSE 5%-WATER 50 ML IV SCH ×3 (02:20→17:34)
[2020-10-09] MEDS: OCTREOTIDE ACETATE INJ/PF 100 MCG/1 ML SDV SUBCUT SCH ×3 (05:53→22:52)
[2020-10-09 06:50] LABS: ALBUMIN 2.1 g/dL (3.5-5.0); ALKALINE PHOSPHATASE 150 U/L (38-126); ANION GAP 7 (5-19); ASPARTATE AMINO TRANSFERASE 23 U/L (14-36); BILIRUBIN,DIRECT 0.2 mg/dL (0.0-0.4); BILIRUBIN,TOTAL 0.6 mg/dL (0.2-1.3); BLOOD UREA NITROGEN 8 mg/dL (7-20); CARBON DIOXIDE 16 mmol/L (22-30); CHLORIDE 112 mmol/L (98-107); GLUCOSE 353 mg/dL (75-110); PHOSPHORUS 1.9 mg/dL (2.5-4.5); POTASSIUM 4.1 mmol/L (3.6-5.0); TOTAL PROTEIN 5.5 g/dL (6.3-8.2)
[2020-10-09 06:58] LABS: PREALBUMIN 15.2 mg/dL (17.6-36.0)
[2020-10-09] MEDS: NORMAL SALINE 10 ML SDV (SCHEDULED) IV SCH ×2 (10:25→22:53)
[2020-10-09] MEDS: DEXTROSE 5%-NORMAL SALINE 1,000 ML IV PRN (11:26)
[2020-10-09] MEDS: LEVOFLOXACIN 500 MG/D5W RTU 500 MG/100 ML RTUPB IV SCH (11:27)
[2020-10-09] MEDS: OXYCODONE HCL IR 5 MG TABLET PO PRN ×2 (11:40→23:05)
[2020-10-09] MEDS ORDERED: AMINO ACIDS 5 %/DEXTROSE 20 % 1,000 ML IV PRN (18:00)
[2020-10-09] MEDS: AMINO ACIDS 5 %/DEXTROSE 20 % 2,000 ML IV PRN (18:08)
--- NOTE | 2020-10-09 21:17 | PDOC PROGRESS REPORT ---
Subjective Date:: 10/09/20 Reason For Visit: PNEUMONIA, SEPSIS UNSPECIFIED PROTEIN MALNUTRITION Physical Exam Vital Signs: Temp Pulse Resp BP Pulse Ox 98.3 F 75 17 127/65 H 100 10/09/20 15:42 10/09/20 15:42 10/09/20 15:42 10/09/20 15:42 10/09/20 15:42 Intake & Output 10/08/20 10/09/20 10/10/20 06:59 06:59 06:59 Intake Total 3224 350 2340 Balance 3224 350 2340 Weight 61.4 kg 61.5 kg Physical Exam: General appearance: PRESENT: no acute distress, well-developed, well-nourished Head exam: PRESENT: atraumatic, normocephalic Eye exam: PRESENT: conjunctiva pink. ABSENT: pallor, sclera icterus Mouth exam: PRESENT: moist - fairly Respiratory exam: PRESENT: clear to auscultation bucky, decreased breath sounds - at lung bases Cardiovascular exam: PRESENT: RRR, +S1, +S2. ABSENT: diastolic murmur, rubs, systolic murmur GI/Abdominal exam: PRESENT: normal bowel sounds, soft, tenderness - around her ostomy sites, other - nonfunctioning colostomy Extremities exam: ABSENT: pedal edema : Vaginal drainage tube for pelvic abscess in situ with reported minimal drainage presently. Neurological exam: PRESENT: alert, awake, oriented to person, oriented to place, oriented to time, oriented to situation, CN II-XII grossly intact. ABSENT: motor sensory deficit Psychiatric exam: PRESENT: appropriate affect, normal mood. ABSENT: homicidal ideation, suicidal ideation Skin exam: PRESENT: dry, warm, other - as noted above Results Laboratory Results: 10/08/20 20:45 10/09/20 05:57 10/08/20 10/09/20 20:45 05:57 WBC 14.8 H RBC 2.66 L Hgb 8.1 L Hct 24.0 L MCV 91 MCH 30.7 MCHC 33.9 RDW 15.2 H Plt Count 204 Sodium 134.7 L Potassium 4.1 Chloride 112 H Carbon Dioxide 16 L Anion Gap 7 BUN 8 Creatinine 0.47 L Est GFR ( Amer) > 60 Glucose 353 H Calcium 7.0 L* Phosphorus 1.9 L Total Bilirubin 0.6 AST 23 Alkaline Phosphatase 150 H Total Protein 5.5 L Albumin 2.1 L Prealbumin 15.2 L 10/07/20 20:01 Vaginal Gram Stain - Final 10/07/20 20:01 Vaginal Vaginal Culture - Final Yeast, Not Marcelle Albicans No Group B Strep Recovered Normal Vaginal Katherine Absent No Neisseria Gonorrhoeae Impressions: Chest X-Ray 10/05/20 12:54 IMPRESSION: NO ACUTE RADIOGRAPHIC FINDING IN THE CHEST. Abdomen/Pelvis CT 10/05/20 17:56 IMPRESSION: 1. There is a large well-defined fluid collection also containing air posterior to the urinary bladder suspicious for abscess. The wall is relatively thin not typical of abscess. The findings is in proximity to anastomotic surgery associated with the sigmoid colon. 2. There has been increase in size of a ventral hernia in the upper abdominal wall which now contains distal stomach and left lobe of liver. 2. New postsurgical abnormalities associated with the umbilicus and inferior to the umbilicus. Predominantly soft tissue thickening. Cannot completely exclude a small component of fluid/abscess or phlegmon in that region also. 3. There is a left anterior abdominal wall defect which is questionably an ostomy but obvious bowel is not seen. There are some inflammatory changes in that region. 4. Since previous CT from 11/26/2019, hepatosplenomegaly has increased. Renal size is increased. Rule out renal medical disease. Suggest clinical correlation. 5. Mild to moderate pericardial effusion minimally increased since previous CT. 6. Previous pleural-parenchymal abnormalities improved. However new subtle nodular findings in the right lower lobe possibly infectious. One of the nodular lesions demonstrates a tiny cavitation. Pelvis CT 10/07/20 08:00 IMPRESSION: No residual fluid collection in the pelvis. Large bore drainage catheter remains in place. PICC Line Insertion 10/08/20 00:00 IMPRESSION: SUCCESSFUL PLACEMENT OF A 5 FR DUAL LUMEN 36 cm CM PICC IN THE LEFT BASILIC VEIN. Tunnelled Catheter Removal 10/08/20 00:00 IMPRESSION: Successful tunneled catheter removal as described. Assessment & Plan - Diagnosis (1) Pneumonia Qualifiers: Pneumonia type: due to unspecified organism Laterality: right Lung location: lower lobe of lung Qualified Code(s): J18.9 - Pneumonia, unspecified organism Is this a current diagnosis for this admission?: Yes (2) Sepsis Qualifiers: Sepsis type: sepsis due to unspecified organism Is this a current diagnosis for this admission?: Yes (3) Hypoalbuminemia Is this a current diagnosis for this admission?: Yes (4) Enterocutaneous fistula Is this a current diagnosis for this admission?: Yes (5) Hypovolemia dehydration Is this a current diagnosis for this admission?: Yes (6) Hypokalemia Is this a current diagnosis for this admission?: Yes (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 Is this a current diagnosis for this admission?: Yes (8) Colostomy stricture Is this a current diagnosis for this admission?: Yes (9) History of stroke with current residual effects Is this a current diagnosis for this admission?: Yes (10) Pelvic abscess Is this a current diagnosis for this admission?: Yes - Time Time Spent with patient: 25-34 minutes Level of Care: TELE Medications reviewed and adjusted accordingly: Yes Anticipated discharge: Home with Homehealth Anticipated DC Timeframe: within 72 hours - Inpatient Certification Based on my medical assessment, after consideration of the patient's comorbidities, presenting symptoms, or acuity I expect that the services needed warrant INPATIENT care.: Yes I certify that my determination is in accordance with my understanding of Medicare's requirements for reasonable and necessary INPATIENT services [42 CFR 412.3e].: Yes Medical Necessity: Significant Comorbidiites Make Outpatient Treatment Too Risky, Need Close Monitoring Due to Risk of Patient Decompensation, Need For IV Fluids, Need For Continuous Telemetry Monitoring, Need for IV Antibiotics, Risk of Complication if Not Cared For in Hospital, Risk of Diagnosis Which Will Require Inpatient Eval/Care/Monitoring Post Hospital Care: D/C Travel Pt Documentation - Plan Summary Plan Summary: Continue current medication management.
[2020-10-09] MEDS: ONDANSETRON HCL INJ/PF 4 MG/2 ML SDV IV PRN (22:52)
[2020-10-09] MEDS: ATORVASTATIN CALCIUM 20 MG TABLET PO SCH (22:54)
[2020-10-10] MEDS: INSULIN REG, HUMAN 100 UNIT/ML 3 ML VIAL (PYX) SUBCUT SCH ×4 (02:45→18:55)
[2020-10-10] MEDS: AZTREONAM 1 GM in DEXTROSE 5%-WATER 50 ML IV SCH ×3 (02:47→18:55)
[2020-10-10] MEDS: OCTREOTIDE ACETATE INJ/PF 100 MCG/1 ML SDV SUBCUT SCH ×3 (06:11→22:26)
[2020-10-10] MEDS: OXYCODONE HCL IR 5 MG TABLET PO PRN ×4 (06:18→20:30)
[2020-10-10] MEDS: NORMAL SALINE 10 ML SDV (SCHEDULED) IV SCH ×2 (11:07→22:26)
[2020-10-10 11:08] LABS: ALBUMIN 2.4 g/dL (3.5-5.0); ALKALINE PHOSPHATASE 129 U/L (38-126); ANION GAP 9 (5-19); ASPARTATE AMINO TRANSFERASE 21 U/L (14-36); BILIRUBIN,DIRECT 0.2 mg/dL (0.0-0.4); BILIRUBIN,TOTAL 0.4 mg/dL (0.2-1.3); BLOOD UREA NITROGEN 10 mg/dL (7-20); CARBON DIOXIDE 16 mmol/L (22-30); CHLORIDE 108 mmol/L (98-107); GLUCOSE 102 mg/dL (75-110); PHOSPHORUS 2.7 mg/dL (2.5-4.5); POTASSIUM 4.3 mmol/L (3.6-5.0); TOTAL PROTEIN 6.1 g/dL (6.3-8.2)
[2020-10-10 11:15] LABS: PREALBUMIN 19.7 mg/dL (17.6-36.0)
[2020-10-10] MEDS: LEVOFLOXACIN 500 MG/D5W RTU 500 MG/100 ML RTUPB IV SCH (16:09)
--- NOTE | 2020-10-10 18:08 | PDOC PROGRESS REPORT ---
Subjective Date:: 10/10/20 Subjective:: No fever or chills. No nausea, vomiting, and abdominal pain. Remain on NPO statu s but started on TPN support since last clinical evaluation. No chest pain or difficulty with breathing. Reason For Visit: PNEUMONIA, SEPSIS UNSPECIFIED PROTEIN MALNUTRITION Physical Exam Vital Signs: Temp Pulse Resp BP Pulse Ox 98.2 F 65 20 103/48 L 100 10/10/20 15:48 10/10/20 15:48 10/10/20 15:48 10/10/20 15:48 10/10/20 15:48 Intake & Output 10/09/20 10/10/20 10/11/20 06:59 06:59 06:59 Intake Total 350 2340 100 Output Total 200 Balance 350 2140 100 Weight 61.5 kg 63.8 kg Physical Exam: General appearance: PRESENT: no acute distress, well-developed, well-nourished Head exam: PRESENT: atraumatic, normocephalic Eye exam: PRESENT: conjunctiva pink. ABSENT: pallor, sclera icterus Mouth exam: PRESENT: moist - fairly Respiratory exam: PRESENT: clear to auscultation bucky, decreased breath sounds - at lung bases Cardiovascular exam: PRESENT: RRR, +S1, +S2. ABSENT: diastolic murmur, rubs, systolic murmur GI/Abdominal exam: PRESENT: normal bowel sounds, soft, tenderness - around her ostomy sites, other - nonfunctioning colostomy Extremities exam: ABSENT: pedal edema : Vaginal drainage tube for pelvic abscess in situ with reported minimal drainage presently. Neurological exam: PRESENT: alert, awake, oriented to person, oriented to place, oriented to time, oriented to situation, CN II-XII grossly intact. ABSENT: motor sensory deficit Psychiatric exam: PRESENT: appropriate affect, normal mood. ABSENT: homicidal ideation, suicidal ideation Skin exam: PRESENT: dry, warm, other - as noted above Results Laboratory Results: 10/08/20 20:45 10/10/20 10:20 10/10/20 10/10/20 06:15 10:20 Sodium Cancelled 132.8 L Potassium Cancelled 4.3 Chloride Cancelled 108 H Carbon Dioxide Cancelled 16 L Anion Gap Cancelled 9 BUN Cancelled 10 Creatinine Cancelled 0.46 L Est GFR ( Amer) Cancelled > 60 Est GFR (Non-Af Amer) Cancelled Glucose Cancelled 102 Calcium Cancelled 8.0 L Phosphorus Cancelled 2.7 Total Bilirubin Cancelled 0.4 AST Cancelled 21 Alkaline Phosphatase Cancelled 129 H Total Protein Cancelled 6.1 L Albumin Cancelled 2.4 L Prealbumin Cancelled 19.7 Impressions: Chest X-Ray 10/05/20 12:54 IMPRESSION: NO ACUTE RADIOGRAPHIC FINDING IN THE CHEST. Abdomen/Pelvis CT 10/05/20 17:56 IMPRESSION: 1. There is a large well-defined fluid collection also containing air posterior to the urinary bladder suspicious for abscess. The wall is relatively thin not typical of abscess. The findings is in proximity to anastomotic surgery associated with the sigmoid colon. 2. There has been increase in size of a ventral hernia in the upper abdominal wall which now contains distal stomach and left lobe of liver. 2. New postsurgical abnormalities associated with the umbilicus and inferior to the umbilicus. Predominantly soft tissue thickening. Cannot completely exclude a small component of fluid/abscess or phlegmon in that region also. 3. There is a left anterior abdominal wall defect which is questionably an ostomy but obvious bowel is not seen. There are some inflammatory changes in that region. 4. Since previous CT from 11/26/2019, hepatosplenomegaly has increased. Renal size is increased. Rule out renal medical disease. Suggest clinical correlation. 5. Mild to moderate pericardial effusion minimally increased since previous CT. 6. Previous pleural-parenchymal abnormalities improved. However new subtle nodular findings in the right lower lobe possibly infectious. One of the nodular lesions demonstrates a tiny cavitation. Pelvis CT 10/07/20 08:00 IMPRESSION: No residual fluid collection in the pelvis. Large bore drainage catheter remains in place. PICC Line Insertion 10/08/20 00:00 IMPRESSION: SUCCESSFUL PLACEMENT OF A 5 FR DUAL LUMEN 36 cm CM PICC IN THE LEFT BASILIC VEIN. Tunnelled Catheter Removal 10/08/20 00:00 IMPRESSION: Successful tunneled catheter removal as described. Assessment & Plan - Diagnosis (1) Pneumonia Qualifiers: Pneumonia type: due to unspecified organism Laterality: right Lung location: lower lobe of lung Qualified Code(s): J18.9 - Pneumonia, unspecified organism Is this a current diagnosis for this admission?: Yes (2) Sepsis Qualifiers: Sepsis type: sepsis due to unspecified organism Is this a current diagnosis for this admission?: Yes (3) Hypoalbuminemia Is this a current diagnosis for this admission?: Yes (4) Enterocutaneous fistula Is this a current diagnosis for this admission?: Yes (5) Hypovolemia dehydration Is this a current diagnosis for this admission?: Yes (6) Hypokalemia Is this a current diagnosis for this admission?: Yes (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 Is this a current diagnosis for this admission?: Yes (8) Colostomy stricture Is this a current diagnosis for this admission?: Yes (9) History of stroke with current residual effects Is this a current diagnosis for this admission?: Yes (10) Pelvic abscess Is this a current diagnosis for this admission?: Yes - Time Time Spent with patient: 25-34 minutes Level of Care: TELE Medications reviewed and adjusted accordingly: Yes Anticipated discharge: Home with Homehealth Anticipated DC Timeframe: within 72 hours - Inpatient Certification Based on my medical assessment, after consideration of the patient's c omorbidities, presenting symptoms, or acuity I expect that the services needed warrant INPATIENT care.: Yes I certify that my determination is in accordance with my understanding of Medicare's requirements for reasonable and necessary INPATIENT services [42 CFR 412.3e].: Yes Medical Necessity: Significant Comorbidiites Make Outpatient Treatment Too Risky, Need Close Monitoring Due to Risk of Patient Decompensation, Need For IV Fluids, Need For Continuous Telemetry Monitoring, Need for IV Antibiotics, Risk of Complication if Not Cared For in Hospital, Risk of Diagnosis Which Will Require Inpatient Eval/Care/Monitoring Post Hospital Care: D/C Banjo Repairer Documentation - Plan Summary Plan Summary: Continue current medication management. Advance TPN rate to optimize support.
[2020-10-10] MEDS: ONDANSETRON HCL INJ/PF 4 MG/2 ML SDV IV PRN (20:30)
[2020-10-10] MEDS: ATORVASTATIN CALCIUM 20 MG TABLET PO SCH (22:26)
[2020-10-11] MEDS: INSULIN REG, HUMAN 100 UNIT/ML 3 ML VIAL (PYX) SUBCUT SCH ×4 (00:55→17:00)
[2020-10-11] MEDS: AZTREONAM 1 GM in DEXTROSE 5%-WATER 50 ML IV SCH ×3 (02:11→17:06)
[2020-10-11] MEDS: OXYCODONE HCL IR 5 MG TABLET PO PRN ×4 (05:59→22:13)
[2020-10-11] MEDS: OCTREOTIDE ACETATE INJ/PF 100 MCG/1 ML SDV SUBCUT SCH ×3 (05:59→22:14)
[2020-10-11] MEDS: LEVOFLOXACIN 500 MG/D5W RTU 500 MG/100 ML RTUPB IV SCH (10:13)
[2020-10-11] MEDS: NORMAL SALINE 10 ML SDV (SCHEDULED) IV SCH ×2 (10:20→22:10)
--- NOTE | 2020-10-11 10:24 | PDOC PROGRESS REPORT ---
Subjective Date:: 10/11/20 Subjective:: No chest pain or difficulty with breathing. Patient reported pain from her vagin al drainage tube. No fever or chills. No nausea, vomiting, and abdominal pain. Remain on TPN support. Reason For Visit: PNEUMONIA, SEPSIS UNSPECIFIED PROTEIN MALNUTRITION Physical Exam Vital Signs: Temp Pulse Resp BP Pulse Ox 97.9 F 64 18 94/43 L 100 10/11/20 08:12 10/11/20 07:31 10/11/20 07:31 10/11/20 07:31 10/11/20 07:31 Intake & Output 10/10/20 10/11/20 10/12/20 06:59 06:59 06:59 Intake Total 2340 150 Output Total 200 Balance 2140 150 Weight 63.8 kg 65 kg 65 kg Physical Exam: General appearance: PRESENT: no acute distress, well-developed, well-nourished Head exam: PRESENT: atraumatic, normocephalic Eye exam: PRESENT: conjunctiva pink. ABSENT: pallor, sclera icterus Mouth exam: PRESENT: moist - fairly Respiratory exam: PRESENT: clear to auscultation bucky Cardiovascular exam: PRESENT: RRR, +S1, +S2. ABSENT: diastolic murmur, rubs, systolic murmur GI/Abdominal exam: PRESENT: normal bowel sounds, soft, tenderness - around her ostomy sites, other - nonfunctioning colostomy Extremities exam: ABSENT: pedal edema : Vaginal drainage tube for pelvic abscess in situ with reported minimal drainage presently. Neurological exam: PRESENT: alert, awake, oriented to person, oriented to place, oriented to time, oriented to situation, CN II-XII grossly intact. ABSENT: motor sensory deficit Psychiatric exam: PRESENT: appropriate affect, normal mood. ABSENT: homicidal ideation, suicidal ideation Skin exam: PRESENT: dry, warm, other - as noted above Results Laboratory Results: 10/08/20 20:45 10/10/20 10:20 10/10/20 10:20 Sodium 132.8 L Potassium 4.3 Chloride 108 H Carbon Dioxide 16 L Anion Gap 9 BUN 10 Creatinine 0.46 L Est GFR ( Amer) > 60 Glucose 102 Calcium 8.0 L Phosphorus 2.7 Total Bilirubin 0.4 AST 21 Alkaline Phosphatase 129 H Total Protein 6.1 L Albumin 2.4 L Prealbumin 19.7 Impressions: Chest X-Ray 10/05/20 12:54 IMPRESSION: NO ACUTE RADIOGRAPHIC FINDING IN THE CHEST. Abdomen/Pelvis CT 10/05/20 17:56 IMPRESSION: 1. There is a large well-defined fluid collection also containing air posterior to the urinary bladder suspicious for abscess. The wall is relatively thin not typical of abscess. The findings is in proximity to anastomotic surgery associated with the sigmoid colon. 2. There has been increase in size of a ventral hernia in the upper abdominal wall which now contains distal stomach and left lobe of liver. 2. New postsurgical abnormalities associated with the umbilicus and inferior to the umbilicus. Predominantly soft tissue thickening. Cannot completely exclude a small component of fluid/abscess or phlegmon in that region also. 3. There is a left anterior abdominal wall defect which is questionably an ostomy but obvious bowel is not seen. There are some inflammatory changes in that region. 4. Since previous CT from 11/26/2019, hepatosplenomegaly has increased. Renal size is increased. Rule out renal medical disease. Suggest clinical correlation. 5. Mild to moderate pericardial effusion minimally increased since previous CT. 6. Previous pleural-parenchymal abnormalities improved. However new subtle nodular findings in the right lower lobe possibly infectious. One of the nodular lesions demonstrates a tiny cavitation. Pelvis CT 10/07/20 08:00 IMPRESSION: No residual fluid collection in the pelvis. Large bore drainage catheter remains in place. PICC Line Insertion 10/08/20 00:00 IMPRESSION: SUCCESSFUL PLACEMENT OF A 5 FR DUAL LUMEN 36 cm CM PICC IN THE LEFT BASILIC VEIN. Tunnelled Catheter Removal 10/08/20 00:00 IMPRESSION: Successful tunneled catheter removal as described. Assessment & Plan - Diagnosis (1) Pneumonia Qualifiers: Pneumonia type: due to unspecified organism Laterality: right Lung location: lower lobe of lung Qualified Code(s): J18.9 - Pneumonia, unspecified organism Is this a current diagnosis for this admission?: Yes (2) Sepsis Qualifiers: Sepsis type: sepsis due to unspecified organism Is this a current diagnosis for this admission?: Yes (3) Hypoalbuminemia Is this a current diagnosis for this admission?: Yes (4) Enterocutaneous fistula Is this a current diagnosis for this admission?: Yes (5) Hypovolemia dehydration Is this a current diagnosis for this admission?: Yes (6) Hypokalemia Is this a current diagnosis for this admission?: Yes (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 Is this a current diagnosis for this admission?: Yes (8) Colostomy stricture Is this a current diagnosis for this admission?: Yes (9) History of stroke with current residual effects Is this a current diagnosis for this admission?: Yes (10) Pelvic abscess Is this a current diagnosis for this admission?: Yes - Time Time Spent with patient: 25-34 minutes Level of Care: TELE Medications reviewed and adjusted accordingly: Yes Anticipated DC Timeframe: within 72 hours - Inpatient Certification Based on my medical assessment, after consideration of the patient's comorbidities, presenting symptoms, or acuity I expect that the services needed warrant INPATIENT care.: Yes I certify that my determination is in accordance with my understanding of Medicare's requirements for reasonable and necessary INPATIENT services [42 CFR 412.3e].: Yes Medical Necessity: Significant Comorbidiites Make Outpatient Treatment Too Risky, Need Close Monitoring Due to Risk of Patient Decompensation, Need For IV Fluids, Need For Continuous Telemetry Monitoring, Need for IV Antibiotics, Risk of Complication if Not Cared For in Hospital, Risk of Diagnosis Which Will Require Inpatient Eval/Care/Monitoring Post Hospital Care: D/C [employer] Documentation - Plan Summary Plan Summary: Continue current medication management. Request surgicalist team evaluation of her vaginal pelvic drainage tube condition.
[2020-10-11] MEDS: FAT EMULSIONS 250 ML IV SCH (11:45)
[2020-10-11] MEDS: FLUCONAZOLE 200 MG/NS RTU 200 MG/100 ML RTUPB IV SCH (12:39)
[2020-10-11] MEDS: AMINO ACIDS 5 %/DEXTROSE 20 % 2,000 ML IV PRN (14:26)
[2020-10-11 17:44] LABS: HEMATOCRIT 21.5 % (36.0-47.0); MEAN CORPUSCULAR HEMOGLOBIN 32.4 pg (27.0-33.4); MEAN CORPUSCULAR HGB CONC 35.3 g/dL (32.0-36.0); MEAN CORPUSCULAR VOLUME 92 fl (80-97); PLATELET COUNT 249 10^3/uL (150-450); RED BLOOD COUNT 2.34 10^6/uL (3.72-5.28); RED CELL DISTRIBUTION WIDTH 15.3 % (11.5-14.0); WHITE BLOOD COUNT 13.1 10^3/uL (4.0-10.5)
[2020-10-11 17:51] LABS: HEMOGLOBIN 7.6 g/dL (12.0-15.5)
[2020-10-11] MEDS: ATORVASTATIN CALCIUM 20 MG TABLET PO SCH (22:06)
[2020-10-12] MEDS: AZTREONAM 1 GM in DEXTROSE 5%-WATER 50 ML IV SCH ×3 (01:19→18:31)
[2020-10-12] MEDS: INSULIN REG, HUMAN 100 UNIT/ML 3 ML VIAL (PYX) SUBCUT SCH ×4 (04:00→18:28)
[2020-10-12] MEDS: OCTREOTIDE ACETATE INJ/PF 100 MCG/1 ML SDV SUBCUT SCH ×3 (05:31→22:14)
[2020-10-12] MEDS: OXYCODONE HCL IR 5 MG TABLET PO PRN ×4 (05:46→19:16)
[2020-10-12] MEDS: NORMAL SALINE 10 ML SDV (SCHEDULED) IV SCH ×2 (10:47→22:14)
[2020-10-12] MEDS: LEVOFLOXACIN 500 MG/D5W RTU 500 MG/100 ML RTUPB IV SCH (11:44)
[2020-10-12] MEDS: FLUCONAZOLE 200 MG/NS RTU 200 MG/100 ML RTUPB IV SCH (13:24)
[2020-10-12] MEDS: NORMAL SALINE 10 ML SDV (AFTER EACH USE) IV PRN (19:19)
[2020-10-12] MEDS: ATORVASTATIN CALCIUM 20 MG TABLET PO SCH (22:13)
--- NOTE | 2020-10-12 22:25 | PDOC PROGRESS REPORT ---
Subjective Date:: 10/12/20 Subjective:: Patient seen by the bedside with multiple comorbid conditions admitted at this [facility] for the management of pneumonia with sepsis, she has indwelling colostomy bag, enterocutaneous fistula, she is on TPN chronically ,n.p.o. Reason For Visit: PNEUMONIA, SEPSIS UNSPECIFIED PROTEIN MALNUTRITION Physical Exam Vital Signs: Temp Pulse Resp BP Pulse Ox 98.5 F 63 16 95/47 L 100 10/12/20 17:38 10/12/20 17:38 10/12/20 17:38 10/12/20 17:38 10/12/20 17:38 Intake & Output 10/11/20 10/12/20 10/13/20 06:59 06:59 06:59 Intake Total 150 500 200 Output Total 200 100 Balance 150 300 100 Weight 65 kg 65 kg General appearance: PRESENT: no acute distress Eye exam: PRESENT: PERRLA Respiratory exam: PRESENT: clear to auscultation bucky Cardiovascular exam: PRESENT: +S1, +S2 GI/Abdominal exam: PRESENT: other - Colostomy bag Neurological exam: PRESENT: alert Results Laboratory Results: 10/11/20 16:59 10/10/20 10:20 Impressions: Chest X-Ray 10/05/20 12:54 IMPRESSION: NO ACUTE RADIOGRAPHIC FINDING IN THE CHEST. Abdomen/Pelvis CT 10/05/20 17:56 IMPRESSION: 1. There is a large well-defined fluid collection also containing air posterior to the urinary bladder suspicious for abscess. The wall is relatively thin not typical of abscess. The findings is in proximity to anastomotic surgery associated with the sigmoid colon. 2. There has been increase in size of a ventral hernia in the upper abdominal wall which now contains distal stomach and left lobe of liver. 2. New postsurgical abnormalities associated with the umbilicus and inferior to the umbilicus. Predominantly soft tissue thickening. Cannot completely exclude a small component of fluid/abscess or phlegmon in that region also. 3. There is a left anterior abdominal wall defect which is questionably an ostomy but obvious bowel is not seen. There are some inflammatory changes in that region. 4. Since previous CT from 11/26/2019, hepatosplenomegaly has increased. Renal size is increased. Rule out renal medical disease. Suggest clinical correlation. 5. Mild to moderate pericardial effusion minimally increased since previous CT. 6. Previous pleural-parenchymal abnormalities improved. However new subtle nodular findings in the right lower lobe possibly infectious. One of the nodular lesions demonstrates a tiny cavitation. Pelvis CT 10/07/20 08:00 IMPRESSION: No residual fluid collection in the pelvis. Large bore drainage catheter remains in place. PICC Line Insertion 10/08/20 00:00 IMPRESSION: SUCCESSFUL PLACEMENT OF A 5 FR DUAL LUMEN 36 cm CM PICC IN THE LEFT BASILIC VEIN. Tunnelled Catheter Removal 10/08/20 00:00 IMPRESSION: Successful tunneled catheter removal as described. Assessment & Plan - Diagnosis (1) Pneumonia, unspecified organism Is this a current diagnosis for this admission?: Yes Plan: Continue IV antibiotic (2) Sepsis Qualifiers: Sepsis type: sepsis due to unspecified organism Sepsis acute organ dysfunction status: with acute organ dysfunction Severe sepsis acute organ dysfunction type: acute respiratory failure Acute respiratory failure type: with hypoxia Severe sepsis shock status: without septic shock Qualified Code(s): A41.9 - Sepsis, unspecified organism; R65.20 - Severe sepsis without septic shock; J96.01 - Acute respiratory failure with hypoxia Is this a current diagnosis for this admission?: Yes Plan: Continue all supportive treatment (3) Enterocutaneous fistula Is this a current diagnosis for this admission?: Yes Plan: Continue TPN (4) Hypovolemia dehydration Is this a current diagnosis for this admission?: Yes - Time Time Spent with patient: 35 or more minutes Level of Care: MEDICAL Medications reviewed and adjusted accordingly: Yes Anticipated discharge: Home Anticipated DC Timeframe: within 72 hours
[2020-10-13] MEDS: AZTREONAM 1 GM in DEXTROSE 5%-WATER 50 ML IV SCH ×3 (02:25→18:28)
[2020-10-13] MEDS: OXYCODONE HCL IR 5 MG TABLET PO PRN ×4 (02:26→16:35)
[2020-10-13] MEDS: AMINO ACIDS 5 %/DEXTROSE 20 % 2,000 ML IV PRN (04:19)
[2020-10-13] MEDS: INSULIN REG, HUMAN 100 UNIT/ML 3 ML VIAL (PYX) SUBCUT SCH ×4 (08:07→19:44)
[2020-10-13] MEDS: ONDANSETRON HCL INJ/PF 4 MG/2 ML SDV IV PRN ×3 (08:09→16:36)
[2020-10-13] MEDS: OCTREOTIDE ACETATE INJ/PF 100 MCG/1 ML SDV SUBCUT SCH ×3 (10:36→21:40)
[2020-10-13] MEDS: NORMAL SALINE 10 ML SDV (SCHEDULED) IV SCH ×2 (10:40→21:39)
[2020-10-13] MEDS: FLUCONAZOLE 200 MG/NS RTU 200 MG/100 ML RTUPB IV SCH (10:56)
[2020-10-13] MEDS: LEVOFLOXACIN 500 MG/D5W RTU 500 MG/100 ML RTUPB IV SCH (12:24)
--- NOTE | 2020-10-13 18:59 | PDOC PROGRESS REPORT ---
Subjective Date:: 10/13/20 Subjective:: Patient seen by the bedside with multiple comorbid conditions admitted at this [facility] for the management of pneumonia with sepsis, she has indwelling colostomy bag, enterocutaneous fistula, she is on TPN chronically ,n.p.o. 10/13/2020 Patient seen the bedside there is no significant change from yesterday, White blood cell decreasing, good sign Reason For Visit: PNEUMONIA, SEPSIS UNSPECIFIED PROTEIN MALNUTRITION Physical Exam Vital Signs: Temp Pulse Resp BP Pulse Ox 98.7 F 59 L 18 113/51 L 100 10/13/20 16:00 10/13/20 16:00 10/13/20 16:00 10/13/20 16:00 10/13/20 16:00 Intake & Output 10/12/20 10/13/20 10/14/20 06:59 06:59 06:59 Intake Total 500 200 200 Output Total 200 100 Balance 300 100 200 Weight 65 kg 65 kg 65 kg General appearance: PRESENT: no acute distress Eye exam: PRESENT: PERRLA Respiratory exam: PRESENT: clear to auscultation bucky Cardiovascular exam: PRESENT: +S1, +S2 GI/Abdominal exam: PRESENT: soft Neurological exam: PRESENT: alert Results Laboratory Results: 10/11/20 16:59 10/10/20 10:20 Impressions: Chest X-Ray 10/05/20 12:54 IMPRESSION: NO ACUTE RADIOGRAPHIC FINDING IN THE CHEST. Abdomen/Pelvis CT 10/05/20 17:56 IMPRESSION: 1. There is a large well-defined fluid collection also containing air posterior to the urinary bladder suspicious for abscess. The wall is relatively thin not typical of abscess. The findings is in proximity to anastomotic surgery associated with the sigmoid colon. 2. There has been increase in size of a ventral hernia in the upper abdominal wall which now contains distal stomach and left lobe of liver. 2. New postsurgical abnormalities associated with the umbilicus and inferior to the umbilicus. Predominantly soft tissue thickening. Cannot completely exclude a small component of fluid/abscess or phlegmon in that region also. 3. There is a left anterior abdominal wall defect which is questionably an ostomy but obvious bowel is not seen. There are some inflammatory changes in that region. 4. Since previous CT from 11/26/2019, hepatosplenomegaly has increased. Renal size is increased. Rule out renal medical disease. Suggest clinical correlation. 5. Mild to moderate pericardial effusion minimally increased since previous CT. 6. Previous pleural-parenchymal abnormalities improved. However new subtle nodular findings in the right lower lobe possibly infectious. One of the nodular lesions demonstrates a tiny cavitation. Pelvis CT 10/07/20 08:00 IMPRESSION: No residual fluid collection in the pelvis. Large bore drainage catheter remains in place. PICC Line Insertion 10/08/20 00:00 IMPRESSION: SUCCESSFUL PLACEMENT OF A 5 FR DUAL LUMEN 36 cm CM PICC IN THE LEFT BASILIC VEIN. Tunnelled Catheter Removal 10/08/20 00:00 IMPRESSION: Successful tunneled catheter removal as described. Assessment & Plan - Diagnosis (1) Pneumonia, unspecified organism Is this a current diagnosis for this admission?: Yes Plan: Continue IV antibiotic (2) Sepsis Qualifiers: Sepsis type: sepsis due to unspecified organism Sepsis acute organ dysfunction status: with acute organ dysfunction Severe sepsis acute organ dysfunction type: acute respiratory failure Acute respiratory failure type: with hypoxia Severe sepsis shock status: without septic shock Qualified Code(s): A41.9 - Sepsis, unspecified organism; R65.20 - Severe sepsis without septic shock; J96.01 - Acute respiratory failure with hypoxia Is this a current diagnosis for this admission?: Yes Plan: Continue all supportive treatment, Follow lab work (3) Enterocutaneous fistula Is this a current diagnosis for this admission?: Yes Plan: Continue TPN, Prognosis guarded (4) Hypovolemia dehydration Is this a current diagnosis for this admission?: Yes - Time Time Spent with patient: 25-34 minutes Level of Care: MEDICAL Medications reviewed and adjusted accordingly: Yes Anticipated discharge: Home Anticipated DC Timeframe: within 72 hours
[2020-10-13] MEDS: ATORVASTATIN CALCIUM 20 MG TABLET PO SCH (21:38)
[2020-10-14] MEDS: INSULIN REG, HUMAN 100 UNIT/ML 3 ML VIAL (PYX) SUBCUT SCH ×4 (00:41→18:21)
[2020-10-14] MEDS: AZTREONAM 1 GM in DEXTROSE 5%-WATER 50 ML IV SCH ×3 (02:06→17:50)
[2020-10-14] MEDS: OXYCODONE HCL IR 5 MG TABLET PO PRN ×4 (05:21→17:51)
[2020-10-14] MEDS: OCTREOTIDE ACETATE INJ/PF 100 MCG/1 ML SDV SUBCUT SCH ×3 (05:27→21:28)
[2020-10-14 05:38] LABS: ALBUMIN 3.1 g/dL (3.5-5.0); ALKALINE PHOSPHATASE 124 U/L (38-126); ANION GAP 9 (5-19); ASPARTATE AMINO TRANSFERASE 19 U/L (14-36); BILIRUBIN,DIRECT 0.2 mg/dL (0.0-0.4); BILIRUBIN,TOTAL 0.4 mg/dL (0.2-1.3); BLOOD UREA NITROGEN 15 mg/dL (7-20); CALCIUM 9.2 mg/dL (8.4-10.2); CARBON DIOXIDE 18 mmol/L (22-30); CHLORIDE 107 mmol/L (98-107); PHOSPHORUS 4.4 mg/dL (2.5-4.5); POTASSIUM 5.3 mmol/L (3.6-5.0); TOTAL PROTEIN 7.3 g/dL (6.3-8.2)
[2020-10-14 05:43] LABS: GLUCOSE 67 mg/dL (75-110)
[2020-10-14 05:45] LABS: PREALBUMIN 30.7 mg/dL (17.6-36.0)
[2020-10-14] MEDS: FAT EMULSIONS 250 ML IV SCH (09:18)
[2020-10-14] MEDS: ONDANSETRON HCL INJ/PF 4 MG/2 ML SDV IV PRN ×3 (09:19→17:51)
[2020-10-14] MEDS: NORMAL SALINE 10 ML SDV (SCHEDULED) IV SCH ×2 (09:24→21:29)
[2020-10-14] MEDS: FLUCONAZOLE 200 MG/NS RTU 200 MG/100 ML RTUPB IV SCH (11:30)
[2020-10-14] MEDS: LEVOFLOXACIN 500 MG/D5W RTU 500 MG/100 ML RTUPB IV SCH (11:30)
[2020-10-14] MEDS: AMINO ACIDS 5 %/DEXTROSE 20 % 2,000 ML IV PRN (18:03)
--- NOTE | 2020-10-14 18:38 | PDOC PROGRESS REPORT ---
Subjective Date:: 10/14/20 Subjective:: Patient seen by the bedside with multiple comorbid conditions admitted at this [facility] for the management of pneumonia with sepsis, she has indwelling colostomy bag, enterocutaneous fistula, she is on TPN chronically ,n.p.o. 10/13/2020 Patient seen the bedside there is no significant change from yesterday, White blood cell decreasing, good sign 10/14/2020 Patient seen by the bedside admitted for sepsis with pneumonia, she continues to make progress Reason For Visit: PNEUMONIA, SEPSIS UNSPECIFIED PROTEIN MALNUTRITION Physical Exam Vital Signs: Temp Pulse Resp BP Pulse Ox 98.3 F 71 16 106/53 L 100 10/14/20 16:25 10/14/20 16:25 10/14/20 16:25 10/14/20 16:25 10/14/20 16:25 Intake & Output 10/13/20 10/14/20 10/15/20 06:59 06:59 06:59 Intake Total 200 250 450 Output Total 100 Balance 100 250 450 Weight 65 kg 65.6 kg General appearance: PRESENT: no acute distress Eye exam: PRESENT: PERRLA Respiratory exam: PRESENT: clear to auscultation bucky Cardiovascular exam: PRESENT: +S1, +S2 Results Laboratory Results: 10/11/20 16:59 10/14/20 05:07 10/14/20 05:07 Sodium 133.8 L Potassium 5.3 H Chloride 107 Carbon Dioxide 18 L Anion Gap 9 BUN 15 Creatinine 0.52 Est GFR ( Amer) > 60 Glucose 67 L Calcium 9.2 Phosphorus 4.4 Total Bilirubin 0.4 AST 19 Alkaline Phosphatase 124 Total Protein 7.3 Albumin 3.1 L Prealbumin 30.7 Impressions: Chest X-Ray 10/05/20 12:54 IMPRESSION: NO ACUTE RADIOGRAPHIC FINDING IN THE CHEST. Abdomen/Pelvis CT 10/05/20 17:56 IMPRESSION: 1. There is a large well-defined fluid collection also containing air posterior to the urinary bladder suspicious for abscess. The wall is relatively thin not typical of abscess. The findings is in proximity to anastomotic surgery associated with the sigmoid colon. 2. There has been increase in size of a ventral hernia in the upper abdominal wall which now contains distal stomach and left lobe of liver. 2. New postsurgical abnormalities associated with the umbilicus and inferior to the umbilicus. Predominantly soft tissue thickening. Cannot completely exclude a small component of fluid/abscess or phlegmon in that region also. 3. There is a left anterior abdominal wall defect which is questionably an ostomy but obvious bowel is not seen. There are some inflammatory changes in that region. 4. Since previous CT from 11/26/2019, hepatosplenomegaly has increased. Renal size is increased. Rule out renal medical disease. Suggest clinical correlation. 5. Mild to moderate pericardial effusion minimally increased since previous CT. 6. Previous pleural-parenchymal abnormalities improved. However new subtle nodular findings in the right lower lobe possibly infectious. One of the nodular lesions demonstrates a tiny cavitation. Pelvis CT 10/07/20 08:00 IMPRESSION: No residual fluid collection in the pelvis. Large bore drainage catheter remains in place. PICC Line Insertion 10/08/20 00:00 IMPRESSION: SUCCESSFUL PLACEMENT OF A 5 FR DUAL LUMEN 36 cm CM PICC IN THE LEFT BASILIC VEIN. Tunnelled Catheter Removal 10/08/20 00:00 IMPRESSION: Successful tunneled catheter removal as described. Assessment & Plan - Diagnosis (1) Pneumonia, unspecified organism Is this a current diagnosis for this admission?: Yes Plan: Continue IV antibiotic (2) Sepsis Qualifiers: Sepsis type: sepsis due to unspecified organism Sepsis acute organ dysfunction status: with acute organ dysfunction Severe sepsis acute organ dysfunction type: acute respiratory failure Acute respiratory failure type: with hypoxia Severe sepsis shock status: without septic shock Qualified Code(s): A41.9 - Sepsis, unspecified organism; R65.20 - Severe sepsis without septic shock; J96.01 - Acute respiratory failure with hypoxia Is this a current diagnosis for this admission?: Yes Plan: Continue all supportive treatment, Follow lab work (3) Enterocutaneous fistula Is this a current diagnosis for this admission?: Yes Plan: Continue TPN, Prognosis guarded (4) Hypovolemia dehydration Is this a current diagnosis for this admission?: Yes - Time Time Spent with patient: 25-34 minutes Level of Care: MEDICAL Medications reviewed and adjusted accordingly: Yes Anticipated discharge: Home Anticipated DC Timeframe: within 72 hours
[2020-10-14] MEDS: ATORVASTATIN CALCIUM 20 MG TABLET PO SCH (21:29)
[2020-10-15] MEDS: INSULIN REG, HUMAN 100 UNIT/ML 3 ML VIAL (PYX) SUBCUT SCH ×5 (00:02→23:50)
[2020-10-15] MEDS: AZTREONAM 1 GM in DEXTROSE 5%-WATER 50 ML IV SCH ×3 (02:03→18:21)
[2020-10-15] MEDS: OXYCODONE HCL IR 5 MG TABLET PO PRN ×5 (04:54→23:40)
[2020-10-15] MEDS: OCTREOTIDE ACETATE INJ/PF 100 MCG/1 ML SDV SUBCUT SCH ×3 (05:51→23:49)
[2020-10-15] MEDS: ONDANSETRON HCL INJ/PF 4 MG/2 ML SDV IV PRN ×4 (10:30→23:41)
[2020-10-15] MEDS: NORMAL SALINE 10 ML SDV (SCHEDULED) IV SCH ×2 (10:31→23:29)
[2020-10-15] MEDS: FLUCONAZOLE 200 MG/NS RTU 200 MG/100 ML RTUPB IV SCH (11:54)
[2020-10-15] MEDS: LEVOFLOXACIN 500 MG/D5W RTU 500 MG/100 ML RTUPB IV SCH (12:59)
--- NOTE | 2020-10-15 18:39 | PDOC PROGRESS REPORT ---
Subjective Date:: 10/15/20 Subjective:: Patient seen by the bedside with multiple comorbid conditions admitted at this [facility] for the management of pneumonia with sepsis, she has indwelling colostomy bag, enterocutaneous fistula, she is on TPN chronically ,n.p.o. 10/13/2020 Patient seen the bedside there is no significant change from yesterday, White blood cell decreasing, good sign 10/14/2020 Patient seen by the bedside admitted for sepsis with pneumonia, she continues to make progress 10/15/2020 There is no significant change from yesterday continue IV antibiotic Reason For Visit: PNEUMONIA, SEPSIS UNSPECIFIED PROTEIN MALNUTRITION Physical Exam Vital Signs: Temp Pulse Resp BP Pulse Ox 98.1 F 62 16 106/46 L 100 10/15/20 15:43 10/15/20 15:43 10/15/20 15:43 10/15/20 15:43 10/15/20 15:43 Intake & Output 10/14/20 10/15/20 10/16/20 06:59 06:59 06:59 Intake Total 250 500 150 Output Total 250 Balance 250 250 150 Weight 65.6 kg 63.8 kg General appearance: PRESENT: no acute distress Eye exam: PRESENT: PERRLA Respiratory exam: PRESENT: clear to auscultation bucky Cardiovascular exam: PRESENT: +S1, +S2 GI/Abdominal exam: PRESENT: soft Neurological exam: PRESENT: alert Results Laboratory Results: 10/11/20 16:59 10/14/20 05:07 Impressions: Chest X-Ray 10/05/20 12:54 IMPRESSION: NO ACUTE RADIOGRAPHIC FINDING IN THE CHEST. Abdomen/Pelvis CT 10/05/20 17:56 IMPRESSION: 1. There is a large well-defined fluid collection also containing air posterior to the urinary bladder suspicious for abscess. The wall is relatively thin not typical of abscess. The findings is in proximity to anastomotic surgery associated with the sigmoid colon. 2. There has been increase in size of a ventral hernia in the upper abdominal wall which now contains distal stomach and left lobe of liver. 2. New postsurgical abnormalities associated with the umbilicus and inferior to the umbilicus. Predominantly soft tissue thickening. Cannot completely exclude a small component of fluid/abscess or phlegmon in that region also. 3. There is a left anterior abdominal wall defect which is questionably an ostomy but obvious bowel is not seen. There are some inflammatory changes in that region. 4. Since previous CT from 11/26/2019, hepatosplenomegaly has increased. Renal size is increased. Rule out renal medical disease. Suggest clinical correlation. 5. Mild to moderate pericardial effusion minimally increased since previous CT. 6. Previous pleural-parenchymal abnormalities improved. However new subtle nodular findings in the right lower lobe possibly infectious. One of the nodular lesions demonstrates a tiny cavitation. Pelvis CT 10/07/20 08:00 IMPRESSION: No residual fluid collection in the pelvis. Large bore drainage catheter remains in place. PICC Line Insertion 10/08/20 00:00 IMPRESSION: SUCCESSFUL PLACEMENT OF A 5 FR DUAL LUMEN 36 cm CM PICC IN THE LEFT BASILIC VEIN. Tunnelled Catheter Removal 10/08/20 00:00 IMPRESSION: Successful tunneled catheter removal as described. Assessment & Plan - Diagnosis (1) Pneumonia, unspecified organism Is this a current diagnosis for this admission?: Yes Plan: Continue IV antibiotic (2) Sepsis Qualifiers: Sepsis type: sepsis due to unspecified organism Sepsis acute organ dysfunction status: with acute organ dysfunction Severe sepsis acute organ dysfunction type: acute respiratory failure Acute respiratory failure type: with hypoxia Severe sepsis shock status: without septic shock Qualified Code(s): A41.9 - Sepsis, unspecified organism; R65.20 - Severe sepsis without septic shock; J96.01 - Acute respiratory failure with hypoxia Is this a current diagnosis for this admission?: Yes Plan: Continue all supportive treatment, Follow lab work (3) Enterocutaneous fistula Is this a current diagnosis for this admission?: Yes Plan: Continue TPN, Prognosis guarded (4) Hypovolemia dehydration Is this a current diagnosis for this admission?: Yes - Time Time Spent with patient: 15-24 minutes Level of Care: MEDICAL Medications reviewed and adjusted accordingly: Yes Anticipated discharge: Home Anticipated DC Timeframe: within 72 hours
[2020-10-15] MEDS: ATORVASTATIN CALCIUM 20 MG TABLET PO SCH (23:29)
[2020-10-15] MEDS: NORMAL SALINE 10 ML SDV (AFTER EACH USE) IV PRN (23:42)
[2020-10-16] MEDS: AZTREONAM 1 GM in DEXTROSE 5%-WATER 50 ML IV SCH ×3 (02:59→17:18)
[2020-10-16] MEDS: OXYCODONE HCL IR 5 MG TABLET PO PRN ×5 (03:55→23:04)
[2020-10-16] MEDS: ONDANSETRON HCL INJ/PF 4 MG/2 ML SDV IV PRN ×5 (03:55→23:04)
[2020-10-16] MEDS: AMINO ACIDS 5 %/DEXTROSE 20 % 2,000 ML IV PRN (04:00)
[2020-10-16] MEDS: OCTREOTIDE ACETATE INJ/PF 100 MCG/1 ML SDV SUBCUT SCH ×3 (06:00→22:59)
[2020-10-16] MEDS: INSULIN REG, HUMAN 100 UNIT/ML 3 ML VIAL (PYX) SUBCUT SCH ×4 (06:43→23:39)
[2020-10-16] MEDS: NORMAL SALINE 10 ML SDV (SCHEDULED) IV SCH ×2 (09:04→22:59)
[2020-10-16] MEDS: FLUCONAZOLE 200 MG/NS RTU 200 MG/100 ML RTUPB IV SCH (09:58)
[2020-10-16] MEDS: LEVOFLOXACIN 500 MG/D5W RTU 500 MG/100 ML RTUPB IV SCH (11:28)
--- NOTE | 2020-10-16 21:19 | PDOC PROGRESS REPORT ---
Subjective Date:: 10/16/20 Subjective:: Patient seen by the bedside with multiple comorbid conditions admitted at this [facility] for the management of pneumonia with sepsis, she has indwelling colostomy bag, enterocutaneous fistula, she is on TPN chronically ,n.p.o. 10/13/2020 Patient seen the bedside there is no significant change from yesterday, White blood cell decreasing, good sign 10/14/2020 Patient seen by the bedside admitted for sepsis with pneumonia, she continues to make progress 10/15/2020 There is no significant change from yesterday continue IV antibiotic 10/16/2020 Patient seen by the bedside, there is no new complaints Reason For Visit: PNEUMONIA, SEPSIS UNSPECIFIED PROTEIN MALNUTRITION Physical Exam Vital Signs: Temp Pulse Resp BP Pulse Ox 97.8 F 66 17 98/47 L 100 10/16/20 12:48 10/16/20 14:00 10/16/20 12:48 10/16/20 12:48 10/16/20 12:48 Intake & Output 10/15/20 10/16/20 10/17/20 06:59 06:59 06:59 Intake Total 500 350 200 Output Total 250 350 Balance 250 0 200 Weight 63.8 kg 58.3 kg General appearance: PRESENT: no acute distress Eye exam: PRESENT: PERRLA Respiratory exam: PRESENT: clear to auscultation bucky Cardiovascular exam: PRESENT: +S1, +S2 GI/Abdominal exam: PRESENT: soft Neurological exam: PRESENT: alert Results Laboratory Results: 10/11/20 16:59 10/14/20 05:07 Impressions: Chest X-Ray 10/05/20 12:54 IMPRESSION: NO ACUTE RADIOGRAPHIC FINDING IN THE CHEST. Abdomen/Pelvis CT 10/05/20 17:56 IMPRESSION: 1. There is a large well-defined fluid collection also containing air posterior to the urinary bladder suspicious for abscess. The wall is relatively thin not typical of abscess. The findings is in proximity to anastomotic surgery associated with the sigmoid colon. 2. There has been increase in size of a ventral hernia in the upper abdominal wall which now contains distal stomach and left lobe of liver. 2. New postsurgical abnormalities associated with the umbilicus and inferior to the umbilicus. Predominantly soft tissue thickening. Cannot completely exclude a small component of fluid/abscess or phlegmon in that region also. 3. There is a left anterior abdominal wall defect which is questionably an ostomy but obvious bowel is not seen. There are some inflammatory changes in that region. 4. Since previous CT from 11/26/2019, hepatosplenomegaly has increased. Renal size is increased. Rule out renal medical disease. Suggest clinical correlation. 5. Mild to moderate pericardial effusion minimally increased since previous CT. 6. Previous pleural-parenchymal abnormalities improved. However new subtle nodular findings in the right lower lobe possibly infectious. One of the nodular lesions demonstrates a tiny cavitation. Pelvis CT 10/07/20 08:00 IMPRESSION: No residual fluid collection in the pelvis. Large bore drainage catheter remains in place. PICC Line Insertion 10/08/20 00:00 IMPRESSION: SUCCESSFUL PLACEMENT OF A 5 FR DUAL LUMEN 36 cm CM PICC IN THE LEFT BASILIC VEIN. Tunnelled Catheter Removal 10/08/20 00:00 IMPRESSION: Successful tunneled catheter removal as described. Assessment & Plan - Diagnosis (1) Pneumonia, unspecified organism Is this a current diagnosis for this admission?: Yes Plan: Continue IV antibiotic (2) Sepsis Qualifiers: Sepsis type: sepsis due to unspecified organism Sepsis acute organ dysfunction status: with acute organ dysfunction Severe sepsis acute organ dysfunction type: acute respiratory failure Acute respiratory failure type: with hypoxia Severe sepsis shock status: without septic shock Qualified Code(s): A41.9 - Sepsis, unspecified organism; R65.20 - Severe sepsis without septic shock; J96.01 - Acute respiratory failure with hypoxia Is this a current diagnosis for this admission?: Yes Plan: Continue all supportive treatment, Follow lab work (3) Enterocutaneous fistula Is this a current diagnosis for this admission?: Yes Plan: Continue TPN, Prognosis guarded (4) Hypovolemia dehydration Is this a current diagnosis for this admission?: Yes - Time Time Spent with patient: 25-34 minutes Level of Care: IMCU Medications reviewed and adjusted accordingly: Yes Anticipated discharge: Home Anticipated DC Timeframe: within 36 hours - Inpatient Certification Based on my medical assessment, after consideration of the patient's comorbidities, presenting symptoms, or acuity I expect that the services needed warrant INPATIENT care.: Yes I certify that my determination is in accordance with my understanding of Medicare's requirements for reasonable and necessary INPATIENT services [42 CFR 412.3e].: Yes
[2020-10-16] MEDS: ATORVASTATIN CALCIUM 20 MG TABLET PO SCH (22:59)
[2020-10-17] MEDS: AZTREONAM 1 GM in DEXTROSE 5%-WATER 50 ML IV SCH ×3 (01:09→17:42)
[2020-10-17] MEDS: NORMAL SALINE 10 ML SDV (AFTER EACH USE) IV PRN ×2 (01:12→06:13)
[2020-10-17] MEDS: OXYCODONE HCL IR 5 MG TABLET PO PRN ×4 (06:13→22:55)
[2020-10-17] MEDS: ONDANSETRON HCL INJ/PF 4 MG/2 ML SDV IV PRN ×4 (06:13→22:54)
[2020-10-17] MEDS: INSULIN REG, HUMAN 100 UNIT/ML 3 ML VIAL (PYX) SUBCUT SCH ×2 (06:21→13:08)
[2020-10-17] MEDS: OCTREOTIDE ACETATE INJ/PF 100 MCG/1 ML SDV SUBCUT SCH ×3 (06:21→22:55)
[2020-10-17] MEDS: NORMAL SALINE 10 ML SDV (SCHEDULED) IV SCH ×2 (10:09→22:54)
[2020-10-17] MEDS: AMINO ACIDS 5 %/DEXTROSE 20 % 2,000 ML IV PRN (10:49)
[2020-10-17] MEDS: FLUCONAZOLE 200 MG/NS RTU 200 MG/100 ML RTUPB IV SCH (10:57)
[2020-10-17] MEDS: LEVOFLOXACIN 500 MG/D5W RTU 500 MG/100 ML RTUPB IV SCH (13:24)
--- NOTE | 2020-10-17 19:33 | PDOC PROGRESS REPORT ---
Subjective Date:: 10/17/20 Subjective:: Patient seen by the bedside with multiple comorbid conditions admitted at this [facility] for the management of pneumonia with sepsis, she has indwelling colostomy bag, enterocutaneous fistula, she is on TPN chronically ,n.p.o. 10/13/2020 Patient seen the bedside there is no significant change from yesterday, White blood cell decreasing, good sign 10/14/2020 Patient seen by the bedside admitted for sepsis with pneumonia, she continues to make progress 10/15/2020 There is no significant change from yesterday continue IV antibiotic 10/16/2020 Patient seen by the bedside, there is no new complaints 10/17/2020 No new complaints continue present management Reason For Visit: PNEUMONIA, SEPSIS UNSPECIFIED PROTEIN MALNUTRITION Physical Exam Vital Signs: Temp Pulse Resp BP Pulse Ox 98.9 F 67 17 114/49 L 100 10/17/20 12:22 10/17/20 14:00 10/17/20 12:22 10/17/20 12:22 10/17/20 12:22 Intake & Output 10/16/20 10/17/20 10/18/20 06:59 06:59 06:59 Intake Total 350 200 200 Output Total 350 Balance 0 200 200 Weight 58.3 kg 53.9 kg General appearance: PRESENT: no acute distress Eye exam: PRESENT: PERRLA Respiratory exam: PRESENT: clear to auscultation bucky Cardiovascular exam: PRESENT: +S1, +S2 GI/Abdominal exam: PRESENT: soft Results Laboratory Results: 10/11/20 16:59 10/14/20 05:07 Impressions: Chest X-Ray 10/05/20 12:54 IMPRESSION: NO ACUTE RADIOGRAPHIC FINDING IN THE CHEST. Abdomen/Pelvis CT 10/05/20 17:56 IMPRESSION: 1. There is a large well-defined fluid collection also containing air posterior to the urinary bladder suspicious for abscess. The wall is relatively thin not typical of abscess. The findings is in proximity to anastomotic surgery associated with the sigmoid colon. 2. There has been increase in size of a ventral hernia in the upper abdominal wall which now contains distal stomach and left lobe of liver. 2. New postsurgical abnormalities associated with the umbilicus and inferior to the umbilicus. Predominantly soft tissue thickening. Cannot completely exclude a small component of fluid/abscess or phlegmon in that region also. 3. There is a left anterior abdominal wall defect which is questionably an ostomy but obvious bowel is not seen. There are some inflammatory changes in that region. 4. Since previous CT from 11/26/2019, hepatosplenomegaly has increased. Renal size is increased. Rule out renal medical disease. Suggest clinical correlation. 5. Mild to moderate pericardial effusion minimally increased since previous CT. 6. Previous pleural-parenchymal abnormalities improved. However new subtle nodular findings in the right lower lobe possibly infectious. One of the nodular lesions demonstrates a tiny cavitation. Pelvis CT 10/07/20 08:00 IMPRESSION: No residual fluid collection in the pelvis. Large bore drainage catheter remains in place. PICC Line Insertion 10/08/20 00:00 IMPRESSION: SUCCESSFUL PLACEMENT OF A 5 FR DUAL LUMEN 36 cm CM PICC IN THE LEFT BASILIC VEIN. Tunnelled Catheter Removal 10/08/20 00:00 IMPRESSION: Successful tunneled catheter removal as described. Assessment & Plan - Diagnosis (1) Pneumonia, unspecified organism Is this a current diagnosis for this admission?: Yes Plan: Continue IV antibiotic (2) Sepsis Qualifiers: Sepsis type: sepsis due to unspecified organism Sepsis acute organ dysfunction status: with acute organ dysfunction Severe sepsis acute organ dysfunction type: acute respiratory failure Acute respiratory failure type: with hypoxia Severe sepsis shock status: without septic shock Qualified Code(s): A41.9 - Sepsis, unspecified organism; R65.20 - Severe sepsis without septic shock; J96.01 - Acute respiratory failure with hypoxia Is this a current diagnosis for this admission?: Yes Plan: Continue all supportive treatment, Follow lab work (3) Enterocutaneous fistula Is this a current diagnosis for this admission?: Yes Plan: Continue TPN, Prognosis guarded (4) Hypovolemia dehydration Is this a current diagnosis for this admission?: Yes - Time Time Spent with patient: 25-34 minutes Level of Care: MEDICAL Anticipated discharge: Home Anticipated DC Timeframe: within 48 hours
[2020-10-17] MEDS: ATORVASTATIN CALCIUM 20 MG TABLET PO SCH (22:54)
[2020-10-18] MEDS: AZTREONAM 1 GM in DEXTROSE 5%-WATER 50 ML IV SCH ×3 (03:00→17:37)
[2020-10-18] MEDS: OXYCODONE HCL IR 5 MG TABLET PO PRN ×5 (03:01→22:34)
[2020-10-18] MEDS: ONDANSETRON HCL INJ/PF 4 MG/2 ML SDV IV PRN ×5 (03:01→22:34)
[2020-10-18] MEDS: NORMAL SALINE 10 ML SDV (AFTER EACH USE) IV PRN (05:52)
[2020-10-18] MEDS: OCTREOTIDE ACETATE INJ/PF 100 MCG/1 ML SDV SUBCUT SCH ×3 (06:51→22:35)
[2020-10-18 07:52] LABS: INTERNATIONAL RATION (INR) 1.11; PROTHROMBIN TIME 14.5 SEC (11.4-15.4)
[2020-10-18] MEDS: INSULIN REG, HUMAN 100 UNIT/ML 3 ML VIAL (PYX) SUBCUT SCH ×3 (07:58→19:37)
[2020-10-18 07:59] LABS: HEMATOCRIT 27.8 % (36.0-47.0); HEMOGLOBIN 9.4 g/dL (12.0-15.5); MEAN CORPUSCULAR HEMOGLOBIN 31.2 pg (27.0-33.4); MEAN CORPUSCULAR HGB CONC 33.8 g/dL (32.0-36.0); MEAN CORPUSCULAR VOLUME 92 fl (80-97); PLATELET COUNT 327 10^3/uL (150-450); RED BLOOD COUNT 3.01 10^6/uL (3.72-5.28); WHITE BLOOD COUNT 8.4 10^3/uL (4.0-10.5)
[2020-10-18 08:41] LABS: ALBUMIN 3.3 g/dL (3.5-5.0); ALKALINE PHOSPHATASE 92 U/L (38-126); ANION GAP 12 (5-19); ASPARTATE AMINO TRANSFERASE 19 U/L (14-36); BILIRUBIN,DIRECT 0.2 mg/dL (0.0-0.4); BILIRUBIN,TOTAL 0.4 mg/dL (0.2-1.3); BLOOD UREA NITROGEN 19 mg/dL (7-20); CALCIUM 9.8 mg/dL (8.4-10.2); CARBON DIOXIDE 19 mmol/L (22-30); CHLORIDE 104 mmol/L (98-107); GLUCOSE 95 mg/dL (75-110); PHOSPHORUS 4.5 mg/dL (2.5-4.5); TOTAL PROTEIN 7.9 g/dL (6.3-8.2)
[2020-10-18 08:51] LABS: PREALBUMIN 33.1 mg/dL (17.6-36.0)
[2020-10-18] MEDS: NORMAL SALINE 10 ML SDV (SCHEDULED) IV SCH ×2 (10:01→22:34)
[2020-10-18] MEDS: FAT EMULSIONS 250 ML IV SCH (10:01)
[2020-10-18] MEDS: FLUCONAZOLE 200 MG/NS RTU 200 MG/100 ML RTUPB IV SCH (11:14)
[2020-10-18] MEDS: LEVOFLOXACIN 500 MG/D5W RTU 500 MG/100 ML RTUPB IV SCH (12:45)
--- NOTE | 2020-10-18 17:13 | PDOC PROGRESS REPORT ---
Subjective Date:: 10/18/20 Subjective:: No chest pain or difficulty with breathing. Patient reported pain from her vagin al drainage tube and nursing staff reported drainage about 10-20 cc per shift. Currently awaiting surgicalist input. No fever or chills. No nausea, vomiting, and abdominal pain. She remain on TPN support. Reason For Visit: PNEUMONIA, SEPSIS UNSPECIFIED PROTEIN MALNUTRITION Physical Exam Vital Signs: Temp Pulse Resp BP Pulse Ox 99.2 F 106 H 17 116/50 L 100 10/18/20 12:52 10/18/20 14:00 10/18/20 12:52 10/18/20 12:52 10/18/20 12:52 Intake & Output 10/17/20 10/18/20 10/19/20 06:59 06:59 06:59 Intake Total 200 200 450 Output Total 400 Balance 200 -200 450 Weight 53.9 kg 53.9 kg 53.9 kg Physical Exam: General appearance: PRESENT: no acute distress, well-developed, well-nourished Head exam: PRESENT: atraumatic, normocephalic Eye exam: PRESENT: conjunctiva pink. ABSENT: pallor, sclera icterus Mouth exam: PRESENT: moist - fairly Respiratory exam: PRESENT: clear to auscultation bucky Cardiovascular exam: PRESENT: RRR, +S1, +S2. ABSENT: diastolic murmur, rubs, systolic murmur GI/Abdominal exam: PRESENT: normal bowel sounds, soft, tenderness - around enterocutaneous fistulas sites, other - nonfunctioning colostomy Extremities exam: ABSENT: pedal edema : Vaginal drainage tube for pelvic abscess in situ with reported drainage as noted above. Neurological exam: PRESENT: alert, awake, oriented to person, oriented to place, oriented to time, oriented to situation, CN II-XII grossly intact. ABSENT: motor sensory deficit Psychiatric exam: PRESENT: appropriate affect, normal mood. ABSENT: homicidal ideation, suicidal ideation Skin exam: PRESENT: dry, warm, other - as noted above Results Laboratory Results: 10/18/20 05:55 10/18/20 05:55 10/18/20 10/18/20 05:55 05:55 WBC 8.4 RBC 3.01 L Hgb 9.4 L Hct 27.8 L MCV 92 MCH 31.2 MCHC 33.8 RDW 16.0 H Plt Count 327 Sodium 134.8 L Potassium 5.0 Chloride 104 Carbon Dioxide 19 L Anion Gap 12 BUN 19 Creatinine 0.56 Est GFR ( Amer) > 60 Glucose 95 Calcium 9.8 Phosphorus 4.5 Magnesium 1.7 Total Bilirubin 0.4 AST 19 Alkaline Phosphatase 92 Total Protein 7.9 Albumin 3.3 L Prealbumin 33.1 Impressions: Chest X-Ray 10/05/20 12:54 IMPRESSION: NO ACUTE RADIOGRAPHIC FINDING IN THE CHEST. Abdomen/Pelvis CT 10/05/20 17:56 IMPRESSION: 1. There is a large well-defined fluid collection also containing air posterior to the urinary bladder suspicious for abscess. The wall is relatively thin not typical of abscess. The findings is in proximity to anastomotic surgery associated with the sigmoid colon. 2. There has been increase in size of a ventral hernia in the upper abdominal wall which now contains distal stomach and left lobe of liver. 2. New postsurgical abnormalities associated with the umbilicus and inferior to the umbilicus. Predominantly soft tissue thickening. Cannot completely exclude a small component of fluid/abscess or phlegmon in that region also. 3. There is a left anterior abdominal wall defect which is questionably an ostomy but obvious bowel is not seen. There are some inflammatory changes in that region. 4. Since previous CT from 11/26/2019, hepatosplenomegaly has increased. Renal size is increased. Rule out renal medical disease. Suggest clinical correlation. 5. Mild to moderate pericardial effusion minimally increased since previous CT. 6. Previous pleural-parenchymal abnormalities improved. However new subtle nodular findings in the right lower lobe possibly infectious. One of the nodular lesions demonstrates a tiny cavitation. Pelvis CT 10/07/20 08:00 IMPRESSION: No residual fluid collection in the pelvis. Large bore drainage catheter remains in place. PICC Line Insertion 10/08/20 00:00 IMPRESSION: SUCCESSFUL PLACEMENT OF A 5 FR DUAL LUMEN 36 cm CM PICC IN THE LEFT BASILIC VEIN. Tunnelled Catheter Removal 10/08/20 00:00 IMPRESSION: Successful tunneled catheter removal as described. Assessment & Plan - Diagnosis (1) Pneumonia Qualifiers: Pneumonia type: due to unspecified organism Laterality: right Lung location: lower lobe of lung Qualified Code(s): J18.9 - Pneumonia, unspecified organism Is this a current diagnosis for this admission?: Yes (2) Sepsis Qualifiers: Sepsis type: sepsis due to unspecified organism Sepsis acute organ dys function status: with acute organ dysfunction Severe sepsis acute organ d ysfunction type: acute respiratory failure Acute respiratory failure type: with hypoxia Severe sepsis shock status: without septic shock Qualified Code(s): A41.9 - Sepsis, unspecified organism; R65.20 - Severe sepsis without septic shock; J96.01 - Acute respiratory failure with hypoxia Is this a current diagnosis for this admission?: Yes (3) Hypoalbuminemia Is this a current diagnosis for this admission?: Yes (4) Enterocutaneous fistula Is this a current diagnosis for this admission?: Yes (5) Hypovolemia dehydration Is this a current diagnosis for this admission?: Yes (6) Hypokalemia Is this a current diagnosis for this admission?: Yes (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 Is this a current diagnosis for this admission?: Yes (8) Colostomy stricture Is this a current diagnosis for this admission?: Yes (9) History of stroke with current residual effects Is this a current diagnosis for this admission?: Yes (10) Pelvic abscess Is this a current diagnosis for this admission?: Yes - Time Time Spent with patient: 25-34 minutes Level of Care: TELE Medications reviewed and adjusted accordingly: Yes Anticipated discharge: Home with Homehealth Anticipated DC Timeframe: within 72 hours - Inpatient Certification Based on my medical assessment, after consideration of the patient's comorbidities, presenting symptoms, or acuity I expect that the services needed warrant INPATIENT care.: Yes I certify that my determination is in accordance with my understanding of Medicare's requirements for reasonable and necessary INPATIENT services [42 CFR 412.3e].: Yes Medical Necessity: Significant Comorbidiites Make Outpatient Treatment Too Risky, Need Close Monitoring Due to Risk of Patient Decompensation, Need For IV Fluids, Need For Continuous Telemetry Monitoring, Need for IV Antibiotics, Risk of Complication if Not Cared For in Hospital, Risk of Diagnosis Which Will Require Inpatient Eval/Care/Monitoring Post Hospital Care: D/C Scudding Inspector Documentation - Plan Summary Plan Summary: Maintain on current medical management. Follow up on surgicalist consultation request. I discussed case with Dr. Cosme.
[2020-10-18] MEDS: AMINO ACIDS 5 %/DEXTROSE 20 % 2,000 ML IV PRN (17:43)
--- NOTE | 2020-10-18 20:08 | PDOC PROGRESS REPORT ---
Subjective Date:: 10/18/20 Reason For Visit: PNEUMONIA, SEPSIS UNSPECIFIED PROTEIN MALNUTRITION Received call from Dr. Grove to remove vaginal drain. Amount of drainage fluctuates depending upon drain orientation. Physical Exam Vital Signs: Temp Pulse Resp BP Pulse Ox 99.2 F 106 H 17 116/50 L 100 10/18/20 12:52 10/18/20 14:00 10/18/20 12:52 10/18/20 12:52 10/18/20 12:52 Intake & Output 10/17/20 10/18/20 10/19/20 06:59 06:59 06:59 Intake Total 200 200 450 Output Total 400 100 Balance 200 -200 350 Weight 53.9 kg 53.9 kg 53.9 kg Gentrourinary exam: PRESENT: other - [place] drain removed intact uneventfully Results Laboratory Results: 10/18/20 05:55 10/18/20 05:55 10/18/20 10/18/20 05:55 05:55 WBC 8.4 RBC 3.01 L Hgb 9.4 L Hct 27.8 L MCV 92 MCH 31.2 MCHC 33.8 RDW 16.0 H Plt Count 327 Sodium 134.8 L Potassium 5.0 Chloride 104 Carbon Dioxide 19 L Anion Gap 12 BUN 19 Creatinine 0.56 Est GFR ( Amer) > 60 Glucose 95 Calcium 9.8 Phosphorus 4.5 Magnesium 1.7 Total Bilirubin 0.4 AST 19 Alkaline Phosphatase 92 Total Protein 7.9 Albumin 3.3 L Prealbumin 33.1 Impressions: Chest X-Ray 10/05/20 12:54 IMPRESSION: NO ACUTE RADIOGRAPHIC FINDING IN THE CHEST. Abdomen/Pelvis CT 10/05/20 17:56 IMPRESSION: 1. There is a large well-defined fluid collection also containing air posterior to the urinary bladder suspicious for abscess. The wall is relatively thin not typical of abscess. The findings is in proximity to anastomotic surgery associated with the sigmoid colon. 2. There has been increase in size of a ventral hernia in the upper abdominal wall which now contains distal stomach and left lobe of liver. 2. New postsurgical abnormalities associated with the umbilicus and inferior to the umbilicus. Predominantly soft tissue thickening. Cannot completely exclude a small component of fluid/abscess or phlegmon in that region also. 3. There is a left anterior abdominal wall defect which is questionably an ostomy but obvious bowel is not seen. There are some inflammatory changes in that region. 4. Since previous CT from 11/26/2019, hepatosplenomegaly has increased. Renal size is increased. Rule out renal medical disease. Suggest clinical correlation. 5. Mild to moderate pericardial effusion minimally increased since previous CT. 6. Previous pleural-parenchymal abnormalities improved. However new subtle nodular findings in the right lower lobe possibly infectious. One of the nodular lesions demonstrates a tiny cavitation. Pelvis CT 10/07/20 08:00 IMPRESSION: No residual fluid collection in the pelvis. Large bore drainage catheter remains in place. PICC Line Insertion 10/08/20 00:00 IMPRESSION: SUCCESSFUL PLACEMENT OF A 5 FR DUAL LUMEN 36 cm CM PICC IN THE LEFT BASILIC VEIN. Tunnelled Catheter Removal 10/08/20 00:00 IMPRESSION: Successful tunneled catheter removal as described. Assessment & Plan - Diagnosis (1) Pelvic abscess Is this a current diagnosis for this admission?: Yes Plan: Impression: Uneventful vaginal drain removed at bedside Plan: 1. Continue medical management 2. Surgery will sign off at this time; reconsult if clinically indicated - Time Anticipated Discharge Disposition: Home, Self Care Anticipated Discharge Timeframe: within 24 hours
[2020-10-18] MEDS: ATORVASTATIN CALCIUM 20 MG TABLET PO SCH (22:34)
[2020-10-19] MEDS: INSULIN REG, HUMAN 100 UNIT/ML 3 ML VIAL (PYX) SUBCUT SCH ×4 (01:21→19:37)
[2020-10-19] MEDS: AZTREONAM 1 GM in DEXTROSE 5%-WATER 50 ML IV SCH ×3 (02:06→18:29)
[2020-10-19] MEDS: ONDANSETRON HCL INJ/PF 4 MG/2 ML SDV IV PRN ×3 (04:25→22:37)
[2020-10-19] MEDS: OXYCODONE HCL IR 5 MG TABLET PO PRN ×5 (04:25→22:37)
[2020-10-19] MEDS: OCTREOTIDE ACETATE INJ/PF 100 MCG/1 ML SDV SUBCUT SCH ×3 (06:36→22:40)
[2020-10-19] MEDS: FLUCONAZOLE 200 MG/NS RTU 200 MG/100 ML RTUPB IV SCH (10:24)
[2020-10-19] MEDS: NORMAL SALINE 10 ML SDV (SCHEDULED) IV SCH ×2 (12:01→22:36)
[2020-10-19] MEDS: LEVOFLOXACIN 500 MG/D5W RTU 500 MG/100 ML RTUPB IV SCH (12:04)
--- NOTE | 2020-10-19 18:37 | PDOC PROGRESS REPORT ---
Subjective Date:: 10/19/20 Subjective:: No chest pain or difficulty with breathing. No fever or chills. No nausea, vomit ing, and abdominal pain. She remain on TPN support. Her pelvic drainage tube was removed by Dr. Cosme. The intent of the consultation was to re-evaluate her pelvic abscess due to continued variable drainage NOT for removal as stated by the surgeon. Reason For Visit: PNEUMONIA, SEPSIS UNSPECIFIED PROTEIN MALNUTRITION Physical Exam Vital Signs: Temp Pulse Resp BP Pulse Ox 98.6 F 81 16 118/56 L 100 10/19/20 12:31 10/19/20 14:00 10/19/20 12:31 10/19/20 12:31 10/19/20 12:31 Intake & Output 10/18/20 10/19/20 10/20/20 06:59 06:59 06:59 Intake Total 200 450 143 Output Total 400 100 50 Balance -200 350 93 Weight 53.9 kg 23.2 kg Physical Exam: General appearance: PRESENT: no acute distress, well-developed, well-nourished Head exam: PRESENT: atraumatic, normocephalic Eye exam: PRESENT: conjunctiva pink. ABSENT: pallor, sclera icterus Mouth exam: PRESENT: moist - fairly Respiratory exam: PRESENT: clear to auscultation bucky Cardiovascular exam: PRESENT: RRR, +S1, +S2. ABSENT: diastolic murmur, rubs, systolic murmur GI/Abdominal exam: PRESENT: normal bowel sounds, soft, tenderness - around enterocutaneous fistulas sites, other - nonfunctioning colostomy Extremities exam: ABSENT: pedal edema : Vaginal drainage tube has been removed. Neurological exam: PRESENT: alert, awake, oriented to person, oriented to place, oriented to time, oriented to situation, CN II-XII grossly intact. ABSENT: motor sensory deficit Psychiatric exam: PRESENT: appropriate affect, normal mood. Skin exam: PRESENT: dry, warm, other - as noted above Results Laboratory Results: 10/18/20 05:55 10/18/20 05:55 10/19/20 04:30 Triglycerides 59 Impressions: Chest X-Ray 10/05/20 12:54 IMPRESSION: NO ACUTE RADIOGRAPHIC FINDING IN THE CHEST. Abdomen/Pelvis CT 10/05/20 17:56 IMPRESSION: 1. There is a large well-defined fluid collection also containing air posterior to the urinary bladder suspicious for abscess. The wall is relatively thin not typical of abscess. The findings is in proximity to anastomotic surgery associated with the sigmoid colon. 2. There has been increase in size of a ventral hernia in the upper abdominal wall which now contains distal stomach and left lobe of liver. 2. New postsurgical abnormalities associated with the umbilicus and inferior to the umbilicus. Predominantly soft tissue thickening. Cannot completely exclude a small component of fluid/abscess or phlegmon in that region also. 3. There is a left anterior abdominal wall defect which is questionably an ostomy but obvious bowel is not seen. There are some inflammatory changes in that region. 4. Since previous CT from 11/26/2019, hepatosplenomegaly has increased. Renal size is increased. Rule out renal medical disease. Suggest clinical correlation. 5. Mild to moderate pericardial effusion minimally increased since previous CT. 6. Previous pleural-parenchymal abnormalities improved. However new subtle nodular findings in the right lower lobe possibly infectious. One of the nodular lesions demonstrates a tiny cavitation. Pelvis CT 10/07/20 08:00 IMPRESSION: No residual fluid collection in the pelvis. Large bore drainage catheter remains in place. PICC Line Insertion 10/08/20 00:00 IMPRESSION: SUCCESSFUL PLACEMENT OF A 5 FR DUAL LUMEN 36 cm CM PICC IN THE LEFT BASILIC VEIN. Tunnelled Catheter Removal 10/08/20 00:00 IMPRESSION: Successful tunneled catheter removal as described. Assessment & Plan - Diagnosis (1) Pneumonia Qualifiers: Pneumonia type: due to unspecified organism Laterality: right Lung location: lower lobe of lung Qualified Code(s): J18.9 - Pneumonia, unspecified organism Is this a current diagnosis for this admission?: Yes (2) Sepsis Qualifiers: Sepsis type: sepsis due to unspecified organism Sepsis acute organ dysfunction status: with acute organ dysfunction Severe sepsis acute organ dysfunction type: acute respiratory failure Acute respiratory failure type: with hypoxia Severe sepsis shock status: without septic shock Qualified Code(s): A41.9 - Sepsis, unspecified organism; R65.20 - Severe sepsis without septic shock; J96.01 - Acute respiratory failure with hypoxia Is this a current diagnosis for this admission?: Yes (3) Hypoalbuminemia Is this a current diagnosis for this admission?: Yes (4) Enterocutaneous fistula Is this a current diagnosis for this admission?: Yes (5) Hypovolemia dehydration Is this a current diagnosis for this admission?: Yes (6) Hypokalemia Is this a current diagnosis for this admission?: Yes (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 Is this a current diagnosis for this admission?: Yes (8) Colostomy stricture Is this a current diagnosis for this admission?: Yes (9) History of stroke with current residual effects Is this a current diagnosis for this admission?: Yes (10) Pelvic abscess Is this a current diagnosis for this admission?: Yes - Time Time Spent with patient: 25-34 minutes Level of Care: TELE Medications reviewed and adjusted accordingly: Yes Anticipated discharge: Home with Homehealth Anticipated DC Timeframe: within 72 hours - Inpatient Certification Based on my medical assessment, after consideration of the patient's co morbidities, presenting symptoms, or acuity I expect that the services needed warrant INPATIENT care.: Yes I certify that my determination is in accordance with my understanding of Medicare's requirements for reasonable and necessary INPATIENT services [42 CFR 412.3e].: Yes Medical Necessity: Significant Comorbidiites Make Outpatient Treatment Too Risky, Need Close Monitoring Due to Risk of Patient Decompensation, Need For IV Fluids, Need For Continuous Telemetry Monitoring, Need for IV Antibiotics, Risk of Complication if Not Cared For in Hospital, Risk of Diagnosis Which Will Require Inpatient Eval/Care/Monitoring Post Hospital Care: D/C Marine Engineering Professor Documentation - Plan Summary Plan Summary: Continue current medication management. Obtain CBC with diff and CMP in am.
[2020-10-19] MEDS: ATORVASTATIN CALCIUM 20 MG TABLET PO SCH (22:36)
[2020-10-20] MEDS: INSULIN REG, HUMAN 100 UNIT/ML 3 ML VIAL (PYX) SUBCUT SCH ×4 (00:44→20:44)
[2020-10-20] MEDS: AMINO ACIDS 5 %/DEXTROSE 20 % 2,000 ML IV PRN (02:24)
[2020-10-20] MEDS: AZTREONAM 1 GM in DEXTROSE 5%-WATER 50 ML IV SCH ×2 (02:25→11:02)
[2020-10-20] MEDS: ONDANSETRON HCL INJ/PF 4 MG/2 ML SDV IV PRN ×3 (04:10→22:39)
[2020-10-20] MEDS: OXYCODONE HCL IR 5 MG TABLET PO PRN ×3 (04:10→22:39)
[2020-10-20] MEDS: OCTREOTIDE ACETATE INJ/PF 100 MCG/1 ML SDV SUBCUT SCH ×3 (06:58→22:40)
[2020-10-20 08:52] LABS: ABSOLUTE BASOPHILS # (AUTO) 0.1 10^3/uL (0.0-0.2); ABSOLUTE EOSINOPHILS # (AUTO) 0.2 10^3/uL (0.0-0.6); ABSOLUTE LYMPHOCYTES (AUTO) 2.3 10^3/uL (0.5-4.7); ABSOLUTE MONOCYTES (AUTO) 0.6 10^3/uL (0.1-1.4); ABSOLUTE NEUT (AUTO) 4.8 10^3/uL (1.7-8.2); BASOPHILS % (AUTO) 1.3 % (0-2); EOSINOPHILS % (AUTO) 2.8 % (0-6); HEMATOCRIT 33.1 % (36.0-47.0); LYMPHOCYTES % (AUTO) 28.4 % (13-45); MEAN CORPUSCULAR HEMOGLOBIN 30.3 pg (27.0-33.4); MEAN CORPUSCULAR HGB CONC 33.3 g/dL (32.0-36.0); MEAN CORPUSCULAR VOLUME 91 fl (80-97); MONOCYTES % (AUTO) 7.9 % (3-13); PLATELET COUNT 295 10^3/uL (150-450); RED BLOOD COUNT 3.65 10^6/uL (3.72-5.28); RED CELL DISTRIBUTION WIDTH 15.7 % (11.5-14.0); SEGMENTED NEUTROPHILS % (AUTO) 59.6 % (42-78); TOTAL CELLS COUNTED % (AUTO) 100 %; WHITE BLOOD COUNT 8.1 10^3/uL (4.0-10.5)
[2020-10-20] MEDS: FLUCONAZOLE 200 MG/NS RTU 200 MG/100 ML RTUPB IV SCH (09:06)
[2020-10-20 09:07] LABS: ALKALINE PHOSPHATASE 93 U/L (38-126); ANION GAP 11 (5-19); ASPARTATE AMINO TRANSFERASE 25 U/L (14-36); BILIRUBIN,DIRECT 0.2 mg/dL (0.0-0.4); BILIRUBIN,TOTAL 0.4 mg/dL (0.2-1.3); BLOOD UREA NITROGEN 22 mg/dL (7-20); CALCIUM 10.6 mg/dL (8.4-10.2); CARBON DIOXIDE 20 mmol/L (22-30); CHLORIDE 102 mmol/L (98-107); GLUCOSE 101 mg/dL (75-110); POTASSIUM 5.5 mmol/L (3.6-5.0)
[2020-10-20] MEDS: NORMAL SALINE 10 ML SDV (SCHEDULED) IV SCH ×2 (15:52→22:39)
--- NOTE | 2020-10-20 17:46 | PDOC PROGRESS REPORT ---
Subjective Date:: 10/20/20 Subjective:: No chest pain or difficulty with breathing. No fever or chills. No nausea, vomit ing, and abdominal pain. She remain on TPN support. Reason For Visit: PNEUMONIA, SEPSIS UNSPECIFIED PROTEIN MALNUTRITION Physical Exam Vital Signs: Temp Pulse Resp BP Pulse Ox 98.7 F 71 16 116/56 L 100 10/20/20 12:02 10/20/20 14:00 10/20/20 12:02 10/20/20 12:02 10/20/20 12:02 Intake & Output 10/19/20 10/20/20 10/21/20 06:59 06:59 06:59 Intake Total 450 143 100 Output Total 100 300 150 Balance 350 -157 -50 Weight 23.2 kg 52.1 kg Physical Exam: General appearance: PRESENT: no acute distress, well-developed, well-nourished Head exam: PRESENT: atraumatic, normocephalic Eye exam: PRESENT: conjunctiva pink. ABSENT: pallor Mouth exam: PRESENT: moist Respiratory exam: PRESENT: clear to auscultation bucky Cardiovascular exam: PRESENT: RRR, +S1, +S2. ABSENT: diastolic murmur, rubs, systolic murmur GI/Abdominal exam: PRESENT: normal bowel sounds, soft, tenderness - around enterocutaneous fistulas sites, other - nonfunctioning colostomy Extremities exam: ABSENT: pedal edema Neurological exam: PRESENT: alert, awake, oriented to person, oriented to place, oriented to time, oriented to situation, CN II-XII grossly intact. ABSENT: m otor sensory deficit Psychiatric exam: PRESENT: appropriate affect, normal mood. Skin exam: PRESENT: dry, warm, other - as noted above Results Laboratory Results: 10/20/20 08:13 10/20/20 08:13 10/20/20 10/20/20 10/20/20 04:16 04:16 06:53 WBC Cancelled RBC Cancelled Hgb Cancelled Hct Cancelled MCV Cancelled MCH Cancelled MCHC Cancelled RDW Cancelled Plt Count Cancelled Seg Neutrophils % Cancelled Sodium Cancelled Cancelled Potassium Cancelled Cancelled Chloride Cancelled Cancelled Carbon Dioxide Cancelled Cancelled Anion Gap Cancelled Cancelled BUN Cancelled Cancelled Creatinine Cancelled Cancelled Est GFR ( Amer) Cancelled Cancelled Est GFR (Non-Af Amer) Cancelled Cancelled Glucose Cancelled Cancelled Calcium Cancelled Cancelled Total Bilirubin Cancelled Cancelled AST Cancelled Cancelled Alkaline Phosphatase Cancelled Cancelled Total Protein Cancelled Cancelled Albumin Cancelled Cancelled 10/20/20 10/20/20 10/20/20 06:53 08:13 08:13 WBC Cancelled 8.1 RBC Cancelled 3.65 L Hgb Cancelled 11.0 L Hct Cancelled 33.1 L MCV Cancelled 91 MCH Cancelled 30.3 MCHC Cancelled 33.3 RDW Cancelled 15.7 H Plt Count Cancelled 295 Seg Neutrophils % Cancelled 59.6 Sodium 132.5 L Potassium 5.5 H Chloride 102 Carbon Dioxide 20 L Anion Gap 11 BUN 22 H Creatinine 0.56 Est GFR ( Amer) > 60 Est GFR (Non-Af Amer) Glucose 101 Calcium 10.6 H Total Bilirubin 0.4 AST 25 Alkaline Phosphatase 93 Total Protein 9.0 H Albumin 4.0 Impressions: Chest X-Ray 10/05/20 12:54 IMPRESSION: NO ACUTE RADIOGRAPHIC FINDING IN THE CHEST. Abdomen/Pelvis CT 10/05/20 17:56 IMPRESSION: 1. There is a large well-defined fluid collection also containing air posterior to the urinary bladder suspicious for abscess. The wall is relatively thin not typical of abscess. The findings is in proximity to anastomotic surgery associated with the sigmoid colon. 2. There has been increase in size of a ventral hernia in the upper abdominal wall which now contains distal stomach and left lobe of liver. 2. New postsurgical abnormalities associated with the umbilicus and inferior to the umbilicus. Predominantly soft tissue thickening. Cannot completely exclude a small component of fluid/abscess or phlegmon in that region also. 3. There is a left anterior abdominal wall defect which is questionably an ostomy but obvious bowel is not seen. There are some inflammatory changes in that region. 4. Since previous CT from 11/26/2019, hepatosplenomegaly has increased. Renal size is increased. Rule out renal medical disease. Suggest clinical correlation. 5. Mild to moderate pericardial effusion minimally increased since previous CT. 6. Previous pleural-parenchymal abnormalities improved. However new subtle nodular findings in the right lower lobe possibly infectious. One of the nodular lesions demonstrates a tiny cavitation. Pelvis CT 10/07/20 08:00 IMPRESSION: No residual fluid collection in the pelvis. Large bore drainage catheter remains in place. PICC Line Insertion 10/08/20 00:00 IMPRESSION: SUCCESSFUL PLACEMENT OF A 5 FR DUAL LUMEN 36 cm CM PICC IN THE LEFT BASILIC VEIN. Tunnelled Catheter Removal 10/08/20 00:00 IMPRESSION: Successful tunneled catheter removal as described. Assessment & Plan - Diagnosis (1) Pneumonia Qualifiers: Pneumonia type: due to unspecified organism Laterality: right Lung location: lower lobe of lung Qualified Code(s): J18.9 - Pneumonia, unspecified organism Is this a current diagnosis for this admission?: Yes (2) Sepsis Qualifiers: Sepsis type: sepsis due to unspecified organism Sepsis acute organ dysfunction status: with acute organ dysfunction Severe sepsis acute organ dysfunction type: acute respiratory failure Acute respiratory failure type: with hypoxia Severe sepsis shock status: without septic shock Qualified Code(s): A41.9 - Sepsis, unspecified organism; R65.20 - Severe sepsis without se ptic shock; J96.01 - Acute respiratory failure with hypoxia Is this a current diagnosis for this admission?: Yes (3) Hypoalbuminemia Is this a current diagnosis for this admission?: Yes (4) Enterocutaneous fistula Is this a current diagnosis for this admission?: Yes (5) Hypovolemia dehydration Is this a current diagnosis for this admission?: Yes (6) Hypokalemia Is this a current diagnosis for this admission?: Yes (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 Is this a current diagnosis for this admission?: Yes (8) Colostomy stricture Is this a current diagnosis for this admission?: Yes (9) History of stroke with current residual effects Is this a current diagnosis for this admission?: Yes (10) Pelvic abscess Is this a current diagnosis for this admission?: Yes - Time Time Spent with patient: 25-34 minutes Level of Care: TELE Medications reviewed and adjusted accordingly: Yes Anticipated discharge: Home with Homehealth Anticipated DC Timeframe: within 72 hours - Inpatient Certification Based on my medical assessment, after consideration of the patient's comorbidities, presenting symptoms, or acuity I expect that the services needed warrant INPATIENT care.: Yes I certify that my determination is in accordance with my understanding of Medicare's requirements for reasonable and necessary INPATIENT services [42 CFR 412.3e].: Yes Medical Necessity: Significant Comorbidiites Make Outpatient Treatment Too Risky, Need Close Monitoring Due to Risk of Patient Decompensation, Need For Continuous Telemetry Monitoring, Need for IV Antibiotics, Risk of Complication if Not Cared For in Hospital, Risk of Diagnosis Which Will Require Inpatient Eval/Care/Monitoring Post Hospital Care: D/C Mohs Surgeon Documentation - Plan Summary Plan Summary: Continue current medication management. Possible discharge home tomorrow was discussed with patient.
[2020-10-20] MEDS ORDERED: OXYCODONE HCL IR 5 MG TABLET PO SCH (18:00)
[2020-10-20] MEDS ORDERED: AZTREONAM 1 GM in DEXTROSE 5%-WATER 50 ML IV SCH (18:00)
[2020-10-20] MEDS: ATORVASTATIN CALCIUM 20 MG TABLET PO SCH (22:38)
[2020-10-21] MEDS: OXYCODONE HCL IR 5 MG TABLET PO PRN ×5 (04:40→22:53)
[2020-10-21] MEDS: ONDANSETRON HCL INJ/PF 4 MG/2 ML SDV IV PRN ×4 (04:40→22:58)
[2020-10-21] MEDS: OCTREOTIDE ACETATE INJ/PF 100 MCG/1 ML SDV SUBCUT SCH ×3 (05:28→22:46)
[2020-10-21 06:10] LABS: ALBUMIN 4.1 g/dL (3.5-5.0); ALKALINE PHOSPHATASE 108 U/L (38-126); ANION GAP 11 (5-19); ASPARTATE AMINO TRANSFERASE 27 U/L (14-36); BILIRUBIN,DIRECT 0.1 mg/dL (0.0-0.4); BILIRUBIN,TOTAL 0.4 mg/dL (0.2-1.3); BLOOD UREA NITROGEN 28 mg/dL (7-20); CALCIUM 10.9 mg/dL (8.4-10.2); CARBON DIOXIDE 20 mmol/L (22-30); CHLORIDE 100 mmol/L (98-107); GLUCOSE 74 mg/dL (75-110); POTASSIUM 5.5 mmol/L (3.6-5.0); TOTAL PROTEIN 9.1 g/dL (6.3-8.2)
[2020-10-21 06:18] LABS: PREALBUMIN 39.9 mg/dL (17.6-36.0)
[2020-10-21] MEDS: INSULIN REG, HUMAN 100 UNIT/ML 3 ML VIAL (PYX) SUBCUT SCH ×5 (06:42→23:10)
[2020-10-21] MEDS: FAT EMULSIONS 250 ML IV SCH (09:16)
[2020-10-21] MEDS: FLUCONAZOLE 200 MG/NS RTU 200 MG/100 ML RTUPB IV SCH (09:17)
[2020-10-21] MEDS: NORMAL SALINE 10 ML SDV (SCHEDULED) IV SCH ×2 (09:19→22:52)
[2020-10-21] MEDS ORDERED: LEVOFLOXACIN 500 MG/D5W RTU 500 MG/100 ML RTUPB IV SCH (10:00)
[2020-10-21] MEDS: AMINO ACIDS 5 %/DEXTROSE 20 % 2,000 ML IV PRN (14:22)
--- NOTE | 2020-10-21 19:12 | PDOC PROGRESS REPORT ---
Subjective Date:: 10/21/20 Subjective:: No chest pain or difficulty with breathing. No fever or chills. No nausea, vomit ing, and abdominal pain. She remain on TPN support. Awaiting arrangement for home TPN service initiation. Reason For Visit: PNEUMONIA, SEPSIS UNSPECIFIED PROTEIN MALNUTRITION Physical Exam Vital Signs: Temp Pulse Resp BP Pulse Ox 98.6 F 93 16 122/68 100 10/21/20 15:04 10/21/20 15:04 10/21/20 15:04 10/21/20 15:04 10/21/20 15:04 Intake & Output 10/20/20 10/21/20 10/22/20 06:59 06:59 06:59 Intake Total 143 360 350 Output Total 300 310 Balance -157 50 350 Weight 52.1 kg 52 kg 52 kg Physical Exam: General appearance: PRESENT: no acute distress, well-developed, well-nourished Head exam: PRESENT: atraumatic, normocephalic Eye exam: PRESENT: conjunctiva pink. ABSENT: pallor Mouth exam: PRESENT: moist Respiratory exam: PRESENT: clear to auscultation bucky Cardiovascular exam: PRESENT: RRR, +S1, +S2. ABSENT: diastolic murmur, rubs, s ystolic murmur GI/Abdominal exam: PRESENT: normal bowel sounds, soft, tenderness - around enterocutaneous fistulas sites, other - nonfunctioning colostomy Extremities exam: ABSENT: pedal edema Neurological exam: PRESENT: alert, awake, oriented to person, oriented to place, oriented to time, oriented to situation, CN II-XII grossly intact. ABSENT: motor sensory deficit Psychiatric exam: PRESENT: appropriate affect, normal mood. Skin exam: PRESENT: dry, warm, other - as noted above Results Laboratory Results: 10/20/20 08:13 10/21/20 05:15 10/21/20 10/21/20 05:15 05:15 Sodium 131.4 L Potassium 5.5 H Chloride 100 Carbon Dioxide 20 L Anion Gap 11 BUN 28 H Creatinine 0.76 Est GFR ( Amer) > 60 Glucose 74 L Calcium 10.9 H Phosphorus 5.4 H Total Bilirubin 0.4 AST 27 Alkaline Phosphatase 108 Total Protein 9.1 H Albumin 4.1 Prealbumin 39.9 H Impressions: Chest X-Ray 10/05/20 12:54 IMPRESSION: NO ACUTE RADIOGRAPHIC FINDING IN THE CHEST. Abdomen/Pelvis CT 10/05/20 17:56 IMPRESSION: 1. There is a large well-defined fluid collection also containing air posterior to the urinary bladder suspicious for abscess. The wall is relatively thin not typical of abscess. The findings is in proximity to anastomotic surgery associated with the sigmoid colon. 2. There has been increase in size of a ventral hernia in the upper abdominal wall which now contains distal stomach and left lobe of liver. 2. New postsurgical abnormalities associated with the umbilicus and inferior to the umbilicus. Predominantly soft tissue thickening. Cannot completely exclude a small component of fluid/abscess or phlegmon in that region also. 3. There is a left anterior abdominal wall defect which is questionably an ostomy but obvious bowel is not seen. There are some inflammatory changes in that region. 4. Since previous CT from 11/26/2019, hepatosplenomegaly has increased. Renal size is increased. Rule out renal medical disease. Suggest clinical correlation. 5. Mild to moderate pericardial effusion minimally increased since previous CT. 6. Previous pleural-parenchymal abnormalities improved. However new subtle nodular findings in the right lower lobe possibly infectious. One of the nodular lesions demonstrates a tiny cavitation. Pelvis CT 10/07/20 08:00 IMPRESSION: No residual fluid collection in the pelvis. Large bore drainage catheter remains in place. PICC Line Insertion 10/08/20 00:00 IMPRESSION: SUCCESSFUL PLACEMENT OF A 5 FR DUAL LUMEN 36 cm CM PICC IN THE LEFT BASILIC VEIN. Tunnelled Catheter Removal 10/08/20 00:00 IMPRESSION: Successful tunneled catheter removal as described. Assessment & Plan - Diagnosis (1) Pneumonia Qualifiers: Pneumonia type: due to unspecified organism Laterality: right Lung location: lower lobe of lung Qualified Code(s): J18.9 - Pneumonia, unspecified organism Is this a current diagnosis for this admission?: Yes (2) Sepsis Qualifiers: Sepsis type: sepsis due to unspecified organism Sepsis acute organ dysf unction status: with acute organ dysfunction Severe sepsis acute organ dy sfunction type: acute respiratory failure Acute respiratory failure type: with hypoxia Severe sepsis shock status: without septic shock Qualified Code(s): A41.9 - Sepsis, unspecified organism; R65.20 - Severe sepsis without septic shock; J96.01 - Acute respiratory failure with hypoxia Is this a current diagnosis for this admission?: Yes (3) Hypoalbuminemia Is this a current diagnosis for this admission?: Yes (4) Enterocutaneous fistula Is this a current diagnosis for this admission?: Yes (5) Hypovolemia dehydration Is this a current diagnosis for this admission?: Yes (6) Hypokalemia Is this a current diagnosis for this admission?: Yes (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 Is this a current diagnosis for this admission?: Yes (8) Colostomy stricture Is this a current diagnosis for this admission?: Yes (9) History of stroke with current residual effects Is this a current diagnosis for this admission?: Yes (10) Pelvic abscess Is this a current diagnosis for this admission?: Yes - Time Time Spent with patient: 25-34 minutes Level of Care: TELE Medications reviewed and adjusted accordingly: Yes Anticipated discharge: Home with Homehealth Anticipated DC Timeframe: within 24 hours - Inpatient Certification Based on my medical assessment, after consideration of the patient's comorbidities, presenting symptoms, or acuity I expect that the services needed warrant INPATIENT care.: Yes I certify that my determination is in accordance with my understanding of Medicare's requirements for reasonable and necessary INPATIENT services [42 CFR 412.3e].: Yes Medical Necessity: Significant Comorbidiites Make Outpatient Treatment Too Risky, Need Close Monitoring Due to Risk of Patient Decompensation, Need For IV Fluids, Need For Continuous Telemetry Monitoring, Risk of Complication if Not Cared For in Hospital, Risk of Diagnosis Which Will Require Inpatient Eval/Care/Monitoring Post Hospital Care: D/C Analytical Tech Documentation - Plan Summary Plan Summary: Continue current medication management. Follow up with d/c systems planner regarding home TPN infusion service initiation.
[2020-10-21] MEDS: ATORVASTATIN CALCIUM 20 MG TABLET PO SCH (22:52)
[2020-10-22] MEDS: ONDANSETRON HCL INJ/PF 4 MG/2 ML SDV IV PRN ×4 (04:27→17:02)
[2020-10-22] MEDS: OXYCODONE HCL IR 5 MG TABLET PO PRN ×4 (04:27→17:02)
[2020-10-22] MEDS: OCTREOTIDE ACETATE INJ/PF 100 MCG/1 ML SDV SUBCUT SCH ×2 (05:14→17:23)
[2020-10-22] MEDS: INSULIN REG, HUMAN 100 UNIT/ML 3 ML VIAL (PYX) SUBCUT SCH ×2 (06:12→13:56)
[2020-10-22] MEDS: FLUCONAZOLE 200 MG/NS RTU 200 MG/100 ML RTUPB IV SCH ×2 (09:01→10:59)
[2020-10-22] MEDS: NORMAL SALINE 10 ML SDV (SCHEDULED) IV SCH (09:01)
[2020-10-22 16:25] VITALS: BP 114/62
--- NOTE | 2020-10-22 21:41 | PDOC DISCHARGE SUMMARY ---
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 She presented with associated tachycardia and her CT abdomen and pelvic revealed worsening pelvic abscess collection. She was seen in consultation by the surgicalist team and had trans vaginal pelvic abscess drainage. She responded to antibiotic and antifungal therapy. She had her tunnel vascular access removed due to her positive blood culture taken from the device. Patient had a new left arm PICC line placed for longstanding TPN support. Her leukocytosis have resolved and she remain a febrile for the last 48 hours. Her enterocutaneous fistula sites and surrounding skin chemical dermatitis due to gastric content skin contact remain a problem. She will be discharged home today with home health agency services and plan to follow up with her surgical team at [facility]. She will follow up in the office as instructed upon discharge. She will be discharged home with mattress overlay to prevent development of pressure ulcers. - Additional Information Resuscitation Status: Full Code Discharge Diet: Other (Comments) - on Home TPN infusion Discharge Activity: Activity As Tolerated Referrals: [facility] [Outside] RILEY VALVERDE MD [Primary Care Provider] - 11/02/20 10:00 am Prescriptions: Sumatriptan Succinate [Imitrex 50 mg Tablet] 50 mg PO Q2HP PRN #14 PRN Reason: For Headache Diphenoxylate HCl/Atrop Sulf [Lomotil 2.5 mg Tablet] 1 tab PO QIDP PRN #60 PRN Reason: FOR DIARRHEA Octreotide Acetate 50 mcg SUBCUT BID 30 Days #60 syr Oxycodone HCl [Oxy-Ir 5 mg Tablet] 5 mg PO Q4HP PRN #60 tablet PRN Reason: Pantoprazole Sodium [Protonix [address] Tablet] 40 mg PO DAILY #30 Ondansetron [Zofran Odt 4 mg Tablet] 4 mg PO Q4HP PRN #30 tab.rapdis PRN Reason: For Nausea/Vomiting Home Medications: Atorvastatin Calcium [Lipitor 20 mg Tablet] 20 mg PO QHS #30 09/24/20 Diphenoxylate HCl/Atrop Sulf [Lomotil 2.5 mg Tablet] 1 tab PO QIDP PRN #60 10/22/20 Octreotide Acetate 50 mcg SUBCUT BID 30 Days #60 syr 10/22/20 Ondansetron [Zofran Odt 4 mg Tablet] 4 mg PO Q4HP PRN #30 tab.rapdis 10/22/20 Oxycodone HCl [Oxy-Ir 5 mg Tablet] 5 mg PO Q4HP PRN #60 tablet 10/22/20 Pantoprazole Sodium [Protonix [address] Tablet] 40 mg PO DAILY #30 10/22/20 Sumatriptan Succinate [Imitrex 50 mg Tablet] 50 mg PO Q2HP PRN #14 10/22/20 History of Present Illiness History of Present Illness: CHARIS KUNZ is a 50 year old female patient known to my practice who presented to the office for transitional follow up visit since her discharged form the hospital on 09/24/2020. She has been on home health agency service with visiting nurse for her enterocutaneous fistulae and colostomy management along with TPN infusion. Her recent CBC with differential revealed worsening leukocytosis with left shift. She was started on Linezolid and Diflucan therapy based on her last admission pelvic abscess culture report but her compliance is in doubt. Upon arrival in the office she was found tachycardia, tachypneic and unable to ascertain her blood pressure. Her CBC with differential continue to show leukocytosis with left shift. There was no bed available for direct admission and she was referred to the ED for further evaluation and management for possible admission. Her initial ED evaluation were in line with the office finding but her CT abdomen/pelvic revealed right lower lung air space disease process. She will be admitted for pneumonia with probable sepsis in view of her associated vitals parameters. Hospital Course Hospital Course: Patient was admitted for failure of outpatient therapy with worsening leukocytosis despite treatment with oral Linozolid and Diflucan for pelvic abscess. She presented with associated tachycardia and her CT abdomen and pelvic revealed worsening pelvic abscess collection. She was seen in consultation by the surgicalist team and had trans vaginal pelvic abscess drainage. She responded to antibiotic and antifungal therapy. She had her tunnel vascular access removed due to her positive blood culture taken from the device. Patient had a new left arm PICC line placed for longstanding TPN support. Her leukocytosis have resolved and she remain a febrile for the last 48 hours. Her enterocutaneous fistula sites and surrounding skin chemical dermatitis due to gastric content skin contact remain a problem. She will be discharged home today with home health agency services and plan to follow up with her surgical team at [facility]. She will follow up in the office as instructed upon discharge. She will be discharged home with mattress overlay to prevent development of pressure ulcers. Physical Exam Vital Signs: Temp Pulse Resp BP Pulse Ox 98.4 F 81 16 118/60 100 10/22/20 11:00 10/22/20 11:00 10/22/20 11:00 10/22/20 11:00 10/22/20 11:00 Intake & Output 10/21/20 10/22/20 10/23/20 06:59 06:59 06:59 Intake Total 360 350 Output Total 310 300 Balance 50 50 Weight 52 kg 52.2 kg General appearance: PRESENT: no acute distress, well-developed, well-nourished Head exam: PRESENT: atraumatic, normocephalic Eye exam: PRESENT: conjunctiva pink. ABSENT: pallor Mouth exam: PRESENT: moist Respiratory exam: PRESENT: clear to auscultation bucky Cardiovascular exam: PRESENT: RRR, +S1, +S2. ABSENT: diastolic murmur, rubs, systolic murmur GI/Abdominal exam: PRESENT: normal bowel sounds, soft, tenderness - around enterocutaneous fistulas sites, other - nonfunctioning colostomy Extremities exam: ABSENT: pedal edema Neurological exam: PRESENT: alert, awake, oriented to person, oriented to place, oriented to time, oriented to situation, CN II-XII grossly intact. ABSENT: motor sensory deficit Psychiatric exam: PRESENT: appropriate affect, normal mood. Skin exam: PRESENT: dry, warm, other - as noted above Results Laboratory Results: WBC 8.1 10^3/uL (4.0-10.5) 10/20/20 08:13 RBC 3.65 10^6/uL (3.72-5.28) L 10/20/20 08:13 Hgb 11.0 g/dL (12.0-15.5) L 10/20/20 08:13 Hct 33.1 % (36.0-47.0) L 10/20/20 08:13 MCV 91 fl (80-97) 10/20/20 08:13 MCH 30.3 pg (27.0-33.4) 10/20/20 08:13 MCHC 33.3 g/dL (32.0-36.0) 10/20/20 08:13 RDW 15.7 % (11.5-14.0) H 10/20/20 08:13 Plt Count 295 10^3/uL (150-450) 10/20/20 08:13 Lymph % (Auto) 28.4 % (13-45) 10/20/20 08:13 Whiteside % (Auto) 7.9 % (3-13) 10/20/20 08:13 Eos % (Auto) 2.8 % (0-6) 10/20/20 08:13 Baso % (Auto) 1.3 % (0-2) 10/20/20 08:13 Absolute Neuts (auto) 4.8 10^3/uL (1.7-8.2) 10/20/20 08:13 Absolute Lymphs (auto) 2.3 10^3/uL (0.5-4.7) 10/20/20 08:13 Absolute Monos (auto) 0.6 10^3/uL (0.1-1.4) 10/20/20 08:13 Absolute Eos (auto) 0.2 10^3/uL (0.0-0.6) 10/20/20 08:13 Absolute Basos (auto) 0.1 10^3/uL (0.0-0.2) 10/20/20 08:13 Total Counted 100 10/07/20 06:18 Seg Neutrophils % 59.6 % (42-78) 10/20/20 08:13 Seg Neuts % (Manual) 83 % (42-78) H 10/07/20 06:18 Lymphocytes % (Manual) 9 % (13-45) L 10/07/20 06:18 Monocytes % (Manual) 8 % (3-13) 10/07/20 06:18 Eosinophils % (Manual) 0 % (0-6) 10/07/20 06:18 Basophils % (Manual) 0 % (0-2) 10/07/20 06:18 Abs Neuts (Manual) 19.1 10^3/uL (1.7-8.2) H 10/07/20 06:18 Abs Lymphs (Manual) 2.1 10^3/uL (0.5-4.7) 10/07/20 06:18 Abs Monocytes (Manual) 1.8 10^3/uL (0.1-1.4) H 10/07/20 06:18 Absolute Eos (Manual) 0.0 10^3/uL (0.0-0.6) 10/07/20 06:18 Abs Basophils (Manual) 0.0 10^3/uL (0.0-0.2) 10/07/20 06:18 Toxic Granulation SLIGHT 10/07/20 06:18 Toxic Vacuolation PRESENT 10/07/20 06:18 Platelet Estimate Cancelled 10/20/20 06:53 Clumped Platelets PRESENT 10/05/20 14:23 Large Platelets PRESENT 10/05/20 14:23 Platelet Comment ADEQUATE 10/07/20 06:18 Polychromasia SLIGHT 10/07/20 06:18 Poikilocytosis 1+ 10/05/20 14:23 Anisocytosis SLIGHT 10/07/20 06:18 Target Cells SLIGHT 10/05/20 14:23 Tear Drop Cells 1+ 10/05/20 14:23 PT 14.5 SEC (11.4-15.4) 10/18/20 05:55 INR 1.11 10/18/20 05:55 Sodium 131.4 mmol/L (137-145) L 10/21/20 05:15 Potassium 5.5 mmol/L (3.6-5.0) H 10/21/20 05:15 Chloride 100 mmol/L (98-107) 10/21/20 05:15 Carbon Dioxide 20 mmol/L (22-30) L 10/21/20 05:15 Anion Gap 11 (5-19) 10/21/20 05:15 BUN 28 mg/dL (7-20) H 10/21/20 05:15 Creatinine 0.76 mg/dL (0.52-1.25) 10/21/20 05:15 Est GFR ( Amer) > 60 (>60) 10/21/20 05:15 Est GFR (Non-Af Amer) Cancelled 10/20/20 06:53 Est GFR (MDRD) Non-Af > 60 (>60) 10/21/20 05:15 Glucose 74 mg/dL (75-110) L 10/21/20 05:15 POC Glucose 118 mg/dL (70-110) H 10/22/20 11:01 Lactic Acid 3.7 mmol/L (0.7-2.1) H 10/05/20 17:41 Calcium 10.9 mg/dL (8.4-10.2) H 10/21/20 05:15 Phosphorus 5.4 mg/dL (2.5-4.5) H 10/21/20 05:15 Magnesium 1.7 mg/dL (1.6-2.3) 10/18/20 05:55 Total Bilirubin 0.4 mg/dL (0.2-1.3) 10/21/20 05:15 Direct Bilirubin 0.1 mg/dL (0.0-0.4) 10/21/20 05:15 Neonat Total Bilirubin Not Reportable 10/21/20 05:15 Neonat Direct Bilirubin Not Reportable 10/21/20 05:15 Neonat Indirect Bili Not Reportable 10/21/20 05:15 AST 27 U/L (14-36) 10/21/20 05:15 ALT 17 U/L (<35) 10/21/20 05:15 Alkaline Phosphatase 108 U/L (38-126) 10/21/20 05:15 Total Protein 9.1 g/dL (6.3-8.2) H 10/21/20 05:15 Albumin 4.1 g/dL (3.5-5.0) 10/21/20 05:15 Prealbumin 39.9 mg/dL (17.6-36.0) H 10/21/20 05:15 Triglycerides 59 mg/dL (<150) 10/19/20 04:30 EGFR Cancelled 10/20/20 06:53 Urine Color YELLOW 10/05/20 18:32 Urine Appearance SLIGHTLY-CLOUDY 10/05/20 18:32 Urine pH 6.0 (5.0-9.0) 10/05/20 18:32 Ur Specific [place]bes 1.018 10/05/20 18:32 Urine Protein 30 mg/dL (NEGATIVE) H 10/05/20 18:32 Urine Glucose (UA) 50 mg/dL (NEGATIVE) H 10/05/20 18:32 Urine Ketones NEGATIVE mg/dL (NEGATIVE) 10/05/20 18:32 Urine Blood SMALL (NEGATIVE) H 10/05/20 18:32 Urine Nitrite NEGATIVE (NEGATIVE) 10/05/20 18:32 Urine Bilirubin NEGATIVE (NEGATIVE) 10/05/20 18:32 Urine Urobilinogen NEGATIVE mg/dL (<2.0) 10/05/20 18:32 Ur Leukocyte Esterase TRACE (NEGATIVE) H 10/05/20 18:32 Urine WBC (Auto) 10 /HPF 10/05/20 18:32 Urine RBC (Auto) 2 /HPF 10/05/20 18:32 U Hyaline Cast (Auto) 1 /LPF 10/05/20 18:32 Urine Bacteria (Auto) TRACE /HPF 10/05/20 18:32 Squamous Epi Cells Auto 1 /HPF 10/05/20 18:32 Urine Mucus (Auto) RARE /LPF 10/05/20 18:32 Urine Ascorbic Acid NEGATIVE (NEGATIVE) 10/05/20 18:32 COVID-19 Source See comment 10/05/20 19:35 COVID-19 (GUMARO) Not Detected (Not Detect) 10/05/20 19:35 Slides for Path Review Cancelled 10/20/20 06:53 Impressions: Chest X-Ray 10/05/20 12:54 IMPRESSION: NO ACUTE RADIOGRAPHIC FINDING IN THE CHEST. Abdomen/Pelvis CT 10/05/20 17:56 IMPRESSION: 1. There is a large well-defined fluid collection also containing air posterior to the urinary bladder suspicious for abscess. The wall is relatively thin not typical of abscess. The findings is in proximity to anastomotic surgery associated with the sigmoid colon. 2. There has been increase in size of a ventral hernia in the upper abdominal wall which now contains distal stomach and left lobe of liver. 2. New postsurgical abnormalities associated with the umbilicus and inferior to the umbilicus. Predominantly soft tissue thickening. Cannot completely exclude a small component of fluid/abscess or phlegmon in that region also. 3. There is a left anterior abdominal wall defect which is questionably an ostomy but obvious bowel is not seen. There are some inflammatory changes in that region. 4. Since previous CT from 11/26/2019, hepatosplenomegaly has increased. Renal size is increased. Rule out renal medical disease. Suggest clinical correlation. 5. Mild to moderate pericardial effusion minimally increased since previous CT. 6. Previous pleural-parenchymal abnormalities improved. However new subtle nodular findings in the right lower lobe possibly infectious. One of the nodular lesions demonstrates a tiny cavitation. Pelvis CT 10/07/20 08:00 IMPRESSION: No residual fluid collection in the pelvis. Large bore drainage catheter remains in place. PICC Line Insertion 10/08/20 00:00 IMPRESSION: SUCCESSFUL PLACEMENT OF A 5 FR DUAL LUMEN 36 cm CM PICC IN THE LEFT BASILIC VEIN. Tunnelled Catheter Removal 10/08/20 00:00 IMPRESSION: Successful tunneled catheter removal as described. Plan Health Concerns: High readmission risk due to recurrent pelvic infection and morbidities. Plan of Treatment: Continue nutritional support with TPN. Emphasized follow up with surgical team for further evaluation of her enterocutaneous fistula and colostomy. Goals: Reduce readmission risk level. Time Spent: Greater than 30 Minutes - I had extensive discussion with patient regarding post acute care paln and need for follow up with her surgical team at [facility]. I will try to engage the surgical team through my office resources. Stroke Is this a Stroke Patient?: No Acute Heart Failure Is this a Heart Failure Patient?: No
== END 2020-10-22 17:24 | disposition home health service (06) | DRG 871 ==
LOC: ER 12:37 → EH 22:13 → OBSVTOIN 10-06 08:25 → 3W 10-06 17:38 → 4S 10-08 02:45
PROVIDERS: ADMIT Internal Medicine Geriatric Medicine; ATTEND Internal Medicine Geriatric Medicine
PROC: 02HV33Z Insertion of Infusion Device into Superior Vena Cava, Percutaneous Approach (ICD-10-PCS; principal; 2020-10-08)
PROC: B518ZZA Fluoroscopy of Superior Vena Cava, Guidance (ICD-10-PCS; 2020-10-08)
PROC: B548ZZA Ultrasonography of Superior Vena Cava, Guidance (ICD-10-PCS; 2020-10-08)
PROC: 3E0436Z Introduction of Nutritional Substance into Central Vein, Percutaneous Approach (ICD-10-PCS; 2020-10-08)
DX: A41.9 Sepsis, unspecified organism (principal); J18.9 Pneumonia, unspecified organism; J96.01 Acute respiratory failure with hypoxia; E46 Unspecified protein-calorie malnutrition; K63.2 Fistula of intestine; K94.03 Colostomy malfunction; R65.20 Severe sepsis without septic shock; Z20.828 Contact with and (suspected) exposure to other viral communicable diseases; E88.09 Other disorders of plasma-protein metabolism, not elsewhere classified; E86.0 Dehydration; E87.6 Hypokalemia; Y83.3 Surgical operation with formation of external stoma as the cause of abnormal reaction of the patient, or of later complication, without mention of misadventure at the time of the procedure; N73.9 Female pelvic inflammatory disease, unspecified; I10 Essential (primary) hypertension; F32.9 Major depressive disorder, single episode, unspecified; B95.2 Enterococcus as the cause of diseases classified elsewhere; E86.1 Hypovolemia; B96.1 Klebsiella pneumoniae [K. pneumoniae] as the cause of diseases classified elsewhere; L24.89 Irritant contact dermatitis due to other agents; I69.90 Unspecified sequelae of unspecified cerebrovascular disease; I95.89 Other hypotension; K43.9 Ventral hernia without obstruction or gangrene; Z87.891 Personal history of nicotine dependence; Z79.899 Other long term (current) drug therapy; Z88.6 Allergy status to analgesic agent; Z88.0 Allergy status to penicillin
CPT/HCPCS: 36415; 36573; 36589; 71046; 72192; 74176; 80053; 81001; 82962; 83605; 83735; 84100; 84132; 84134; 84478; 85025; 85027; 85610; 87040; 87070; 87077; 87150; 87186; 87205; 87635; 93005; 93010; 96365; 99285; C1769; C9113; C9803; J1450; J1642; J1644; J1815; J1956; J2354; J2405; J3480; J3490; J7030; J7042; J7060; Q9967